=== PATIENT | male | born 1965 | race Hispanic/Latino ===

== ENCOUNTER 2017-07-06 11:16 | Inpatient (IN) | payer BC ==
--- NOTE | 2017-07-07 05:29 | R.PREADM ---
SCREENING DATE AND TIME 07/06/2017 14:08 (CDT) ANTICIPATED REHAB ADMISSION DATE 07/08/2017 REFERRING FACILITY [facility] REFERRAL DATE AND TIME 07/06/2017 14:09 (CDT) ACUTE ADMIT DATE 06/25/2017 Previous Rehabilitation(s): No. 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 Andrew Escalona M.D. MR# [id number] NAME CYNTHIA JENESN ADDRESS [address] [place] [address] DATE OF 1965 AGE 52 SSN# [id number] GENDER male MARITAL STATUS RACE ADMIT FROM 02 - [facility] PRE-HOSPITAL LIVING SETTING 01 - Home (private home/apt. board/care, assisted living, detention, transitional living) HOME TYPE AND DETAILS Type of home: single family house # of levels in the residence: 1 # of steps to enter the residence: 0 # of steps within the residence: 0 PRE-HOSPITAL LIVING WITH Family/Relatives FAMILY SUPPORT Yes PRIMARY FAMILY CONTACT NAME Lauren Jensen PRIMARY FAMILY CONTACT PHONE PHONE PRIMARY FAMILY CONTACT ON ADM.? no IS PRIMARY FAMILY CONTACT AUTH. REP.? no 1ST EMERGENCY CONTACT Lauren Jensen 1ST CONTACT PHONE PHONE 1ST CONTACT ON ADM. no IS 1ST CONTACT AUTH. REP.? no PHONE 2ND CONTACT ON ADM.? no PATIENT EMPLOYMENT STATUS Employed House Wirer Helper PAYOR INFORMATION: 1ST PAYOR NAME [employer] 1ST PAYOR ` INJURY/ILLNESS DUE TO ACCIDENT? No ANOTHER GREEN PARTY RESPONSIBLE? 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 COMORBID REHAB/ACUTE DIAGNOSES: - Non-Tiered Type 2 diabetes mellitus [E11] HIV CHRONIC HEPATITIS C FATTY LIVER - N/A hypertension INTERVENTIONS: - Hypertension Fluid management Medications VS - HIV Education Labs Nutrition Precautions Psycho/social RISK FOR COMPLICATIONS: - Hypertension CVA Hypotension VA TIA - HIV Dehydration Infection Malnutrition SUMMARY OF ACUTE HOSPITALIZATION: Pt. is a 52 yo Right-handed male. 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 His impairment category is Neurologic Conditions 03 - Guillain-[place] Syndrome (03.4). Pre-morbidly, Pt. was independent/mod-I in Self-Care, Sphincter Control, Transfers Control, Communica tion, Social Cognition, and Locomotion; and he had good Sphincter Control. Currently, he has deficits of Self-Care, Transfers Control, Communication, Social Cognition, Enduranc e, Balance, Safety Awareness, and Locomotion. Pt. is now referred to [facility] for acute in-patient rehabilitation in order to maximize patient's functional independence in activities of daily living, strength, ROM, and mobi lity. Patient has realistic goal of being discharged at assistance level 6-Dhara to reside at Home with Fam shant/Relatives. PAST MEDICAL HISTORY CHRONIC HEPATITIS C FATTY LIVER HIV Type 2 diabetes mellitus [E11] hypertension MEDICATION ALLERGIES: CODEINE ENVIRONMENTAL ALLERGIES: - Substance Allergies None Known - Other Allergies None Known CODE STATUS: Full code BMI N/A DIET: - Diet Type Regular - Diet - Solid Texture Regular - Diet - Liquid Texture Regular - Tube Feed N/A REVIEW OF SYSTEMS: - Gen Alert and awake Lying in bed No apparent distress Oriented to: person, time, and place - Vital Signs Vital signs stable, afebrile - CVS RRR VITAL SIGNS Temperature: 96.9 F SBP/DBP: 164/85 Pulse: 84 Resp: 20 Vital signs stable, afebrile CURRENT SPHINCTER CONTROL: Pre-hospital bladder status: continent # of bladder accidents in the last 7 days prior to screenin Pre-hospital bowel status: continent # of bowel accidents in the last 7 days prior to screenin Last Bowel Movement Date: 07/06/2017 DETAILED CURRENT FUNCTIONAL STATUS: - Bladder accident frequency: Ind - No accidents in the past 7 days - Bowel accident frequency: Ind - No accidents in the past 7 days - Walking score based on distance walked: 0(N/A) FUNCTIONAL STATUS: - Self-Care A. Eating Ind sup B. Grooming Ind Satinder C. Bathing Ind modA D. Dressing - Upper Ind modA E. Dressing - Lower Ind modA F. Toileting Ind modA - Sphincter Control G: Bladder control Ind Ind H: Bowel control Ind Ind - Transfers Control I. Bed/Chair/Wheelchair Ind modA J. Toilet Ind modA K. Tub/Shower Ind ADNO - Locomotion L. Walk/Wheelchair (B) Ind Dep M. Stairs Ind ADNO - Communication N. Comprehension (B) Ind sup O. Expression (B) Ind sup - Social Cognition P. Social Interaction Ind sup Q. Problem Solving Ind sup R. Memory Ind Dhara - Endurance Poor - Balance Poor - Safety Awareness Poor CURRENT FUNC. DEFICITS: Self-Care, Transfers Control, Communication, Social Cognition, Endurance, Balance, Safety Awareness, and Locomotion THERAPY NOTES FROM ACUTE CARE: Attached. SPECIAL NEEDS: - Safety Concerns Skin breakdown precautions needed due to skin breakdown risk PATIENT NEEDS ACTIVE AND ONGOING THERAPEUTIC INTERVENTION OF MULTIPLE THERAPY DISCIPLINES, INCLUDING: - Occupational Therapy Evaluate and Treat. - Physical Therapy Evaluate and Treat. PATIENT NEEDS CLOSE MEDICAL SUPERVISION BY A REHABILITATION PHYSICIAN FOR: Bowel and Bladder Management Coordination of Treatment Team Diabetes Management Medical and Co-Morbidity Management PATIENT REQUIRES 24X7 REHAB NURSING FOR MEDICAL AND FUNCTIONAL MGT. OF THE FOLLOWING DEFICITS: ADL's Ambulation Bowel and Bladder Management Cognition Communication Disease Management Medication Management Patient/Family Education Providing Safe Environment Transfers PATIENT REQUIRES INTENSIVE, COORDINATED INTERDISCIPLINARY APPROACH TO REHAB: Arranging Home Equipment/Services Discharge Planning Family Intervention/Training Drywall Finisher/Case Management PATIENT REHAB POTENTIAL: Expected level of measurable improvement will be of a practical value to patient's functional capacit y or adaptations to impairments Has a viable Discharge Plan Medically appropriate; condition is sufficiently stable to participate in intensive rehab program Patient is able and expected to receive 3 hours of individualized therapy daily on at least 5 of ever y 7 days Patient's prognosis for significant practical improvement within a reasonable period of time appears Good DISCHARGE PLAN: - Estimated Length of Stay (days) 20. - Consensus on plan Discharge plan has been discussed with primary caregiver. Patient/Family is in agreement with the eri n. Primary caregiver is in agreement with the plan. - Patient/Family Goals Return home with assistance. - Planned Living Setting Upon Discharge Home, to live with Family/Relatives. RECOMMENDED CARE LEVEL: IRF RECOMMENDATION DETAILS: Recommended Admission to Comprehensive Rehabilitation Program to Increase Functional Schley SCREENER'S COMPLETENESS CONFIRMATION: - Screening Confirmation The patient data collection on this preadmission screening form is finished PHYSICIANS REVIEW AND ADMISSION DETERMINATION Admit - Based on my review of the Pre-Admission Screening results, in my medical judgment and experie nce, I concur with the findings and recommend admission to [facility], as this patient requires an IRF level of care. SIGNATURE PANEL: Clinical Liaison - [electronically] signed by Graciela Lozoya on 07/06/2017 at 14:25 (CDT) Clinical Liaison - [electronically] signed by David Hope PT on 07/06/2017 at 14:44 (CDT) Physician Reviewer - [electronically] signed by Dr. Andrew Escalona M.D. on 07/07/2017 at 04:31 (CDT )
--- OUTSIDE RECORDS SUMMARY | 2017-07-10 20:22 | XMS REPORT ---
:1965 [facility] [address] [place] [address] Care Team Providers Name Role Phone Bhupinder COONEYManisha NICOL Unavailable Unavailable Problems This patient has no known problems. Allergies, Adverse Reactions, Alerts This patient has no known allergies or adverse reactions. Medications This patient has no known medications. Results Test Description Test Time Test Comments Text Results Atomic Results Result Comments POCT-GLUCOSE METER 2017-07-10 17:08:00 Test Item Value Reference Range Comments POC-GLUCOSE METER (BEAKER) (test 104 mg/dL 70-[address] [facility] [address] [facility] ojjf=3619) [facility] [address] POCT-GLUCOSE [id number] 11:49:00 Test Item Value Reference Range Comments POC-GLUCOSE METER (BEAKER) 111 mg/dL 70-110 TESTED AT [address] (test dpgq=3506) [facility] [address] CBC W/PLT COUNT & AUTO [id number] 08:14:00 Test Item Value Reference Range Comments WHITE BLOOD CELL COUNT (BEAKER) (test xyjt=095) 4.9 K/ L 3.5-10.5 RED BLOOD CELL COUNT (BEAKER) (test bgij=294) 3.62 M/ L 4.63-6.08 HEMOGLOBIN (BEAKER) (test sviy=246) 10.2 GM/DL 13.7-17.5 HEMATOCRIT (BEAKER) (test chyf=691) 30.4 % 40.1-51.0 MEAN CORPUSCULAR VOLUME (BEAKER) (test omiq=896) 84.0 fL 79.0-92.2 MEAN CORPUSCULAR HEMOGLOBIN (BEAKER) (test 28.2 pg 25.7-32.2 yzge=657) MEAN CORPUSCULAR HEMOGLOBIN CONC (BEAKER) (test 33.6 GM/DL 32.3-36.5 hdvn=350) RED CELL DISTRIBUTION WIDTH (BEAKER) (test 13.7 % 11.6-14.4 dxps=574) PLATELET COUNT (BEAKER) (test pijn=134) 150 K/CU MM 150-450 MEAN PLATELET VOLUME (BEAKER) (test fert=095) 8.8 fL 9.4-12.4 NUCLEATED RED BLOOD CELLS (BEAKER) (test 0 /100 WBC 0-0 fxoc=859) NEUTROPHILS RELATIVE PERCENT (BEAKER) (test 25 % xecx=714) LYMPHOCYTES RELATIVE PERCENT (BEAKER) (test 60 % yqze=562) MONOCYTES RELATIVE PERCENT (BEAKER) (test 9 % xyxy=013) EOSINOPHILS RELATIVE PERCENT (BEAKER) (test 5 % mcls=395) BASOPHILS RELATIVE PERCENT (BEAKER) (test 0 % ydcg=939) NEUTROPHILS ABSOLUTE COUNT (BEAKER) (test 1.21 K/ L 1.78-5.38 fypy=569) LYMPHOCYTES ABSOLUTE COUNT (BEAKER) (test 2.93 K/ L 1.32-3.57 iwba=652) MONOCYTES ABSOLUTE COUNT (BEAKER) (test 0.43 K/ L 0.30-0.82 kuym=402) EOSINOPHILS ABSOLUTE COUNT (BEAKER) (test 0.26 K/ L 0.04-0.54 qcrj=926) BASOPHILS ABSOLUTE COUNT (BEAKER) (test 0.02 K/ L 0.01-0.08 fvsg=701) IMMATURE GRANULOCYTES-RELATIVE PERCENT (BEAKER) 0 % 0-1 (test symo=6131) (MANUAL DIFFERENTIAL)2017-07-10 08:14:00 Test Item Value Reference Range Comments TOTAL COUNTED (BEAKER) (test qlje=3178) POCT-GLUCOSE [id number] 08:09:00 Test Item Value Reference Range Comments POC-GLUCOSE METER (BEAKER) 93 mg/dL 70-110 TESTED AT [address] (test qqcg=7546) [facility] [address] [id number] 06:31:00 Test Item Value Reference Range Comments SODIUM (BEAKER) (test jpdo=956) 131 meq/L 136-145 POCT-GLUCOSE [id number] 22:14:00 Test Item Value Reference Range Comments POC-GLUCOSE METER (BEAKER) 214 mg/dL 70-110 TESTED AT [address] (test ibcq=7310) [place] [address] POCT-GLUCOSE [id number] 22:01:00 Test Item Value Reference Range Comments POC-GLUCOSE METER (BEAKER) 211 mg/dL 70-110 TESTED AT [address] (test noxf=6528) [place] [address] POCT-GLUCOSE [id number] 17:28:00 Test Item Value Reference Range Comments POC-GLUCOSE METER (BEAKER) 259 mg/dL 70-110 TESTED AT [address] (test vebl=0950) [place] [address] POCT-GLUCOSE [id number] 12:35:00 Test Item Value Reference Range Comments POC-GLUCOSE METER (BEAKER) 245 mg/dL 70-110 TESTED AT [address] (test rkrj=5749) [place] [address] [id number] 11:05:00 Test Item Value Reference Range Comments SODIUM (BEAKER) (test iyox=230) 130 meq/L 136-145 POCT-GLUCOSE [id number] 09:39:00 Test Item Value Reference Range Comments POC-GLUCOSE METER (BEAKER) 136 mg/dL 70-110 TESTED AT [address] (test lvgn=4828) [place] [address] CBC W/PLT COUNT & AUTO [id number] 08:35:00 Test Item Value Reference Range Comments WHITE BLOOD CELL COUNT (BEAKER) (test xxgj=709) 5.1 K/ L 3.5-10.5 RED BLOOD CELL COUNT (BEAKER) (test ztoz=991) 3.66 M/ L 4.63-6.08 HEMOGLOBIN (BEAKER) (test ljac=048) 10.2 GM/DL 13.7-17.5 HEMATOCRIT (BEAKER) (test kuwv=343) 31.0 % 40.1-51.0 MEAN CORPUSCULAR VOLUME (BEAKER) (test rklv=500) 84.7 fL 79.0-92.2 MEAN CORPUSCULAR HEMOGLOBIN (BEAKER) (test 27.9 pg 25.7-32.2 mfwg=746) MEAN CORPUSCULAR HEMOGLOBIN CONC (BEAKER) (test 32.9 GM/DL 32.3-36.5 jpzw=269) RED CELL DISTRIBUTION WIDTH (BEAKER) (test 13.8 % 11.6-14.4 yesn=273) PLATELET COUNT (BEAKER) (test aeig=760) 160 K/CU MM 150-450 MEAN PLATELET VOLUME (BEAKER) (test kdxx=792) 9.2 fL 9.4-12.4 NUCLEATED RED BLOOD CELLS (BEAKER) (test 0 /100 WBC 0-0 lrpp=739) NEUTROPHILS RELATIVE PERCENT (BEAKER) (test 27 % fmfj=059) LYMPHOCYTES RELATIVE PERCENT (BEAKER) (test 59 % zatn=750) MONOCYTES RELATIVE PERCENT (BEAKER) (test 9 % ggqq=073) EOSINOPHILS RELATIVE PERCENT (BEAKER) (test 4 % mjqr=229) BASOPHILS RELATIVE PERCENT (BEAKER) (test 0 % ldfb=924) NEUTROPHILS ABSOLUTE COUNT (BEAKER) (test 1.35 K/ L 1.78-5.38 jhgx=999) LYMPHOCYTES ABSOLUTE COUNT (BEAKER) (test 3.02 K/ L 1.32-3.57 eggv=437) MONOCYTES ABSOLUTE COUNT (BEAKER) (test 0.47 K/ L 0.30-0.82 oszv=165) EOSINOPHILS ABSOLUTE COUNT (BEAKER) (test 0.20 K/ L 0.04-0.54 pvsk=130) BASOPHILS ABSOLUTE COUNT (BEAKER) (test 0.02 K/ L 0.01-0.08 pema=878) IMMATURE GRANULOCYTES-RELATIVE PERCENT (BEAKER) 0 % 0-1 (test thof=4575) POCT-GLUCOSE [id number] 22:36:00 Test Item Value Reference Range Comments POC-GLUCOSE METER (BEAKER) 205 mg/dL 70-110 TESTED AT [address] (test xtqu=6363) [place] [id number] POCT-GLUCOSE [id number] 15:56:00 Test Item Value Reference Range Comments POC-GLUCOSE METER (BEAKER) 134 mg/dL 70-110 TESTED AT [address] (test cifb=1448) [facility] [address] CBC W/PLT COUNT & AUTO [id number] 12:33:00 Test Item Value Reference Range Comments WHITE BLOOD CELL COUNT (BEAKER) (test ssom=144) 5.3 K/ L 3.5-10.5 RED BLOOD CELL COUNT (BEAKER) (test xafn=658) 3.73 M/ L 4.63-6.08 HEMOGLOBIN (BEAKER) (test vsoi=699) 10.5 GM/DL 13.7-17.5 HEMATOCRIT (BEAKER) (test uocz=721) 31.7 % 40.1-51.0 MEAN CORPUSCULAR VOLUME (BEAKER) (test qrdn=925) 85.0 fL 79.0-92.2 MEAN CORPUSCULAR HEMOGLOBIN (BEAKER) (test 28.2 pg 25.7-32.2 ebvj=212) MEAN CORPUSCULAR HEMOGLOBIN CONC (BEAKER) (test 33.1 GM/DL 32.3-36.5 oyff=774) RED CELL DISTRIBUTION WIDTH (BEAKER) (test 13.6 % 11.6-14.4 hvoa=774) PLATELET COUNT (BEAKER) (test rapo=295) 162 K/CU MM 150-450 MEAN PLATELET VOLUME (BEAKER) (test qwhw=078) 9.0 fL 9.4-12.4 NUCLEATED RED BLOOD CELLS (BEAKER) (test 0 /100 WBC 0-0 jaxy=037) NEUTROPHILS RELATIVE PERCENT (BEAKER) (test 26 % agth=138) LYMPHOCYTES RELATIVE PERCENT (BEAKER) (test 60 % dpvd=388) MONOCYTES RELATIVE PERCENT (BEAKER) (test 10 % zpjx=249) EOSINOPHILS RELATIVE PERCENT (BEAKER) (test 4 % hhqs=632) BASOPHILS RELATIVE PERCENT (BEAKER) (test 0 % aizb=919) NEUTROPHILS ABSOLUTE COUNT (BEAKER) (test 1.40 K/ L 1.78-5.38 gzbh=310) LYMPHOCYTES ABSOLUTE COUNT (BEAKER) (test 3.19 K/ L 1.32-3.57 xcyq=156) MONOCYTES ABSOLUTE COUNT (BEAKER) (test 0.52 K/ L 0.30-0.82 rfxi=381) EOSINOPHILS ABSOLUTE COUNT (BEAKER) (test 0.20 K/ L 0.04-0.54 bbnb=667) BASOPHILS ABSOLUTE COUNT (BEAKER) (test 0.02 K/ L 0.01-0.08 pwyi=175) IMMATURE GRANULOCYTES-RELATIVE PERCENT (BEAKER) 0 % 0-1 (test nrep=4079) (MANUAL DIFFERENTIAL)2017-07-08 12:33:00 Test Item Value Reference Range Comments TOTAL COUNTED (BEAKER) (test uldq=1214) WBC MORPHOLOGY (BEAKER) (test rqix=346) Normal PLT MORPHOLOGY (BEAKER) (test mzss=112) Normal ANISOCYTOSIS (BEAKER) (test zyyh=294) 1+ few HYPOCHROMIA (BEAKER) (test noqj=723) 1+ few MACROCYTES (BEAKER) (test aoid=317) 1+ few POIKILOCYTES (BEAKER) (test tprs=178) 1+ few POCT-GLUCOSE [id number] 12:28:00 Test Item Value Reference Range Comments POC-GLUCOSE METER (BEAKER) 118 mg/dL 70-110 TESTED AT [address] (test utxk=5253) [place] [address] [id number] 07:55:00 Test Item Value Reference Range Comments MAGNESIUM (BEAKER) (test mqtd=483) 1.8 mg/dL 1.6-2.6 [id number] 07:55:00 Test Item Value Reference Range Comments SODIUM (BEAKER) (test jydu=885) 129 meq/L 136-145 POCT-GLUCOSE [id number] 07:36:00 Test Item Value Reference Range Comments POC-GLUCOSE METER (BEAKER) 106 mg/dL 70-110 TESTED AT [address] (test zhog=5932) [place] [address] POCT-GLUCOSE [id number] 21:13:00 Test Item Value Reference Range Comments POC-GLUCOSE METER (BEAKER) 163 mg/dL 70-110 TESTED AT [address] (test jjah=4336) [place] [address] HIV-1 PCR, [id number] 20:24:00 Test Item Value Reference Range Comments HIV-1 NUMERIC RESULT (BEAKER) (test gzut=5836) [id number] Cp/mL <20 This test uses a Real-Time Polymerase Chain Reaction (RT-PCR) methodology to detect a highly conserved region of the HIV-1 gag gene and was performed using the [employer] AmpliPrep/KELVIN TaqMan HIV-1 test kit version 2.0 ([employer]Reportable range for this assay is 20 - 10,000,000 copies per mL (1.3 - 7.0 Log copies/mL).[id number] 17:25:00 Test Item Value Reference Range Comments SODIUM (BEAKER) (test mmwm=575) 131 meq/L 136-145 POCT-GLUCOSE [id number] 17:17:00 Test Item Value Reference Range Comments POC-GLUCOSE METER (BEAKER) 130 mg/dL 70-[address] [facility] [address] (test tvvz=5789) [facility] [address] CD4 T CELL [id number] 12:38:00 Test Item Value Reference Range Comments CD4/CD8 RATIO FC (BEAKER) (test wkkq=9197) 0.32 0.70-3.23 CBC W/PLT COUNT & AUTO [id number] 12:02:00 Test Item Value Reference Range Comments WHITE BLOOD CELL COUNT (BEAKER) (test pkqu=179) 5.0 K/ L 3.5-10.5 RED BLOOD CELL COUNT (BEAKER) (test wtgu=727) 3.87 M/ L 4.63-6.08 HEMOGLOBIN (BEAKER) (test mfpr=252) 10.8 GM/DL 13.7-17.5 HEMATOCRIT (BEAKER) (test bdtf=007) 32.9 % 40.1-51.0 MEAN CORPUSCULAR VOLUME (BEAKER) (test qwwq=579) 85.0 fL 79.0-92.2 MEAN CORPUSCULAR HEMOGLOBIN (BEAKER) (test 27.9 pg 25.7-32.2 djom=444) MEAN CORPUSCULAR HEMOGLOBIN CONC (BEAKER) (test 32.8 GM/DL 32.3-36.5 crac=246) RED CELL DISTRIBUTION WIDTH (BEAKER) (test 13.7 % 11.6-14.4 shxg=969) PLATELET COUNT (BEAKER) (test vovt=356) 164 K/CU MM 150-450 MEAN PLATELET VOLUME (BEAKER) (test bfux=197) 8.5 fL 9.4-12.4 NUCLEATED RED BLOOD CELLS (BEAKER) (test 0 /100 WBC 0-0 nnbd=206) NEUTROPHILS RELATIVE PERCENT (BEAKER) (test 23 % njkh=831) LYMPHOCYTES RELATIVE PERCENT (BEAKER) (test 62 % gehu=060) MONOCYTES RELATIVE PERCENT (BEAKER) (test 11 % fkvy=551) EOSINOPHILS RELATIVE PERCENT (BEAKER) (test 4 % ebpb=120) BASOPHILS RELATIVE PERCENT (BEAKER) (test 1 % lspb=809) NEUTROPHILS ABSOLUTE COUNT (BEAKER) (test 1.16 K/ L 1.78-5.38 jvje=899) LYMPHOCYTES ABSOLUTE COUNT (BEAKER) (test 3.10 K/ L 1.32-3.57 qfad=512) MONOCYTES ABSOLUTE COUNT (BEAKER) (test 0.53 K/ L 0.30-0.82 qvce=006) EOSINOPHILS ABSOLUTE COUNT (BEAKER) (test 0.18 K/ L 0.04-0.54 wfha=175) BASOPHILS ABSOLUTE COUNT (BEAKER) (test 0.04 K/ L 0.01-0.08 wvvw=732) IMMATURE GRANULOCYTES-RELATIVE PERCENT (BEAKER) 1 % 0-1 (test nlle=7244) (MANUAL DIFFERENTIAL)2017-07-07 12:02:00 Test Item Value Reference Range Comments TOTAL COUNTED (BEAKER) (test gjwq=8212) POCT-GLUCOSE [id number] 11:50:00 Test Item Value Reference Range Comments POC-GLUCOSE METER (BEAKER) 89 mg/dL 70-110 TESTED AT [address] (test qisb=6791) [place] [id number] POCT-GLUCOSE [id number] 07:42:00 Test Item Value Reference Range Comments POC-GLUCOSE METER (BEAKER) 71 mg/dL 70-110 TESTED AT [address] (test zzmq=1387) [place] [address] [id number] 07:41:00 Test Item Value Reference Range Comments PHOSPHORUS (BEAKER) (test lvdy=677) 4.0 mg/dL 2.3-4.7 [id number] 07:41:00 Test Item Value Reference Range Comments MAGNESIUM (BEAKER) (test ubrn=807) 1.7 mg/dL 1.6-2.6 [id number] 07:41:00 Test Item Value Reference Range Comments SODIUM (BEAKER) (test qtuw=378) 129 meq/L 136-145 BASIC METABOLIC [id number] 07:41:00 Test Item Value Reference Range Comments SODIUM (BEAKER) (test 129 meq/L 136-145 whxu=266) POTASSIUM (BEAKER) (test 4.7 meq/L 3.5-5.1 olqo=275) CHLORIDE (BEAKER) (test 100 meq/L 98-107 uyua=711) CO2 (BEAKER) (test 24 meq/L 22-29 atsa=502) BLOOD UREA NITROGEN 14 mg/dL 7-21 (BEAKER) (test wuxj=573) CREATININE (BEAKER) (test 0.65 mg/dL 0.57-1.25 kfku=371) GLUCOSE RANDOM (BEAKER) 79 mg/dL 70-105 (test okpb=116) CALCIUM (BEAKER) (test 8.6 mg/dL 8.4-10.2 kyhb=403) EGFR (BEAKER) (test 129 mL/min/1.73 sq m ESTIMATED GFR IS NOT kqmm=5193) ACCURATE CREATININE CLEARANCE IN PREDICTING GLOMERULAR FILTRATION RATE. ESTIMATED GFR IS NOT APPLICABLE FOR DIALYSIS PATIENTS. CALCIUM, [id number] 06:54:00 Test Item Value Reference Range Comments CALCIUM IONIZED (BEAKER) (test ojud=744) 1.03 mmol/L 1.12-1.27 PH, BLOOD (BEAKER) (test mxfk=7101) 7.50 POCT-GLUCOSE [id number] 23:59:00 Test Item Value Reference Range Comments POC-GLUCOSE METER (BEAKER) 188 mg/dL 70-110 TESTED AT [address] (test tckr=9668) [place] [id number] POCT-GLUCOSE [id number] 18:08:00 Test Item Value Reference Range Comments POC-GLUCOSE METER (BEAKER) 199 mg/dL 70-110 TESTED AT [address] (test qihj=0872) [place] [id number] BASIC METABOLIC [id number] 17:27:00 Test Item Value Reference Range Comments SODIUM (BEAKER) (test 130 meq/L 136-145 xfio=793) POTASSIUM (BEAKER) (test 4.3 meq/L 3.5-5.1 wfbl=224) CHLORIDE (BEAKER) (test 99 meq/L 98-107 hrfs=886) CO2 (BEAKER) (test 26 meq/L 22-29 cmwn=539) BLOOD UREA NITROGEN 14 mg/dL 7-21 (BEAKER) (test joqo=878) CREATININE (BEAKER) (test 0.69 mg/dL 0.57-1.25 wduy=225) GLUCOSE RANDOM (BEAKER) 163 mg/dL 70-105 (test latp=496) CALCIUM (BEAKER) (test 8.5 mg/dL 8.4-10.2 cjfd=517) EGFR (BEAKER) (test 120 mL/min/1.73 sq m ESTIMATED GFR IS NOT jtkl=8752) ACCURATE CREATININE CLEARANCE IN PREDICTING GLOMERULAR FILTRATION RATE. ESTIMATED GFR IS NOT APPLICABLE FOR DIALYSIS PATIENTS. Call [id number] T CELL [id number] 14:52:00 Test Item Value Reference Range Comments CD4/CD8 RATIO FC (BEAKER) (test evfq=0798) 0.33 0.70-3.23 POCT-GLUCOSE [id number] 11:17:00 Test Item Value Reference Range Comments POC-GLUCOSE METER (BEAKER) 116 mg/dL 70-[address] [facility] [address] [facility] (test ujne=4994) [facility] [address] CBC W/PLT COUNT & AUTO [id number] 09:40:00 Test Item Value Reference Range Comments WHITE BLOOD CELL COUNT (BEAKER) (test lyuf=636) 4.5 K/ L 3.5-10.5 RED BLOOD CELL COUNT (BEAKER) (test yzie=780) 3.71 M/ L 4.63-6.08 HEMOGLOBIN (BEAKER) (test weqw=567) 10.4 GM/DL 13.7-17.5 HEMATOCRIT (BEAKER) (test guxp=099) 31.1 % 40.1-51.0 MEAN CORPUSCULAR VOLUME (BEAKER) (test dcom=894) 83.8 fL 79.0-92.2 MEAN CORPUSCULAR HEMOGLOBIN (BEAKER) (test 28.0 pg 25.7-32.2 pdwx=546) MEAN CORPUSCULAR HEMOGLOBIN CONC (BEAKER) (test 33.4 GM/DL 32.3-36.5 wkmr=449) RED CELL DISTRIBUTION WIDTH (BEAKER) (test 13.6 % 11.6-14.4 mzot=355) PLATELET COUNT (BEAKER) (test aqdj=238) 160 K/CU MM 150-450 MEAN PLATELET VOLUME (BEAKER) (test ytmf=069) 8.1 fL 9.4-12.4 NUCLEATED RED BLOOD CELLS (BEAKER) (test 0 /100 WBC 0-0 lyqq=311) NEUTROPHILS RELATIVE PERCENT (BEAKER) (test 20 % uzjq=568) LYMPHOCYTES RELATIVE PERCENT (BEAKER) (test 65 % qjhh=584) MONOCYTES RELATIVE PERCENT (BEAKER) (test 12 % pakq=508) EOSINOPHILS RELATIVE PERCENT (BEAKER) (test 2 % mrik=086) BASOPHILS RELATIVE PERCENT (BEAKER) (test 0 % fozg=893) NEUTROPHILS ABSOLUTE COUNT (BEAKER) (test 0.90 K/ L 1.78-5.38 hyra=606) LYMPHOCYTES ABSOLUTE COUNT (BEAKER) (test 2.89 K/ L 1.32-3.57 urja=668) MONOCYTES ABSOLUTE COUNT (BEAKER) (test 0.55 K/ L 0.30-0.82 jsxe=640) EOSINOPHILS ABSOLUTE COUNT (BEAKER) (test 0.10 K/ L 0.04-0.54 cnwg=348) BASOPHILS ABSOLUTE COUNT (BEAKER) (test 0.02 K/ L 0.01-0.08 mpwl=157) IMMATURE GRANULOCYTES-RELATIVE PERCENT (BEAKER) 0 % 0-1 (test qerz=9958) (MANUAL DIFFERENTIAL)2017-07-06 09:40:00 Test Item Value Reference Range Comments TOTAL COUNTED (BEAKER) (test lliy=6119) PLT MORPHOLOGY (BEAKER) (test dwpz=998) Normal RBC MORPHOLOGY (BEAKER) (test siii=959) Normal ATYPICAL LYMPHS(BEAKER) (test sqpb=7202) Present POCT-GLUCOSE [id number] 09:04:00 Test Item Value Reference Range Comments POC-GLUCOSE METER (BEAKER) 92 mg/dL 70-[address] [facility] [address] [facility] (test ofai=1054) [facility] [address] CALCIUM, [id number] 08:22:00 Test Item Value Reference Range Comments CALCIUM IONIZED (BEAKER) (test ebvr=289) 0.93 mmol/L 1.12-1.27 PH, BLOOD (BEAKER) (test kohx=4958) 7.50 [id number] 06:47:00 Test Item Value Reference Range Comments PHOSPHORUS (BEAKER) (test ycwy=533) 3.8 mg/dL 2.3-4.7 [id number] 06:47:00 Test Item Value Reference Range Comments MAGNESIUM (BEAKER) (test dzdl=465) 1.9 mg/dL 1.6-2.6 [id number] 06:47:00 Test Item Value Reference Range Comments SODIUM (BEAKER) (test amip=718) 121 meq/L 136-145 POCT-GLUCOSE [id number] 21:32:00 Test Item Value Reference Range Comments POC-GLUCOSE METER (BEAKER) 210 mg/dL 70-110 TESTED AT [address] (test bwuz=8541) [place] [address] POCT-GLUCOSE [id number] 18:18:00 Test Item Value Reference Range Comments POC-GLUCOSE METER (BEAKER) 204 mg/dL 70-110 TESTED AT [address] (test xgtz=9515) [place] [address] [id number] 16:54:00 Test Item Value Reference Range Comments SODIUM (BEAKER) (test vzdc=362) 126 meq/L 136-145 POCT-GLUCOSE [id number] 11:39:00 Test Item Value Reference Range Comments POC-GLUCOSE METER (BEAKER) 73 mg/dL 70-110 TESTED AT [address] (test lgtd=3051) [place] [address] TOXOPLASMA GONDII ANTIBODY, [id number] 10:36:00 Test Item Value Reference Range Comments TOXOPLASMA GONDII IGG (BEAKER) (test egqr=951) Positive RICKETTSIA AB PANEL WITH REFLEX TO [id number] 08:58:00 Test Item Value Reference Range Comments SCAN RESULT (test zlgh=[id number]) POCT-GLUCOSE [id number] 08:25:00 Test Item Value Reference Range Comments POC-GLUCOSE METER (BEAKER) 80 mg/dL 70-110 TESTED AT [address] (test fshc=7727) [place] [address] CBC W/PLT COUNT & AUTO [id number] 07:42:00 Test Item Value Reference Range Comments WHITE BLOOD CELL COUNT (BEAKER) (test tsws=493) 4.9 K/ L 3.5-10.5 RED BLOOD CELL COUNT (BEAKER) (test njxp=484) 3.82 M/ L 4.63-6.08 HEMOGLOBIN (BEAKER) (test wwza=550) 10.6 GM/DL 13.7-17.5 HEMATOCRIT (BEAKER) (test nojp=953) 32.0 % 40.1-51.0 MEAN CORPUSCULAR VOLUME (BEAKER) (test fpqn=187) 83.8 fL 79.0-92.2 MEAN CORPUSCULAR HEMOGLOBIN (BEAKER) (test 27.7 pg 25.7-32.2 wvme=679) MEAN CORPUSCULAR HEMOGLOBIN CONC (BEAKER) (test 33.1 GM/DL 32.3-36.5 dhwz=788) RED CELL DISTRIBUTION WIDTH (BEAKER) (test 13.4 % 11.6-14.4 sodb=329) PLATELET COUNT (BEAKER) (test cnyx=248) 168 K/CU MM 150-450 MEAN PLATELET VOLUME (BEAKER) (test rdkc=491) 8.3 fL 9.4-12.4 NUCLEATED RED BLOOD CELLS (BEAKER) (test 0 /100 WBC 0-0 bpfa=259) IMMATURE GRANULOCYTES-RELATIVE PERCENT (BEAKER) 0 % 0-1 (test jzcs=8351) (MANUAL DIFFERENTIAL)2017-07-05 07:42:00 Test Item Value Reference Range Comments NEUTROPHILS - REL (DIFF) (BEAKER) (test ancj=7315) 20 % LYMPHOCYTES - REL (DIFF) (BEAKER) (test amhq=6243) 63 % MONOCYTES - REL (DIFF) (BEAKER) (test qamv=5695) 13 % EOSINOPHILS - REL (DIFF) (BEAKER) (test lwmi=9284) 0 % BASOPHILS - REL (DIFF) (BEAKER) (test esux=1245) 0 % BANDS - REL (DIFF) (BEAKER) (test jayf=0506) 4 % 0-10 NEUTROPHILS - ABS (DIFF) (BEAKER) (test hbsx=6965) 0.98 K/ L 1.80-8.00 LYMPHOCYTES - ABS (DIFF) (BEAKER) (test nyod=2660) 3.09 K/ L 1.48-4.50 MONOCYTES - ABS (DIFF) (BEAKER) (test uqex=5808) 0.64 K/ L 0.00-1.30 EOSINOPHILS - ABS (DIFF) (BEAKER) (test glbm=4636) 0.00 K/ L 0.00-0.50 BASOPHILS - ABS (DIFF) (BEAKER) (test nofw=8764) 0.00 K/ L 0.00-0.20 BANDS-ABS (DIFF) (BEAKER) (test gllp=2222) 0.2 K/ L 0.0-0.8 TOTAL COUNTED (BEAKER) (test onxg=2541) 100 BANDS + SEGMENTED NEUTROPHILS (BEAKER) (test 1.18 eqbq=2820) WBC MORPHOLOGY (BEAKER) (test dahb=594) Normal PLT MORPHOLOGY (BEAKER) (test glop=194) Normal RBC MORPHOLOGY (BEAKER) (test wfet=233) Normal CALCIUM, [id number] 07:36:00 Test Item Value Reference Range Comments CALCIUM IONIZED (BEAKER) (test hqvt=789) 1.08 mmol/L 1.12-1.27 PH, BLOOD (BEAKER) (test gacx=8408) 7.46 [id number] 04:57:00 Test Item Value Reference Range Comments PHOSPHORUS (BEAKER) (test bvpu=316) 4.0 mg/dL 2.3-4.7 [id number] 04:57:00 Test Item Value Reference Range Comments MAGNESIUM (BEAKER) (test bufg=877) 1.7 mg/dL 1.6-2.6 [id number] 04:57:00 Test Item Value Reference Range Comments SODIUM (BEAKER) (test weco=887) 130 meq/L 136-145 BASIC METABOLIC [id number] 04:57:00 Test Item Value Reference Range Comments SODIUM (BEAKER) (test 130 meq/L 136-145 bzqf=141) POTASSIUM (BEAKER) (test 4.4 meq/L 3.5-5.1 ofxn=846) CHLORIDE (BEAKER) (test 99 meq/L 98-107 okpa=522) CO2 (BEAKER) (test 26 meq/L 22-29 ptyw=453) BLOOD UREA NITROGEN 14 mg/dL 7-21 (BEAKER) (test kkvo=645) CREATININE (BEAKER) (test 0.63 mg/dL 0.57-1.25 gkys=005) GLUCOSE RANDOM (BEAKER) 136 mg/dL 70-105 (test ajff=172) CALCIUM (BEAKER) (test 8.6 mg/dL 8.4-10.2 ufzm=442) EGFR (BEAKER) (test 133 mL/min/1.73 sq m ESTIMATED GFR IS NOT gndp=3183) ACCURATE CREATININE CLEARANCE IN PREDICTING GLOMERULAR FILTRATION RATE. ESTIMATED GFR IS NOT APPLICABLE FOR DIALYSIS PATIENTS. [id number] 21:46:00 Test Item Value Reference Range Comments SODIUM (BEAKER) (test tppq=103) 129 meq/L 136-145 POTASSIUM (BEAKER) (test gdjp=875) 4.6 meq/L 3.5-5.1 CHLORIDE (BEAKER) (test oljz=121) 97 meq/L 98-107 CO2 (BEAKER) (test amao=624) 25 meq/L 22-29 Call results [id number] 21:37:00 Test Item Value Reference Range Comments POC-GLUCOSE METER (BEAKER) 143 mg/dL 70-110 TESTED AT [address] (test dvng=0109) [place] [address] [id number] 17:59:00 Test Item Value Reference Range Comments SODIUM (BEAKER) (test clgo=126) 123 meq/L 136-145 POCT-GLUCOSE [id number] 16:50:00 Test Item Value Reference Range Comments POC-GLUCOSE METER (BEAKER) 141 mg/dL 70-110 TESTED AT [address] (test pihn=5772) [place] [id number] POCT-GLUCOSE [id number] 12:01:00 Test Item Value Reference Range Comments POC-GLUCOSE METER (BEAKER) 90 mg/dL 70-110 TESTED AT [address] (test bmha=0068) [place] [id number] POCT-GLUCOSE [id number] 08:25:00 Test Item Value Reference Range Comments POC-GLUCOSE METER (BEAKER) 81 mg/dL 70-110 TESTED AT [address] (test wexq=0873) [place] [id number] CBC W/PLT COUNT & AUTO [id number] 07:20:00 Test Item Value Reference Range Comments WHITE BLOOD CELL COUNT (BEAKER) (test zqva=286) 4.5 K/ L 3.5-10.5 RED BLOOD CELL COUNT (BEAKER) (test xvhy=651) 3.62 M/ L 4.63-6.08 HEMOGLOBIN (BEAKER) (test ynyr=982) 10.3 GM/DL 13.7-17.5 HEMATOCRIT (BEAKER) (test pgjg=150) 30.5 % 40.1-51.0 MEAN CORPUSCULAR VOLUME (BEAKER) (test qoll=497) 84.3 fL 79.0-92.2 MEAN CORPUSCULAR HEMOGLOBIN (BEAKER) (test 28.5 pg 25.7-32.2 xfpe=897) MEAN CORPUSCULAR HEMOGLOBIN CONC (BEAKER) (test 33.8 GM/DL 32.3-36.5 geto=262) RED CELL DISTRIBUTION WIDTH (BEAKER) (test 13.4 % 11.6-14.4 ozae=041) PLATELET COUNT (BEAKER) (test ukpd=372) 186 K/CU MM 150-450 MEAN PLATELET VOLUME (BEAKER) (test ysoe=459) 8.2 fL 9.4-12.4 NUCLEATED RED BLOOD CELLS (BEAKER) (test 0 /100 WBC 0-0 uliq=618) IMMATURE GRANULOCYTES-RELATIVE PERCENT (BEAKER) 0 % 0-1 (test zotl=5788) (MANUAL DIFFERENTIAL)2017-07-04 07:20:00 Test Item Value Reference Range Comments NEUTROPHILS - REL (DIFF) (BEAKER) (test twpn=4935) 21 % LYMPHOCYTES - REL (DIFF) (BEAKER) (test zgzt=3899) 55 % MONOCYTES - REL (DIFF) (BEAKER) (test jkab=0959) 13 % ATYPICAL LYMPHOCYTE - REL (DIFF) (BEAKER) (test 11 % 0-0 bzyt=507) NEUTROPHILS - ABS (DIFF) (BEAKER) (test wsuc=3466) 0.95 K/ L 1.80-8.00 LYMPHOCYTES - ABS (DIFF) (BEAKER) (test fafd=8165) 2.48 K/ L 1.48-4.50 MONOCYTES - ABS (DIFF) (BEAKER) (test pgjr=8945) 0.59 K/ L 0.00-1.30 ATYPICAL LYMPHOCYTES - ABS (DIFF) (BEAKER) (test 0.50 K/ L 0.00-0.00 ynqf=891) TOTAL COUNTED (BEAKER) (test mweg=7296) 100 WBC MORPHOLOGY (BEAKER) (test qhyo=131) Normal PLT MORPHOLOGY (BEAKER) (test ksxe=973) Normal RBC MORPHOLOGY (BEAKER) (test zsbe=463) Normal OSMOLALITY, [id number] 05:20:00 Test Item Value Reference Range Comments OSMOLALITY, SERUM (BEAKER) (test cxbj=699) 278 mOsm/kg 275-295 CALCIUM, [id number] 03:37:00 Test Item Value Reference Range Comments CALCIUM IONIZED (BEAKER) (test hmhv=913) 1.07 mmol/L 1.12-1.27 PH, BLOOD (BEAKER) (test zkag=1378) 7.46 [id number] 03:36:00 Test Item Value Reference Range Comments PHOSPHORUS (BEAKER) (test ucha=380) 4.5 mg/dL 2.3-4.7 [id number] 03:36:00 Test Item Value Reference Range Comments MAGNESIUM (BEAKER) (test xjjw=099) 1.4 mg/dL 1.6-2.6 BASIC METABOLIC [id number] 03:36:00 Test Item Value Reference Range Comments SODIUM (BEAKER) (test 127 meq/L 136-145 fmfo=744) POTASSIUM (BEAKER) (test 4.4 meq/L 3.5-5.1 dbnw=647) CHLORIDE (BEAKER) (test 96 meq/L 98-107 mhoi=361) CO2 (BEAKER) (test 26 meq/L 22-29 jdda=569) BLOOD UREA NITROGEN 13 mg/dL 7-21 (BEAKER) (test czka=323) CREATININE (BEAKER) (test 0.62 mg/dL 0.57-1.25 mtiu=266) GLUCOSE RANDOM (BEAKER) 97 mg/dL 70-105 (test ciyy=343) CALCIUM (BEAKER) (test 8.5 mg/dL 8.4-10.2 teuj=632) EGFR (BEAKER) (test 136 mL/min/1.73 sq m ESTIMATED GFR IS NOT vmqs=0132) ACCURATE CREATININE CLEARANCE IN PREDICTING GLOMERULAR FILTRATION RATE. ESTIMATED GFR IS NOT APPLICABLE FOR DIALYSIS PATIENTS. OSMOLALITY, [id number] 01:18:00 Test Item Value Reference Range Comments OSMOLALITY URINE (BEAKER) (test wcyz=943) 447 mOsm/kg 40-1400 SODIUM, RANDOM [id number] 01:13:00 Test Item Value Reference Range Comments SODIUM URINE (BEAKER) (test vqfh=559) 101 meq/L Reference Range: No NormalsPOCT-GLUCOSE [id number] 22:24:00 Test Item Value Reference Range Comments POC-GLUCOSE METER (BEAKER) 214 mg/dL 70-[address] [facility] [address] [facility] (test ehks=1138) [facility] [address] POCT-GLUCOSE [id number] 18:10:00 Test Item Value Reference Range Comments POC-GLUCOSE METER (BEAKER) 243 mg/dL 70-[address] [facility] [address] [facility] (test qewf=7611) [facility] [address] CBC W/PLT COUNT & AUTO [id number] 14:59:00 Test Item Value Reference Range Comments WHITE BLOOD CELL COUNT (BEAKER) (test tqcd=612) 4.3 K/ L 3.5-10.5 RED BLOOD CELL COUNT (BEAKER) (test lthh=725) 3.85 M/ L 4.63-6.08 HEMOGLOBIN (BEAKER) (test lxkk=702) 10.7 GM/DL 13.7-17.5 HEMATOCRIT (BEAKER) (test viul=728) 32.6 % 40.1-51.0 MEAN CORPUSCULAR VOLUME (BEAKER) (test lhwr=947) 84.7 fL 79.0-92.2 MEAN CORPUSCULAR HEMOGLOBIN (BEAKER) (test 27.8 pg 25.7-32.2 bdml=256) MEAN CORPUSCULAR HEMOGLOBIN CONC (BEAKER) (test 32.8 GM/DL 32.3-36.5 vkuj=936) RED CELL DISTRIBUTION WIDTH (BEAKER) (test 13.3 % 11.6-14.4 edbf=426) PLATELET COUNT (BEAKER) (test fsqg=191) 192 K/CU MM 150-450 MEAN PLATELET VOLUME (BEAKER) (test ftkq=902) 8.2 fL 9.4-12.4 NUCLEATED RED BLOOD CELLS (BEAKER) (test 0 /100 WBC 0-0 aoat=366) IMMATURE GRANULOCYTES-RELATIVE PERCENT (BEAKER) 0 % 0-1 (test jcqa=8074) (MANUAL DIFFERENTIAL)2017-07-03 14:59:00 Test Item Value Reference Range Comments NEUTROPHILS - REL (DIFF) (BEAKER) (test nhsy=2909) 42 % LYMPHOCYTES - REL (DIFF) (BEAKER) (test totn=7102) 32 % MONOCYTES - REL (DIFF) (BEAKER) (test bvob=2319) 18 % EOSINOPHILS - REL (DIFF) (BEAKER) (test mavq=5023) 4 % BANDS - REL (DIFF) (BEAKER) (test vmes=3388) 1 % 0-10 ATYPICAL LYMPHOCYTE - REL (DIFF) (BEAKER) (test 3 % 0-0 pebw=649) NEUTROPHILS - ABS (DIFF) (BEAKER) (test lnnv=8377) 1.81 K/ L 1.80-8.00 LYMPHOCYTES - ABS (DIFF) (BEAKER) (test pnbx=8879) 1.38 K/ L 1.48-4.50 MONOCYTES - ABS (DIFF) (BEAKER) (test qupk=7782) 0.77 K/ L 0.00-1.30 EOSINOPHILS - ABS (DIFF) (BEAKER) (test dulv=1051) 0.17 K/ L 0.00-0.50 BANDS-ABS (DIFF) (BEAKER) (test qmyv=6802) 0.0 K/ L 0.0-0.8 ATYPICAL LYMPHOCYTES - ABS (DIFF) (BEAKER) (test 0.13 K/ L 0.00-0.00 ceil=496) TOTAL COUNTED (BEAKER) (test jfjf=8433) 100 BANDS + SEGMENTED NEUTROPHILS (BEAKER) (test 1.85 nzoq=0539) PLT MORPHOLOGY (BEAKER) (test kkxz=362) Normal SMUDGE CELLS (BEAKER) (test qauw=3694) Present SPHEROCYTES (BEAKER) (test wned=331) 1+ few BASIC METABOLIC [id number] 12:46:00 Test Item Value Reference Range Comments SODIUM (BEAKER) (test 127 meq/L 136-145 socn=545) POTASSIUM (BEAKER) (test 4.2 meq/L 3.5-5.1 lkkg=225) CHLORIDE (BEAKER) (test 95 meq/L 98-107 aaxo=720) CO2 (BEAKER) (test 26 meq/L 22-29 rzcs=536) BLOOD UREA NITROGEN 10 mg/dL 7-21 (BEAKER) (test zgvw=457) CREATININE (BEAKER) (test 0.58 mg/dL 0.57-1.25 iujb=164) GLUCOSE RANDOM (BEAKER) 92 mg/dL 70-105 (test knhe=404) CALCIUM (BEAKER) (test 8.3 mg/dL 8.4-10.2 zngb=644) EGFR (BEAKER) (test 147 mL/min/1.73 sq m ESTIMATED GFR IS NOT mbyi=3569) ACCURATE CREATININE CLEARANCE IN PREDICTING GLOMERULAR FILTRATION RATE. ESTIMATED GFR IS NOT APPLICABLE FOR DIALYSIS PATIENTS. POCT-GLUCOSE [id number] 12:10:00 Test Item Value Reference Range Comments POC-GLUCOSE METER (BEAKER) 164 mg/dL 70-110 TESTED AT [address] (test sjcr=9372) [place] [address] CALCIUM, [id number] 10:14:00 Test Item Value Reference Range Comments CALCIUM IONIZED (BEAKER) (test nzmd=587) 1.07 mmol/L 1.12-1.27 PH, BLOOD (AKER) (test aosn=6315) 7.46 POCT-GLUCOSE [id number] 07:48:00 Test Item Value Reference Range Comments POC-GLUCOSE METER (BEAKER) 89 mg/dL 70-110 TESTED AT [address] (test qvbg=0798) [place] [address] POCT-GLUCOSE [id number] 21:34:00 Test Item Value Reference Range Comments POC-GLUCOSE METER (BEAKER) 175 mg/dL 70-110 TESTED AT [address] (test dfpy=7627) [place] [address] [id number] 18:01:00 Test Item Value Reference Range Comments SODIUM (BEAKER) (test vohz=256) 128 meq/L 136-145 POCT-GLUCOSE [id number] 17:58:00 Test Item Value Reference Range Comments POC-GLUCOSE METER (BEAKER) 143 mg/dL 70-110 TESTED AT [address] (test jehd=0217) [place] [address] POCT-GLUCOSE [id number] 12:09:00 Test Item Value Reference Range Comments POC-GLUCOSE METER (BEAKER) 178 mg/dL 70-110 TESTED AT [address] (test qtoq=2706) [place] [address] CBC W/PLT COUNT & AUTO [id number] 11:33:00 Test Item Value Reference Range Comments WHITE BLOOD CELL COUNT (BEAKER) (test yjfj=592) 3.6 K/ L 3.5-10.5 RED BLOOD CELL COUNT (BEAKER) (test dkba=967) 3.57 M/ L 4.63-6.08 HEMOGLOBIN (BEAKER) (test mbpd=944) 9.9 GM/DL 13.7-17.5 HEMATOCRIT (BEAKER) (test avas=143) 30.5 % 40.1-51.0 MEAN CORPUSCULAR VOLUME (BEAKER) (test xjmp=956) 85.4 fL 79.0-92.2 MEAN CORPUSCULAR HEMOGLOBIN (BEAKER) (test 27.7 pg 25.7-32.2 qttv=724) MEAN CORPUSCULAR HEMOGLOBIN CONC (BEAKER) (test 32.5 GM/DL 32.3-36.5 kwht=182) RED CELL DISTRIBUTION WIDTH (BEAKER) (test 13.5 % 11.6-14.4 fqjx=845) PLATELET COUNT (BEAKER) (test xnlb=326) 184 K/CU MM 150-450 MEAN PLATELET VOLUME (BEAKER) (test nbfk=021) 8.4 fL 9.4-12.4 NUCLEATED RED BLOOD CELLS (BEAKER) (test 0 /100 WBC 0-0 ylve=520) NEUTROPHILS RELATIVE PERCENT (BEAKER) (test 17 % plif=970) LYMPHOCYTES RELATIVE PERCENT (BEAKER) (test 65 % ylgc=695) MONOCYTES RELATIVE PERCENT (BEAKER) (test 15 % jhyd=262) EOSINOPHILS RELATIVE PERCENT (BEAKER) (test 3 % ppvx=301) BASOPHILS RELATIVE PERCENT (BEAKER) (test 0 % ouxl=915) NEUTROPHILS ABSOLUTE COUNT (BEAKER) (test 0.61 K/ L 1.78-5.38 qody=054) LYMPHOCYTES ABSOLUTE COUNT (BEAKER) (test 2.34 K/ L 1.32-3.57 irdz=691) MONOCYTES ABSOLUTE COUNT (BEAKER) (test 0.52 K/ L 0.30-0.82 cdyf=683) EOSINOPHILS ABSOLUTE COUNT (BEAKER) (test 0.09 K/ L 0.04-0.54 mfmm=399) BASOPHILS ABSOLUTE COUNT (BEAKER) (test 0.01 K/ L 0.01-0.08 rsuk=092) IMMATURE GRANULOCYTES-RELATIVE PERCENT (BEAKER) 0 % 0-1 (test yibv=1457) (MANUAL DIFFERENTIAL)2017-07-02 11:33:00 Test Item Value Reference Range Comments TOTAL COUNTED (BEAKER) (test zbed=9257) WBC MORPHOLOGY (BEAKER) (test fgbd=750) Normal PLT MORPHOLOGY (BEAKER) (test uqqy=253) Normal RBC MORPHOLOGY (BEAKER) (test iabs=752) Normal POCT-GLUCOSE [id number] 08:33:00 Test Item Value Reference Range Comments POC-GLUCOSE METER (BEAKER) 104 mg/dL 70-110 TESTED AT [address] (test mpeb=8105) [place] [address] BASIC METABOLIC [id number] 06:30:00 Test Item Value Reference Range Comments SODIUM (BEAKER) (test 129 meq/L 136-145 qsxu=213) POTASSIUM (BEAKER) (test 4.0 meq/L 3.5-5.1 uolh=365) CHLORIDE (BEAKER) (test 99 meq/L 98-107 havl=468) CO2 (BEAKER) (test 26 meq/L 22-29 rkyu=599) BLOOD UREA NITROGEN 9 mg/dL 7-21 (BEAKER) (test zgmb=207) CREATININE (BEAKER) (test 0.59 mg/dL 0.57-1.25 nfif=551) GLUCOSE RANDOM (BEAKER) 145 mg/dL 70-105 (test fklh=592) CALCIUM (BEAKER) (test 7.9 mg/dL 8.4-10.2 exvy=036) EGFR (BEAKER) (test 144 mL/min/1.73 sq m ESTIMATED GFR IS NOT cnrh=2588) ACCURATE CREATININE CLEARANCE IN PREDICTING GLOMERULAR FILTRATION RATE. ESTIMATED GFR IS NOT APPLICABLE FOR DIALYSIS PATIENTS. POCT-GLUCOSE [id number] 21:11:00 Test Item Value Reference Range Comments POC-GLUCOSE METER (BEAKER) 255 mg/dL 70-110 TESTED AT [address] (test gizs=2780) [place] [address] POCT-GLUCOSE [id number] 17:49:00 Test Item Value Reference Range Comments POC-GLUCOSE METER (BEAKER) 215 mg/dL 70-110 TESTED AT [address] (test qtcz=6460) [place] [address] [id number] 16:51:00 Test Item Value Reference Range Comments SODIUM (BEAKER) (test enjq=263) 128 meq/L 136-145 POCT-GLUCOSE [id number] 12:39:00 Test Item Value Reference Range Comments POC-GLUCOSE METER (BEAKER) 201 mg/dL 70-[address] [facility] [address] [facility] (test amvi=0242) [facility] [address] POCT-GLUCOSE [id number] 08:17:00 Test Item Value Reference Range Comments POC-GLUCOSE METER (BEAKER) 114 mg/dL 70-[address] [facility] [address] [facility] (test vsxm=6353) [facility] [address] CBC W/PLT COUNT & AUTO [id number] 07:16:00 Test Item Value Reference Range Comments WHITE BLOOD CELL COUNT (BEAKER) (test kbpu=857) 4.4 K/ L 3.5-10.5 RED BLOOD CELL COUNT (BEAKER) (test cpnx=665) 3.56 M/ L 4.63-6.08 HEMOGLOBIN (BEAKER) (test aowl=115) 10.0 GM/DL 13.7-17.5 HEMATOCRIT (BEAKER) (test xwbo=861) 30.1 % 40.1-51.0 MEAN CORPUSCULAR VOLUME (BEAKER) (test hkpd=836) 84.6 fL 79.0-92.2 MEAN CORPUSCULAR HEMOGLOBIN (BEAKER) (test 28.1 pg 25.7-32.2 tlbn=387) MEAN CORPUSCULAR HEMOGLOBIN CONC (BEAKER) (test 33.2 GM/DL 32.3-36.5 bhrj=230) RED CELL DISTRIBUTION WIDTH (BEAKER) (test 13.4 % 11.6-14.4 zsch=389) PLATELET COUNT (BEAKER) (test gzio=889) 193 K/CU MM 150-450 MEAN PLATELET VOLUME (BEAKER) (test dytw=477) 8.6 fL 9.4-12.4 NUCLEATED RED BLOOD CELLS (BEAKER) (test 0 /100 WBC 0-0 gwed=299) NEUTROPHILS RELATIVE PERCENT (BEAKER) (test 25 % afch=875) LYMPHOCYTES RELATIVE PERCENT (BEAKER) (test 59 % xnmt=901) MONOCYTES RELATIVE PERCENT (BEAKER) (test 14 % pwcg=104) EOSINOPHILS RELATIVE PERCENT (BEAKER) (test 2 % uvyh=123) BASOPHILS RELATIVE PERCENT (BEAKER) (test 1 % ftah=627) NEUTROPHILS ABSOLUTE COUNT (BEAKER) (test 1.10 K/ L 1.78-5.38 kzjr=303) LYMPHOCYTES ABSOLUTE COUNT (BEAKER) (test 2.55 K/ L 1.32-3.57 qmqs=403) MONOCYTES ABSOLUTE COUNT (BEAKER) (test 0.59 K/ L 0.30-0.82 hkzo=337) EOSINOPHILS ABSOLUTE COUNT (BEAKER) (test 0.08 K/ L 0.04-0.54 rqrp=011) BASOPHILS ABSOLUTE COUNT (BEAKER) (test 0.02 K/ L 0.01-0.08 edbq=671) IMMATURE GRANULOCYTES-RELATIVE PERCENT (BEAKER) 1 % 0-1 (test nfrc=2302) (MANUAL DIFFERENTIAL)2017-07-01 07:16:00 Test Item Value Reference Range Comments TOTAL COUNTED (BEAKER) (test ojyo=2323) WBC MORPHOLOGY (BEAKER) (test zvjg=177) Normal PLT MORPHOLOGY (BEAKER) (test fjqi=503) Normal RBC MORPHOLOGY (BEAKER) (test rkto=409) Normal BASIC METABOLIC [id number] 05:28:00 Test Item Value Reference Range Comments SODIUM (BEAKER) (test 124 meq/L 136-145 ocnj=560) POTASSIUM (BEAKER) (test 4.1 meq/L 3.5-5.1 yotr=482) CHLORIDE (BEAKER) (test 95 meq/L 98-107 wogw=786) CO2 (BEAKER) (test 27 meq/L 22-29 krcq=243) BLOOD UREA NITROGEN 9 mg/dL 7-21 (BEAKER) (test wnbl=975) CREATININE (BEAKER) (test 0.58 mg/dL 0.57-1.25 qlxd=916) GLUCOSE RANDOM (BEAKER) 141 mg/dL 70-105 (test ugvc=400) CALCIUM (BEAKER) (test 8.1 mg/dL 8.4-10.2 mywi=195) EGFR (BEAKER) (test 147 mL/min/1.73 sq m ESTIMATED GFR IS NOT chof=0967) ACCURATE CREATININE CLEARANCE IN PREDICTING GLOMERULAR FILTRATION RATE. ESTIMATED GFR IS NOT APPLICABLE FOR DIALYSIS PATIENTS. POCT-GLUCOSE [id number] 21:16:00 Test Item Value Reference Range Comments POC-GLUCOSE METER (BEAKER) 250 mg/dL 70-[address] [facility] [address] [facility] (test tzix=4705) [facility] [address] [id number] 19:39:00 Test Item Value Reference Range Comments SODIUM (BEAKER) (test ticf=634) 126 meq/L 136-145 POCT-GLUCOSE [id number] 17:20:00 Test Item Value Reference Range Comments POC-GLUCOSE METER (BEAKER) 202 mg/dL 70-[address] [facility] [address] (test dszi=9771) [facility] [address] CBC W/PLT COUNT & AUTO [id number] 14:29:00 Test Item Value Reference Range Comments WHITE BLOOD CELL COUNT (BEAKER) (test czut=708) 5.5 K/ L 3.5-10.5 RED BLOOD CELL COUNT (BEAKER) (test dxji=142) 3.56 M/ L 4.63-6.08 HEMOGLOBIN (BEAKER) (test udbu=735) 9.9 GM/DL 13.7-17.5 HEMATOCRIT (BEAKER) (test frco=435) 30.1 % 40.1-51.0 MEAN CORPUSCULAR VOLUME (BEAKER) (test ibil=190) 84.6 fL 79.0-92.2 MEAN CORPUSCULAR HEMOGLOBIN (BEAKER) (test 27.8 pg 25.7-32.2 bngl=146) MEAN CORPUSCULAR HEMOGLOBIN CONC (BEAKER) (test 32.9 GM/DL 32.3-36.5 hasf=010) RED CELL DISTRIBUTION WIDTH (BEAKER) (test 13.5 % 11.6-14.4 cfse=631) PLATELET COUNT (BEAKER) (test jrxh=771) 190 K/CU MM 150-450 MEAN PLATELET VOLUME (BEAKER) (test qlpb=654) 8.2 fL 9.4-12.4 NUCLEATED RED BLOOD CELLS (BEAKER) (test 0 /100 WBC 0-0 ftvj=306) NEUTROPHILS RELATIVE PERCENT (BEAKER) (test 32 % cfdz=630) LYMPHOCYTES RELATIVE PERCENT (BEAKER) (test 54 % fgqj=423) MONOCYTES RELATIVE PERCENT (BEAKER) (test 12 % wgvs=787) EOSINOPHILS RELATIVE PERCENT (BEAKER) (test 1 % xcbc=259) BASOPHILS RELATIVE PERCENT (BEAKER) (test 0 % ueds=273) NEUTROPHILS ABSOLUTE COUNT (BEAKER) (test 1.74 K/ L 1.78-5.38 mwuc=817) LYMPHOCYTES ABSOLUTE COUNT (BEAKER) (test 2.98 K/ L 1.32-3.57 ttnv=992) MONOCYTES ABSOLUTE COUNT (BEAKER) (test 0.67 K/ L 0.30-0.82 pfll=428) EOSINOPHILS ABSOLUTE COUNT (BEAKER) (test 0.07 K/ L 0.04-0.54 khms=765) BASOPHILS ABSOLUTE COUNT (BEAKER) (test 0.02 K/ L 0.01-0.08 bhck=533) IMMATURE GRANULOCYTES-RELATIVE PERCENT (BEAKER) 0 % 0-1 (test zame=7977) (MANUAL DIFFERENTIAL)2017-06-30 14:29:00 Test Item Value Reference Range Comments TOTAL COUNTED (BEAKER) (test efgs=2475) WBC MORPHOLOGY (BEAKER) (test azuc=299) Normal PLT MORPHOLOGY (BEAKER) (test pomt=597) Normal RBC MORPHOLOGY (BEAKER) (test onyo=755) Normal POCT-GLUCOSE [id number] 12:26:00 Test Item Value Reference Range Comments POC-GLUCOSE METER (BEAKER) 149 mg/dL 70-110 TESTED AT [address] (test olla=3058) [facility] [address] SODIUM, RANDOM [id number] 08:12:00 Test Item Value Reference Range Comments SODIUM URINE (BEAKER) (test cnxo=229) 73 meq/L Reference Range: No NormalsPOCT-GLUCOSE [id number] 08:05:00 Test Item Value Reference Range Comments POC-GLUCOSE METER (BEAKER) 102 mg/dL 70-110 TESTED AT [address] (test piwe=4895) [facility] [address] MISCELLANEOUS LAB [id number] 07:25:00 Test Item Value Reference Range Comments SCAN RESULT (test dwqc=[id number]) MISCELLANEOUS LAB [id number] 07:23:00 Test Item Value Reference Range Comments SCAN RESULT (test xwqg=[id number]) BASIC METABOLIC [id number] 06:45:00 Test Item Value Reference Range Comments SODIUM (BEAKER) (test 128 meq/L 136-145 wvav=489) POTASSIUM (BEAKER) (test 4.3 meq/L 3.5-5.1 sgkt=511) CHLORIDE (BEAKER) (test 97 meq/L 98-107 vfcl=835) CO2 (BEAKER) (test 26 meq/L 22-29 vpxf=339) BLOOD UREA NITROGEN 10 mg/dL 7-21 (BEAKER) (test hvho=943) CREATININE (BEAKER) (test 0.60 mg/dL 0.57-1.25 kaxr=884) GLUCOSE RANDOM (BEAKER) 85 mg/dL 70-105 (test plgl=231) CALCIUM (BEAKER) (test 8.1 mg/dL 8.4-10.2 rrnl=269) EGFR (BEAKER) (test 141 mL/min/1.73 sq m ESTIMATED GFR IS NOT nonm=1808) ACCURATE CREATININE CLEARANCE IN PREDICTING GLOMERULAR FILTRATION RATE. ESTIMATED GFR IS NOT APPLICABLE FOR DIALYSIS PATIENTS. OSMOLALITY, [id number] 06:42:00 Test Item Value Reference Range Comments OSMOLALITY, SERUM (BEAKER) (test wodl=644) 274 mOsm/kg 275-295 OSMOLALITY, [id number] 06:42:00 Test Item Value Reference Range Comments OSMOLALITY URINE (BEAKER) (test lqog=568) 365 mOsm/kg 40-1400 POCT-GLUCOSE [id number] 22:18:00 Test Item Value Reference Range Comments POC-GLUCOSE METER (BEAKER) 153 mg/dL 70-110 TESTED AT [address] (test kfwn=5385) [place] [address] HEPATITIS B [id number] 19:53:00 Test Item Value Reference Range Comments HEPATITIS B CORE TOTAL ANTIBODY (BEAKER) (test Reactive Nonreactive fttc=353) HEPATITIS B SURFACE ANTIBODY (BEAKER) (test 416.6 mIU/mL <8.0 reac=359) HEPATITIS B SURFACE ANTIGEN (2) (BEAKER) (test Nonreactive Nonreactive syuv=8467) HEPATITIS A [id number] 19:52:00 Test Item Value Reference Range Comments HEPATITIS A IGM ANTIBODY (BEAKER) (test Nonreactive Nonreactive ltte=521) HEPATITIS A IGG ANTIBODY (BEAKER) (test Reactive Nonreactive uaaw=9000) POCT-GLUCOSE [id number] 16:48:00 Test Item Value Reference Range Comments POC-GLUCOSE METER (BEAKER) 208 mg/dL 70-110 TESTED AT [place] [id number] [facility] (test rism=9178) [place] [id number] 16:42:00 Test Item Value Reference Range Comments SODIUM (BEAKER) (test hlhp=753) 126 meq/L 136-145 POCT-GLUCOSE [id number] 12:46:00 Test Item Value Reference Range Comments POC-GLUCOSE METER (BEAKER) 154 mg/dL 70-[address] [facility] [address] [facility] (test stku=8656) [facility] [address] [id number] 09:19:00 Test Item Value Reference Range Comments RPR SCREEN (BEAKER) (test svff=607) Reactive Nonreactive RPR [id number] 09:19:00 Test Item Value Reference Range Comments RPR TITER (BEAKER) (test oyas=7176) >=:256 MHA - [id number] 09:19:00 Test Item Value Reference Range Comments MHA-TP (BEAKER) (test soak=9952) Reactive CBC W/PLT COUNT & AUTO [id number] 09:14:00 Test Item Value Reference Range Comments WHITE BLOOD CELL COUNT (BEAKER) (test gmtd=642) 4.8 K/ L 3.5-10.5 RED BLOOD CELL COUNT (BEAKER) (test pgsu=439) 3.62 M/ L 4.63-6.08 HEMOGLOBIN (BEAKER) (test cgrr=580) 10.5 GM/DL 13.7-17.5 HEMATOCRIT (BEAKER) (test tfad=079) 29.9 % 40.1-51.0 MEAN CORPUSCULAR VOLUME (BEAKER) (test uejk=770) 82.6 fL 79.0-92.2 MEAN CORPUSCULAR HEMOGLOBIN (BEAKER) (test 29.0 pg 25.7-32.2 lsqd=677) MEAN CORPUSCULAR HEMOGLOBIN CONC (BEAKER) (test 35.1 GM/DL 32.3-36.5 simi=479) RED CELL DISTRIBUTION WIDTH (BEAKER) (test 13.2 % 11.6-14.4 qmnd=832) PLATELET COUNT (BEAKER) (test ofig=701) 193 K/CU MM 150-450 MEAN PLATELET VOLUME (BEAKER) (test qotd=207) 8.5 fL 9.4-12.4 NUCLEATED RED BLOOD CELLS (BEAKER) (test 0 /100 WBC 0-0 hfyi=362) NEUTROPHILS RELATIVE PERCENT (BEAKER) (test 28 % suwl=986) LYMPHOCYTES RELATIVE PERCENT (BEAKER) (test 57 % ktso=376) MONOCYTES RELATIVE PERCENT (BEAKER) (test 13 % sase=924) EOSINOPHILS RELATIVE PERCENT (BEAKER) (test 2 % blds=018) BASOPHILS RELATIVE PERCENT (BEAKER) (test 0 % qzei=854) NEUTROPHILS ABSOLUTE COUNT (BEAKER) (test 1.35 K/ L 1.78-5.38 lflr=476) LYMPHOCYTES ABSOLUTE COUNT (BEAKER) (test 2.71 K/ L 1.32-3.57 abjb=867) MONOCYTES ABSOLUTE COUNT (BEAKER) (test 0.62 K/ L 0.30-0.82 jfyh=068) EOSINOPHILS ABSOLUTE COUNT (BEAKER) (test 0.07 K/ L 0.04-0.54 dqtb=650) BASOPHILS ABSOLUTE COUNT (BEAKER) (test 0.01 K/ L 0.01-0.08 jagq=184) IMMATURE GRANULOCYTES-RELATIVE PERCENT (BEAKER) 0 % 0-1 (test axgr=4754) (MANUAL DIFFERENTIAL)2017-06-29 09:14:00 Test Item Value Reference Range Comments TOTAL COUNTED (BEAKER) (test whgp=5082) WBC MORPHOLOGY (BEAKER) (test nacx=413) Normal PLT MORPHOLOGY (BEAKER) (test dbco=773) Normal RBC MORPHOLOGY (BEAKER) (test pakb=095) Normal POCT-GLUCOSE [id number] 07:51:00 Test Item Value Reference Range Comments POC-GLUCOSE METER (BEAKER) 124 mg/dL 70-110 TESTED AT [address] (test wfvh=2863) [place] [address] [id number] 05:28:00 Test Item Value Reference Range Comments SODIUM (BEAKER) (test ckbr=829) 128 meq/L 136-145 POCT-GLUCOSE [id number] 22:39:00 Test Item Value Reference Range Comments POC-GLUCOSE METER (BEAKER) 176 mg/dL 70-110 TESTED AT [address] (test yfaq=5740) [place] [address] POCT-GLUCOSE [id number] 21:54:00 Test Item Value Reference Range Comments POC-GLUCOSE METER (BEAKER) 227 mg/dL 70-110 TESTED AT [address] (test cato=4247) [place] [address] HIV-1 PCR, [id number] 20:36:00 Test Item Value Reference Range Comments HIV-1 NUMERIC RESULT (BEAKER) (test kqid=4302) 208829 Cp/mL <20 This test uses a Real-Time Polymerase Chain Reaction (RT-PCR) methodology to detect a highly conserved region of the HIV-1 gag gene and was performed using the [employer] AmpliPrep/KELVIN TaqMan HIV-1 test kit version 2.0 ([employer]Reportable range for this assay is 20 - 10,000,000 copies per mL (1.3 - 7.0 Log copies/mL).[id number] 16:25:00 Test Item Value Reference Range Comments SODIUM (BEAKER) (test ywfu=299) 122 meq/L 136-145 BASIC METABOLIC [id number] 16:25:00 Test Item Value Reference Range Comments SODIUM (BEAKER) (test 122 meq/L 136-145 aqlr=312) POTASSIUM (BEAKER) (test 4.3 meq/L 3.5-5.1 nuud=568) CHLORIDE (BEAKER) (test 92 meq/L 98-107 vzgu=295) CO2 (BEAKER) (test 26 meq/L 22-29 ddqa=359) BLOOD UREA NITROGEN 11 mg/dL 7-21 (BEAKER) (test vfoy=291) CREATININE (BEAKER) (test 0.63 mg/dL 0.57-1.25 uhwq=785) GLUCOSE RANDOM (BEAKER) 210 mg/dL 70-105 (test ixej=688) CALCIUM (BEAKER) (test 8.1 mg/dL 8.4-10.2 eana=452) EGFR (BEAKER) (test 133 mL/min/1.73 sq m ESTIMATED GFR IS NOT doul=7618) ACCURATE CREATININE CLEARANCE IN PREDICTING GLOMERULAR FILTRATION RATE. ESTIMATED GFR IS NOT APPLICABLE FOR DIALYSIS PATIENTS. POCT-GLUCOSE [id number] 12:34:00 Test Item Value Reference Range Comments POC-GLUCOSE METER (BEAKER) 177 mg/dL 70-[address] [facility] [address] [facility] (test jypu=0237) [facility] [address] CBC W/PLT COUNT & AUTO [id number] 11:54:00 Test Item Value Reference Range Comments WHITE BLOOD CELL COUNT (BEAKER) (test bwan=025) 4.9 K/ L 3.5-10.5 RED BLOOD CELL COUNT (BEAKER) (test zsqn=494) 4.06 M/ L 4.63-6.08 HEMOGLOBIN (BEAKER) (test bxox=434) 11.2 GM/DL 13.7-17.5 HEMATOCRIT (BEAKER) (test gqlm=271) 33.5 % 40.1-51.0 MEAN CORPUSCULAR VOLUME (BEAKER) (test mzdp=947) 82.5 fL 79.0-92.2 MEAN CORPUSCULAR HEMOGLOBIN (BEAKER) (test 27.6 pg 25.7-32.2 vlig=108) MEAN CORPUSCULAR HEMOGLOBIN CONC (BEAKER) (test 33.4 GM/DL 32.3-36.5 wkgb=654) RED CELL DISTRIBUTION WIDTH (BEAKER) (test 13.0 % 11.6-14.4 ztbc=787) PLATELET COUNT (BEAKER) (test vwbq=066) 214 K/CU MM 150-450 MEAN PLATELET VOLUME (BEAKER) (test mote=161) 8.5 fL 9.4-12.4 NUCLEATED RED BLOOD CELLS (BEAKER) (test 0 /100 WBC 0-0 tzvb=058) NEUTROPHILS RELATIVE PERCENT (BEAKER) (test 27 % lonc=842) LYMPHOCYTES RELATIVE PERCENT (BEAKER) (test 59 % jack=671) MONOCYTES RELATIVE PERCENT (BEAKER) (test 13 % ysic=293) EOSINOPHILS RELATIVE PERCENT (BEAKER) (test 1 % lguc=869) BASOPHILS RELATIVE PERCENT (BEAKER) (test 0 % xqov=626) NEUTROPHILS ABSOLUTE COUNT (BEAKER) (test 1.30 K/ L 1.78-5.38 lwqo=606) LYMPHOCYTES ABSOLUTE COUNT (BEAKER) (test 2.86 K/ L 1.32-3.57 aoqa=229) MONOCYTES ABSOLUTE COUNT (BEAKER) (test 0.61 K/ L 0.30-0.82 bjsq=949) EOSINOPHILS ABSOLUTE COUNT (BEAKER) (test 0.07 K/ L 0.04-0.54 wbee=332) BASOPHILS ABSOLUTE COUNT (BEAKER) (test 0.02 K/ L 0.01-0.08 vari=248) IMMATURE GRANULOCYTES-RELATIVE PERCENT (BEAKER) 0 % 0-1 (test zvyx=5322) (MANUAL DIFFERENTIAL)2017-06-28 11:54:00 Test Item Value Reference Range Comments TOTAL COUNTED (BEAKER) (test iycm=5510) WBC MORPHOLOGY (BEAKER) (test nsza=256) Normal PLT MORPHOLOGY (BEAKER) (test dold=788) Normal RBC MORPHOLOGY (BEAKER) (test xljo=116) Normal OSMOLALITY, [id number] 10:39:00 Test Item Value Reference Range Comments OSMOLALITY URINE (BEAKER) (test zznn=131) 344 mOsm/kg 40-1400 OSMOLALITY, [id number] 10:34:00 Test Item Value Reference Range Comments OSMOLALITY, SERUM (BEAKER) (test dpcd=804) 266 mOsm/kg 275-295 CREATININE, RANDOM [id number] 10:22:00 Test Item Value Reference Range Comments CREATININE URINE (BEAKER) (test tfhi=931) 18.7 mg/dL Reference Range: No NormalsSODIUM, RANDOM [id number] 10:22:00 Test Item Value Reference Range Comments SODIUM URINE (BEAKER) (test ojmr=716) 127 meq/L Reference Range: No NormalsPOCT-GLUCOSE [id number] 07:54:00 Test Item Value Reference Range Comments POC-GLUCOSE METER (BEAKER) 115 mg/dL 70-[address] [facility] [address] [place] [address] (test mobo=8854) [facility] [address] HIV-1 ANTIGEN WITH HIV-1/2 [id number] 05:24:00 Test Item Value Reference Range Comments HIV-1 ANTIGEN WITH HIV 1\\T\\2 ANTIBODY (2) (BEAKER) Reactive Nonreactive (test ncgm=9229) This screening test for HIV antigen/antibodies may give false positive results. All reactive specimens are submitted for confirmatory testing, the results of which will be reported separately. Only a reactive HIV antigen/antibody test in conjunction with a positive confirmatory test indicates HIV infection.BASIC METABOLIC [id number] 05:22:00 Test Item Value Reference Range Comments SODIUM (BEAKER) (test 126 meq/L 136-145 gobp=478) POTASSIUM (BEAKER) (test 4.2 meq/L 3.5-5.1 dvam=804) CHLORIDE (BEAKER) (test 94 meq/L 98-107 uiwl=222) CO2 (BEAKER) (test 28 meq/L 22-29 aukj=857) BLOOD UREA NITROGEN 8 mg/dL 7-21 (BEAKER) (test tjkm=144) CREATININE (BEAKER) (test 0.55 mg/dL 0.57-1.25 ujeg=565) GLUCOSE RANDOM (BEAKER) 106 mg/dL 70-105 (test mdab=096) CALCIUM (BEAKER) (test 8.2 mg/dL 8.4-10.2 kuip=411) EGFR (BEAKER) (test 156 mL/min/1.73 sq m ESTIMATED GFR IS NOT akoe=0937) ACCURATE CREATININE CLEARANCE IN PREDICTING GLOMERULAR FILTRATION RATE. ESTIMATED GFR IS NOT APPLICABLE FOR DIALYSIS PATIENTS. CRYPTOCOCCAL ANTIGEN, [id number] 02:07:00 Test Item Value Reference Range Comments CRYPTOCOCCAL ANTIGEN, CSF (BEAKER) (test Negative Negative, Interference iefs=895) VDRL, [id number] 02:03:00 Test Item Value Reference Range Comments SYPHILIS VDRL QUANTITATION CSF (BEAKER) (test Reactive Nonreactive yhay=148) POCT-GLUCOSE [id number] 22:04:00 Test Item Value Reference Range Comments POC-GLUCOSE METER (BEAKER) 201 mg/dL 70-110 TESTED AT [address] (test dbrd=7902) [place] [address] POCT-GLUCOSE [id number] 18:17:00 Test Item Value Reference Range Comments POC-GLUCOSE METER (BEAKER) 185 mg/dL 70-110 TESTED AT [address] (test mjxb=4684) [place] [address] [id number] 17:18:00 Test Item Value Reference Range Comments SODIUM (BEAKER) (test jpbz=169) 123 meq/L 136-145 NERVE CONDUCTION STUDIES; 13 + [id number] 16:30:00Reason for exam:-> Concern for [facility]BSB[facility] San DiegoNeurophysiology DepartmentELECTROMYOGRAPHY / NERVE CONDUCTION STUDY [facility] [address] [place] [address] Name: Cynthia Jensen : Date of : 1965 Gender: Male Date of Exam: 2017 4:00 PMReferring Physician:Dr. Alexey MendiolaadExamining Physician: Dr. Bonita Navarro Patient History: Patient presents with a 1-2 week history of rapidly progressive weakness in arms and legs, distal paresthesias and significant facial weakness. On exam, he has no movement in facial muscles with incomplete eye closure; 2/5 deltoids, 3/5 right elbow flexion/extension, 2/ 5 on the left elbow flexion/extension, right wrist f/e3/5, 2/5 on the left; finger abduction 2/5 on right, 0/5 on the left; hipflexion 2/5, knee extension/ flexion 4-/5, 2/5 right ankle flexion/extension, 1/5 on the left; 2/5 right toe extension 0/5 on theleft. This study was done to evaluate for polyneuropathy.Motor Nerve Conduction:Nerve and Site Latency Amplitude Segment Latency Difference Distance Conduction VelocityMedian.RWrist 5.4 ms 1.7 mV Abductor pollicis brevis-Wrist 5.4 ms 60 mm Elbow 11.7 ms 0.6 mV Wrist-Elbow 6.3 ms 235 mm 37 m/sUlnar.RWrist 3.0 ms 1.8 mV Abductor digiti minimi (manus)- Wrist 3.0 ms 60 mm Below elbow 7.8 ms 0.8 mV Wrist-Below elbow 4.8 ms 190 mm 40 m/sAbove elbow 10.5 ms 0.5 mV Below elbow-Above elbow 2.7 ms 100 mm 37 m/ sPeroneal.RAnkle 7.7 ms 0.1 mV Extensor digitorum brevis-Ankle 7.7 ms 80 mm Fibula (head) NR NR Ankle-Fibula (head) 280 mm Knee NR NR Fibula (head)-Knee 100 mm Peroneal.RFibula (head) 3.2 ms 2.6 mV Tibialis anterior-Fibula Knee 6.3 ms 1.4 mV Fibula (head)-Knee 3.1 ms 100 mm 32 m/sTibial.RAnkle 4.2ms 0.8 mV Abductor hallucis-Ankle 4.2 ms 80 mm Popliteal fossa 16.3 ms 0.1 mV Ankle- Popliteal fossa 12.1 ms 370 mm 31 m/sPeroneal.LAnkle 4.8 ms 0.5 mV Extensor digitorum brevis-Ankle 4.8 ms 80 mm Fibula (head) NR NR Ankle-Fibula (head) mm NR Knee NR NR Fibula (head)-Knee 100 mm NR Peroneal.LFibula (head) 2.8 ms 4.1 mV Tibialis anterior-Fibula Knee 4.9 ms 2.2 mV Fibula (head)-Knee 2.1 ms 100mm 48 m/sTibial.LAnkle 4.6 ms 0.6 mV Abductor hallucis-Ankle 4.6 ms 80 mm Popliteal fossa 16.7 ms 0.2 mV Ankle-Popliteal fossa 12.1 ms 350 mm 29 m/ sMedian.LWrist 5.7 ms 1.6 mV Abductor pollicis brevis-Wrist 5.7 ms 60 mm Elbow 11.6 ms 0.9 mV Wrist-Elbow 5.9 ms 230 mm 39 m/sUlnar.LWrist 2.2 ms 3.7 mV Abductor digiti minimi (manus)-Wrist 2.2 ms 60 mm Below elbow 6.7 ms 1.5 mV Wrist-Below elbow 4.5 ms 180 mm 40 m/sAbove elbow 9.1 ms 1.1 mV Below elbow- Above elbow 2.4 ms 100 mm 42 m/sF-Wave StudiesNerveM-Latency F-LatencyMedian.R 11.7 NRUlnar.R 10.5 NRUlnar.L 9.1 NRSensory Nerve Conduction:Nerve and Site Onset Latency Peak Latency Amplitude Segment Latency Difference Distance Conduction VelocityMedian.RWrist NR NR NR Digit II (index finger)-Wrist 130 mm Ulnar.RWrist NR NR NR Digit V (little finger)-Wrist 110 mm Radial.RForearm 2.1 ms 2.6 ms 9 𑨤V Anatomical snuff box-Forearm 2.1 ms 100mm 38 m/ sSural.RLower leg NR NR NR Ankle-Lower leg 140 mm Sural.LLower leg NR NR NR Ankle-Lower leg 140 mm Median.LWrist NR NR NR Digit II (index finger)-Wrist 130 mm Ulnar.LWrist 2.7 ms 3.2 ms 5竈V Digit V (little finger)-Wrist 2.7 ms 110 mm 41 m/sRadial.LForearm 2.0 ms 2.5 ms 8 𑭝V Anatomical snuff box-Forearm 2.0 ms 100 mm 40 m/sH-waves:Nerve Latency Amplitude (max) Tibial.R M-wave: 5.2 ms 3.5 mVH-wave: NR NRTibial.L M-wave: 5.7 ms 3.3 mVH- wave: NR NRNeedle EMG Examination: Insertional Spontaneous Activity Volitional MUAPs Muscle Insertional Fibs +Wave Fasc Duration Amplitude Poly Recruitment Tibialis anterior.R Increased None 1+ None - - - No Voluntary Units Gastrocnemius (Medial head).R Increased 1+ 2+ None Normal Normal None Mild Reduced Vastus medialis.R Increased None None None Normal Normal None Mild Reduced Extensor hallucis longus.R Increased 2+ None None Normal Normal None Severe Reduced (discrete) 1st dorsal interosseous.R Increased None 1+ None Normal Normal None Severe Reduced (discrete) Flexor carpi radialis.R Increased None None None Normal Normal None Severe Reduced (discrete) Biceps brachii.R Increased None None None Normal Normal None Moderate Reduced Deltoid.R Increased None None None Normal Normal None Moderate Reduced Frontalis.R Increased None None None - - - No Voluntary Units Summary of findings: 1. Sensory studies of the bilateral median and sural, and right ulnar nerves showed no responses. The left ulnar and bilateral superficial radial nerves showed normal peak latencies and low amplitudes.2. Motor studies of the bilateral peroneal (EDB) nerves showed prolonged distal latency on the right ( 128% of ULN), very low amplitudes, and no proximal responses. At the TA, the peroneal nerves showed normal latencies, normal to slightly lowamplitudes, close to 50% drop in amplitudes at the knees, and slow velocity on the right (80 % of LLN). The tibial nerves showed normal latencies, low amplitudes, conduction blocks at the knees, and slow velocities (80% of LLN). The median nerves showed prolonged distal latencies (>130% of ULN), lower amplitudes, conduction blocks (close to 50% amplitude drops at elbows), and slow velocities (<78% of LLN). The ulnar nerves showed normal distal latencies, lower amplitudes, conduction blocks below the elbows, and slow velocities (80% of LLN) . F-wave latencies in bilateral ulnar and right median nerves showed no responses.3. H-wave reflexes recording at the soleus muscles showed no responses.4. Electromyography of the right frontalis, upper and lower limbs was done using a disposable concentric needle. There was abnormal spontaneous activity in the gastrocnemius, EHL, and FDI. There were no units recruited in the frontalis and TA. There was severe (discrete) reduced recruitment in the EHL, FDI, and FCR with normal morphologies. There was moderate reduced recruitment and normal morphologies in the biceps and deltoid. Conclusion: This is an abnormal electrodiagnostic study due to the followin. 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 Bonita Navarro M.D. RAD , ABDOMEN/KUB, 1 VIEW [id number] 15:50:00Reason for exam:->Concern for nephrolithiasisFINAL REPORT Abdomen. MEDICAL HISTORY: Concern for nephrolithiasis. COMPARISON STUDY: None available. FINDINGS: Two views of the abdomen demonstrate no dilated loops of large or small bowel. No suspicious calcific lesions are seen. The regional skeleton is unremarkable. IMPRESSION: No acute abnormality seen. No nephrolithiasis. Signed: Gio Rivera MDReport Verified Date/Time: 06/27/2017 15:50:01 Reading Location: [address] Radiology Reading Room POCT-GLUCOSE [id number] 12:40:00 Test Item Value Reference Range Comments POC-GLUCOSE METER (BEAKER) 162 mg/dL 70-[address] [facility] [address] [facility] (test zrky=4991) [facility] [address] URINE [id number] 10:22:00 Test Item Value Reference Range Comments CULTURE (BEAKER) (test vvqf=7340) No growth ANTI-NUCLEAR ANTIBODY (TAMIKO)2017-06-27 09:43:00 Test Item Value Reference Range Comments ANTI-NUCLEAR ANTIBODY (TAMIKO) (BEAKER) (test Positive Negative nkbq=572) TAMIKO TITER AND [id number] 09:43:00 Test Item Value Reference Range Comments TAMIKO TITER (BEAKER) (test tvtu=6614) >=:2560 TAMIKO PATTERN (BEAKER) (test icun=4425) Nucleolar CBC W/PLT COUNT & AUTO [id number] 09:41:00 Test Item Value Reference Range Comments WHITE BLOOD CELL COUNT (BEAKER) (test ehhq=383) 5.1 K/ L 3.5-10.5 RED BLOOD CELL COUNT (BEAKER) (test ozgs=250) 4.01 M/ L 4.63-6.08 HEMOGLOBIN (BEAKER) (test rgbe=092) 11.1 GM/DL 13.7-17.5 HEMATOCRIT (BEAKER) (test kbzm=648) 33.2 % 40.1-51.0 MEAN CORPUSCULAR VOLUME (BEAKER) (test rxzj=743) 82.8 fL 79.0-92.2 MEAN CORPUSCULAR HEMOGLOBIN (BEAKER) (test 27.7 pg 25.7-32.2 xomn=601) MEAN CORPUSCULAR HEMOGLOBIN CONC (BEAKER) (test 33.4 GM/DL 32.3-36.5 mhxx=040) RED CELL DISTRIBUTION WIDTH (BEAKER) (test 13.0 % 11.6-14.4 vuke=998) PLATELET COUNT (BEAKER) (test ssua=176) 212 K/CU MM 150-450 MEAN PLATELET VOLUME (BEAKER) (test rlvl=493) 8.8 fL 9.4-12.4 NUCLEATED RED BLOOD CELLS (BEAKER) (test 0 /100 WBC 0-0 kdtd=286) IMMATURE GRANULOCYTES-RELATIVE PERCENT (BEAKER) 1 % 0-1 (test uovy=0659) (MANUAL DIFFERENTIAL)2017-06-27 09:41:00 Test Item Value Reference Range Comments NEUTROPHILS - REL (DIFF) (BEAKER) (test sges=2915) 36 % LYMPHOCYTES - REL (DIFF) (BEAKER) (test esre=7367) 49 % MONOCYTES - REL (DIFF) (BEAKER) (test slaw=8432) 15 % EOSINOPHILS - REL (DIFF) (BEAKER) (test gffu=2722) 0 % BASOPHILS - REL (DIFF) (BEAKER) (test cvmm=5664) 0 % NEUTROPHILS - ABS (DIFF) (BEAKER) (test vppa=9354) 1.84 K/ L 1.80-8.00 LYMPHOCYTES - ABS (DIFF) (BEAKER) (test wtsu=3753) 2.50 K/ L 1.48-4.50 MONOCYTES - ABS (DIFF) (BEAKER) (test bmsc=1426) 0.77 K/ L 0.00-1.30 EOSINOPHILS - ABS (DIFF) (BEAKER) (test sjlu=4737) 0.00 K/ L 0.00-0.50 BASOPHILS - ABS (DIFF) (BEAKER) (test funa=8508) 0.00 K/ L 0.00-0.20 TOTAL COUNTED (BEAKER) (test dzel=3876) 100 PLT MORPHOLOGY (BEAKER) (test tqyl=635) Normal RBC MORPHOLOGY (BEAKER) (test qabe=630) Normal ATYPICAL LYMPHS(BEAKER) (test pgvf=0777) Present DOUBLE-STRANDED DNA (DSDNA) [id number] 09:41:00 Test Item Value Reference Range Comments ANTI-DNA DS (BEAKER) (test ylpr=8111) Negative POCT-GLUCOSE [id number] 08:40:00 Test Item Value Reference Range Comments POC-GLUCOSE METER (BEAKER) 129 mg/dL 70-110 TESTED AT [address] (test rbla=4910) [place] [id number] POCT-GLUCOSE [id number] 06:33:00 Test Item Value Reference Range Comments POC-GLUCOSE METER (BEAKER) 104 mg/dL 70-110 TESTED AT [address] (test ljdh=6216) [place] [id number] BASIC METABOLIC [id number] 05:15:00 Test Item Value Reference Range Comments SODIUM (BEAKER) (test 126 meq/L 136-145 qnnr=421) POTASSIUM (BEAKER) (test 4.1 meq/L 3.5-5.1 Specimen slightly dtft=040) hemolyzed CHLORIDE (BEAKER) (test 96 meq/L 98-107 wwbk=467) CO2 (BEAKER) (test 24 meq/L 22-29 ayhj=283) BLOOD UREA NITROGEN 6 mg/dL 7-21 (BEAKER) (test ghxq=373) CREATININE (BEAKER) (test 0.55 mg/dL 0.57-1.25 Specimen slightly zfkt=202) hemolyzed GLUCOSE RANDOM (BEAKER) 106 mg/dL 70-105 (test ptph=698) CALCIUM (BEAKER) (test 8.3 mg/dL 8.4-10.2 mjka=701) EGFR (BEAKER) (test 156 mL/min/1.73 sq m ESTIMATED GFR IS NOT hexy=0736) ACCURATE CREATININE CLEARANCE IN PREDICTING GLOMERULAR FILTRATION RATE. ESTIMATED GFR IS NOT APPLICABLE FOR DIALYSIS PATIENTS. POCT-GLUCOSE [id number] 00:48:00 Test Item Value Reference Range Comments POC-GLUCOSE METER (BEAKER) 146 mg/dL 70-110 TESTED AT [address] (test wglk=9279) [place] [address] [id number] 23:24:00 Test Item Value Reference Range Comments SODIUM (BEAKER) (test vpnq=610) 125 meq/L 136-145 POCT-GLUCOSE [id number] 18:13:00 Test Item Value Reference Range Comments POC-GLUCOSE METER (BEAKER) 147 mg/dL 70-110 TESTED AT [address] (test bctg=6722) [facility] [address] U/S, ABDOMINAL, [id number] 18:11:00Abdomen limited area? Add comment if clarification is needed.->LiverReason for exam:->Fatty liver, hyponatremia.FINAL REPORT History: Hyponatremia, fatty liver. FINDINGS: No comparisons areavailable. Real-time sonographic examination of the right upper quadrant of the abdomen reveals a mildly enlarged liver measuring up to 17 cm in length. Hepatic echotexture is mildly and diffusely increased, possibly representing mild diffuse fatty infiltration. There are no sonographically detectablemasses or focal intrahepatic abnormalities identified. The gallbladder is upper limits normal size measuring 4 cm in greatest transverse diameter. Multiple mobile shadowing stones are seen in the gallbladder lumen, the largest measuring up to 1.7 cm in greatest dimensions. A moderate amount of echogenic sludge is also seen in the gallbladder lumen. No pericholecystic fluid or wall thickening. Sonographic Nguyen sign is negative. No intra or extrahepatic biliary ductal dilatation. The common bile duct measures up to 5 mm in diameter. The portal vein measures 12 mm in diameter and appears patent by Limited color Doppler examination. The right kidney is enlarged measuring up to 12.9 cm in length. Moderate right-sided hydronephrosis is present. No visible stones, solid masses or cysts are present. The pancreas is not well seen secondary to overlying bowel gas but is unremarkable where visible. Aortaand IVC are unremarkable. No ascites or abdominal fluid collections. IMPRESSION: 1. Cholelithiasis and a mildly distended gallbladder without ultrasound evidence for acute cholecystitis. 2. Mild hepatomegaly and probable mild diffuse fatty infiltration the liver. 3. Moderate right-sided hydronephrosis. 4. Incomplete evaluation of the pancreas. Signed: Francine Gann MDReport Verified Date/Time: 06/26/2017 18:11:31 Reading Location: [facility] [id number] Ultrasound Reading Room [id number] 17:05:00 Test Item Value Reference Range Comments SODIUM (BEAKER) (test lmwy=510) 129 meq/L 136-145 IMMUNOFIXATION ELECTROPHORESIS (JOE)2017-06-26 16:22:00 Test Item Value Reference Range Comments IMMUNOGLOBULIN G (IGG) (BEAKER) 3052 mg/dL 540-1822 (test huez=068) IMMUNOGLOBULIN A (IGA) (BEAKER) 900 mg/dL 63-484 (test tsox=488) IMMUNOGLOBULIN M (IGM) (BEAKER) 244 mg/dL 22-293 (test plxu=267) SERUM JOE ID (BEAKER) (test No monoclonal proteins rprt=1156) detected. Polyclonal elevation of gamma globulins. [id number] (BEAKER) Destinee Hemphill MD (test fbsg=2691) (electronic signature) PROTEIN ELECTROPHORESIS, [id number] 16:18:00 Test Item Value Reference Range Comments ALBUMIN FRACTION (BEAKER) 2.1 g/dL 3.5-5.5 (test qnku=284) ALPHA 1 FRACTION (BEAKER) 0.3 g/dL 0.2-0.4 (test vkgy=750) ALPHA 2 FRACTION (BEAKER) 0.7 g/dL 0.5-0.9 (test cdgf=991) BETA FRACTION (BEAKER) (test 1.0 g/dL 0.6-1.1 zxao=562) GAMMA GLOBULIN FRACTION 2.6 g/dL 0.7-1.7 (BEAKER) (test rhir=661) INTERPRETATION-119 (BEAKER) Polyclonal elevation of gamma (test bqpn=9955) globulins, consistent with chronic inflammation. Serum JOE ordered to exclude presence of small underlying monoclonal band in gamma region. [id number] (BEAKER) Destinee Hemphill MD (test yphj=2428) (electronic signature) PROTEIN TOTAL SERUM, SPEP 6.6 gm/dL 6.0-8.3 (BEAKER) (test pdpn=6527) CSF CELL COUNT [id number] 16:03:00 Test Item Value Reference Range Comments APPEARANCE CSF (BEAKER) (test xzck=253) Clear Clear COLOR CSF (BEAKER) (test laxv=304) Colorless Colorless RBC CSF (BEAKER) (test ljks=077) 10 /cu mm 0-5 WBC CSF (BEAKER) (test ypwm=2047) 16 /cu mm <=5 RBCS FRESH (BEAKER) (test ndos=4972) 100% Fresh NUMBER OF CELLS DIFF'D (BEAKER) (test byxc=9044) 100 NEUTROPHIL, CSF (BEAKER) (test evny=592) 9 % 0-5 LYMPHS CSF (BEAKER) (test diwx=855) 89 % 40-80 MONO/MACROPHAGE CSF (BEAKER) (test uztp=139) 2 % 15-45 EOSINOPHILS CSF (BEAKER) (test gquf=504) 0 % <=0 BASO CSF (BEAKER) (test zyjh=336) 0 % <=0 TUBE NUMBER CSF (BEAKER) (test skdu=3721) 1 PROTEIN, [id number] 15:46:00 Test Item Value Reference Range Comments PROTEIN CSF (BEAKER) (test irha=415) 294 mg/dL 15-45 [id number] 15:42:00 Test Item Value Reference Range Comments CORTISOL, TOTAL (BEAKER) (test gqpg=2854) 5.9 ug/dL 3.7-19.4 GLUCOSE, [id number] 15:32:00 Test Item Value Reference Range Comments GLUCOSE CSF (BEAKER) (test zcuw=351) 63 mg/dL 40-70 FLOW [id number] 15:17:00Flow Cytometry Report Case: [id number] Authorizing Provider: Edinson Palacios, Collected: 06/26/2017 0340 OrderingLocation: [place] [address] ICU Received: 2017 1055 Pathologist: Myra Downey MD Specimen: Other RESULTS: ADULT NORMALS ABSOLUTE LYMPHS: 3597.79/cmm 911-4017/cmmT LYMPHOCYTE ENUMERATION: CD3 (Total T cell) 95.96% 3452.49/cmm 603--2990/cmmCD4 (T [place] cells) 29.77% 1071.02/cmm 441-2156/cmmCD8 (T Suppressor cells ) 64.85% 2333.04/cmm 125-1312/cmmCD4:CD8 (Th:Ts Ratio) 0.46 0.7-3.23CD16+56 (Natural Killer cells) 1.91% 68.54/cmm 95-640/cmmB LYMPHOCYTE ENUMERATION:CD19 (Total B cells) 1.78% 63.97/cmm 107-698/cmmElectronically signed by Myra Downey MD on 2017 at 3:17 PMCellular immune alteration, characterized by decreased CD4: CD8 ratio.[id number] bloodCD3, CD4, CD8, CD16+56, BZ62Xtmsp tests were developed and their performance characteristics determined by [facility]. They have not been cleared or approved by the U.S. Food and Drug Administration. The FDA has determined that such clearance or approval is not necessary. It should not be regarded as investigational or for research. This laboratory is certified under the Clinical Laboratory Improvement Amendments of 1988 ("CLIA")as qualified to perform high-complexity clinical testing.VITAMIN B12 AND [id number] 14:52:00 Test Item Value Reference Range Comments VITAMIN B12 (IVAN) (test ztaj=393) 451 pg/mL 213-816 FOLATE (Music Messenger (MM)AKER) (test kiih=239) 7.9 ng/mL >=7.0 CD4 T CELL [id number] 14:00:00 Test Item Value Reference Range Comments CD4 T CELL SUBSET RESULT POINTER See Separate Report (BEAKER) (test qmot=4454) FLOW CYTOMETRY AP CASE # (BEAKER) (test [id number] yksj=3230) CREATINE KINASE (CK)2017-06-26 13:35:00 Test Item Value Reference Range Comments CREATINE KINASE TOTAL (BEAKER) (test qmjd=221) 24 U/L 29-200 POCT-GLUCOSE [id number] 12:32:00 Test Item Value Reference Range Comments POC-GLUCOSE METER (BEAKER) 108 mg/dL 70-[address] [facility] [address] [facility] (test nipk=8932) [facility] [address] HEMOGLOBIN [id number] 12:16:00 Test Item Value Reference Range Comments HEMOGLOBIN A1C (BEAKER) (test gsrr=728) 7.0 % 4.3-6.1 TSH/FREE T4 IF [id number] 11:46:00 Test Item Value Reference Range Comments THYROID STIMULATING HORMONE (BEAKER) (test 2.06 uIU/mL 0.35-4.94 ndjz=753) BASIC METABOLIC [id number] 11:23:00 Test Item Value Reference Range Comments SODIUM (BEAKER) (test 128 meq/L 136-145 rcuf=545) POTASSIUM (BEAKER) (test 4.1 meq/L 3.5-5.1 nytt=083) CHLORIDE (BEAKER) (test 100 meq/L 98-107 usnf=184) CO2 (BEAKER) (test 22 meq/L 22-29 vjfp=436) BLOOD UREA NITROGEN 7 mg/dL 7-21 (BEAKER) (test jenu=889) CREATININE (BEAKER) (test 0.56 mg/dL 0.57-1.25 twkb=469) GLUCOSE RANDOM (BEAKER) 111 mg/dL 70-105 (test ocyt=136) CALCIUM (BEAKER) (test 7.9 mg/dL 8.4-10.2 jsrn=101) EGFR (BEAKER) (test 153 mL/min/1.73 sq m ESTIMATED GFR IS NOT fhst=8055) ACCURATE CREATININE CLEARANCE IN PREDICTING GLOMERULAR FILTRATION RATE. ESTIMATED GFR IS NOT APPLICABLE FOR DIALYSIS PATIENTS. HEPATIC FUNCTION [id number] 11:23:00 Test Item Value Reference Range Comments TOTAL PROTEIN (BEAKER) (test musy=887) 7.2 gm/dL 6.0-8.3 ALBUMIN (BEAKER) (test onrc=3714) 1.9 g/dL 3.5-5.0 BILIRUBIN TOTAL (BEAKER) (test bhdh=900) 0.4 mg/dL 0.2-1.2 BILIRUBIN DIRECT (BEAKER) (test nurf=845) 0.3 mg/dL 0.1-0.5 ALKALINE PHOSPHATASE (BEAKER) (test wbmc=657) 103 U/L 40-150 AST (SGOT) (BEAKER) (test dqrw=586) 35 U/L 5-34 ALT (SGPT) (BEAKER) (test ceic=260) 25 U/L 6-55 RHEUMATOID FACTOR AB, REFLEX TO [id number] 11:18:00 Test Item Value Reference Range Comments RHEUMATOID FACTOR (BEAKER) (test yiix=304) Positive RHEUMATOID FACTOR [id number] 11:18:00 Test Item Value Reference Range Comments RHEUMATOID FACTOR TITER (BEAKER) (test lret=5159) :2 CBC W/PLT COUNT & AUTO [id number] 10:55:00 Test Item Value Reference Range Comments WHITE BLOOD CELL COUNT (BEAKER) (test omsf=393) 5.5 K/ L 3.5-10.5 RED BLOOD CELL COUNT (BEAKER) (test sqko=687) 3.86 M/ L 4.63-6.08 HEMOGLOBIN (BEAKER) (test vpvf=135) 11.0 GM/DL 13.7-17.5 HEMATOCRIT (BEAKER) (test qvfj=536) 33.1 % 40.1-51.0 MEAN CORPUSCULAR VOLUME (BEAKER) (test pyaj=445) 85.8 fL 79.0-92.2 MEAN CORPUSCULAR HEMOGLOBIN (BEAKER) (test 28.5 pg 25.7-32.2 iwxr=963) MEAN CORPUSCULAR HEMOGLOBIN CONC (BEAKER) (test 33.2 GM/DL 32.3-36.5 dqss=525) RED CELL DISTRIBUTION WIDTH (BEAKER) (test 13.4 % 11.6-14.4 kpau=315) PLATELET COUNT (BEAKER) (test xndf=675) 192 K/CU MM 150-450 MEAN PLATELET VOLUME (BEAKER) (test oapy=419) 10.0 fL 9.4-12.4 NUCLEATED RED BLOOD CELLS (BEAKER) (test 0 /100 WBC 0-0 rgpd=261) NEUTROPHILS RELATIVE PERCENT (BEAKER) (test 41 % wzmx=753) LYMPHOCYTES RELATIVE PERCENT (BEAKER) (test 50 % ocml=028) MONOCYTES RELATIVE PERCENT (BEAKER) (test 7 % wjqr=742) EOSINOPHILS RELATIVE PERCENT (BEAKER) (test 1 % zdri=399) BASOPHILS RELATIVE PERCENT (BEAKER) (test 1 % vusv=142) NEUTROPHILS ABSOLUTE COUNT (BEAKER) (test 2.24 K/ L 1.78-5.38 nmoq=950) LYMPHOCYTES ABSOLUTE COUNT (BEAKER) (test 2.75 K/ L 1.32-3.57 oipv=192) MONOCYTES ABSOLUTE COUNT (BEAKER) (test 0.40 K/ L 0.30-0.82 vzns=980) EOSINOPHILS ABSOLUTE COUNT (BEAKER) (test 0.07 K/ L 0.04-0.54 sfcy=569) BASOPHILS ABSOLUTE COUNT (BEAKER) (test 0.03 K/ L 0.01-0.08 skfx=967) IMMATURE GRANULOCYTES-RELATIVE PERCENT (BEAKER) 0 % 0-1 (test yjvk=4614) (MANUAL DIFFERENTIAL)2017-06-26 10:55:00 Test Item Value Reference Range Comments TOTAL COUNTED (BEAKER) (test kcju=7616) WBC MORPHOLOGY (BEAKER) (test afua=491) Normal PLT MORPHOLOGY (BEAKER) (test rave=890) Normal RBC MORPHOLOGY (BEAKER) (test geym=575) Normal RAD, CHEST, 1 VIEW, NON [id number] 07:37:00Reason for exam:->Cough, congestionShould this be performed at the bedside?->YesFINAL REPORT HISTORY : Cough, congestion. Comparison: None Comment: Single portable view of the chest was obtained. The cardiac silhouette size is within normal limits. No pneumothorax, pleural effusion or focal infiltrate is seen. No lytic or blastic abnormalities. Signed: Rizwana Mathews Verified Date/ Time: 06/26/2017 07:37:08 Reading Location: [facility] Diagnostic Imaging Reading Room - [place] [address] Electronically signed by: RIZWANA MATHEWS M.D. on 2017 07:37 AMOSMOLALITY, [id number] 07:00:00 Test Item Value Reference Range Comments OSMOLALITY, SERUM (BEAKER) (test yvlz=776) 275 mOsm/kg 275-295 OSMOLALITY, [id number] 07:00:00 Test Item Value Reference Range Comments OSMOLALITY URINE (BEAKER) (test vzmr=766) 320 mOsm/kg 40-1400 CREATININE, RANDOM [id number] 06:33:00 Test Item Value Reference Range Comments CREATININE URINE (BEAKER) (test dyga=586) 22.7 mg/dL Reference Range: No NormalsSODIUM, RANDOM [id number] 06:33:00 Test Item Value Reference Range Comments SODIUM URINE (BEAKER) (test lszb=352) 114 meq/L Reference Range: No NormalsPROTHROMBIN [id number] 05:09:00 Test Item Value Reference Range Comments PROTIME (BEAKER) (test nqtv=145) 15.6 seconds 11.7-14.7 INR (BEAKER) (test ficp=961) 1.2 <=5.9 RECOMMENDED COUMADIN/WARFARIN INR THERAPY RANGESSTANDARD DOSE: 2.0 - 3.0 Includes: PROPHYLAXIS forvenous thrombosis, systemic embolization; TREATMENT for venous thrombosis and/or pulmonary embolus.HIGH RISK: Target INR is 2.5-3.5 for patients with mechanical heart valves.CBC W/PLT COUNT & AUTO [id number] 03:25:00 Test Item Value Reference Range Comments WHITE BLOOD CELL COUNT (BEAKER) (test puzc=396) 5.9 K/ L 3.5-10.5 RED BLOOD CELL COUNT (BEAKER) (test fafl=973) 3.93 M/ L 4.63-6.08 HEMOGLOBIN (BEAKER) (test mnid=287) 11.1 GM/DL 13.7-17.5 HEMATOCRIT (BEAKER) (test eeld=406) 33.4 % 40.1-51.0 MEAN CORPUSCULAR VOLUME (BEAKER) (test zzwf=731) 85.0 fL 79.0-92.2 MEAN CORPUSCULAR HEMOGLOBIN (BEAKER) (test 28.2 pg 25.7-32.2 vasj=247) MEAN CORPUSCULAR HEMOGLOBIN CONC (BEAKER) (test 33.2 GM/DL 32.3-36.5 knfn=752) RED CELL DISTRIBUTION WIDTH (BEAKER) (test 13.4 % 11.6-14.4 rwpa=701) PLATELET COUNT (BEAKER) (test pdhd=321) 183 K/CU MM 150-450 MEAN PLATELET VOLUME (BEAKER) (test pfrl=105) 8.5 fL 9.4-12.4 NUCLEATED RED BLOOD CELLS (BEAKER) (test 0 /100 WBC 0-0 npgd=180) IMMATURE GRANULOCYTES-RELATIVE PERCENT (BEAKER) 1 % 0-1 (test olaj=2392) (MANUAL DIFFERENTIAL)2017-06-26 03:25:00 Test Item Value Reference Range Comments NEUTROPHILS - REL (DIFF) (BEAKER) (test mlee=4506) 69 % LYMPHOCYTES - REL (DIFF) (BEAKER) (test cyzu=4135) 15 % MONOCYTES - REL (DIFF) (BEAKER) (test jtsk=9425) 2 % BASOPHILS - REL (DIFF) (BEAKER) (test gnxd=5735) 1 % PROMYELOCYTES-REL (DIFF) (BEAKER) (test zama=118) 13 % 0-0 NEUTROPHILS - ABS (DIFF) (BEAKER) (test cweb=4353) 4.07 K/ L 1.80-8.00 LYMPHOCYTES - ABS (DIFF) (BEAKER) (test fydl=5843) 0.89 K/ L 1.48-4.50 MONOCYTES - ABS (DIFF) (BEAKER) (test pnar=1765) 0.12 K/ L 0.00-1.30 BASOPHILS - ABS (DIFF) (BEAKER) (test icnm=4113) 0.06 K/ L 0.00-0.20 PROMYELOCYTES - ABS (DIFF) (BEAKER) (test 0.77 K/ L 0.00-0.00 bzhw=243) TOTAL COUNTED (BEAKER) (test boyv=0518) 100 WBC MORPHOLOGY (BEAKER) (test opee=305) Normal PLT MORPHOLOGY (BEAKER) (test aekc=868) Normal RBC MORPHOLOGY (BEAKER) (test ezec=763) Normal URINALYSIS W/ [id number] 00:03:00 Test Item Value Reference Range Comments COLOR (BEAKER) (test gucy=680) Yellow CLARITY (BEAKER) (test smkt=548) Clear SPECIFIC GRAVITY UA (BEAKER) (test pvgt=814) 1.007 1.001-1.035 PH UA (BEAKER) (test oioc=676) 6.0 5.0-8.0 PROTEIN UA (BEAKER) (test frzu=132) 30 mg/dL Negative GLUCOSE UA (BEAKER) (test wtxm=883) Negative Negative KETONES UA (BEAKER) (test gkkg=116) Negative Negative BILIRUBIN UA (BEAKER) (test zgxi=628) Negative Negative BLOOD UA (BEAKER) (test vcai=507) Negative Negative NITRITE UA (BEAKER) (test lmhk=619) Negative Negative LEUKOCYTE ESTERASE UA (BEAKER) (test hczp=617) Negative Negative UROBILINOGEN UA (BEAKER) (test lxgt=217) 0.2 mg/dL 0.2-1.0 RBC UA (BEAKER) (test pkpq=129) 1 /HPF WBC UA (BEAKER) (test hyvj=118) 1 /HPF MUCUS (BEAKER) (test kiow=1734) Rare SOURCE(BEAKER) (test vezh=2600) CREATINE KINASE (CK), TOTAL AND [id number] 23:53:00 Test Item Value Reference Range Comments CREATINE KINASE TOTAL (BEAKER) (test niau=214) 25 U/L 29-200 CREATINE KINASE-MB (BEAKER) (test sovh=290) 0.4 ng/mL 0.0-6.6 CREATINE KINASE-MB INDEX (BEAKER) (test jtdk=635) 1.6 % CK-MB Reference Range:<6.7 Normal6.7-10.0 Borderline>10.0 AbnormalTROPONIN [id number] 23:53:00 Test Item Value Reference Range Comments TROPONIN I (BEAKER) (test irau=668) 0.01 ng/mL 0.00-0.03 Troponin I (TnI) levels must be interpreted in the context of the presenting symptoms and the clinical findings. Elevated TnI levels indicate myocardial damage, but are not specific for ischemic heart disease. Elevated TnI levels are seen in patients with other cardiac conditions (including myocarditis and congestive heart failure), and slight TnI elevations occur in patients with other conditions, including sepsis, renal failure, acidosis, acute neurological disease, and persistent tachyarrhythmia.HEPATIC FUNCTION [id number] 23:46: 00 Test Item Value Reference Range Comments TOTAL PROTEIN (BEAKER) (test lnxi=150) 6.8 gm/dL 6.0-8.3 ALBUMIN (BEAKER) (test yzig=7219) 2.0 g/dL 3.5-5.0 BILIRUBIN TOTAL (BEAKER) (test fkio=515) 0.6 mg/dL 0.2-1.2 BILIRUBIN DIRECT (BEAKER) (test dicg=882) 0.3 mg/dL 0.1-0.5 ALKALINE PHOSPHATASE (BEAKER) (test nvwa=007) 113 U/L 40-150 AST (SGOT) (BEAKER) (test mvbk=622) 37 U/L 5-34 ALT (SGPT) (BEAKER) (test oaod=377) 26 U/L 6-55 BASIC METABOLIC [id number] 23:46:00 Test Item Value Reference Range Comments SODIUM (BEAKER) (test 128 meq/L 136-145 qdxw=960) POTASSIUM (BEAKER) (test 4.1 meq/L 3.5-5.1 aaod=398) CHLORIDE (BEAKER) (test 99 meq/L 98-107 qldn=731) CO2 (BEAKER) (test 24 meq/L 22-29 cykw=335) BLOOD UREA NITROGEN 6 mg/dL 7-21 (BEAKER) (test vyym=527) CREATININE (BEAKER) (test 0.56 mg/dL 0.57-1.25 wwax=825) GLUCOSE RANDOM (BEAKER) 155 mg/dL 70-105 (test ddgn=961) CALCIUM (BEAKER) (test 8.0 mg/dL 8.4-10.2 xkxz=035) EGFR (BEAKER) (test 153 mL/min/1.73 sq m ESTIMATED GFR IS NOT cngw=1037) ACCURATE CREATININE CLEARANCE IN PREDICTING GLOMERULAR FILTRATION RATE. ESTIMATED GFR IS NOT APPLICABLE FOR DIALYSIS PATIENTS. [id number] 23:41:00 Test Item Value Reference Range Comments PARTIAL THROMBOPLASTIN TIME (BEAKER) (test 45.1 seconds 22.5-36.0 ygyh=491) PROTHROMBIN [id number] 23:40:00 Test Item Value Reference Range Comments PROTIME (BEAKER) (test xdkn=377) 14.7 seconds 11.7-14.7 INR (BEAKER) (test bskd=136) 1.2 <=5.9 RECOMMENDED COUMADIN/WARFARIN INR THERAPY RANGESSTANDARD DOSE: 2.0 - 3.0 Includes: PROPHYLAXIS forvenous thrombosis, systemic embolization; TREATMENT for venous thrombosis and/or pulmonary embolus.HIGH RISK: Target INR is 2.5-3.5 for patients with mechanical heart valves.POCT-GLUCOSE [id number] 23:24:00 Test Item Value Reference Range Comments POC-GLUCOSE METER (BEAKER) 153 mg/dL 70-110 TESTED AT [address] (test fehe=6159) [place] [address] POCT-GLUCOSE [id number] 18:20:00 Test Item Value Reference Range Comments POC-GLUCOSE METER (BEAKER) 141 mg/dL 70-110 TESTED AT [address] (test cooy=3952) [place] [address]
[2017-07-10 21:45] LABS: Urine Appearance CLEAR; Urine Bilirubin NEGATIVE (NEG); Urine Blood NEGATIVE (NEG); Urine Color YELLOW; Urine Glucose NEGATIVE (NEG); Urine Protein 2+ (NEG); Urine Urobilinogen 0.2 mg/dL (0.2-1.0)
[2017-07-10 21:56] LABS: Urine Bacteria 20-50 /HPF (NONE SEEN); Urine Culture Reflex Order REFLEXED; Urine Mucus 2+ /HPF (NONE SEEN); Urine RBC <5 /HPF (NONE SEEN)
[2017-07-10] MEDS ORDERED: MELATONIN 3 MG TABLET PO PRN (23:02)
[2017-07-10] MEDS ORDERED: HYDRALAZINE HCL 20 MG/ML VIAL IV PRN (23:07)
[2017-07-10] MEDS ORDERED: GLUCAGON 1 MG/VIAL IM PRN (23:08)
[2017-07-10] MEDS ORDERED: D50W 25 GM/50 ML SYRINGE IV PRN (23:08)
[2017-07-10] MEDS ORDERED: LIDOCAINE VISCOUS 2% SOLN 15 ML UDC PO PRN (23:12)
[2017-07-10] MEDS ORDERED: ACETAMINOPHEN 325 MG TABLET PO PRN (23:16)
[2017-07-10] MEDS: ZOLPIDEM TARTRATE 5 MG TABLET PO PRN (23:31)
[2017-07-10] MEDS: HYDROCODONE/APAP 5/325 MG TAB PO PRN (23:31)
[2017-07-11 06:03] LABS: Absolute Monocytes 0.5 K/uL (0.1-1.3); Absolute Neutrophil 1.4 K/uL (1.8-8.0); Basophils % 0.4 % (0-1.3); Eosinophils % 4.2 % (0-4.4); Hematocrit 31.1 % (39.6-49.0); MCH 28.3 pg (27.0-35.0); MCV 84.1 fL (80-100); MPV 6.9 fL (7.6-11.3); Monocytes % 10.1 % (3.3-12.3)
[2017-07-11 06:15] LABS: Albumin 2.2 g/dL (3.2-5.5); BUN Blood Urea Nitrogen 14 mg/dL (6-20); Bicarbonate 30 mEq/L (21-31); Glucose Level 148 mg/dL (65-120); Magnesium 1.8 mg/dL (1.8-2.5); Potassium 4.3 mEq/L (3.6-5.0); Prealbumin 18.7 mg/dl (18-38); Sodium Level 132 mEq/L (135-145)
[2017-07-11] MEDS: PANTOPRAZOLE 40MG TABLET PO SCH (06:59)
[2017-07-11] MEDS: INSULIN -REGULAR HUMAN 50 UNIT/0.5 ML ML SQ SCH ×4 (07:30→21:00)
[2017-07-11] MEDS ORDERED: AMLODIPINE 10 MG TAB PO SCH (08:00)
[2017-07-11] MEDS: DOLUTEGRAVIR 50 MG PO SCH (08:00)
[2017-07-11] MEDS ORDERED: METOPROLOL TAR 50 MG TAB PO SCH (08:00)
[2017-07-11] MEDS: NYSTATIN 500,000 UNIT/5 ML UDC PO SCH ×4 (09:00→21:09)
[2017-07-11] MEDS: PENICILLIN MU IV SCH (09:07)
[2017-07-11] MEDS: ENOXAPARIN 40 MG/0.4 ML SQ SCH (09:07)
[2017-07-11] MEDS: NA CHLORIDE IV SCH (09:07)
[2017-07-11] MEDS: BISACODYL E.C. 5 MG TAB PO PRN (09:07)
[2017-07-11] MEDS: THIAMINE HCL 100 MG TABLET PO SCH (09:07)
[2017-07-11] MEDS: GABAPENTIN 300 MG CAP PO SCH ×3 (09:08→21:08)
[2017-07-11] MEDS: SODIUM CHLORIDE 1 GM TAB PO SCH ×3 (09:08→17:08)
[2017-07-11] MEDS: METOPROLOL TAR 50 MG TAB PO SCH ×2 (09:08→21:09)
[2017-07-11] MEDS: EMTRICITABINE/TENOFOVIR 1 TAB PO SCH (09:08)
[2017-07-11] MEDS: AMLODIPINE 10 MG TAB PO SCH (09:09)
[2017-07-11] MEDS: MAGNESIUM OXIDE 400 MG TAB PO SCH ×2 (09:09→21:08)
[2017-07-11] MEDS: FOLIC ACID 1 MG TABLET PO SCH (09:09)
[2017-07-11] MEDS: MULTIVITAMIN TAB PO SCH (09:09)
[2017-07-11] MEDS: TAMSULOSIN 0.4 MG SR CAP PO SCH (09:09)
[2017-07-11] MEDS: CALCIUM CARB 500MG/VIT D 200 IU TAB PO SCH (09:09)
[2017-07-11] MEDS: DOXYCYCLINE 100 MG CAP PO SCH ×2 (09:09→21:07)
[2017-07-11] MEDS: HYDROCODONE/APAP 5/325 MG TAB PO PRN ×2 (09:09→21:14)
[2017-07-11 09:42] LABS: Blood Morphology Comment NOTED (NOT SEEN); Platelet Estimate ADEQ
[2017-07-11 09:46] LABS: Hypochromasia 1+
[2017-07-11] MEDS ORDERED: GLUCERNA SHAKE 237 ML CAN PO PRN (14:44)
[2017-07-11] MEDS: SENOSIDES 8.6 MG TAB PO SCH (21:08)
[2017-07-11] MEDS: AMITRIPTYLINE 25 MG TAB PO SCH (21:08)
[2017-07-11] MEDS: POLYVINYL ALCOHOL 1.4% 15 ML EACH EYE SCH (21:10)
[2017-07-11] MEDS: INSULIN DETEMIR 100 UNIT/1 ML INSULIN SQ SCH (21:10)
[2017-07-11] MEDS: ZOLPIDEM TARTRATE 5 MG TABLET PO PRN (21:14)
[2017-07-12] MEDS: ENOXAPARIN 40 MG/0.4 ML SQ SCH (07:03)
[2017-07-12] MEDS: PANTOPRAZOLE 40MG TABLET PO SCH (07:03)
[2017-07-12] MEDS: INSULIN -REGULAR HUMAN 50 UNIT/0.5 ML ML SQ SCH ×4 (07:30→20:49)
[2017-07-12] MEDS: METOPROLOL TAR 50 MG TAB PO SCH ×2 (08:00→20:48)
[2017-07-12] MEDS: NA CHLORIDE IV SCH ×2 (08:00→12:51)
[2017-07-12] MEDS: DOLUTEGRAVIR 50 MG PO SCH (08:00)
[2017-07-12] MEDS: PENICILLIN MU IV SCH ×2 (08:00→12:51)
[2017-07-12] MEDS: AMLODIPINE 10 MG TAB PO SCH (08:00)
[2017-07-12] MEDS: SODIUM CHLORIDE 1 GM TAB PO SCH ×3 (08:35→17:20)
[2017-07-12] MEDS: MAGNESIUM OXIDE 400 MG TAB PO SCH ×2 (08:35→20:41)
[2017-07-12] MEDS: EMTRICITABINE/TENOFOVIR 1 TAB PO SCH (08:35)
[2017-07-12] MEDS: DOXYCYCLINE 100 MG CAP PO SCH ×2 (08:35→20:41)
[2017-07-12] MEDS: TAMSULOSIN 0.4 MG SR CAP PO SCH (08:36)
[2017-07-12] MEDS: CALCIUM CARB 500MG/VIT D 200 IU TAB PO SCH (08:36)
[2017-07-12] MEDS: GABAPENTIN 300 MG CAP PO SCH ×3 (08:36→20:41)
[2017-07-12] MEDS: THIAMINE HCL 100 MG TABLET PO SCH (08:36)
[2017-07-12] MEDS: MULTIVITAMIN TAB PO SCH (08:37)
[2017-07-12] MEDS: FOLIC ACID 1 MG TABLET PO SCH (08:37)
[2017-07-12] MEDS: HYDROCODONE/APAP 5/325 MG TAB PO PRN ×2 (08:37→20:40)
[2017-07-12] MEDS: NYSTATIN 500,000 UNIT/5 ML UDC PO SCH (08:40)
[2017-07-12] MEDS: AMITRIPTYLINE 25 MG TAB PO SCH (20:41)
[2017-07-12] MEDS: SENOSIDES 8.6 MG TAB PO SCH (20:41)
[2017-07-12] MEDS: ZOLPIDEM TARTRATE 5 MG TABLET PO PRN (20:50)
[2017-07-12] MEDS: INSULIN DETEMIR 100 UNIT/1 ML INSULIN SQ SCH (20:50)
[2017-07-12] MEDS: POLYVINYL ALCOHOL 1.4% 15 ML EACH EYE SCH (20:52)
[2017-07-13 06:03] LABS: Absolute Lymphocytes (CBC) 2.5 K/uL (0.7-4.9); Absolute Monocytes 0.5 K/uL (0.1-1.3); Absolute Neutrophil 1.5 K/uL (1.8-8.0); Basophils % 0.3 % (0-1.3); Eosinophils % 5.1 % (0-4.4); Hematocrit 31.2 % (39.6-49.0); Lymphocytes % 52.9 % (15.3-44.8); MCH 27.9 pg (27.0-35.0); MCV 83.5 fL (80-100); MPV 6.8 fL (7.6-11.3); Monocytes % 9.8 % (3.3-12.3); RBC Red Blood Cell Count 3.74 M/uL (4.33-5.43)
[2017-07-13] MEDS: PANTOPRAZOLE 40MG TABLET PO SCH (06:47)
[2017-07-13 06:54] LABS: Albumin 2.4 g/dL (3.2-5.5); BUN Blood Urea Nitrogen 12 mg/dL (6-20); Bicarbonate 27 mEq/L (21-31); Glucose Level 86 mg/dL (65-120); Potassium 4.1 mEq/L (3.6-5.0); Prealbumin 21.5 mg/dl (18-38); Sodium Level 133 mEq/L (135-145)
[2017-07-13] MEDS: ENOXAPARIN 40 MG/0.4 ML SQ SCH (07:21)
[2017-07-13] MEDS: INSULIN -REGULAR HUMAN 50 UNIT/0.5 ML ML SQ SCH ×4 (07:29→21:00)
[2017-07-13] MEDS: NA CHLORIDE IV SCH ×2 (08:00→14:22)
[2017-07-13] MEDS: PENICILLIN MU IV SCH ×2 (08:00→14:22)
[2017-07-13] MEDS: DOLUTEGRAVIR 50 MG PO SCH (08:00)
[2017-07-13] MEDS: TAMSULOSIN 0.4 MG SR CAP PO SCH (08:42)
[2017-07-13] MEDS: CALCIUM CARB 500MG/VIT D 200 IU TAB PO SCH (08:43)
[2017-07-13] MEDS: EMTRICITABINE/TENOFOVIR 1 TAB PO SCH (08:43)
[2017-07-13] MEDS: SODIUM CHLORIDE 1 GM TAB PO SCH ×3 (08:43→17:00)
[2017-07-13] MEDS: DOXYCYCLINE 100 MG CAP PO SCH ×2 (08:43→21:15)
[2017-07-13] MEDS: METOPROLOL TAR 50 MG TAB PO SCH ×2 (08:43→21:16)
[2017-07-13] MEDS: MAGNESIUM OXIDE 400 MG TAB PO SCH ×2 (08:43→21:13)
[2017-07-13] MEDS: MULTIVITAMIN TAB PO SCH (08:43)
[2017-07-13] MEDS: AMLODIPINE 10 MG TAB PO SCH (08:43)
[2017-07-13] MEDS: THIAMINE HCL 100 MG TABLET PO SCH (08:44)
[2017-07-13] MEDS: GABAPENTIN 300 MG CAP PO SCH ×3 (08:44→21:13)
[2017-07-13] MEDS: FOLIC ACID 1 MG TABLET PO SCH (08:44)
[2017-07-13] MEDS: HYDROCODONE/APAP 5/325 MG TAB PO PRN ×2 (12:03→21:15)
--- NOTE | 2017-07-13 12:17 | FAST ---
SHIFT START DATE/TIME: 07/13/2017 07:00 (CDT) SHIFT END DATE/TIME: 07/13/2017 19:00 (CDT) NAME CYNTHIA JENSEN DATE OF : 1965 DATE OF ADMISSION: 07/10/2017 20:00 (CDT) PHONE: AGE: 52 N# [id number] GENDER: Male ENCOUNTER PHYSICIAN: Dr. Andrew Escalona M.D. 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 EATING: EATING - STEP 1: Does the patient require assistance when eating? Yes. EATING - STEP 2: Does the patient require the assistance of a helper? No, patient only requires an assistive device, O R s/he takes more than reasonable time to eat, OR there is a safety concern, OR s/he requires modifie d food consistency EATING - SCORE: 6-DEBI GROOMING: Wash, rinse, and dry hands GROOMING - STEP 1: Does the patient require assistance when grooming? Yes. GROOMING - STEP 2: Does the patient require the assistance of a helper? Yes. GROOMING - STEP 3: How much assistance does the patient require from the helper? Only prior equipment preparation/set up from the helper GROOMING - SCORE: 5-SUP BATHING: Activity did not occur on this shift BATHING - SCORE: 0-UNK DRESSING - UPPER BODY: Activity did not occur on this shift ARTICLES SCORE Total number of steps: 0 DRESSING - UPPER BODY - SCORE: 0-UNK DRESSING - LOWER BODY: Activity did not occur on this shift ARTICLES SCORE Total number of steps: 0 DRESSING - LOWER BODY - SCORE: 0-UNK TOILETING: TOILETING - STEP 1: Does the patient require assistance with toileting? Yes. TOILETING - STEP 2: Does the patient require the assistance of a helper? Yes. TOILETING - STEP 3: How much assistance does the patient require from the helper? Hands-on assistance from the helper TOILETING - STEP 4: Of the 3 tasks: 1) Adjusting clothing prior to use, 2) Cleansing of perineal area, 3) Adjusting clot tutu after use; How many tasks does the patient perform WITHOUT assistance of the helper? Two tasks TOILETING - SCORE: 3-MOD BLADDER MANAGEMENT: BLADDER MANAGEMENT - STEP 1: Does the patient control the bladder completely and intentionally without equipment or devices or med ications, and is always continent? No. BLADDER MANAGEMENT - STEP 2: Does the patient require the assistance of a helper? No, patient requires and independently uses an a ssistive device, such as a urinal, bedpan, bedside commode, catheter, absorbent pad, or collecting de vice BLADDER MANAGEMENT - SCORE: 6-DEBI BOWEL MANAGEMENT: Activity did not occur on this shift BOWEL MANAGEMENT - SCORE: 7-IND TRANSFERS: BED, CHAIR, WHEELCHAIR: TRANSFERS: BED, CHAIR, WHEELCHAIR - STEP 1: Does the patient require assistance with bed, chair, or wheelchair transfers? Yes. TRANSFERS: BED, CHAIR, WHEELCHAIR - STEP 2: Does the patient require the assistance of a helper? Yes. TRANSFERS: BED, CHAIR, WHEELCHAIR - STEP 3: How much assistance does the patient require from the helper? Lifting of the patient TRANSFERS: BED, CHAIR, WHEELCHAIR - STEP 4: Does the helper lift the patient ONLY up? ONLY down? Up AND Down? ONLY up. TRANSFERS: BED, CHAIR, WHEELCHAIR - SCORE: 3-MOD TRANSFERS: TOILET: TRANSFERS: TOILET - STEP 1: Does the patient require assistance with toilet transfers? Yes. TRANSFERS: TOILET - STEP 2: Does the patient require the assistance of a helper? Yes. TRANSFERS: TOILET - STEP 3: How much assistance does the patient require from the helper? Patient performs half or more of the tr ansferring tasks TRANSFERS: TOILET - STEP 4: Does the patient need only incidental help such as contact guard or steadying during toilet transfer? No. Patient needs more than incidental help TRANSFERS: TOILET - SCORE: 3-MOD TRANSFERS: SHOWER: Activity did not occur on this shift TRANSFERS: SHOWER - SCORE: 0-UNK TRANSFERS: TUB: Activity did not occur on this shift TRANSFERS: TUB - SCORE: 0-UNK LOCOMOTION: WALK: Activity did not occur on this shift LOCOMOTION: WALK - SCORE: 0-UNK LOCOMOTION: WHEELCHAIR: Activity did not occur on this shift LOCOMOTION: WHEELCHAIR - SCORE: 0-UNK COMPREHENSION: COMPREHENSION - SCORE: 0-UNK EXPRESSION EXPRESSION - SCORE: 0-UNK SOCIAL INTERACTION: SOCIAL INTERACTION - SCORE: 0-UNK PROBLEM SOLVING: PROBLEM SOLVING - SCORE: 0-UNK MEMORY: MEMORY - SCORE: 0-UNK SIGNATURE PANEL: The following modified sections: Eating - Score, Grooming - Score, Bathing - Score, Dressing - Upper Body - Score, Dressing - Lower Body - Score, Toileting - Score, Bladder Management - Score, Bowel Man agement - Score, Transfers: Bed, Chair, Wheelchair - Score, Transfers: Toilet - Score, Transfers: Dilma wer - Score, Transfers: Tub - Score, Locomotion: Walk - Score, Locomotion: Wheelchair - Score, Compre hension - Score, Expression - Score, Social Interaction - Score, Problem Solving - Score, Memory - Sc ore were [electronically] signed by Nasir Guido on MonJul 13 2017 11:19:15 GMT-0500 (Central Daylight Time)
--- NOTE | 2017-07-13 15:20 | FAST ---
ENCOUNTER DATE AND TIME: 07/13/2017 08:00 (CDT) NAME CNYTHIA JENSEN DATE OF : 1965 DATE OF ADMISSION: 07/10/2017 20:00 (CDT) PHONE: AGE: 52 N# [id number] GENDER: Male ENCOUNTER PHYSICIAN: Dr. Andrew Escalona M.D. 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 EATING: Activity did not occur on this shift EATING - SCORE: 0-UNK GROOMING: Patient shaved Wash, rinse, and dry face Wash, rinse, and dry hands GROOMING - STEP 1: Does the patient require assistance when grooming? Yes. GROOMING - STEP 2: Does the patient require the assistance of a helper? No. The patient only requires an assistive devic e, OR takes more than reasonable time to groom, OR there is a concern for safety as the patient groom s GROOMING - SCORE: 6-DEBI BATHING: Abdomen Chest Left arm Left upper leg Perineal area Right arm Right upper leg BATHING - STEP 1: Does the patient require assistance when bathing? Yes. BATHING - STEP 2: Does the patient require the assistance of a helper? Yes. BATHING - STEP 3: How much assistance does the patient require from the helper? More than just incidental help BATHING - STEP 4: What percent of the body parts did the patient bathe WITHOUT the helper? Half or more of the body par ts BATHING - SCORE: 3-MOD DRESSING - UPPER BODY: T-shirt/pullover shirt (four steps) ARTICLES SCORE Total number of steps: 4 DRESSING - UPPER BODY - STEP 1: Does the patient require help when dressing above the waist? Yes. DRESSING - UPPER BODY - STEP 2: Does the patient require the assistance of a helper? Yes. DRESSING - UPPER BODY - STEP 3: Does the helper touch the patient while dressing? No. DRESSING - UPPER BODY - SCORE: 5-SUP DRESSING - LOWER BODY: Elastic waist pants (three steps) Sock - Left foot (one step) Sock - Right foot (one step) Underwear (three steps) ARTICLES SCORE Total number of steps: 8 DRESSING - LOWER BODY - STEP 1: Does the patient require help when dressing below the waist? Yes. DRESSING - LOWER BODY - STEP 2: Does the patient require the assistance of a helper? Yes. DRESSING - LOWER BODY - STEP 3: Does the helper touch the patient while dressing? Yes. DRESSING - LOWER BODY - STEP 4: How many of the total steps does the patient complete on his/her own? 2 DRESSING - LOWER BODY - STEP 5: Does patient require total assistance for dressing below the waist such as the helper holding clothin g and performing basically all the activities? No. DRESSING - LOWER BODY - SCORE: 2-MAX TOILETING: Activity did not occur on this shift TOILETING - SCORE: 0-UNK BLADDER MANAGEMENT: Activity did not occur on this shift BLADDER MANAGEMENT - SCORE: 7-IND BOWEL MANAGEMENT: Activity did not occur on this shift BOWEL MANAGEMENT - SCORE: 7-IND TRANSFERS: BED, CHAIR, WHEELCHAIR: TRANSFERS: BED, CHAIR, WHEELCHAIR - STEP 1: Does the patient require assistance with bed, chair, or wheelchair transfers? Yes. TRANSFERS: BED, CHAIR, WHEELCHAIR - STEP 2: Does the patient require the assistance of a helper? Yes. TRANSFERS: BED, CHAIR, WHEELCHAIR - STEP 3: How much assistance does the patient require from the helper? Lifting of the legs TRANSFERS: BED, CHAIR, WHEELCHAIR - STEP 4: How many legs does the patient require the helper to lift? one leg TRANSFERS: BED, CHAIR, WHEELCHAIR - SCORE: 4-MIN TRANSFERS: TOILET: TRANSFERS: TOILET - STEP 1: Does the patient require assistance with toilet transfers? Yes. TRANSFERS: TOILET - STEP 2: Does the patient require the assistance of a helper? Yes. TRANSFERS: TOILET - STEP 3: How much assistance does the patient require from the helper? Patient performs half or more of the tr ansferring tasks TRANSFERS: TOILET - STEP 4: Does the patient need only incidental help such as contact guard or steadying during toilet transfer? Yes. TRANSFERS: TOILET - SCORE: 4-MIN TRANSFERS: SHOWER: Activity did not occur on this shift TRANSFERS: SHOWER - SCORE: 0-UNK TRANSFERS: TUB: TRANSFERS: TUB - STEP 1: Does the patient require assistance with tub transfers? Yes. TRANSFERS: TUB - STEP 2: Does the patient require the assistance of a helper? Yes. TRANSFERS: TUB - STEP 3: How much assistance does the patient require from the helper? Incidental help such as contact guardin g or steadying, OR help to lift one leg into the tub TRANSFERS: TUB - SCORE: 4-MIN LOCOMOTION: WALK: Activity did not occur on this shift LOCOMOTION: WALK - SCORE: 0-UNK LOCOMOTION: WHEELCHAIR: Activity did not occur on this shift LOCOMOTION: WHEELCHAIR - SCORE: 0-UNK LOCOMOTION: STAIRS: Activity did not occur on this shift LOCOMOTION: STAIRS - SCORE: 0-UNK COMPREHENSION: COMPREHENSION - STEP 1: Does the patient require help to understand complex and abstract ideas (such as current events, finan kellen, discharge planning, medical issues, relationships, etc)? No. COMPREHENSION - STEP 2: Does the patient need extra time, require an assistive device (such as glasses, hearing aids, or an a ugmentative communication system), OR does s/he have mild difficulty expressing complex and abstract ideas (including mild dysarthria or mild word-finding problems)? Yes. COMPREHENSION - SCORE: 6-DEBI EXPRESSION EXPRESSION: TYPE: Non-Vocal EXPRESSION - STEP 1: Does the patient require help expressing complex and abstract ideas (such as current events, finances , discharge planning, medical issues, relationships, etc)? No. EXPRESSION - STEP 2: Does the patient need extra time, require an assistive device (such as augmentive communication syste m or a communication board), OR does s/he have mild difficulty expressing complex and abstract ideas (including mild dysarthria or mild word-find problems)? Yes. EXPRESSION - SCORE: 6-DEBI SOCIAL INTERACTION: SOCIAL INTERACTION - STEP 1: Does the patient require a helper to interact with others in social and therapeutic situations? No. SOCIAL INTERACTION - STEP 2: Does the patient need extra time in social situations, OR does s/he interact with staff, other patien ts, and family members ONLY in structured environments, OR does s/he require medication for social in teraction? Yes, patient requires medication for social interaction SOCIAL INTERACTION - SCORE: 6-DEBI PROBLEM SOLVING: PROBLEM SOLVING - STEP 1: Does the patient need help to solve complex problems such as managing a checking account or confronti ng interpersonal problems? No. PROBLEM SOLVING - STEP 2: Does the patient require extra time to make decisions or solve problems, OR does s/he have slight dif ficulty reading, initiating, or self-correcting in unfamiliar situations? Yes, patient needs extra ti me. PROBLEM SOLVING - SCORE: 6-DEBI MEMORY: MEMORY - STEP 1: Does the patient need help to remember frequently encountered people, daily routines, and executing r equests? No. MEMORY - STEP 2: Does the patient have slight difficulty recognizing frequently encountered people, daily routines, or executing requests without the need for repetition or using self-initiated or environmental cues to remember? Yes. MEMORY - SCORE: 6-DEBI SIGNATURE PANEL: The following modified sections: Eating - Score, Grooming - Score, Bathing - Score, Dressing - Upper Body - Score, Dressing - Lower Body - Score, Toileting - Score, Transfers: Bed, Chair, Wheelchair - S core, Transfers: Toilet - Score, Transfers: Shower - Score, Transfers: Tub - Score, Comprehension - S core, Expression - Score, Social Interaction - Score, Problem Solving - Score, Memory - Score were [e lectronically] signed by QING Lal on MonJul 13 2017 14:22:26 T-0500 ([facility])
--- NOTE | 2017-07-13 16:07 | FAST ---
ENCOUNTER DATE AND TIME: 07/13/2017 08:00 (CDT) NAME CYNTHIA JENSEN DATE OF : 1965 DATE OF ADMISSION: 07/10/2017 20:00 (CDT) PHONE: AGE: 52 N# [id number] GENDER: Male ENCOUNTER PHYSICIAN: Dr. Andrew Escalona M.D. ADMISSION DIAGNOSIS: - Neurologic Conditions 03 - Guillain-[place] Syndrome (03.4) Guillain-[place] syndrome [G610]. EATING: Activity did not occur on this shift EATING - SCORE: 0-UNK GROOMING: Activity did not occur on this shift GROOMING - SCORE: 0-UNK BATHING: Activity did not occur on this shift BATHING - SCORE: 0-UNK DRESSING - UPPER BODY: Activity did not occur on this shift ARTICLES SCORE Total number of steps: 0 DRESSING - UPPER BODY - SCORE: 0-UNK DRESSING - LOWER BODY: Activity did not occur on this shift ARTICLES SCORE Total number of steps: 0 DRESSING - LOWER BODY - SCORE: 0-UNK TOILETING: Activity did not occur on this shift TOILETING - SCORE: 0-UNK BLADDER MANAGEMENT: Activity did not occur on this shift BLADDER MANAGEMENT - SCORE: 7-IND BOWEL MANAGEMENT: Activity did not occur on this shift BOWEL MANAGEMENT - SCORE: 7-IND TRANSFERS: BED, CHAIR, WHEELCHAIR: Activity did not occur on this shift TRANSFERS: BED, CHAIR, WHEELCHAIR - SCORE: 0-UNK TRANSFERS: TOILET: Activity did not occur on this shift TRANSFERS: TOILET - SCORE: 0-UNK TRANSFERS: SHOWER: Activity did not occur on this shift TRANSFERS: SHOWER - SCORE: 0-UNK TRANSFERS: TUB: Activity did not occur on this shift TRANSFERS: TUB - SCORE: 0-UNK LOCOMOTION: WALK: Activity did not occur on this shift LOCOMOTION: WALK - SCORE: 0-UNK LOCOMOTION: WHEELCHAIR: Activity did not occur on this shift LOCOMOTION: WHEELCHAIR - SCORE: 0-UNK LOCOMOTION: STAIRS: Activity did not occur on this shift LOCOMOTION: STAIRS - SCORE: 0-UNK COMPREHENSION: COMPREHENSION - STEP 1: Does the patient require help to understand complex and abstract ideas (such as current events, finan kellen, discharge planning, medical issues, relationships, etc)? No. COMPREHENSION - STEP 2: Does the patient need extra time, require an assistive device (such as glasses, hearing aids, or an a ugmentative communication system), OR does s/he have mild difficulty expressing complex and abstract ideas (including mild dysarthria or mild word-finding problems)? No. COMPREHENSION - SCORE: 7-IND EXPRESSION EXPRESSION - STEP 1: Does the patient require help expressing complex and abstract ideas (such as current events, finances , discharge planning, medical issues, relationships, etc)? No. EXPRESSION - STEP 2: Does the patient need extra time, require an assistive device (such as augmentive communication syste m or a communication board), OR does s/he have mild difficulty expressing complex and abstract ideas (including mild dysarthria or mild word-find problems)? Yes. EXPRESSION - SCORE: 6-DEBI SOCIAL INTERACTION: SOCIAL INTERACTION - STEP 1: Does the patient require a helper to interact with others in social and therapeutic situations? No. SOCIAL INTERACTION - STEP 2: Does the patient need extra time in social situations, OR does s/he interact with staff, other patien ts, and family members ONLY in structured environments, OR does s/he require medication for social in teraction? Yes, patient needs extra time SOCIAL INTERACTION - SCORE: 6-DEBI PROBLEM SOLVING: PROBLEM SOLVING - STEP 1: Does the patient need help to solve complex problems such as managing a checking account or confronti ng interpersonal problems? No. PROBLEM SOLVING - STEP 2: Does the patient require extra time to make decisions or solve problems, OR does s/he have slight dif ficulty reading, initiating, or self-correcting in unfamiliar situations? No. PROBLEM SOLVING - SCORE: 7-IND MEMORY: MEMORY - STEP 1: Does the patient need help to remember frequently encountered people, daily routines, and executing r equests? No. MEMORY - STEP 2: Does the patient have slight difficulty recognizing frequently encountered people, daily routines, or executing requests without the need for repetition or using self-initiated or environmental cues to remember? No. MEMORY - SCORE: 7-IND SIGNATURE PANEL: The following modified sections: Comprehension - Score, Expression - Score, Social Interaction - Scor e, Problem Solving - Score, Memory - Score were [electronically] signed by YAZMIN Vieyra on Mon 15:09:02 T-0500 (Central Daylight Time)
--- NOTE | 2017-07-13 16:21 | FAST ---
ENCOUNTER DATE AND TIME: 07/13/2017 08:00 (CDT) NAME CYNTHIA JENSEN DATE OF : 1965 DATE OF ADMISSION: 07/10/2017 20:00 (CDT) PHONE: AGE: 52 N# [id number] GENDER: Male ENCOUNTER PHYSICIAN: Dr. Andrew Escalona M.D. 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 EATING: Activity did not occur on this shift EATING - SCORE: 0-UNK GROOMING: Activity did not occur on this shift GROOMING - SCORE: 0-UNK BATHING: Activity did not occur on this shift BATHING - SCORE: 0-UNK DRESSING - UPPER BODY: Activity did not occur on this shift ARTICLES SCORE Total number of steps: 0 DRESSING - UPPER BODY - SCORE: 0-UNK DRESSING - LOWER BODY: Activity did not occur on this shift ARTICLES SCORE Total number of steps: 0 DRESSING - LOWER BODY - SCORE: 0-UNK TOILETING: Activity did not occur on this shift TOILETING - SCORE: 0-UNK BLADDER MANAGEMENT: Activity did not occur on this shift BLADDER MANAGEMENT - SCORE: 7-IND BOWEL MANAGEMENT: Activity did not occur on this shift BOWEL MANAGEMENT - SCORE: 7-IND TRANSFERS: BED, CHAIR, WHEELCHAIR: TRANSFERS: BED, CHAIR, WHEELCHAIR - STEP 1: Does the patient require assistance with bed, chair, or wheelchair transfers? Yes. TRANSFERS: BED, CHAIR, WHEELCHAIR - STEP 2: Does the patient require the assistance of a helper? Yes. TRANSFERS: BED, CHAIR, WHEELCHAIR - STEP 3: How much assistance does the patient require from the helper? Lifting of the patient TRANSFERS: BED, CHAIR, WHEELCHAIR - STEP 4: Does the helper lift the patient ONLY up? ONLY down? Up AND Down? ONLY up. TRANSFERS: BED, CHAIR, WHEELCHAIR - SCORE: 3-MOD TRANSFERS: TOILET: Activity did not occur on this shift TRANSFERS: TOILET - SCORE: 0-UNK TRANSFERS: SHOWER: Activity did not occur on this shift TRANSFERS: SHOWER - SCORE: 0-UNK TRANSFERS: TUB: Activity did not occur on this shift TRANSFERS: TUB - SCORE: 0-UNK LOCOMOTION: WALK: LOCOMOTION: WALK - STEP 1: Does the patient need help to walk 150 feet? Yes. LOCOMOTION: WALK - STEP 2: How much assistance does the patient require to walk a minimum of 150 feet? Patient walks less than 1 50 feet - but more than 50 feet - with the assistance of only one helper LOCOMOTION: WALK - SCORE: 2-MAX LOCOMOTION: WHEELCHAIR: LOCOMOTION: WHEELCHAIR - STEP 1: Does the patient need help to go 150 feet in a wheelchair? Yes. LOCOMOTION: WHEELCHAIR - STEP 2: How much assistance does the patient need from the helper? Only supervision, cuing, or coaxing LOCOMOTION: WHEELCHAIR - SCORE: 5-SUP LOCOMOTION: STAIRS: Activity did not occur on this shift LOCOMOTION: STAIRS - SCORE: 0-UNK COMPREHENSION: COMPREHENSION - SCORE: 0-UNK EXPRESSION EXPRESSION - SCORE: 0-UNK SOCIAL INTERACTION: SOCIAL INTERACTION - SCORE: 0-UNK PROBLEM SOLVING: PROBLEM SOLVING - SCORE: 0-UNK MEMORY: MEMORY - SCORE: 0-UNK SIGNATURE PANEL: The following modified sections: Transfers: Bed, Chair, Wheelchair - Score, Transfers: Toilet - Score , Locomotion: Walk - Score, Locomotion: Wheelchair - Score, Locomotion: Stairs - Score were [electron [email or web address]] signed by David Hope PT on MonJul 13 2017 15:23:23 T-0500 (Central Daylight Time)
--- NOTE | 2017-07-13 19:39 | R.PN ---
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 Pt denied any depression. Ambulated 40' with contact guard assistance using a rolling walker. Self propelled wheelchair 250' with maximum assistance. VITAL SIGNS Temperature: 97.8 F SBP/DBP: 132/73 Pulse: 85 Resp: 16 MEDICATION ALLERGIES: CODEINE ENVIRONMENTAL ALLERGIES: - Substance Allergies None Known - Other Allergies None Known NURSING: - Shower allowing shower - Lab Results blood Sugar Check ACHS ACTIVITIES OOB only with supervision THERAPIES: - Occupational Therapy Evaluate and Treat. - Physical Therapy Evaluate and Treat. PHYSICAL EXAM - Gen Alert and awake Lying in bed No apparent distress Oriented to: person, time, and place - Vital Signs Vital signs stable, afebrile - Skin No skin breakdown. Normacephalic - Eyes No abnormalities - ENMT No abnormalities - Neck No abnormalities - CVS RRR - Resp Clear to auscultation - Abd Soft - GI Non distended Deferred - No abnormalities - Ext No significant edema - MSK 4/5 weakness in both upper extremities and 3+/5 weakness in both lower extremities. - Psych No abnormalities ASSESSMENT: Pt. 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 was independent/mod-I in Self-Care, Sphi ncter Control, Transfers Control, Communication, Social Cognition, and Locomotion; and he had good Sp hincter Control.Currently, he has deficits of Self-Care, Transfers Control, Communication, Social Cog nition, Endurance, Balance, Safety Awareness, and Locomotion.Pt. is now referred to [facility] for acute in-patient rehabilitation in order to maximize patient's functional indepe ndence in activities of daily living, strength, ROM, and mobility.- Rehab Goal Patient has realistic goal of being discharged at assistance level 6-Dhara to reside at Home with Fam shant/Relatives. MDM/PLAN: - Diet Type Continue Regular - Physical Therapy Gait dysfunction - to improve, our physical therapists will perform initial evaluation of pt's statu s upon admission and devise an individualized program for Gait Training, and Wheel Chair mobility Inability to transfer - to improve, our physical therapists will perform initial evaluation of pt's status upon admission and devise an individualized program for Bed mobility Need for home safety evaluation - to improve, our physical therapists will perform initial evaluatio n of pt's status upon admission and devise an individualized program for Home Evaluation Need in caregiver upon discharge - to improve, our physical therapists will perform initial evaluati on of pt's status upon admission and devise an individualized program for Caregiver Training New precaution - to improve, our physical therapists will perform initial evaluation of pt's status upon admission and devise an individualized program for Patient precaution education Edema - to improve, our physical therapists will perform initial evaluation of pt's status upon admis alyson and devise an individualized program for Elevation Training, and Lymphedema Therapy Poor balance - to improve, our physical therapists will perform initial evaluation of pt's status up on admission and devise an individualized program for Balance Training Poor endurance - to improve, our physical therapists will perform initial evaluation of pt's status upon admission and devise an individualized program for Endurance Training Weakness - to improve, our physical therapists will perform initial evaluation of pt's status upon a dmission and devise an individualized program for Aquatic Therapy, Neuromuscular Reeducation, and Str engthening Achieving independence - to improve, our physical therapists will perform initial evaluation of pt's status upon admission and devise an individualized program for Community Reintegration Activities - Diet - Liquid Texture Continue Regular - Tube Feed Continue N/A - Lab Results blood Sugar Check ACHS - Diet - Solid Texture Continue Regular - Shower allowing shower - Occupational Therapy ADL deficits - to improve, our occupation therapists will perform initial evaluation of pt's status upon admission and devise an individualized program for Bathing, Bed mobility, Community Reintegratio n, Cooking, Dressing, Eating, Fine Motor Skills, Grooming, Homemaking, Kitchen Mobility, Laundry, Pat ient Education, Safety Awareness, Splinting - Positioning, Transfers(Toilet, Tub, Shower), and Wheel Chair Management Cognitive deficits - to improve, our occupation therapists will perform initial evaluation of pt's s tatus upon admission and devise an individualized program for Cognition - orientation Need for care team assistant - to improve, our occupation therapists will perform initial evaluation of pt's status upon admission and devise an individualized program for Caregiver Training Weakness - to improve, our occupation therapists will perform initial evaluation of pt's status upon admission and devise an individualized program for Aquatic Therapy, Balance, Endurance, UE ROM, and UE strengthening FUNCTIONAL STATUS: UPDATED AT WEEKLY TEAM CONFERENCE - Bladder Same accident frequency: 7-Ind - No accidents in the past 7 days - Bowel Same accident frequency: 7-Ind - No accidents in the past 7 days - Walking Same score based on distance walked: 0(N/A) FUNCTIONAL STATUS: - Self-Care A. Eating sup B. Grooming Satinder C. Bathing modA D. Dressing - Upper modA E. Dressing - Lower modA F. Toileting modA - Sphincter Control G: Bladder control Ind H: Bowel control Ind - Transfers Control I. Bed/Chair/Wheelchair modA J. Toilet modA K. Tub/Shower ADNO - Locomotion L. Walk/Wheelchair (B) Dep M. Stairs ADNO - Communication N. Comprehension (B) sup O. Expression (B) sup - Social Cognition P. Social Interaction sup Q. Problem Solving sup R. Memory Dhara - Endurance Poor - Balance Poor - Safety Awareness Poor CURRENT FUNC. DEFICITS: Self-Care, Transfers Control, Communication, Social Cognition, Endurance, Balance, Safety Awareness, and Locomotion SIGNATURE PANEL: (CDT)
[2017-07-13] MEDS: POLYVINYL ALCOHOL 1.4% 15 ML EACH EYE SCH (20:44)
[2017-07-13] MEDS: SENOSIDES 8.6 MG TAB PO SCH (21:14)
[2017-07-13] MEDS: AMITRIPTYLINE 25 MG TAB PO SCH (21:15)
[2017-07-13] MEDS: ZOLPIDEM TARTRATE 5 MG TABLET PO PRN (21:15)
[2017-07-13] MEDS: INSULIN DETEMIR 100 UNIT/1 ML INSULIN SQ SCH (21:16)
--- NOTE | 2017-07-14 04:14 | FAST ---
SHIFT START DATE/TIME: 07/13/2017 19:00 (CDT) SHIFT END DATE/TIME: 07/14/2017 07:00 (CDT) NAME CYNTHIA JENSEN DATE OF : 1965 DATE OF ADMISSION: 07/10/2017 20:00 (CDT) PHONE: AGE: 52 [facility]# [id number] GENDER: Male ENCOUNTER PHYSICIAN: Dr. Andrew Escalona M.D. 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 EATING: EATING - STEP 1: Does the patient require assistance when eating? Yes. EATING - STEP 2: Does the patient require the assistance of a helper? Yes. EATING - STEP 3: Does the patient perform half or more of the eating tasks? Yes. EATING - STEP 4: Does the patient need only supervision, cuing, coaxing OR help to apply an orthosis OR help to cut fo od, open containers, pour liquids, or butter bread? Yes. EATING - SCORE: 5-SUP GROOMING: Activity did not occur on this shift GROOMING - SCORE: 0-UNK BATHING: Activity did not occur on this shift BATHING - SCORE: 0-UNK DRESSING - UPPER BODY: Activity did not occur on this shift ARTICLES SCORE Total number of steps: 0 DRESSING - UPPER BODY - SCORE: 0-UNK DRESSING - LOWER BODY: Activity did not occur on this shift ARTICLES SCORE Total number of steps: 0 DRESSING - LOWER BODY - SCORE: 0-UNK TOILETING: TOILETING - STEP 1: Does the patient require assistance with toileting? Yes. TOILETING - STEP 2: Does the patient require the assistance of a helper? Yes. TOILETING - STEP 3: How much assistance does the patient require from the helper? Only supervision TOILETING - SCORE: 5-SUP BLADDER MANAGEMENT: BLADDER MANAGEMENT - STEP 1: Does the patient control the bladder completely and intentionally without equipment or devices or med ications, and is always continent? No. BLADDER MANAGEMENT - STEP 2: Does the patient require the assistance of a helper? Yes. BLADDER MANAGEMENT - STEP 3: How much assistance does the patient require from the helper? Only set-up of equipment - such as plac ing it within reach of the patient or emptying a device - to maintain either satisfactory voiding pat tern or managing an external device, such as an absorbent pad, ileal device, or catheter BLADDER MANAGEMENT - SCORE: 5-SUP BLADDER MANAGEMENT - FREQUENCY OF ACCIDENTS: BLADDER MANAGEMENT(FA) - STEP 1: How many accidents has the patient had during the current shift? 0 BOWEL MANAGEMENT: Activity did not occur on this shift BOWEL MANAGEMENT - SCORE: 7-IND TRANSFERS: BED, CHAIR, WHEELCHAIR: Activity did not occur on this shift TRANSFERS: BED, CHAIR, WHEELCHAIR - SCORE: 0-UNK TRANSFERS: TOILET: Activity did not occur on this shift TRANSFERS: TOILET - SCORE: 0-UNK TRANSFERS: SHOWER: Activity did not occur on this shift TRANSFERS: SHOWER - SCORE: 0-UNK TRANSFERS: TUB: Activity did not occur on this shift TRANSFERS: TUB - SCORE: 0-UNK LOCOMOTION: WALK: Activity did not occur on this shift LOCOMOTION: WALK - SCORE: 0-UNK LOCOMOTION: WHEELCHAIR: Activity did not occur on this shift LOCOMOTION: WHEELCHAIR - SCORE: 0-UNK COMPREHENSION: COMPREHENSION: TYPE: Both COMPREHENSION - STEP 1: Does the patient require help to understand complex and abstract ideas (such as current events, finan kellen, discharge planning, medical issues, relationships, etc)? No. COMPREHENSION - STEP 2: Does the patient need extra time, require an assistive device (such as glasses, hearing aids, or an a ugmentative communication system), OR does s/he have mild difficulty expressing complex and abstract ideas (including mild dysarthria or mild word-finding problems)? Yes. COMPREHENSION - SCORE: 6-DEBI EXPRESSION EXPRESSION: TYPE: Both EXPRESSION - STEP 1: Does the patient require help expressing complex and abstract ideas (such as current events, finances , discharge planning, medical issues, relationships, etc)? No. EXPRESSION - STEP 2: Does the patient need extra time, require an assistive device (such as augmentive communication syste m or a communication board), OR does s/he have mild difficulty expressing complex and abstract ideas (including mild dysarthria or mild word-find problems)? Yes. EXPRESSION - SCORE: 6-DEBI SOCIAL INTERACTION: SOCIAL INTERACTION - STEP 1: Does the patient require a helper to interact with others in social and therapeutic situations? No. SOCIAL INTERACTION - STEP 2: Does the patient need extra time in social situations, OR does s/he interact with staff, other patien ts, and family members ONLY in structured environments, OR does s/he require medication for social in teraction? Yes, patient needs extra time SOCIAL INTERACTION - SCORE: 6-DEBI PROBLEM SOLVING: PROBLEM SOLVING - STEP 1: Does the patient need help to solve complex problems such as managing a checking account or confronti ng interpersonal problems? No. PROBLEM SOLVING - STEP 2: Does the patient require extra time to make decisions or solve problems, OR does s/he have slight dif ficulty reading, initiating, or self-correcting in unfamiliar situations? Yes, patient needs extra ti me. PROBLEM SOLVING - SCORE: 6-DEBI MEMORY: MEMORY - STEP 1: Does the patient need help to remember frequently encountered people, daily routines, and executing r equests? No. MEMORY - STEP 2: Does the patient have slight difficulty recognizing frequently encountered people, daily routines, or executing requests without the need for repetition or using self-initiated or environmental cues to remember? Yes. MEMORY - SCORE: 6-DEBI SIGNATURE PANEL: The following modified sections: Eating - Score, Grooming - Score, Bathing - Score, Dressing - Upper Body - Score, Dressing - Lower Body - Score, Toileting - Score, Bladder Management - Score, Bowel Man agement - Score, Transfers: Bed, Chair, Wheelchair - Score, Transfers: Toilet - Score, Transfers: Dilma wer - Score, Transfers: Tub - Score, Locomotion: Walk - Score, Locomotion: Wheelchair - Score, Compre hension - Score, Expression - Score, Social Interaction - Score, Problem Solving - Score, Memory - Sc ore were [electronically] signed by Christina Tapia [email or web address] on MonJul 14 2017 03:15:11 T-0500 ( Central Daylight Time)
[2017-07-14] MEDS: PANTOPRAZOLE 40MG TABLET PO SCH (07:18)
[2017-07-14] MEDS: INSULIN -REGULAR HUMAN 50 UNIT/0.5 ML ML SQ SCH ×4 (07:30→21:00)
[2017-07-14] MEDS: DOLUTEGRAVIR 50 MG PO SCH (08:00)
[2017-07-14] MEDS: EMTRICITABINE/TENOFOVIR 1 TAB PO SCH (08:25)
[2017-07-14] MEDS: DOXYCYCLINE 100 MG CAP PO SCH ×2 (08:25→20:59)
[2017-07-14] MEDS: SODIUM CHLORIDE 1 GM TAB PO SCH ×3 (08:25→17:40)
[2017-07-14] MEDS: CALCIUM CARB 500MG/VIT D 200 IU TAB PO SCH (08:25)
[2017-07-14] MEDS: THIAMINE HCL 100 MG TABLET PO SCH (08:25)
[2017-07-14] MEDS: MAGNESIUM OXIDE 400 MG TAB PO SCH ×2 (08:25→20:59)
[2017-07-14] MEDS: FOLIC ACID 1 MG TABLET PO SCH (08:25)
[2017-07-14] MEDS: BISACODYL E.C. 5 MG TAB PO PRN (08:25)
[2017-07-14] MEDS: LORATADINE 10 MG TAB PO PRN (08:25)
[2017-07-14] MEDS: GABAPENTIN 300 MG CAP PO SCH ×3 (08:25→20:59)
[2017-07-14] MEDS: TAMSULOSIN 0.4 MG SR CAP PO SCH (08:25)
[2017-07-14] MEDS: HYDROCODONE/APAP 5/325 MG TAB PO PRN (08:26)
[2017-07-14] MEDS: AMLODIPINE 10 MG TAB PO SCH (08:26)
[2017-07-14] MEDS: METOPROLOL TAR 50 MG TAB PO SCH ×2 (08:26→21:00)
[2017-07-14] MEDS: MULTIVITAMIN TAB PO SCH (08:26)
[2017-07-14] MEDS: ENOXAPARIN 40 MG/0.4 ML SQ SCH (08:27)
--- NOTE | 2017-07-14 09:46 | P.RH.PN ---
Estimated Length of Stay: 14 Expected Discharge Date: 07/23/17 Discharge Disposition Plan: Home Family Support: Yes [employer] Goal: Mobility, Transfers, Self Care Vital Signs: Last Vital Signs Temp 97.8 F 07/13/17 19:06 Pulse 82 07/14/17 08:26 Resp 20 07/13/17 19:06 BP 132/69 07/14/17 08:26 Pulse Ox 99 07/13/17 19:06 Laboratory: Laboratory Last Values WBC 4.8 K/uL (4.3-10.9) 07/13/17 05:45 RBC 3.74 M/uL (4.33-5.43) L 07/13/17 05:45 Hgb 10.4 g/dL (13.6-17.9) L 07/13/17 05:45 Hct 31.2 % (39.6-49.0) L 07/13/17 05:45 MCV 83.5 fL (80-100) 07/13/17 05:45 MCH 27.9 pg (27.0-35.0) 07/13/17 05:45 MCHC 33.4 g/dL (32.0-36.0) 07/13/17 05:45 RDW 14.5 % (12.1-15.2) 07/13/17 05:45 Plt Count 168 K/uL (152-406) 07/13/17 05:45 MPV 6.8 fL (7.6-11.3) L 07/13/17 05:45 Neutrophils % 31.9 % (41.7-73.7) L 07/13/17 05:45 Lymphocytes % 52.9 % (15.3-44.8) H 07/13/17 05:45 Monocytes % 9.8 % (3.3-12.3) 07/13/17 05:45 Eosinophils % 5.1 % (0-4.4) H 07/13/17 05:45 Basophils % 0.3 % (0-1.3) 07/13/17 05:45 Absolute Neutrophils 1.5 K/uL (1.8-8.0) L 07/13/17 05:45 Segmented Neutrophils 27 % (40-80) L 07/11/17 05:40 Band Neutrophils 7 % (0-1) H 07/11/17 05:40 Absolute Lymphocytes 2.5 K/uL (0.7-4.9) 07/13/17 05:45 Lymphocytes 59 % (15-42) H 07/11/17 05:40 Monocytes 5 % (0-10) 07/11/17 05:40 Absolute Monocytes 0.5 K/uL (0.1-1.3) 07/13/17 05:45 Eosinophils 1 % (0-3) 07/11/17 05:40 Absolute Eosinophils 0.2 K/uL (0-0.5) 07/13/17 05:45 Absolute Basophils 0.0 K/uL (0-0.5) 07/13/17 05:45 Atypical Lymphocytes 1 07/11/17 05:40 Hypochromasia 1+ 07/11/17 05:40 Morphology Comment Noted (NOT SEEN) 07/11/17 05:40 Sodium 133 mEq/L (135-145) L 07/13/17 05:45 Potassium 4.1 mEq/L (3.6-5.0) 07/13/17 05:45 Chloride 102 mEq/L (101-111) 07/13/17 05:45 Carbon Dioxide 27 mEq/L (21-31) 07/13/17 05:45 BUN 12 mg/dL (6-20) 07/13/17 05:45 Creatinine 0.53 mg/dL (0.61-1.24) L 07/13/17 05:45 Estimated GFR > 90 mL/min (=/>90) 07/13/17 05:45 Glucose 86 mg/dL (65-120) 07/13/17 05:45 POC Glucose 90 mg/dl (65-120) 07/14/17 08:05 Calcium 8.9 mg/dL (8.5-10.5) 07/13/17 05:45 Magnesium 1.8 mg/dL (1.8-2.5) 07/11/17 05:40 Albumin 2.4 g/dL (3.2-5.5) L 07/13/17 05:45 Prealbumin 21.5 mg/dl (18-38) 07/13/17 05:45 Urine Color Yellow 07/10/17 20:30 Urine Appearance Clear 07/10/17 20:30 Urine pH 7.0 (5.0-7.0) 07/10/17 20:30 Ur Specific Farrell 1.020 (1.005-1.030) 07/10/17 20:30 Urine Ketones Negative (NEG) 07/10/17 20:30 Urine Blood Negative (NEG) 07/10/17 20:30 Urine Nitrite Negative (NEG) 07/10/17 20:30 Urine Bilirubin Negative (NEG) 07/10/17 20:30 Urine Urobilinogen 0.2 mg/dL (0.2-1.0) 07/10/17 20:30 Ur Leukocyte Esterase Negative (NEG) 07/10/17 20:30 Urine RBC <5 /HPF (NONE SEEN) 07/10/17 20:30 Urine WBC <5 /HPF (<5) 07/10/17 20:30 Ur Squamous Epith Cells 5-10 /HPF (NONE SEEN) H 07/10/17 20:30 Urine Bacteria 20-50 /HPF (NONE SEEN) H 07/10/17 20:30 Urine Mucus 2+ /HPF (NONE SEEN) 07/10/17 20:30 Urine Culture Reflexed Reflexed 07/10/17 20:30 Urine Glucose Negative (NEG) 07/10/17 20:30 Urine Total Protein 2+ (NEG) H 07/10/17 20:30 Weight: 115 lb 8 oz Wound Present: Yes Closed Surgical Incision Present: No Negative Pressure Wound Therapy Present: No Physician Update: He is improving daily with strength, sensation, coordination, gait. His ANC is 1.5 and he has not restarted [place] for HIV. He will rest in the next few day. Functional Improvement: pt is demonstrating progress toward functional goals. pt is improving his distance and stability each day during therapy. pt continues to exhibit significant deficits in endurance, balance, and strength. Skilled PT services continue to be medically necessary. Functional Improvement Occupational Therapy: pt can benifit with further therapy services to increase pt's endurance and safety for LB dressing and training for energy conservation techniques for adl tasks. cont to increase pt' s UB strength and ROM for adl tasks. cont with the POC and the goals by the supervising OTR. Speech Therapy Update: Initial evaluation completed this week. Cognitive- linguistic abilities are WFL. Deficits noted in facial movement for speech sound production, non-verbal expression, and labial closure when swallowing. Pt. is learning and utilizing compensatory strategies for swallowing effectively. He continues to require moderate feedback and cuing to utilize compensatory strategies for speech intelligibility in conversations but is making excellent progress toward mastering compensatory strategy use. Summary: Patient's care plan and fci goals have been reviewed and revised as necessary. Please see the Rehabilitation Signature page for all necessary signatures.
--- NOTE | 2017-07-14 14:48 | FAST ---
ENCOUNTER DATE AND TIME: 07/14/2017 08:00 (CDT) NAME CYNTHIA JENSEN DATE OF : 1965 DATE OF ADMISSION: 07/10/2017 20:00 (CDT) PHONE: AGE: 52 N# [id number] GENDER: Male ENCOUNTER PHYSICIAN: Dr. Andrew Escalona M.D. 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 EATING: Activity did not occur on this shift EATING - SCORE: 0-UNK GROOMING: Activity did not occur on this shift GROOMING - SCORE: 0-UNK BATHING: Activity did not occur on this shift BATHING - SCORE: 0-UNK DRESSING - UPPER BODY: Activity did not occur on this shift ARTICLES SCORE Total number of steps: 0 DRESSING - UPPER BODY - SCORE: 0-UNK DRESSING - LOWER BODY: Activity did not occur on this shift ARTICLES SCORE Total number of steps: 0 DRESSING - LOWER BODY - SCORE: 0-UNK TOILETING: Activity did not occur on this shift TOILETING - SCORE: 0-UNK BLADDER MANAGEMENT: Activity did not occur on this shift BLADDER MANAGEMENT - SCORE: 7-IND BOWEL MANAGEMENT: Activity did not occur on this shift BOWEL MANAGEMENT - SCORE: 7-IND TRANSFERS: BED, CHAIR, WHEELCHAIR: Activity did not occur on this shift TRANSFERS: BED, CHAIR, WHEELCHAIR - SCORE: 0-UNK TRANSFERS: TOILET: Activity did not occur on this shift TRANSFERS: TOILET - SCORE: 0-UNK TRANSFERS: SHOWER: Activity did not occur on this shift TRANSFERS: SHOWER - SCORE: 0-UNK TRANSFERS: TUB: Activity did not occur on this shift TRANSFERS: TUB - SCORE: 0-UNK LOCOMOTION: WALK: Activity did not occur on this shift LOCOMOTION: WALK - SCORE: 0-UNK LOCOMOTION: WHEELCHAIR: Activity did not occur on this shift LOCOMOTION: WHEELCHAIR - SCORE: 0-UNK LOCOMOTION: STAIRS: Activity did not occur on this shift LOCOMOTION: STAIRS - SCORE: 0-UNK COMPREHENSION: COMPREHENSION - STEP 1: Does the patient require help to understand complex and abstract ideas (such as current events, finan kellen, discharge planning, medical issues, relationships, etc)? No. COMPREHENSION - STEP 2: Does the patient need extra time, require an assistive device (such as glasses, hearing aids, or an a ugmentative communication system), OR does s/he have mild difficulty expressing complex and abstract ideas (including mild dysarthria or mild word-finding problems)? No. COMPREHENSION - SCORE: 7-IND EXPRESSION EXPRESSION - STEP 1: Does the patient require help expressing complex and abstract ideas (such as current events, finances , discharge planning, medical issues, relationships, etc)? No. EXPRESSION - STEP 2: Does the patient need extra time, require an assistive device (such as augmentive communication syste m or a communication board), OR does s/he have mild difficulty expressing complex and abstract ideas (including mild dysarthria or mild word-find problems)? Yes. EXPRESSION - SCORE: 6-DEBI SOCIAL INTERACTION: SOCIAL INTERACTION - STEP 1: Does the patient require a helper to interact with others in social and therapeutic situations? No. SOCIAL INTERACTION - STEP 2: Does the patient need extra time in social situations, OR does s/he interact with staff, other patien ts, and family members ONLY in structured environments, OR does s/he require medication for social in teraction? Yes, patient needs extra time SOCIAL INTERACTION - SCORE: 6-DEBI PROBLEM SOLVING: PROBLEM SOLVING - STEP 1: Does the patient need help to solve complex problems such as managing a checking account or confronti ng interpersonal problems? No. PROBLEM SOLVING - STEP 2: Does the patient require extra time to make decisions or solve problems, OR does s/he have slight dif ficulty reading, initiating, or self-correcting in unfamiliar situations? No. PROBLEM SOLVING - SCORE: 7-IND MEMORY: MEMORY - STEP 1: Does the patient need help to remember frequently encountered people, daily routines, and executing r equests? No. MEMORY - STEP 2: Does the patient have slight difficulty recognizing frequently encountered people, daily routines, or executing requests without the need for repetition or using self-initiated or environmental cues to remember? No. MEMORY - SCORE: 7-IND SIGNATURE PANEL: The following modified sections: Comprehension - Score, Expression - Score, Social Interaction - Scor e, Problem Solving - Score, Memory - Score were [electronically] signed by ST Girish mon 13:49:57 T-0500 (Central Daylight Time)
--- NOTE | 2017-07-14 16:36 | FAST ---
ENCOUNTER DATE AND TIME: 07/14/2017 08:00 (CDT) NAME CYNTHIA JENSEN DATE OF : 1965 DATE OF ADMISSION: 07/10/2017 20:00 (CDT) PHONE: AGE: 52 N# [id number] GENDER: Male ENCOUNTER PHYSICIAN: Dr. Andrew Escalona M.D. 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 EATING: Activity did not occur on this shift EATING - SCORE: 0-UNK GROOMING: Activity did not occur on this shift GROOMING - SCORE: 0-UNK BATHING: Activity did not occur on this shift BATHING - SCORE: 0-UNK DRESSING - UPPER BODY: Activity did not occur on this shift ARTICLES SCORE Total number of steps: 0 DRESSING - UPPER BODY - SCORE: 0-UNK DRESSING - LOWER BODY: Activity did not occur on this shift ARTICLES SCORE Total number of steps: 0 DRESSING - LOWER BODY - SCORE: 0-UNK TOILETING: Activity did not occur on this shift TOILETING - SCORE: 0-UNK BLADDER MANAGEMENT: Activity did not occur on this shift BLADDER MANAGEMENT - SCORE: 7-IND BOWEL MANAGEMENT: Activity did not occur on this shift BOWEL MANAGEMENT - SCORE: 7-IND TRANSFERS: BED, CHAIR, WHEELCHAIR: TRANSFERS: BED, CHAIR, WHEELCHAIR - STEP 1: Does the patient require assistance with bed, chair, or wheelchair transfers? Yes. TRANSFERS: BED, CHAIR, WHEELCHAIR - STEP 2: Does the patient require the assistance of a helper? Yes. TRANSFERS: BED, CHAIR, WHEELCHAIR - STEP 3: How much assistance does the patient require from the helper? Only supervision TRANSFERS: BED, CHAIR, WHEELCHAIR - SCORE: 5-SUP TRANSFERS: TOILET: Activity did not occur on this shift TRANSFERS: TOILET - SCORE: 0-UNK TRANSFERS: SHOWER: Activity did not occur on this shift TRANSFERS: SHOWER - SCORE: 0-UNK TRANSFERS: TUB: Activity did not occur on this shift TRANSFERS: TUB - SCORE: 0-UNK LOCOMOTION: WALK: LOCOMOTION: WALK - STEP 1: Does the patient need help to walk 150 feet? Yes. LOCOMOTION: WALK - STEP 2: How much assistance does the patient require to walk a minimum of 150 feet? Only incidental help such as contact guarding or steadying LOCOMOTION: WALK - SCORE: 4-MIN LOCOMOTION: WHEELCHAIR: LOCOMOTION: WHEELCHAIR - STEP 1: Does the patient need help to go 150 feet in a wheelchair? Yes. LOCOMOTION: WHEELCHAIR - STEP 2: How much assistance does the patient need from the helper? Only supervision, cuing, or coaxing LOCOMOTION: WHEELCHAIR - SCORE: 5-SUP LOCOMOTION: STAIRS: Activity did not occur on this shift LOCOMOTION: STAIRS - SCORE: 0-UNK COMPREHENSION: COMPREHENSION - SCORE: 0-UNK EXPRESSION EXPRESSION - SCORE: 0-UNK SOCIAL INTERACTION: SOCIAL INTERACTION - SCORE: 0-UNK PROBLEM SOLVING: PROBLEM SOLVING - SCORE: 0-UNK MEMORY: MEMORY - SCORE: 0-UNK SIGNATURE PANEL: The following modified sections: Transfers: Bed, Chair, Wheelchair - Score, Transfers: Toilet - Score , Locomotion: Walk - Score, Locomotion: Wheelchair - Score, Locomotion: Stairs - Score were [electron ically] signed by Inocente Lau PTA on MonJul 14 2017 15:37:42 T-0500 (Central Daylight Time)
[2017-07-14] MEDS ORDERED: INSULIN DETEMIR 100 UNIT/1 ML INSULIN SQ ONE (20:56)
[2017-07-14] MEDS: AMITRIPTYLINE 25 MG TAB PO SCH (20:59)
[2017-07-14] MEDS: INSULIN DETEMIR 100 UNIT/1 ML INSULIN SQ SCH (20:59)
[2017-07-14] MEDS: SENOSIDES 8.6 MG TAB PO SCH (20:59)
[2017-07-14] MEDS: POLYVINYL ALCOHOL 1.4% 15 ML EACH EYE SCH (21:00)
[2017-07-14] MEDS: ZOLPIDEM TARTRATE 5 MG TABLET PO PRN (21:09)
--- NOTE | 2017-07-15 04:54 | FAST ---
SHIFT START DATE/TIME: 07/14/2017 19:00 (CDT) SHIFT END DATE/TIME: 07/15/2017 07:00 (CDT) NAME CYNTHIA JENSEN DATE OF : 1965 DATE OF ADMISSION: 07/10/2017 20:00 (CDT) PHONE: AGE: 52 N# [id number] GENDER: Male ENCOUNTER PHYSICIAN: Dr. Andrew Escalona M.D. 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 EATING: EATING - STEP 1: Does the patient require assistance when eating? Yes. EATING - STEP 2: Does the patient require the assistance of a helper? Yes. EATING - STEP 3: Does the patient perform half or more of the eating tasks? Yes. EATING - STEP 4: Does the patient need only supervision, cuing, coaxing OR help to apply an orthosis OR help to cut fo od, open containers, pour liquids, or butter bread? Yes. EATING - SCORE: 5-SUP GROOMING: Wash, rinse, and dry face Wash, rinse, and dry hands GROOMING - STEP 1: Does the patient require assistance when grooming? Yes. GROOMING - STEP 2: Does the patient require the assistance of a helper? Yes. GROOMING - STEP 3: How much assistance does the patient require from the helper? Only prior equipment preparation/set up from the helper GROOMING - SCORE: 5-SUP BATHING: Activity did not occur on this shift BATHING - SCORE: 0-UNK DRESSING - UPPER BODY: Activity did not occur on this shift ARTICLES SCORE Total number of steps: 0 DRESSING - UPPER BODY - SCORE: 0-UNK DRESSING - LOWER BODY: Activity did not occur on this shift ARTICLES SCORE Total number of steps: 0 DRESSING - LOWER BODY - SCORE: 0-UNK TOILETING: TOILETING - STEP 1: Does the patient require assistance with toileting? Yes. TOILETING - STEP 2: Does the patient require the assistance of a helper? Yes. TOILETING - STEP 3: How much assistance does the patient require from the helper? Hands-on assistance from the helper TOILETING - STEP 4: Of the 3 tasks: 1) Adjusting clothing prior to use, 2) Cleansing of perineal area, 3) Adjusting clot tutu after use; How many tasks does the patient perform WITHOUT assistance of the helper? Three tasks with steadying assistance from the helper TOILETING - SCORE: 4-MIN BLADDER MANAGEMENT: BLADDER MANAGEMENT - STEP 1: Does the patient control the bladder completely and intentionally without equipment or devices or med ications, and is always continent? No. BLADDER MANAGEMENT - STEP 2: Does the patient require the assistance of a helper? Yes. BLADDER MANAGEMENT - STEP 3: How much assistance does the patient require from the helper? Patient requires contact assistance fro m the helper BLADDER MANAGEMENT - STEP 4: How much contact assistance does the patient require from the helper? Patient requires minimal assist ance to maintain an external device - by positioning, and the patient performs 75% or more of bladder management tasks, while the helper provides less than 25% of the assistance to position patient on / off bedpan BLADDER MANAGEMENT - SCORE: 4-MIN BLADDER MANAGEMENT - FREQUENCY OF ACCIDENTS: BLADDER MANAGEMENT(FA) - STEP 1: How many accidents has the patient had during the current shift? 0 BOWEL MANAGEMENT: BOWEL MANAGEMENT - STEP 1: Does the patient control bowels completely and intentionally without equipment devices or medications AND is always continent? No. BOWEL MANAGEMENT - STEP 2: Does the patient require the assistance of a helper? Yes. BOWEL MANAGEMENT - STEP 3: How much assistance does the patient require from the helper? Patient requires minimal contact assist ance / incidental help to maintain an external device such as removing / applying wafer BOWEL MANAGEMENT - SCORE: 4-MIN BOWEL MANAGEMENT - FREQUENCY OF ACCIDENTS: BOWEL MANAGEMENT(FA) - STEP 1: How many accidents has the patient had during the current shift? 0 TRANSFERS: BED, CHAIR, WHEELCHAIR: TRANSFERS: BED, CHAIR, WHEELCHAIR - STEP 1: Does the patient require assistance with bed, chair, or wheelchair transfers? Yes. TRANSFERS: BED, CHAIR, WHEELCHAIR - STEP 2: Does the patient require the assistance of a helper? Yes. TRANSFERS: BED, CHAIR, WHEELCHAIR - STEP 3: How much assistance does the patient require from the helper? Steadying/guiding assistance TRANSFERS: BED, CHAIR, WHEELCHAIR - SCORE: 4-MIN TRANSFERS: TOILET: TRANSFERS: TOILET - STEP 1: Does the patient require assistance with toilet transfers? Yes. TRANSFERS: TOILET - STEP 2: Does the patient require the assistance of a helper? Yes. TRANSFERS: TOILET - STEP 3: How much assistance does the patient require from the helper? Patient performs half or more of the tr ansferring tasks TRANSFERS: TOILET - STEP 4: Does the patient need only incidental help such as contact guard or steadying during toilet transfer? No. Patient needs more than incidental help TRANSFERS: TOILET - SCORE: 3-MOD TRANSFERS: SHOWER: Activity did not occur on this shift TRANSFERS: SHOWER - SCORE: 0-UNK TRANSFERS: TUB: Activity did not occur on this shift TRANSFERS: TUB - SCORE: 0-UNK LOCOMOTION: WALK: Activity did not occur on this shift LOCOMOTION: WALK - SCORE: 0-UNK LOCOMOTION: WHEELCHAIR: Activity did not occur on this shift LOCOMOTION: WHEELCHAIR - SCORE: 0-UNK COMPREHENSION: COMPREHENSION: TYPE: Both COMPREHENSION - STEP 1: Does the patient require help to understand complex and abstract ideas (such as current events, finan kellen, discharge planning, medical issues, relationships, etc)? No. COMPREHENSION - STEP 2: Does the patient need extra time, require an assistive device (such as glasses, hearing aids, or an a ugmentative communication system), OR does s/he have mild difficulty expressing complex and abstract ideas (including mild dysarthria or mild word-finding problems)? Yes. COMPREHENSION - SCORE: 6-DEBI EXPRESSION EXPRESSION: TYPE: Both EXPRESSION - STEP 1: Does the patient require help expressing complex and abstract ideas (such as current events, finances , discharge planning, medical issues, relationships, etc)? No. EXPRESSION - STEP 2: Does the patient need extra time, require an assistive device (such as augmentive communication syste m or a communication board), OR does s/he have mild difficulty expressing complex and abstract ideas (including mild dysarthria or mild word-find problems)? Yes. EXPRESSION - SCORE: 6-DEBI SOCIAL INTERACTION: SOCIAL INTERACTION - STEP 1: Does the patient require a helper to interact with others in social and therapeutic situations? No. SOCIAL INTERACTION - STEP 2: Does the patient need extra time in social situations, OR does s/he interact with staff, other patien ts, and family members ONLY in structured environments, OR does s/he require medication for social in teraction? Yes, patient needs extra time SOCIAL INTERACTION - SCORE: 6-DEBI PROBLEM SOLVING: PROBLEM SOLVING - STEP 1: Does the patient need help to solve complex problems such as managing a checking account or confronti ng interpersonal problems? No. PROBLEM SOLVING - STEP 2: Does the patient require extra time to make decisions or solve problems, OR does s/he have slight dif ficulty reading, initiating, or self-correcting in unfamiliar situations? Yes, patient needs extra ti me. PROBLEM SOLVING - SCORE: 6-DEBI MEMORY: MEMORY - STEP 1: Does the patient need help to remember frequently encountered people, daily routines, and executing r equests? No. MEMORY - STEP 2: Does the patient have slight difficulty recognizing frequently encountered people, daily routines, or executing requests without the need for repetition or using self-initiated or environmental cues to remember? Yes. MEMORY - SCORE: 6-DEBI SIGNATURE PANEL: The following modified sections: Eating - Score, Grooming - Score, Bathing - Score, Dressing - Upper Body - Score, Dressing - Lower Body - Score, Toileting - Score, Bladder Management - Score, Bowel Man agement - Score, Transfers: Bed, Chair, Wheelchair - Score, Transfers: Toilet - Score, Transfers: Dilma wer - Score, Transfers: Tub - Score, Locomotion: Walk - Score, Locomotion: Wheelchair - Score, Compre hension - Score, Expression - Score, Social Interaction - Score, Problem Solving - Score, Memory - Sc ore were [electronically] signed by Christina Tapia C.N.A. on Sat Jul 15 2017 03:56:00 GMT-0500 ( Central Daylight Time)
[2017-07-15] MEDS: PANTOPRAZOLE 40MG TABLET PO SCH (06:36)
[2017-07-15] MEDS: INSULIN -REGULAR HUMAN 50 UNIT/0.5 ML ML SQ SCH ×4 (07:01→20:34)
[2017-07-15] MEDS: DOLUTEGRAVIR 50 MG PO SCH (08:00)
[2017-07-15] MEDS: ENOXAPARIN 40 MG/0.4 ML SQ SCH (08:18)
[2017-07-15] MEDS: TAMSULOSIN 0.4 MG SR CAP PO SCH (08:19)
[2017-07-15] MEDS: GABAPENTIN 300 MG CAP PO SCH ×3 (08:19→20:22)
[2017-07-15] MEDS: DOXYCYCLINE 100 MG CAP PO SCH ×2 (08:20→20:21)
[2017-07-15] MEDS: CALCIUM CARB 500MG/VIT D 200 IU TAB PO SCH (08:20)
[2017-07-15] MEDS: THIAMINE HCL 100 MG TABLET PO SCH (08:20)
[2017-07-15] MEDS: SODIUM CHLORIDE 1 GM TAB PO SCH ×3 (08:20→16:49)
[2017-07-15] MEDS: FOLIC ACID 1 MG TABLET PO SCH (08:20)
[2017-07-15] MEDS: EMTRICITABINE/TENOFOVIR 1 TAB PO SCH (08:20)
[2017-07-15] MEDS: MAGNESIUM OXIDE 400 MG TAB PO SCH ×2 (08:20→20:21)
[2017-07-15] MEDS: METOPROLOL TAR 50 MG TAB PO SCH ×2 (08:21→20:22)
[2017-07-15] MEDS: AMLODIPINE 10 MG TAB PO SCH (08:21)
[2017-07-15] MEDS: HYDROCODONE/APAP 5/325 MG TAB PO PRN ×2 (08:21→20:31)
[2017-07-15] MEDS: MULTIVITAMIN TAB PO SCH (08:22)
--- NOTE | 2017-07-15 12:55 | FAST ---
ENCOUNTER DATE AND TIME: 07/15/2017 08:00 (CDT) NAME CYNTHIA JENSEN DATE OF : 1965 DATE OF ADMISSION: 07/10/2017 20:00 (CDT) PHONE: AGE: 52 N# [id number] GENDER: Male ENCOUNTER PHYSICIAN: Dr. Andrew Escalona M.D. 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 EATING: Activity did not occur on this shift EATING - SCORE: 0-UNK GROOMING: Activity did not occur on this shift GROOMING - SCORE: 0-UNK BATHING: Activity did not occur on this shift BATHING - SCORE: 0-UNK DRESSING - UPPER BODY: Activity did not occur on this shift ARTICLES SCORE Total number of steps: 0 DRESSING - UPPER BODY - SCORE: 0-UNK DRESSING - LOWER BODY: Activity did not occur on this shift ARTICLES SCORE Total number of steps: 0 DRESSING - LOWER BODY - SCORE: 0-UNK TOILETING: Activity did not occur on this shift TOILETING - SCORE: 0-UNK BLADDER MANAGEMENT: Activity did not occur on this shift BLADDER MANAGEMENT - SCORE: 7-IND BOWEL MANAGEMENT: Activity did not occur on this shift BOWEL MANAGEMENT - SCORE: 7-IND TRANSFERS: BED, CHAIR, WHEELCHAIR: TRANSFERS: BED, CHAIR, WHEELCHAIR - STEP 1: Does the patient require assistance with bed, chair, or wheelchair transfers? Yes. TRANSFERS: BED, CHAIR, WHEELCHAIR - STEP 2: Does the patient require the assistance of a helper? No. Patient only requires an assistive device fo r bed, chair, wheelchair transfers such as a sliding board, grab bar, or brace, OR s/he takes more th an reasonable time, OR there is a safety concern when s/he performs the transfers TRANSFERS: BED, CHAIR, WHEELCHAIR - SCORE: 6-DEBI TRANSFERS: TOILET: Activity did not occur on this shift TRANSFERS: TOILET - SCORE: 0-UNK TRANSFERS: SHOWER: Activity did not occur on this shift TRANSFERS: SHOWER - SCORE: 0-UNK TRANSFERS: TUB: Activity did not occur on this shift TRANSFERS: TUB - SCORE: 0-UNK LOCOMOTION: WALK: LOCOMOTION: WALK - STEP 1: Does the patient need help to walk 150 feet? Yes. LOCOMOTION: WALK - STEP 2: How much assistance does the patient require to walk a minimum of 150 feet? Only incidental help such as contact guarding or steadying LOCOMOTION: WALK - SCORE: 4-MIN LOCOMOTION: WHEELCHAIR: LOCOMOTION: WHEELCHAIR - STEP 1: Does the patient need help to go 150 feet in a wheelchair? Yes. LOCOMOTION: WHEELCHAIR - STEP 2: How much assistance does the patient need from the helper? Only supervision, cuing, or coaxing LOCOMOTION: WHEELCHAIR - SCORE: 5-SUP LOCOMOTION: STAIRS: Activity did not occur on this shift LOCOMOTION: STAIRS - SCORE: 0-UNK COMPREHENSION: COMPREHENSION - SCORE: 0-UNK EXPRESSION EXPRESSION - SCORE: 0-UNK SOCIAL INTERACTION: SOCIAL INTERACTION - SCORE: 0-UNK PROBLEM SOLVING: PROBLEM SOLVING - SCORE: 0-UNK MEMORY: MEMORY - SCORE: 0-UNK SIGNATURE PANEL: The following modified sections: Transfers: Bed, Chair, Wheelchair - Score, Transfers: Toilet - Score , Locomotion: Walk - Score, Locomotion: Wheelchair - Score, Locomotion: Stairs - Score were [electron tiera] signed by Kamini Lau PTA on Sat Jul 15 2017 11:57:50 GMT-0500 (Central Daylight Time)
[2017-07-15] MEDS: TRUVADA TABLET PO SCH (14:04)
--- NOTE | 2017-07-15 15:31 | FAST ---
SHIFT START DATE/TIME: 07/14/2017 07:00 (CDT) SHIFT END DATE/TIME: 07/14/2017 19:00 (CDT) NAME CYNTHIA JENSEN DATE OF : 1965 DATE OF ADMISSION: 07/10/2017 20:00 (CDT) PHONE: AGE: 52 N# [id number] GENDER: Male ENCOUNTER PHYSICIAN: Dr. Andrew Escalona M.D. 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 EATING: EATING - STEP 1: Does the patient require assistance when eating? Yes. EATING - STEP 2: Does the patient require the assistance of a helper? No, patient only requires an assistive device, O R s/he takes more than reasonable time to eat, OR there is a safety concern, OR s/he requires modifie d food consistency EATING - SCORE: 6-DEBI GROOMING: Activity did not occur on this shift GROOMING - SCORE: 0-UNK BATHING: Activity did not occur on this shift BATHING - SCORE: 0-UNK DRESSING - UPPER BODY: Activity did not occur on this shift ARTICLES SCORE Total number of steps: 0 DRESSING - UPPER BODY - SCORE: 0-UNK DRESSING - LOWER BODY: Activity did not occur on this shift ARTICLES SCORE Total number of steps: 0 DRESSING - LOWER BODY - SCORE: 0-UNK TOILETING: TOILETING - STEP 1: Does the patient require assistance with toileting? Yes. TOILETING - STEP 2: Does the patient require the assistance of a helper? Yes. TOILETING - STEP 3: How much assistance does the patient require from the helper? Hands-on assistance from the helper TOILETING - STEP 4: Of the 3 tasks: 1) Adjusting clothing prior to use, 2) Cleansing of perineal area, 3) Adjusting clot tutu after use; How many tasks does the patient perform WITHOUT assistance of the helper? Two tasks TOILETING - SCORE: 3-MOD BLADDER MANAGEMENT: BLADDER MANAGEMENT - STEP 1: Does the patient control the bladder completely and intentionally without equipment or devices or med ications, and is always continent? No. BLADDER MANAGEMENT - STEP 2: Does the patient require the assistance of a helper? Yes. BLADDER MANAGEMENT - STEP 3: How much assistance does the patient require from the helper? Only set-up of equipment - such as plac ing it within reach of the patient or emptying a device - to maintain either satisfactory voiding pat tern or managing an external device, such as an absorbent pad, ileal device, or catheter BLADDER MANAGEMENT - SCORE: 5-SUP BLADDER MANAGEMENT - FREQUENCY OF ACCIDENTS: BLADDER MANAGEMENT(FA) - STEP 1: How many accidents has the patient had during the current shift? 0 BOWEL MANAGEMENT: Activity did not occur on this shift BOWEL MANAGEMENT - SCORE: 7-IND BOWEL MANAGEMENT - FREQUENCY OF ACCIDENTS: BOWEL MANAGEMENT(FA) - STEP 1: How many accidents has the patient had during the current shift? 0 TRANSFERS: BED, CHAIR, WHEELCHAIR: TRANSFERS: BED, CHAIR, WHEELCHAIR - STEP 1: Does the patient require assistance with bed, chair, or wheelchair transfers? Yes. TRANSFERS: BED, CHAIR, WHEELCHAIR - STEP 2: Does the patient require the assistance of a helper? Yes. TRANSFERS: BED, CHAIR, WHEELCHAIR - STEP 3: How much assistance does the patient require from the helper? Steadying/guiding assistance TRANSFERS: BED, CHAIR, WHEELCHAIR - SCORE: 4-MIN TRANSFERS: TOILET: TRANSFERS: TOILET - STEP 1: Does the patient require assistance with toilet transfers? Yes. TRANSFERS: TOILET - STEP 2: Does the patient require the assistance of a helper? Yes. TRANSFERS: TOILET - STEP 3: How much assistance does the patient require from the helper? Patient performs half or more of the tr ansferring tasks TRANSFERS: TOILET - STEP 4: Does the patient need only incidental help such as contact guard or steadying during toilet transfer? Yes. TRANSFERS: TOILET - SCORE: 4-MIN TRANSFERS: SHOWER: Activity did not occur on this shift TRANSFERS: SHOWER - SCORE: 0-UNK TRANSFERS: TUB: Activity did not occur on this shift TRANSFERS: TUB - SCORE: 0-UNK LOCOMOTION: WALK: Activity did not occur on this shift LOCOMOTION: WALK - SCORE: 0-UNK LOCOMOTION: WHEELCHAIR: LOCOMOTION: WHEELCHAIR - STEP 1: Does the patient need help to go 150 feet in a wheelchair? Yes. LOCOMOTION: WHEELCHAIR - STEP 2: How much assistance does the patient need from the helper? More than incidental help LOCOMOTION: WHEELCHAIR - SCORE: 3-MOD COMPREHENSION: COMPREHENSION: TYPE: Both COMPREHENSION - STEP 1: Does the patient require help to understand complex and abstract ideas (such as current events, finan kellen, discharge planning, medical issues, relationships, etc)? Yes. COMPREHENSION - STEP 2: Does the patient require help to understand questions or statements about basic needs or ideas (such as hunger, thirst, sleep, safety, daily schedule, room location, or discomfort) half or more of the t val[place]? No. COMPREHENSION - STEP 3: How often does the patient need help to understand directions and conversation about basic needs? Les s than 10% of the time COMPREHENSION - SCORE: 5-SUP EXPRESSION EXPRESSION: TYPE: Both EXPRESSION - STEP 1: Does the patient require help expressing complex and abstract ideas (such as current events, finances , discharge planning, medical issues, relationships, etc)? Yes. EXPRESSION - STEP 2: Does the patient require help to express basic necessities or ideas (such as hunger, thirst, sleep, s afety, daily schedule, room location, or discomfort) half or more of the time? No. EXPRESSION - STEP 3: How often does the patient need help to express directions and conversation about basic needs? Less t bello 10% of the time EXPRESSION - SCORE: 5-SUP SOCIAL INTERACTION: SOCIAL INTERACTION - STEP 1: Does the patient require a helper to interact with others in social and therapeutic situations? No. SOCIAL INTERACTION - STEP 2: Does the patient need extra time in social situations, OR does s/he interact with staff, other patien ts, and family members ONLY in structured environments, OR does s/he require medication for social in teraction? Yes, patient needs extra time SOCIAL INTERACTION - SCORE: 6-DEBI PROBLEM SOLVING: PROBLEM SOLVING - STEP 1: Does the patient need help to solve complex problems such as managing a checking account or confronti ng interpersonal problems? Yes. PROBLEM SOLVING - STEP 2: Does the patient solve basic routine problems half or more of the time? Yes. PROBLEM SOLVING - STEP 3: How often does the patient need help to solve basic routine problems? Less than 10% of the time PROBLEM SOLVING - SCORE: 5-SUP MEMORY: MEMORY - STEP 1: Does the patient need help to remember frequently encountered people, daily routines, and executing r equests? Yes. MEMORY - STEP 2: How often does the patient need help to remember frequently encountered people, daily routines, and e xecuting requests? Less than 10% of the time MEMORY - SCORE: 5-SUP SIGNATURE PANEL: The following modified sections: Eating - Score, Grooming - Score, Bathing - Score, Dressing - Upper Body - Score, Dressing - Lower Body - Score, Toileting - Score, Bowel Management - Score, Transfers: Bed, Chair, Wheelchair - Score, Transfers: Toilet - Score, Transfers: Shower - Score, Transfers: Tub - Score, Locomotion: Walk - Score, Comprehension - Score, Expression - Score, Social Interaction - Sc ore, Problem Solving - Score, Memory - Score, Bladder Management - Score, Locomotion: Wheelchair - Sc ore were [electronically] signed by Jada Kuo C.N.A. on Sat Jul 15 2017 14:33:16 T-0500 (Centra l Daylight Time)
--- NOTE | 2017-07-15 15:33 | FAST ---
ENCOUNTER DATE AND TIME: 07/15/2017 08:00 (CDT) NAME CYNTHIA JENSEN DATE OF : 1965 DATE OF ADMISSION: 07/10/2017 20:00 (CDT) PHONE: AGE: 52 N# [id number] GENDER: Male ENCOUNTER PHYSICIAN: Dr. Andrew Escalona M.D. 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 EATING: Activity did not occur on this shift EATING - SCORE: 0-UNK GROOMING: Oral care Wash, rinse, and dry face Wash, rinse, and dry hands GROOMING - STEP 1: Does the patient require assistance when grooming? Yes. GROOMING - STEP 2: Does the patient require the assistance of a helper? No. The patient only requires an assistive devic e, OR takes more than reasonable time to groom, OR there is a concern for safety as the patient groom s GROOMING - SCORE: 6-DEBI BATHING: Abdomen Buttocks Chest Left arm Left lower leg and foot Left upper leg Perineal area Right arm Right lower leg and foot Right upper leg BATHING - STEP 1: Does the patient require assistance when bathing? Yes. BATHING - STEP 2: Does the patient require the assistance of a helper? Yes. BATHING - STEP 3: How much assistance does the patient require from the helper? Only incidental help such as placement of a wash cloth in his/her hand a few times as s/he bathes OR help to bathe just one or two areas of the body BATHING - SCORE: 4-MIN DRESSING - UPPER BODY: T-shirt/pullover shirt (four steps) ARTICLES SCORE Total number of steps: 4 DRESSING - UPPER BODY - STEP 1: Does the patient require help when dressing above the waist? No. DRESSING - UPPER BODY - SCORE: 7-IND DRESSING - LOWER BODY: Elastic waist pants (three steps) Underwear (three steps) ARTICLES SCORE Total number of steps: 6 DRESSING - LOWER BODY - STEP 1: Does the patient require help when dressing below the waist? Yes. DRESSING - LOWER BODY - STEP 2: Does the patient require the assistance of a helper? Yes. DRESSING - LOWER BODY - STEP 3: Does the helper touch the patient while dressing? Yes. DRESSING - LOWER BODY - STEP 4: How many of the total steps does the patient complete on his/her own? 4 DRESSING - LOWER BODY - SCORE: 3-MOD DRESSING - LOWER BODY - COMMENTS: Patient unable to raise weak RLE TOILETING: TOILETING - STEP 1: Does the patient require assistance with toileting? Yes. TOILETING - STEP 2: Does the patient require the assistance of a helper? Yes. TOILETING - STEP 3: How much assistance does the patient require from the helper? Only supervision TOILETING - SCORE: 5-SUP BLADDER MANAGEMENT: Activity did not occur on this shift BLADDER MANAGEMENT - SCORE: 7-IND BOWEL MANAGEMENT: Activity did not occur on this shift BOWEL MANAGEMENT - SCORE: 7-IND TRANSFERS: BED, CHAIR, WHEELCHAIR: TRANSFERS: BED, CHAIR, WHEELCHAIR - STEP 1: Does the patient require assistance with bed, chair, or wheelchair transfers? Yes. TRANSFERS: BED, CHAIR, WHEELCHAIR - STEP 2: Does the patient require the assistance of a helper? Yes. TRANSFERS: BED, CHAIR, WHEELCHAIR - STEP 3: How much assistance does the patient require from the helper? Only supervision TRANSFERS: BED, CHAIR, WHEELCHAIR - SCORE: 5-SUP TRANSFERS: BED, CHAIR, WHEELCHAIR - COMMENTS: Setup TRANSFERS: TOILET: TRANSFERS: TOILET - STEP 1: Does the patient require assistance with toilet transfers? Yes. TRANSFERS: TOILET - STEP 2: Does the patient require the assistance of a helper? Yes. TRANSFERS: TOILET - STEP 3: How much assistance does the patient require from the helper? Only supervision, cuing, coaxing, OR he lp to set out transfer equipment or to lock brakes and/or lift foot rests TRANSFERS: TOILET - SCORE: 5-SUP TRANSFERS: SHOWER: TRANSFERS: SHOWER - STEP 1: Does the patient require assistance with shower transfers? Yes. TRANSFERS: SHOWER - STEP 2: Does the patient require the assistance of a helper? Yes. TRANSFERS: SHOWER - STEP 3: How much assistance does the patient require from the helper? Only supervision, cuing, coaxing, or he lp to set out transfer equipment or to lock brakes and/or lift foot rests TRANSFERS: SHOWER - SCORE: 5-SUP TRANSFERS: TUB: Activity did not occur on this shift TRANSFERS: TUB - SCORE: 0-UNK LOCOMOTION: WALK: Activity did not occur on this shift LOCOMOTION: WALK - SCORE: 0-UNK LOCOMOTION: WHEELCHAIR: Activity did not occur on this shift LOCOMOTION: WHEELCHAIR - SCORE: 0-UNK LOCOMOTION: STAIRS: Activity did not occur on this shift LOCOMOTION: STAIRS - SCORE: 0-UNK COMPREHENSION: COMPREHENSION: TYPE: Both COMPREHENSION - STEP 1: Does the patient require help to understand complex and abstract ideas (such as current events, finan kellen, discharge planning, medical issues, relationships, etc)? No. COMPREHENSION - STEP 2: Does the patient need extra time, require an assistive device (such as glasses, hearing aids, or an a ugmentative communication system), OR does s/he have mild difficulty expressing complex and abstract ideas (including mild dysarthria or mild word-finding problems)? No. COMPREHENSION - SCORE: 7-IND EXPRESSION EXPRESSION: TYPE: Both EXPRESSION - STEP 1: Does the patient require help expressing complex and abstract ideas (such as current events, finances , discharge planning, medical issues, relationships, etc)? No. EXPRESSION - STEP 2: Does the patient need extra time, require an assistive device (such as augmentive communication syste m or a communication board), OR does s/he have mild difficulty expressing complex and abstract ideas (including mild dysarthria or mild word-find problems)? No. EXPRESSION - SCORE: 7-IND SOCIAL INTERACTION: SOCIAL INTERACTION - STEP 1: Does the patient require a helper to interact with others in social and therapeutic situations? No. SOCIAL INTERACTION - STEP 2: Does the patient need extra time in social situations, OR does s/he interact with staff, other patien ts, and family members ONLY in structured environments, OR does s/he require medication for social in teraction? No. SOCIAL INTERACTION - SCORE: 7-IND PROBLEM SOLVING: PROBLEM SOLVING - STEP 1: Does the patient need help to solve complex problems such as managing a checking account or confronti ng interpersonal problems? No. PROBLEM SOLVING - STEP 2: Does the patient require extra time to make decisions or solve problems, OR does s/he have slight dif ficulty reading, initiating, or self-correcting in unfamiliar situations? No. PROBLEM SOLVING - SCORE: 7-IND MEMORY: MEMORY - STEP 1: Does the patient need help to remember frequently encountered people, daily routines, and executing r equests? No. MEMORY - STEP 2: Does the patient have slight difficulty recognizing frequently encountered people, daily routines, or executing requests without the need for repetition or using self-initiated or environmental cues to remember? No. MEMORY - SCORE: 7-IND SIGNATURE PANEL: The following modified sections: Eating - Score, Grooming - Score, Bathing - Score, Dressing - Upper Body - Score, Dressing - Lower Body - Score, Dressing - Lower Body - Comments:, Toileting - Score, Tr ansfers: Bed, Chair, Wheelchair - Score, Transfers: Bed, Chair, Wheelchair - Comments:, Transfers: To ilet - Score, Transfers: Shower - Score, Transfers: Tub - Score, Comprehension - Score, Expression - Score, Social Interaction - Score, Problem Solving - Score, Memory - Score were [electronically] sign ed by QING Angel on Sat Jul 15 2017 14:35:47 T-0500 (Central Daylight Time)
[2017-07-15] MEDS: SENOSIDES 8.6 MG TAB PO SCH (20:22)
[2017-07-15] MEDS: AMITRIPTYLINE 25 MG TAB PO SCH (20:22)
[2017-07-15] MEDS: INSULIN DETEMIR 100 UNIT/1 ML INSULIN SQ SCH (20:23)
[2017-07-15] MEDS: POLYVINYL ALCOHOL 1.4% 15 ML EACH EYE SCH (20:27)
[2017-07-15] MEDS: ZOLPIDEM TARTRATE 5 MG TABLET PO PRN (20:31)
--- NOTE | 2017-07-16 02:59 | FAST ---
SHIFT START DATE/TIME: 07/15/2017 19:00 (CDT) SHIFT END DATE/TIME: 07/16/2017 07:00 (CDT) NAME CYNTHIA JENSEN DATE OF : 1965 DATE OF ADMISSION: 07/10/2017 20:00 (CDT) PHONE: AGE: 52 N# [id number] GENDER: Male ENCOUNTER PHYSICIAN: Dr. Andrew Escalona M.D. 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 EATING: Activity did not occur on this shift EATING - SCORE: 0-UNK GROOMING: Activity did not occur on this shift GROOMING - SCORE: 0-UNK BATHING: Activity did not occur on this shift BATHING - SCORE: 0-UNK DRESSING - UPPER BODY: Activity did not occur on this shift ARTICLES SCORE Total number of steps: 0 DRESSING - UPPER BODY - SCORE: 0-UNK DRESSING - LOWER BODY: Activity did not occur on this shift ARTICLES SCORE Total number of steps: 0 DRESSING - LOWER BODY - SCORE: 0-UNK TOILETING: TOILETING - STEP 1: Does the patient require assistance with toileting? Yes. TOILETING - STEP 2: Does the patient require the assistance of a helper? Yes. TOILETING - STEP 3: How much assistance does the patient require from the helper? Only supervision TOILETING - SCORE: 5-SUP BLADDER MANAGEMENT: BLADDER MANAGEMENT - STEP 1: Does the patient control the bladder completely and intentionally without equipment or devices or med ications, and is always continent? No. BLADDER MANAGEMENT - STEP 2: Does the patient require the assistance of a helper? Yes. BLADDER MANAGEMENT - STEP 3: How much assistance does the patient require from the helper? Only set-up of equipment - such as plac ing it within reach of the patient or emptying a device - to maintain either satisfactory voiding pat tern or managing an external device, such as an absorbent pad, ileal device, or catheter BLADDER MANAGEMENT - SCORE: 5-SUP BOWEL MANAGEMENT: Activity did not occur on this shift BOWEL MANAGEMENT - SCORE: 7-IND TRANSFERS: BED, CHAIR, WHEELCHAIR: Activity did not occur on this shift TRANSFERS: BED, CHAIR, WHEELCHAIR - SCORE: 0-UNK TRANSFERS: TOILET: Activity did not occur on this shift TRANSFERS: TOILET - SCORE: 0-UNK TRANSFERS: SHOWER: Activity did not occur on this shift TRANSFERS: SHOWER - SCORE: 0-UNK TRANSFERS: TUB: Activity did not occur on this shift TRANSFERS: TUB - SCORE: 0-UNK LOCOMOTION: WALK: Activity did not occur on this shift LOCOMOTION: WALK - SCORE: 0-UNK LOCOMOTION: WHEELCHAIR: Activity did not occur on this shift LOCOMOTION: WHEELCHAIR - SCORE: 0-UNK COMPREHENSION: COMPREHENSION - STEP 1: Does the patient require help to understand complex and abstract ideas (such as current events, finan kellen, discharge planning, medical issues, relationships, etc)? No. COMPREHENSION - STEP 2: Does the patient need extra time, require an assistive device (such as glasses, hearing aids, or an a ugmentative communication system), OR does s/he have mild difficulty expressing complex and abstract ideas (including mild dysarthria or mild word-finding problems)? Yes. COMPREHENSION - SCORE: 6-DEBI EXPRESSION EXPRESSION - STEP 1: Does the patient require help expressing complex and abstract ideas (such as current events, finances , discharge planning, medical issues, relationships, etc)? No. EXPRESSION - STEP 2: Does the patient need extra time, require an assistive device (such as augmentive communication syste m or a communication board), OR does s/he have mild difficulty expressing complex and abstract ideas (including mild dysarthria or mild word-find problems)? Yes. EXPRESSION - SCORE: 6-DEBI SOCIAL INTERACTION: SOCIAL INTERACTION - STEP 1: Does the patient require a helper to interact with others in social and therapeutic situations? No. SOCIAL INTERACTION - STEP 2: Does the patient need extra time in social situations, OR does s/he interact with staff, other patien ts, and family members ONLY in structured environments, OR does s/he require medication for social in teraction? No. SOCIAL INTERACTION - SCORE: 7-IND PROBLEM SOLVING: PROBLEM SOLVING - STEP 1: Does the patient need help to solve complex problems such as managing a checking account or confronti ng interpersonal problems? No. PROBLEM SOLVING - STEP 2: Does the patient require extra time to make decisions or solve problems, OR does s/he have slight dif ficulty reading, initiating, or self-correcting in unfamiliar situations? Yes, patient needs extra ti me. PROBLEM SOLVING - SCORE: 6-DEBI MEMORY: MEMORY - STEP 1: Does the patient need help to remember frequently encountered people, daily routines, and executing r equests? No. MEMORY - STEP 2: Does the patient have slight difficulty recognizing frequently encountered people, daily routines, or executing requests without the need for repetition or using self-initiated or environmental cues to remember? No. MEMORY - SCORE: 7-IND SIGNATURE PANEL: The following modified sections: Eating - Score, Grooming - Score, Dressing - Upper Body - Score, Robert ssing - Lower Body - Score, Toileting - Score, Bladder Management - Score, Bowel Management - Score, Transfers: Bed, Chair, Wheelchair - Score, Transfers: Toilet - Score, Transfers: Shower - Score, Gamez sfers: Tub - Score, Locomotion: Walk - Score, Locomotion: Wheelchair - Score, Comprehension - Score, Expression - Score, Social Interaction - Score, Problem Solving - Score, Memory - Score were [electro nically] signed by Jeanne Shaw CNA on MonJul 16 2017 02:01:19 T-0500 (Central Daylight Time)
[2017-07-16] MEDS: PANTOPRAZOLE 40MG TABLET PO SCH (07:04)
[2017-07-16] MEDS: ENOXAPARIN 40 MG/0.4 ML SQ SCH (07:04)
[2017-07-16] MEDS: INSULIN -REGULAR HUMAN 50 UNIT/0.5 ML ML SQ SCH ×4 (07:30→20:25)
[2017-07-16] MEDS: EMTRICITABINE/TENOFOVIR 1 TAB PO SCH (08:00)
[2017-07-16] MEDS: TRUVADA TABLET PO SCH (08:15)
[2017-07-16] MEDS: SODIUM CHLORIDE 1 GM TAB PO SCH ×3 (08:16→17:00)
[2017-07-16] MEDS: DOXYCYCLINE 100 MG CAP PO SCH ×2 (08:16→20:20)
[2017-07-16] MEDS: GABAPENTIN 300 MG CAP PO SCH ×3 (08:16→20:19)
[2017-07-16] MEDS: THIAMINE HCL 100 MG TABLET PO SCH (08:16)
[2017-07-16] MEDS: MULTIVITAMIN TAB PO SCH (08:16)
[2017-07-16] MEDS: TAMSULOSIN 0.4 MG SR CAP PO SCH (08:16)
[2017-07-16] MEDS: FOLIC ACID 1 MG TABLET PO SCH (08:17)
[2017-07-16] MEDS: MAGNESIUM OXIDE 400 MG TAB PO SCH ×2 (08:17→20:20)
[2017-07-16] MEDS: HYDROCODONE/APAP 5/325 MG TAB PO PRN ×2 (08:17→20:21)
[2017-07-16] MEDS: AMLODIPINE 10 MG TAB PO SCH (08:17)
[2017-07-16] MEDS: CALCIUM CARB 500MG/VIT D 200 IU TAB PO SCH (08:17)
[2017-07-16] MEDS: METOPROLOL TAR 50 MG TAB PO SCH ×2 (08:18→20:22)
[2017-07-16] MEDS: ZOLPIDEM TARTRATE 5 MG TABLET PO PRN (20:19)
[2017-07-16] MEDS: SENOSIDES 8.6 MG TAB PO SCH (20:20)
[2017-07-16] MEDS: AMITRIPTYLINE 25 MG TAB PO SCH (20:21)
[2017-07-16] MEDS: POLYVINYL ALCOHOL 1.4% 15 ML EACH EYE SCH (20:23)
[2017-07-16] MEDS: INSULIN DETEMIR 100 UNIT/1 ML INSULIN SQ SCH (20:24)
[2017-07-17] MEDS: INSULIN -REGULAR HUMAN 50 UNIT/0.5 ML ML SQ SCH ×4 (07:30→20:07)
[2017-07-17] MEDS: ENOXAPARIN 40 MG/0.4 ML SQ SCH (08:42)
[2017-07-17] MEDS: TRUVADA TABLET PO SCH (08:42)
[2017-07-17] MEDS: FOLIC ACID 1 MG TABLET PO SCH (08:42)
[2017-07-17] MEDS: MULTIVITAMIN TAB PO SCH (08:43)
[2017-07-17] MEDS: GABAPENTIN 300 MG CAP PO SCH ×3 (08:43→20:25)
[2017-07-17] MEDS: PANTOPRAZOLE 40MG TABLET PO SCH (08:43)
[2017-07-17] MEDS: SODIUM CHLORIDE 1 GM TAB PO SCH ×3 (08:43→17:37)
[2017-07-17] MEDS: CALCIUM CARB 500MG/VIT D 200 IU TAB PO SCH (08:43)
[2017-07-17] MEDS: AMLODIPINE 10 MG TAB PO SCH (08:43)
[2017-07-17] MEDS: MAGNESIUM OXIDE 400 MG TAB PO SCH ×2 (08:43→20:25)
[2017-07-17] MEDS: TAMSULOSIN 0.4 MG SR CAP PO SCH (08:43)
[2017-07-17] MEDS: BISACODYL E.C. 5 MG TAB PO PRN (08:44)
[2017-07-17] MEDS: THIAMINE HCL 100 MG TABLET PO SCH (08:44)
[2017-07-17] MEDS: DOXYCYCLINE 100 MG CAP PO SCH ×2 (08:44→20:24)
[2017-07-17] MEDS: HYDROCODONE/APAP 5/325 MG TAB PO PRN ×2 (08:44→20:25)
[2017-07-17] MEDS: METOPROLOL TAR 50 MG TAB PO SCH ×2 (08:45→20:25)
--- NOTE | 2017-07-17 09:11 | FAST ---
SHIFT START DATE/TIME: 07/16/2017 19:00 (CDT) SHIFT END DATE/TIME: 07/17/2017 07:00 (CDT) NAME CYNTHIA JENSEN DATE OF : 1965 DATE OF ADMISSION: 07/10/2017 20:00 (CDT) PHONE: AGE: 52 N# [id number] GENDER: Male ENCOUNTER PHYSICIAN: Dr. Andrew Escalona M.D. 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 EATING: Activity did not occur on this shift EATING - SCORE: 0-UNK GROOMING: Wash, rinse, and dry hands GROOMING - STEP 1: Does the patient require assistance when grooming? Yes. GROOMING - STEP 2: Does the patient require the assistance of a helper? Yes. GROOMING - STEP 3: How much assistance does the patient require from the helper? Cuing, coaxing, instructions, or encour agement for completion of grooming GROOMING - SCORE: 5-SUP BATHING: Activity did not occur on this shift BATHING - SCORE: 0-UNK DRESSING - UPPER BODY: Activity did not occur on this shift ARTICLES SCORE Total number of steps: 0 DRESSING - UPPER BODY - SCORE: 0-UNK DRESSING - LOWER BODY: Activity did not occur on this shift Patient is not dressing in public clothing ARTICLES SCORE Total number of steps: 0 DRESSING - LOWER BODY - SCORE: 0-UNK TOILETING: TOILETING - STEP 1: Does the patient require assistance with toileting? Yes. TOILETING - STEP 2: Does the patient require the assistance of a helper? Yes. TOILETING - STEP 3: How much assistance does the patient require from the helper? Hands-on assistance from the helper TOILETING - STEP 4: Of the 3 tasks: 1) Adjusting clothing prior to use, 2) Cleansing of perineal area, 3) Adjusting clot tutu after use; How many tasks does the patient perform WITHOUT assistance of the helper? Two tasks TOILETING - SCORE: 3-MOD BLADDER MANAGEMENT: BLADDER MANAGEMENT - STEP 1: Does the patient control the bladder completely and intentionally without equipment or devices or med ications, and is always continent? No. BLADDER MANAGEMENT - STEP 2: Does the patient require the assistance of a helper? Yes. BLADDER MANAGEMENT - STEP 3: How much assistance does the patient require from the helper? Only set-up of equipment - such as plac ing it within reach of the patient or emptying a device - to maintain either satisfactory voiding pat tern or managing an external device, such as an absorbent pad, ileal device, or catheter BLADDER MANAGEMENT - SCORE: 5-SUP BOWEL MANAGEMENT: Activity did not occur on this shift BOWEL MANAGEMENT - SCORE: 7-IND TRANSFERS: BED, CHAIR, WHEELCHAIR: TRANSFERS: BED, CHAIR, WHEELCHAIR - STEP 1: Does the patient require assistance with bed, chair, or wheelchair transfers? Yes. TRANSFERS: BED, CHAIR, WHEELCHAIR - STEP 2: Does the patient require the assistance of a helper? Yes. TRANSFERS: BED, CHAIR, WHEELCHAIR - STEP 3: How much assistance does the patient require from the helper? Steadying/guiding assistance TRANSFERS: BED, CHAIR, WHEELCHAIR - SCORE: 4-MIN TRANSFERS: TOILET: TRANSFERS: TOILET - STEP 1: Does the patient require assistance with toilet transfers? Yes. TRANSFERS: TOILET - STEP 2: Does the patient require the assistance of a helper? Yes. TRANSFERS: TOILET - STEP 3: How much assistance does the patient require from the helper? Patient performs half or more of the tr ansferring tasks TRANSFERS: TOILET - STEP 4: Does the patient need only incidental help such as contact guard or steadying during toilet transfer? Yes. TRANSFERS: TOILET - SCORE: 4-MIN TRANSFERS: SHOWER: Activity did not occur on this shift TRANSFERS: SHOWER - SCORE: 0-UNK TRANSFERS: TUB: Activity did not occur on this shift TRANSFERS: TUB - SCORE: 0-UNK LOCOMOTION: WALK: Activity did not occur on this shift LOCOMOTION: WALK - SCORE: 0-UNK LOCOMOTION: WHEELCHAIR: Activity did not occur on this shift LOCOMOTION: WHEELCHAIR - SCORE: 0-UNK COMPREHENSION: COMPREHENSION - STEP 1: Does the patient require help to understand complex and abstract ideas (such as current events, finan kellen, discharge planning, medical issues, relationships, etc)? No. COMPREHENSION - STEP 2: Does the patient need extra time, require an assistive device (such as glasses, hearing aids, or an a ugmentative communication system), OR does s/he have mild difficulty expressing complex and abstract ideas (including mild dysarthria or mild word-finding problems)? Yes. COMPREHENSION - SCORE: 6-DEBI EXPRESSION EXPRESSION - STEP 1: Does the patient require help expressing complex and abstract ideas (such as current events, finances , discharge planning, medical issues, relationships, etc)? No. EXPRESSION - STEP 2: Does the patient need extra time, require an assistive device (such as augmentive communication syste m or a communication board), OR does s/he have mild difficulty expressing complex and abstract ideas (including mild dysarthria or mild word-find problems)? No. EXPRESSION - SCORE: 7-IND SOCIAL INTERACTION: SOCIAL INTERACTION - STEP 1: Does the patient require a helper to interact with others in social and therapeutic situations? No. SOCIAL INTERACTION - STEP 2: Does the patient need extra time in social situations, OR does s/he interact with staff, other patien ts, and family members ONLY in structured environments, OR does s/he require medication for social in teraction? No. SOCIAL INTERACTION - SCORE: 7-IND PROBLEM SOLVING: PROBLEM SOLVING - STEP 1: Does the patient need help to solve complex problems such as managing a checking account or confronti ng interpersonal problems? No. PROBLEM SOLVING - STEP 2: Does the patient require extra time to make decisions or solve problems, OR does s/he have slight dif ficulty reading, initiating, or self-correcting in unfamiliar situations? Yes, patient needs extra ti me. PROBLEM SOLVING - SCORE: 6-DEBI MEMORY: MEMORY - STEP 1: Does the patient need help to remember frequently encountered people, daily routines, and executing r equests? No. MEMORY - STEP 2: Does the patient have slight difficulty recognizing frequently encountered people, daily routines, or executing requests without the need for repetition or using self-initiated or environmental cues to remember? No. MEMORY - SCORE: 7-IND SIGNATURE PANEL: The following modified sections: Eating - Score, Grooming - Score, Dressing - Upper Body - Score, Robert ssing - Lower Body - Score, Toileting - Score, Bladder Management - Score, Bowel Management - Score, Transfers: Bed, Chair, Wheelchair - Score, Transfers: Toilet - Score, Transfers: Shower - Score, Gamez sfers: Tub - Score, Locomotion: Walk - Score, Locomotion: Wheelchair - Score, Comprehension - Score, Expression - Score, Social Interaction - Score, Problem Solving - Score, Memory - Score were [electro nically] signed by Jeanne Shaw CNA on MonJul 17 2017 02:51:58 GMT-0500 (Central Daylight Time)
--- NOTE | 2017-07-17 12:13 | FAST ---
SHIFT START DATE/TIME: 07/17/2017 07:00 (CDT) SHIFT END DATE/TIME: 07/17/2017 19:00 (CDT) NAME CYNTHIA JENSEN DATE OF : 1965 DATE OF ADMISSION: 07/10/2017 20:00 (CDT) PHONE: AGE: 52 N# [id number] GENDER: Male ENCOUNTER PHYSICIAN: Dr. Andrew Escalona M.D. 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 EATING: EATING - STEP 1: Does the patient require assistance when eating? Yes. EATING - STEP 2: Does the patient require the assistance of a helper? No, patient only requires an assistive device, O R s/he takes more than reasonable time to eat, OR there is a safety concern, OR s/he requires modifie d food consistency EATING - SCORE: 6-DEBI GROOMING: Comb/brush hair Oral care Wash, rinse, and dry face Wash, rinse, and dry hands GROOMING - STEP 1: Does the patient require assistance when grooming? Yes. GROOMING - STEP 2: Does the patient require the assistance of a helper? No. The patient only requires an assistive devic e, OR takes more than reasonable time to groom, OR there is a concern for safety as the patient groom s GROOMING - SCORE: 6-DEBI BATHING: Activity did not occur on this shift BATHING - SCORE: 0-UNK DRESSING - UPPER BODY: Activity did not occur on this shift ARTICLES SCORE Total number of steps: 0 DRESSING - UPPER BODY - SCORE: 0-UNK DRESSING - LOWER BODY: Activity did not occur on this shift ARTICLES SCORE Total number of steps: 0 DRESSING - LOWER BODY - SCORE: 0-UNK TOILETING: TOILETING - STEP 1: Does the patient require assistance with toileting? Yes. TOILETING - STEP 2: Does the patient require the assistance of a helper? Yes. TOILETING - STEP 3: How much assistance does the patient require from the helper? Hands-on assistance from the helper TOILETING - STEP 4: Of the 3 tasks: 1) Adjusting clothing prior to use, 2) Cleansing of perineal area, 3) Adjusting clot tutu after use; How many tasks does the patient perform WITHOUT assistance of the helper? Two tasks TOILETING - SCORE: 3-MOD BLADDER MANAGEMENT: BLADDER MANAGEMENT - STEP 1: Does the patient control the bladder completely and intentionally without equipment or devices or med ications, and is always continent? No. BLADDER MANAGEMENT - STEP 2: Does the patient require the assistance of a helper? No, patient requires and independently uses an a ssistive device, such as a urinal, bedpan, bedside commode, catheter, absorbent pad, or collecting de vice BLADDER MANAGEMENT - SCORE: 6-DEBI BOWEL MANAGEMENT: Activity did not occur on this shift BOWEL MANAGEMENT - SCORE: 7-IND TRANSFERS: BED, CHAIR, WHEELCHAIR: TRANSFERS: BED, CHAIR, WHEELCHAIR - STEP 1: Does the patient require assistance with bed, chair, or wheelchair transfers? Yes. TRANSFERS: BED, CHAIR, WHEELCHAIR - STEP 2: Does the patient require the assistance of a helper? Yes. TRANSFERS: BED, CHAIR, WHEELCHAIR - STEP 3: How much assistance does the patient require from the helper? Steadying/guiding assistance TRANSFERS: BED, CHAIR, WHEELCHAIR - SCORE: 4-MIN TRANSFERS: TOILET: Activity did not occur on this shift TRANSFERS: TOILET - SCORE: 0-UNK TRANSFERS: SHOWER: Activity did not occur on this shift TRANSFERS: SHOWER - SCORE: 0-UNK TRANSFERS: TUB: Activity did not occur on this shift TRANSFERS: TUB - SCORE: 0-UNK LOCOMOTION: WALK: Activity did not occur on this shift LOCOMOTION: WALK - SCORE: 0-UNK LOCOMOTION: WHEELCHAIR: Activity did not occur on this shift LOCOMOTION: WHEELCHAIR - SCORE: 0-UNK COMPREHENSION: COMPREHENSION - SCORE: 0-UNK EXPRESSION EXPRESSION - SCORE: 0-UNK SOCIAL INTERACTION: SOCIAL INTERACTION - SCORE: 0-UNK PROBLEM SOLVING: PROBLEM SOLVING - SCORE: 0-UNK MEMORY: MEMORY - SCORE: 0-UNK SIGNATURE PANEL: The following modified sections: Eating - Score, Grooming - Score, Bathing - Score, Dressing - Upper Body - Score, Dressing - Lower Body - Score, Toileting - Score, Bladder Management - Score, Bowel Man agement - Score, Transfers: Bed, Chair, Wheelchair - Score, Transfers: Toilet - Score, Transfers: Dilma wer - Score, Transfers: Tub - Score, Locomotion: Walk - Score, Locomotion: Wheelchair - Score, Compre hension - Score, Expression - Score, Social Interaction - Score, Problem Solving - Score, Memory - Sc ore were [electronically] signed by Nasir Guido on MonJul 17 2017 11:15:35 GMT-0500 (Central Daylight Time)
--- NOTE | 2017-07-17 12:52 | FAST ---
ENCOUNTER DATE AND TIME: 07/17/2017 08:00 (CDT) NAME CYNTHIA JENSEN DATE OF : 1965 DATE OF ADMISSION: 07/10/2017 20:00 (CDT) PHONE: AGE: 52 N# [id number] GENDER: Male ENCOUNTER PHYSICIAN: Dr. Andrew Escalona M.D. 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 EATING: Activity did not occur on this shift EATING - SCORE: 0-UNK GROOMING: Activity did not occur on this shift GROOMING - SCORE: 0-UNK BATHING: Activity did not occur on this shift BATHING - SCORE: 0-UNK DRESSING - UPPER BODY: Activity did not occur on this shift Patient is not dressing in public clothing ARTICLES SCORE Total number of steps: 0 DRESSING - UPPER BODY - SCORE: 0-UNK DRESSING - LOWER BODY: Activity did not occur on this shift Patient is not dressing in public clothing ARTICLES SCORE Total number of steps: 0 DRESSING - LOWER BODY - SCORE: 0-UNK TOILETING: Activity did not occur on this shift TOILETING - SCORE: 0-UNK BLADDER MANAGEMENT: Activity did not occur on this shift BLADDER MANAGEMENT - SCORE: 7-IND BOWEL MANAGEMENT: Activity did not occur on this shift BOWEL MANAGEMENT - SCORE: 7-IND TRANSFERS: BED, CHAIR, WHEELCHAIR: Activity did not occur on this shift TRANSFERS: BED, CHAIR, WHEELCHAIR - SCORE: 0-UNK TRANSFERS: TOILET: Activity did not occur on this shift TRANSFERS: TOILET - SCORE: 0-UNK TRANSFERS: SHOWER: Activity did not occur on this shift TRANSFERS: SHOWER - SCORE: 0-UNK TRANSFERS: TUB: Activity did not occur on this shift TRANSFERS: TUB - SCORE: 0-UNK LOCOMOTION: WALK: Activity did not occur on this shift LOCOMOTION: WALK - SCORE: 0-UNK LOCOMOTION: WHEELCHAIR: Activity did not occur on this shift LOCOMOTION: WHEELCHAIR - SCORE: 0-UNK LOCOMOTION: STAIRS: Activity did not occur on this shift LOCOMOTION: STAIRS - SCORE: 0-UNK COMPREHENSION: COMPREHENSION - STEP 1: Does the patient require help to understand complex and abstract ideas (such as current events, finan kellen, discharge planning, medical issues, relationships, etc)? No. COMPREHENSION - STEP 2: Does the patient need extra time, require an assistive device (such as glasses, hearing aids, or an a ugmentative communication system), OR does s/he have mild difficulty expressing complex and abstract ideas (including mild dysarthria or mild word-finding problems)? No. COMPREHENSION - SCORE: 7-IND EXPRESSION EXPRESSION - STEP 1: Does the patient require help expressing complex and abstract ideas (such as current events, finances , discharge planning, medical issues, relationships, etc)? No. EXPRESSION - STEP 2: Does the patient need extra time, require an assistive device (such as augmentive communication syste m or a communication board), OR does s/he have mild difficulty expressing complex and abstract ideas (including mild dysarthria or mild word-find problems)? Yes. EXPRESSION - SCORE: 6-DEBI SOCIAL INTERACTION: SOCIAL INTERACTION - STEP 1: Does the patient require a helper to interact with others in social and therapeutic situations? No. SOCIAL INTERACTION - STEP 2: Does the patient need extra time in social situations, OR does s/he interact with staff, other patien ts, and family members ONLY in structured environments, OR does s/he require medication for social in teraction? Yes, patient needs extra time SOCIAL INTERACTION - SCORE: 6-DEBI PROBLEM SOLVING: PROBLEM SOLVING - STEP 1: Does the patient need help to solve complex problems such as managing a checking account or confronti ng interpersonal problems? No. PROBLEM SOLVING - STEP 2: Does the patient require extra time to make decisions or solve problems, OR does s/he have slight dif ficulty reading, initiating, or self-correcting in unfamiliar situations? No. PROBLEM SOLVING - SCORE: 7-IND MEMORY: MEMORY - STEP 1: Does the patient need help to remember frequently encountered people, daily routines, and executing r equests? No. MEMORY - STEP 2: Does the patient have slight difficulty recognizing frequently encountered people, daily routines, or executing requests without the need for repetition or using self-initiated or environmental cues to remember? No. MEMORY - SCORE: 7-IND SIGNATURE PANEL: The following modified sections: Comprehension - Score, Expression - Score, Social Interaction - Scor e, Problem Solving - Score, Memory - Score were [electronically] signed by YAZMIN Vieyra on Mon 11:54:08 GMT-0500 (Central Daylight Time)
--- NOTE | 2017-07-17 15:16 | FAST ---
ENCOUNTER DATE AND TIME: 07/17/2017 08:00 (CDT) NAME CYNTHIA JENSEN DATE OF : 1965 DATE OF ADMISSION: 07/10/2017 20:00 (CDT) PHONE: AGE: 52 N# [id number] GENDER: Male ENCOUNTER PHYSICIAN: Dr. Andrew Escalona M.D. 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 EATING: Activity did not occur on this shift EATING - SCORE: 0-UNK GROOMING: Activity did not occur on this shift GROOMING - SCORE: 0-UNK BATHING: Activity did not occur on this shift BATHING - SCORE: 0-UNK DRESSING - UPPER BODY: Activity did not occur on this shift Patient is not dressing in public clothing ARTICLES SCORE Total number of steps: 0 DRESSING - UPPER BODY - SCORE: 0-UNK DRESSING - LOWER BODY: Activity did not occur on this shift Patient is not dressing in public clothing ARTICLES SCORE Total number of steps: 0 DRESSING - LOWER BODY - SCORE: 0-UNK TOILETING: Activity did not occur on this shift TOILETING - SCORE: 0-UNK BLADDER MANAGEMENT: Activity did not occur on this shift BLADDER MANAGEMENT - SCORE: 7-IND BOWEL MANAGEMENT: Activity did not occur on this shift BOWEL MANAGEMENT - SCORE: 7-IND TRANSFERS: BED, CHAIR, WHEELCHAIR: TRANSFERS: BED, CHAIR, WHEELCHAIR - STEP 1: Does the patient require assistance with bed, chair, or wheelchair transfers? Yes. TRANSFERS: BED, CHAIR, WHEELCHAIR - STEP 2: Does the patient require the assistance of a helper? Yes. TRANSFERS: BED, CHAIR, WHEELCHAIR - STEP 3: How much assistance does the patient require from the helper? Steadying/guiding assistance TRANSFERS: BED, CHAIR, WHEELCHAIR - SCORE: 4-MIN TRANSFERS: TOILET: Activity did not occur on this shift TRANSFERS: TOILET - SCORE: 0-UNK TRANSFERS: SHOWER: Activity did not occur on this shift TRANSFERS: SHOWER - SCORE: 0-UNK TRANSFERS: TUB: Activity did not occur on this shift TRANSFERS: TUB - SCORE: 0-UNK LOCOMOTION: WALK: LOCOMOTION: WALK - STEP 1: Does the patient need help to walk 150 feet? Yes. LOCOMOTION: WALK - STEP 2: How much assistance does the patient require to walk a minimum of 150 feet? Only incidental help such as contact guarding or steadying LOCOMOTION: WALK - SCORE: 4-MIN LOCOMOTION: WHEELCHAIR: Activity did not occur on this shift LOCOMOTION: WHEELCHAIR - SCORE: 0-UNK LOCOMOTION: STAIRS: Activity did not occur on this shift LOCOMOTION: STAIRS - SCORE: 0-UNK COMPREHENSION: COMPREHENSION - SCORE: 0-UNK EXPRESSION EXPRESSION - SCORE: 0-UNK SOCIAL INTERACTION: SOCIAL INTERACTION - SCORE: 0-UNK PROBLEM SOLVING: PROBLEM SOLVING - SCORE: 0-UNK MEMORY: MEMORY - SCORE: 0-UNK SIGNATURE PANEL: The following modified sections: Transfers: Bed, Chair, Wheelchair - Score, Transfers: Toilet - Score , Locomotion: Walk - Score, Locomotion: Wheelchair - Score, Locomotion: Stairs - Score were [amina mott] signed by David Hope PT on MonJul 17 2017 14:18:00 T-0500 (Central Daylight Time)
--- NOTE | 2017-07-17 18:37 | R.PN ---
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 Pt denied any depression. Ambulated 480' with contact guard assistance using a rolling walker. Propelled wheelchair 350' with c ontact guard assistance. Self propelled wheelchair 250' with maximum assistance. VITAL SIGNS Temperature: 97.2 F SBP/DBP: 129/68 Pulse: 83 Resp: 16 MEDICATION ALLERGIES: CODEINE ENVIRONMENTAL ALLERGIES: - Substance Allergies None Known - Other Allergies None Known NURSING: - Shower allowing shower - Lab Results blood Sugar Check ACHS ACTIVITIES OOB only with supervision THERAPIES: - Occupational Therapy Evaluate and Treat. - Physical Therapy Evaluate and Treat. PHYSICAL EXAM - Gen Alert and awake Lying in bed No apparent distress Oriented to: person, time, and place - Vital Signs Vital signs stable, afebrile - Skin No skin breakdown. Normacephalic - Eyes No abnormalities - ENMT No abnormalities - Neck No abnormalities - CVS RRR - Resp Clear to auscultation - Abd Soft - GI Non distended Deferred - No abnormalities - Ext No significant edema - MSK 4/5 weakness in both upper extremities and 3+/5 weakness in both lower extremities. - Psych No abnormalities ASSESSMENT: Pt. 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 was independent/mod-I in Self-Care, Sphi ncter Control, Transfers Control, Communication, Social Cognition, and Locomotion; and he had good Sp hincter Control.Currently, he has deficits of Self-Care, Transfers Control, Communication, Social Cog nition, Endurance, Balance, Safety Awareness, and Locomotion.Pt. is now referred to [facility] for acute in-patient rehabilitation in order to maximize patient's functional indepe ndence in activities of daily living, strength, ROM, and mobility.- Rehab Goal Patient has realistic goal of being discharged at assistance level 6-Dhara to reside at Home with Fam shant/Relatives. MDM/PLAN: - Diet Type Continue Regular - Physical Therapy Gait dysfunction - to improve, our physical therapists will perform initial evaluation of pt's statu s upon admission and devise an individualized program for Gait Training, and Wheel Chair mobility Inability to transfer - to improve, our physical therapists will perform initial evaluation of pt's status upon admission and devise an individualized program for Bed mobility Need for home safety evaluation - to improve, our physical therapists will perform initial evaluatio n of pt's status upon admission and devise an individualized program for Home Evaluation Need in caregiver upon discharge - to improve, our physical therapists will perform initial evaluati on of pt's status upon admission and devise an individualized program for Caregiver Training New precaution - to improve, our physical therapists will perform initial evaluation of pt's status upon admission and devise an individualized program for Patient precaution education Edema - to improve, our physical therapists will perform initial evaluation of pt's status upon admi ssion and devise an individualized program for Elevation Training, and Lymphedema Therapy Poor balance - to improve, our physical therapists will perform initial evaluation of pt's status up on admission and devise an individualized program for Balance Training Poor endurance - to improve, our physical therapists will perform initial evaluation of pt's status upon admission and devise an individualized program for Endurance Training Weakness - to improve, our physical therapists will perform initial evaluation of pt's status upon a dmission and devise an individualized program for Aquatic Therapy, Neuromuscular Reeducation, and Str engthening Achieving independence - to improve, our physical therapists will perform initial evaluation of pt's status upon admission and devise an individualized program for Community Reintegration Activities - Diet - Liquid Texture Continue Regular - Tube Feed Continue N/A - Lab Results blood Sugar Check ACHS - Diet - Solid Texture Continue Regular - Shower allowing shower - Occupational Therapy ADL deficits - to improve, our occupation therapists will perform initial evaluation of pt's status upon admission and devise an individualized program for Bathing, Bed mobility, Community Reintegratio n, Cooking, Dressing, Eating, Fine Motor Skills, Grooming, Homemaking, Kitchen Mobility, Laundry, Pat ient Education, Safety Awareness, Splinting - Positioning, Transfers(Toilet, Tub, Shower), and Wheel Chair Management Cognitive deficits - to improve, our occupation therapists will perform initial evaluation of pt's s tatus upon admission and devise an individualized program for Cognition - orientation Need for rn care manager - to improve, our occupation therapists will perform initial evaluation of pt's status upon admission and devise an individualized program for Caregiver Training Weakness - to improve, our occupation therapists will perform initial evaluation of pt's status upon admission and devise an individualized program for Aquatic Therapy, Balance, Endurance, UE ROM, and UE strengthening FUNCTIONAL STATUS: UPDATED AT WEEKLY TEAM CONFERENCE - Bladder Same accident frequency: 7-Ind - No accidents in the past 7 days - Bowel Same accident frequency: 7-Ind - No accidents in the past 7 days - Walking Same score based on distance walked: 0(N/A) FUNCTIONAL STATUS: - Self-Care A. Eating sup B. Grooming Satinder C. Bathing modA D. Dressing - Upper modA E. Dressing - Lower modA F. Toileting modA - Sphincter Control G: Bladder control Ind H: Bowel control Ind - Transfers Control I. Bed/Chair/Wheelchair modA J. Toilet modA K. Tub/Shower ADNO - Locomotion L. Walk/Wheelchair (B) Dep M. Stairs ADNO - Communication N. Comprehension (B) sup O. Expression (B) sup - Social Cognition P. Social Interaction sup Q. Problem Solving sup R. Memory Dhara - Endurance Poor - Balance Poor - Safety Awareness Poor CURRENT FUNC. DEFICITS: Self-Care, Transfers Control, Communication, Social Cognition, Endurance, Balance, Safety Awareness, and Locomotion SIGNATURE PANEL: (CDT)
[2017-07-17] MEDS: INSULIN DETEMIR 100 UNIT/1 ML INSULIN SQ SCH (20:24)
[2017-07-17] MEDS: LORATADINE 10 MG TAB PO PRN (20:25)
[2017-07-17] MEDS: ZOLPIDEM TARTRATE 5 MG TABLET PO PRN (20:25)
[2017-07-17] MEDS: AMITRIPTYLINE 25 MG TAB PO SCH (20:25)
[2017-07-17] MEDS: SENOSIDES 8.6 MG TAB PO SCH (20:25)
[2017-07-17] MEDS: POLYVINYL ALCOHOL 1.4% 15 ML EACH EYE SCH (20:26)
--- NOTE | 2017-07-18 03:08 | FAST ---
SHIFT START DATE/TIME: 07/17/2017 19:00 (CDT) SHIFT END DATE/TIME: 07/18/2017 07:00 (CDT) NAME CYNTHIA JENSEN DATE OF : 1965 DATE OF ADMISSION: 07/10/2017 20:00 (CDT) PHONE: AGE: 52 N# [id number] GENDER: Male ENCOUNTER PHYSICIAN: Dr. Andrew Escalona M.D. 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 EATING: Activity did not occur on this shift EATING - SCORE: 0-UNK GROOMING: Wash, rinse, and dry hands GROOMING - STEP 1: Does the patient require assistance when grooming? Yes. GROOMING - STEP 2: Does the patient require the assistance of a helper? Yes. GROOMING - STEP 3: How much assistance does the patient require from the helper? Only prior equipment preparation/set up from the helper GROOMING - SCORE: 5-SUP BATHING: Activity did not occur on this shift BATHING - SCORE: 0-UNK DRESSING - UPPER BODY: Activity did not occur on this shift ARTICLES SCORE Total number of steps: 0 DRESSING - UPPER BODY - SCORE: 0-UNK DRESSING - LOWER BODY: Activity did not occur on this shift ARTICLES SCORE Total number of steps: 0 DRESSING - LOWER BODY - SCORE: 0-UNK TOILETING: TOILETING - STEP 1: Does the patient require assistance with toileting? Yes. TOILETING - STEP 2: Does the patient require the assistance of a helper? Yes. TOILETING - STEP 3: How much assistance does the patient require from the helper? Hands-on assistance from the helper TOILETING - STEP 4: Of the 3 tasks: 1) Adjusting clothing prior to use, 2) Cleansing of perineal area, 3) Adjusting clot tutu after use; How many tasks does the patient perform WITHOUT assistance of the helper? Three tasks with steadying assistance from the helper TOILETING - SCORE: 4-MIN BLADDER MANAGEMENT: BLADDER MANAGEMENT - STEP 1: Does the patient control the bladder completely and intentionally without equipment or devices or med ications, and is always continent? No. BLADDER MANAGEMENT - STEP 2: Does the patient require the assistance of a helper? No, patient requires and independently uses an a ssistive device, such as a urinal, bedpan, bedside commode, catheter, absorbent pad, or collecting de vice BLADDER MANAGEMENT - SCORE: 6-DEBI BOWEL MANAGEMENT: BOWEL MANAGEMENT - STEP 1: Does the patient control bowels completely and intentionally without equipment devices or medications AND is always continent? Yes. BOWEL MANAGEMENT - SCORE: 7-IND TRANSFERS: BED, CHAIR, WHEELCHAIR: TRANSFERS: BED, CHAIR, WHEELCHAIR - STEP 1: Does the patient require assistance with bed, chair, or wheelchair transfers? Yes. TRANSFERS: BED, CHAIR, WHEELCHAIR - STEP 2: Does the patient require the assistance of a helper? Yes. TRANSFERS: BED, CHAIR, WHEELCHAIR - STEP 3: How much assistance does the patient require from the helper? Steadying/guiding assistance TRANSFERS: BED, CHAIR, WHEELCHAIR - SCORE: 4-MIN TRANSFERS: TOILET: TRANSFERS: TOILET - STEP 1: Does the patient require assistance with toilet transfers? Yes. TRANSFERS: TOILET - STEP 2: Does the patient require the assistance of a helper? Yes. TRANSFERS: TOILET - STEP 3: How much assistance does the patient require from the helper? Only supervision, cuing, coaxing, OR he lp to set out transfer equipment or to lock brakes and/or lift foot rests TRANSFERS: TOILET - SCORE: 5-SUP TRANSFERS: SHOWER: Activity did not occur on this shift TRANSFERS: SHOWER - SCORE: 0-UNK TRANSFERS: TUB: Activity did not occur on this shift TRANSFERS: TUB - SCORE: 0-UNK LOCOMOTION: WALK: Activity did not occur on this shift LOCOMOTION: WALK - SCORE: 0-UNK LOCOMOTION: WHEELCHAIR: Activity did not occur on this shift LOCOMOTION: WHEELCHAIR - SCORE: 0-UNK COMPREHENSION: COMPREHENSION: TYPE: Both COMPREHENSION - STEP 1: Does the patient require help to understand complex and abstract ideas (such as current events, finan kellen, discharge planning, medical issues, relationships, etc)? No. COMPREHENSION - STEP 2: Does the patient need extra time, require an assistive device (such as glasses, hearing aids, or an a ugmentative communication system), OR does s/he have mild difficulty expressing complex and abstract ideas (including mild dysarthria or mild word-finding problems)? Yes. COMPREHENSION - SCORE: 6-DEBI EXPRESSION EXPRESSION: TYPE: Both EXPRESSION - STEP 1: Does the patient require help expressing complex and abstract ideas (such as current events, finances , discharge planning, medical issues, relationships, etc)? No. EXPRESSION - STEP 2: Does the patient need extra time, require an assistive device (such as augmentive communication syste m or a communication board), OR does s/he have mild difficulty expressing complex and abstract ideas (including mild dysarthria or mild word-find problems)? No. EXPRESSION - SCORE: 7-IND SOCIAL INTERACTION: SOCIAL INTERACTION - STEP 1: Does the patient require a helper to interact with others in social and therapeutic situations? No. SOCIAL INTERACTION - STEP 2: Does the patient need extra time in social situations, OR does s/he interact with staff, other patien ts, and family members ONLY in structured environments, OR does s/he require medication for social in teraction? No. SOCIAL INTERACTION - SCORE: 7-IND PROBLEM SOLVING: PROBLEM SOLVING - STEP 1: Does the patient need help to solve complex problems such as managing a checking account or confronti ng interpersonal problems? No. PROBLEM SOLVING - STEP 2: Does the patient require extra time to make decisions or solve problems, OR does s/he have slight dif ficulty reading, initiating, or self-correcting in unfamiliar situations? Yes, patient needs extra ti me. PROBLEM SOLVING - SCORE: 6-DEBI MEMORY: MEMORY - STEP 1: Does the patient need help to remember frequently encountered people, daily routines, and executing r equests? No. MEMORY - STEP 2: Does the patient have slight difficulty recognizing frequently encountered people, daily routines, or executing requests without the need for repetition or using self-initiated or environmental cues to remember? No. MEMORY - SCORE: 7-IND
[2017-07-18] MEDS: INSULIN -REGULAR HUMAN 50 UNIT/0.5 ML ML SQ SCH ×4 (07:30→20:21)
[2017-07-18] MEDS: PANTOPRAZOLE 40MG TABLET PO SCH (07:46)
[2017-07-18] MEDS: TRUVADA TABLET PO SCH (08:00)
[2017-07-18] MEDS: MULTIVITAMIN TAB PO SCH (08:29)
[2017-07-18] MEDS: AMLODIPINE 10 MG TAB PO SCH (08:29)
[2017-07-18] MEDS: DOXYCYCLINE 100 MG CAP PO SCH ×2 (08:29→19:59)
[2017-07-18] MEDS: SODIUM CHLORIDE 1 GM TAB PO SCH ×3 (08:29→17:17)
[2017-07-18] MEDS: FOLIC ACID 1 MG TABLET PO SCH (08:29)
[2017-07-18] MEDS: ENOXAPARIN 40 MG/0.4 ML SQ SCH (08:29)
[2017-07-18] MEDS: THIAMINE HCL 100 MG TABLET PO SCH (08:29)
[2017-07-18] MEDS: METOPROLOL TAR 50 MG TAB PO SCH ×2 (08:30→19:54)
[2017-07-18] MEDS: MAGNESIUM OXIDE 400 MG TAB PO SCH ×2 (08:30→19:57)
[2017-07-18] MEDS: HYDROCODONE/APAP 5/325 MG TAB PO PRN ×2 (08:30→19:59)
[2017-07-18] MEDS: CALCIUM CARB 500MG/VIT D 200 IU TAB PO SCH (08:30)
[2017-07-18] MEDS: TAMSULOSIN 0.4 MG SR CAP PO SCH (08:30)
[2017-07-18] MEDS: GABAPENTIN 300 MG CAP PO SCH ×3 (08:30→20:00)
--- NOTE | 2017-07-18 12:30 | FAST ---
SHIFT START DATE/TIME: 07/18/2017 07:00 (CDT) SHIFT END DATE/TIME: 07/18/2017 19:00 (CDT) NAME CYNTHIA JENSEN DATE OF : 1965 DATE OF ADMISSION: 07/10/2017 20:00 (CDT) PHONE: AGE: 52 N# [id number] GENDER: Male ENCOUNTER PHYSICIAN: Dr. Andrew Escalona M.D. 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 EATING: EATING - STEP 1: Does the patient require assistance when eating? Yes. EATING - STEP 2: Does the patient require the assistance of a helper? No, patient only requires an assistive device, O R s/he takes more than reasonable time to eat, OR there is a safety concern, OR s/he requires modifie d food consistency EATING - SCORE: 6-DEBI GROOMING: Activity did not occur on this shift GROOMING - SCORE: 0-UNK BATHING: Activity did not occur on this shift BATHING - SCORE: 0-UNK DRESSING - UPPER BODY: Activity did not occur on this shift ARTICLES SCORE Total number of steps: 0 DRESSING - UPPER BODY - SCORE: 0-UNK DRESSING - LOWER BODY: Activity did not occur on this shift ARTICLES SCORE Total number of steps: 0 DRESSING - LOWER BODY - SCORE: 0-UNK TOILETING: TOILETING - STEP 1: Does the patient require assistance with toileting? Yes. TOILETING - STEP 2: Does the patient require the assistance of a helper? Yes. TOILETING - STEP 3: How much assistance does the patient require from the helper? Hands-on assistance from the helper TOILETING - STEP 4: Of the 3 tasks: 1) Adjusting clothing prior to use, 2) Cleansing of perineal area, 3) Adjusting clot tutu after use; How many tasks does the patient perform WITHOUT assistance of the helper? Two tasks TOILETING - SCORE: 3-MOD BLADDER MANAGEMENT: BLADDER MANAGEMENT - STEP 1: Does the patient control the bladder completely and intentionally without equipment or devices or med ications, and is always continent? No. BLADDER MANAGEMENT - STEP 2: Does the patient require the assistance of a helper? No, patient requires and independently uses an a ssistive device, such as a urinal, bedpan, bedside commode, catheter, absorbent pad, or collecting de vice BLADDER MANAGEMENT - SCORE: 6-DEBI BOWEL MANAGEMENT: Activity did not occur on this shift BOWEL MANAGEMENT - SCORE: 7-IND TRANSFERS: BED, CHAIR, WHEELCHAIR: TRANSFERS: BED, CHAIR, WHEELCHAIR - STEP 1: Does the patient require assistance with bed, chair, or wheelchair transfers? Yes. TRANSFERS: BED, CHAIR, WHEELCHAIR - STEP 2: Does the patient require the assistance of a helper? Yes. TRANSFERS: BED, CHAIR, WHEELCHAIR - STEP 3: How much assistance does the patient require from the helper? Lifting of the legs TRANSFERS: BED, CHAIR, WHEELCHAIR - STEP 4: How many legs does the patient require the helper to lift? both legs TRANSFERS: BED, CHAIR, WHEELCHAIR - SCORE: 3-MOD TRANSFERS: TOILET: TRANSFERS: TOILET - STEP 1: Does the patient require assistance with toilet transfers? Yes. TRANSFERS: TOILET - STEP 2: Does the patient require the assistance of a helper? Yes. TRANSFERS: TOILET - STEP 3: How much assistance does the patient require from the helper? Patient performs half or more of the tr ansferring tasks TRANSFERS: TOILET - STEP 4: Does the patient need only incidental help such as contact guard or steadying during toilet transfer? No. Patient needs more than incidental help TRANSFERS: TOILET - SCORE: 3-MOD TRANSFERS: SHOWER: Activity did not occur on this shift TRANSFERS: SHOWER - SCORE: 0-UNK TRANSFERS: TUB: Activity did not occur on this shift TRANSFERS: TUB - SCORE: 0-UNK LOCOMOTION: WALK: Activity did not occur on this shift LOCOMOTION: WALK - SCORE: 0-UNK LOCOMOTION: WHEELCHAIR: Activity did not occur on this shift LOCOMOTION: WHEELCHAIR - SCORE: 0-UNK COMPREHENSION: COMPREHENSION - SCORE: 0-UNK EXPRESSION EXPRESSION - SCORE: 0-UNK SOCIAL INTERACTION: SOCIAL INTERACTION - SCORE: 0-UNK PROBLEM SOLVING: PROBLEM SOLVING - SCORE: 0-UNK MEMORY: MEMORY - SCORE: 0-UNK SIGNATURE PANEL: The following modified sections: Eating - Score, Grooming - Score, Bathing - Score, Dressing - Upper Body - Score, Dressing - Lower Body - Score, Toileting - Score, Bladder Management - Score, Bowel Man agement - Score, Transfers: Bed, Chair, Wheelchair - Score, Transfers: Toilet - Score, Transfers: Dilma wer - Score, Transfers: Tub - Score, Locomotion: Walk - Score, Locomotion: Wheelchair - Score, Compre hension - Score, Expression - Score, Social Interaction - Score, Problem Solving - Score, Memory - Sc ore were [electronically] signed by Nasir Guido on MonJul 18 2017 11:32:09 GMT-0500 (Central Daylight Time)
--- NOTE | 2017-07-18 15:25 | FAST ---
ENCOUNTER DATE AND TIME: 07/18/2017 08:00 (CDT) NAME CYNTHIA JENSEN DATE OF : 1965 DATE OF ADMISSION: 07/10/2017 20:00 (CDT) PHONE: AGE: 52 N# [id number] GENDER: Male ENCOUNTER PHYSICIAN: Dr. Andrew Escalona M.D. 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 EATING: Activity did not occur on this shift EATING - SCORE: 0-UNK GROOMING: Activity did not occur on this shift GROOMING - SCORE: 0-UNK BATHING: Activity did not occur on this shift BATHING - SCORE: 0-UNK DRESSING - UPPER BODY: Activity did not occur on this shift Patient is not dressing in public clothing ARTICLES SCORE Total number of steps: 0 DRESSING - UPPER BODY - SCORE: 0-UNK DRESSING - LOWER BODY: Activity did not occur on this shift Patient is not dressing in public clothing ARTICLES SCORE Total number of steps: 0 DRESSING - LOWER BODY - SCORE: 0-UNK TOILETING: Activity did not occur on this shift TOILETING - SCORE: 0-UNK BLADDER MANAGEMENT: Activity did not occur on this shift BLADDER MANAGEMENT - SCORE: 7-IND BOWEL MANAGEMENT: Activity did not occur on this shift BOWEL MANAGEMENT - SCORE: 7-IND TRANSFERS: BED, CHAIR, WHEELCHAIR: TRANSFERS: BED, CHAIR, WHEELCHAIR - STEP 1: Does the patient require assistance with bed, chair, or wheelchair transfers? Yes. TRANSFERS: BED, CHAIR, WHEELCHAIR - STEP 2: Does the patient require the assistance of a helper? Yes. TRANSFERS: BED, CHAIR, WHEELCHAIR - STEP 3: How much assistance does the patient require from the helper? Only supervision TRANSFERS: BED, CHAIR, WHEELCHAIR - SCORE: 5-SUP TRANSFERS: TOILET: Activity did not occur on this shift TRANSFERS: TOILET - SCORE: 0-UNK TRANSFERS: SHOWER: Activity did not occur on this shift TRANSFERS: SHOWER - SCORE: 0-UNK TRANSFERS: TUB: Activity did not occur on this shift TRANSFERS: TUB - SCORE: 0-UNK LOCOMOTION: WALK: LOCOMOTION: WALK - STEP 1: Does the patient need help to walk 150 feet? Yes. LOCOMOTION: WALK - STEP 2: How much assistance does the patient require to walk a minimum of 150 feet? Only incidental help such as contact guarding or steadying LOCOMOTION: WALK - SCORE: 4-MIN LOCOMOTION: WHEELCHAIR: LOCOMOTION: WHEELCHAIR - STEP 1: Does the patient need help to go 150 feet in a wheelchair? No. LOCOMOTION: WHEELCHAIR - SCORE: 6-DEBI LOCOMOTION: STAIRS: LOCOMOTION: STAIRS - STEP 1: Does the patient need help to go up and down 12 to 14 stairs? Yes. LOCOMOTION: STAIRS - STEP 2: How much assistance does the patient need from the helper to go a minimum of 12 to 14 stairs? The pat ient goes less than 12 to 14 stairs - but more than 4 to 6 stairs LOCOMOTION: STAIRS - SCORE: 2-MAX COMPREHENSION: COMPREHENSION - SCORE: 0-UNK EXPRESSION EXPRESSION - SCORE: 0-UNK SOCIAL INTERACTION: SOCIAL INTERACTION - SCORE: 0-UNK PROBLEM SOLVING: PROBLEM SOLVING - SCORE: 0-UNK MEMORY: MEMORY - SCORE: 0-UNK SIGNATURE PANEL: The following modified sections: Transfers: Bed, Chair, Wheelchair - Score, Transfers: Toilet - Score , Locomotion: Walk - Score, Locomotion: Wheelchair - Score, Locomotion: Stairs - Score were [electron tiera] signed by Inocente Lau PTA on MonJul 18 2017 14:27:22 GMT-0500 (Central Daylight Time)
--- NOTE | 2017-07-18 16:22 | FAST ---
ENCOUNTER DATE AND TIME: 07/18/2017 08:00 (CDT) NAME CYNTHIA JENSEN DATE OF : 1965 DATE OF ADMISSION: 07/10/2017 20:00 (CDT) PHONE: AGE: 52 N# [id number] GENDER: Male ENCOUNTER PHYSICIAN: Dr. Andrew Escalona M.D. 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 EATING: Activity did not occur on this shift EATING - SCORE: 0-UNK GROOMING: Oral care Wash, rinse, and dry face Wash, rinse, and dry hands GROOMING - STEP 1: Does the patient require assistance when grooming? No. GROOMING - SCORE: 7-IND BATHING: Activity did not occur on this shift BATHING - SCORE: 0-UNK DRESSING - UPPER BODY: Activity did not occur on this shift ARTICLES SCORE Total number of steps: 0 DRESSING - UPPER BODY - SCORE: 0-UNK DRESSING - LOWER BODY: Slip-on shoe - Left foot (one step) Slip-on shoe - Right foot (one step) Sock - Left foot (one step) Sock - Right foot (one step) ARTICLES SCORE Total number of steps: 4 DRESSING - LOWER BODY - STEP 1: Does the patient require help when dressing below the waist? Yes. DRESSING - LOWER BODY - STEP 2: Does the patient require the assistance of a helper? Yes. DRESSING - LOWER BODY - STEP 3: Does the helper touch the patient while dressing? No. DRESSING - LOWER BODY - SCORE: 5-SUP TOILETING: Activity did not occur on this shift TOILETING - SCORE: 0-UNK BLADDER MANAGEMENT: Activity did not occur on this shift BLADDER MANAGEMENT - SCORE: 7-IND BOWEL MANAGEMENT: Activity did not occur on this shift BOWEL MANAGEMENT - SCORE: 7-IND TRANSFERS: BED, CHAIR, WHEELCHAIR: Activity did not occur on this shift TRANSFERS: BED, CHAIR, WHEELCHAIR - SCORE: 0-UNK TRANSFERS: TOILET: Activity did not occur on this shift TRANSFERS: TOILET - SCORE: 0-UNK TRANSFERS: SHOWER: Activity did not occur on this shift TRANSFERS: SHOWER - SCORE: 0-UNK TRANSFERS: TUB: Activity did not occur on this shift TRANSFERS: TUB - SCORE: 0-UNK LOCOMOTION: WALK: Activity did not occur on this shift LOCOMOTION: WALK - SCORE: 0-UNK LOCOMOTION: WHEELCHAIR: Activity did not occur on this shift LOCOMOTION: WHEELCHAIR - SCORE: 0-UNK LOCOMOTION: STAIRS: Activity did not occur on this shift LOCOMOTION: STAIRS - SCORE: 0-UNK COMPREHENSION: COMPREHENSION - STEP 1: Does the patient require help to understand complex and abstract ideas (such as current events, finan kellen, discharge planning, medical issues, relationships, etc)? No. COMPREHENSION - STEP 2: Does the patient need extra time, require an assistive device (such as glasses, hearing aids, or an a ugmentative communication system), OR does s/he have mild difficulty expressing complex and abstract ideas (including mild dysarthria or mild word-finding problems)? No. COMPREHENSION - SCORE: 7-IND EXPRESSION EXPRESSION: TYPE: Non-Vocal EXPRESSION - STEP 1: Does the patient require help expressing complex and abstract ideas (such as current events, finances , discharge planning, medical issues, relationships, etc)? No. EXPRESSION - STEP 2: Does the patient need extra time, require an assistive device (such as augmentive communication syste m or a communication board), OR does s/he have mild difficulty expressing complex and abstract ideas (including mild dysarthria or mild word-find problems)? No. EXPRESSION - SCORE: 7-IND SOCIAL INTERACTION: SOCIAL INTERACTION - STEP 1: Does the patient require a helper to interact with others in social and therapeutic situations? No. SOCIAL INTERACTION - STEP 2: Does the patient need extra time in social situations, OR does s/he interact with staff, other patien ts, and family members ONLY in structured environments, OR does s/he require medication for social in teraction? No. SOCIAL INTERACTION - SCORE: 7-IND PROBLEM SOLVING: PROBLEM SOLVING - STEP 1: Does the patient need help to solve complex problems such as managing a checking account or confronti ng interpersonal problems? No. PROBLEM SOLVING - STEP 2: Does the patient require extra time to make decisions or solve problems, OR does s/he have slight dif ficulty reading, initiating, or self-correcting in unfamiliar situations? No. PROBLEM SOLVING - SCORE: 7-IND MEMORY: MEMORY - STEP 1: Does the patient need help to remember frequently encountered people, daily routines, and executing r equests? No. MEMORY - STEP 2: Does the patient have slight difficulty recognizing frequently encountered people, daily routines, or executing requests without the need for repetition or using self-initiated or environmental cues to remember? No. MEMORY - SCORE: 7-IND SIGNATURE PANEL: The following modified sections: Eating - Score, Grooming - Score, Bathing - Score, Dressing - Upper Body - Score, Dressing - Lower Body - Score, Toileting - Score, Transfers: Bed, Chair, Wheelchair - S core, Transfers: Toilet - Score, Transfers: Shower - Score, Transfers: Tub - Score, Comprehension - S core, Expression - Score, Social Interaction - Score, Problem Solving - Score, Memory - Score were [e lectronically] signed by QING Lal on MonJul 18 2017 15:24:35 T-0500 (Counts include 234 beds at the [facility])
--- NOTE | 2017-07-18 18:49 | R.PN ---
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 Pt denied any depression. Ambulated 480' with contact guard assistance using a rolling walker. Up and down 10 steps with contac t guard assistance. Self propelled wheelchair 250' with maximum assistance. VITAL SIGNS Temperature: 98.0 F SBP/DBP: 120/74 Pulse: 88 Resp: 16 MEDICATION ALLERGIES: CODEINE ENVIRONMENTAL ALLERGIES: - Substance Allergies None Known - Other Allergies None Known NURSING: - Shower allowing shower - Lab Results blood Sugar Check ACHS ACTIVITIES OOB only with supervision THERAPIES: - Occupational Therapy Evaluate and Treat. - Physical Therapy Evaluate and Treat. PHYSICAL EXAM - Gen Alert and awake Lying in bed No apparent distress Oriented to: person, time, and place - Vital Signs Vital signs stable, afebrile - Skin No skin breakdown. Normacephalic - Eyes No abnormalities - ENMT No abnormalities - Neck No abnormalities - CVS RRR - Resp Clear to auscultation - Abd Soft - GI Non distended Deferred - No abnormalities - Ext No significant edema - MSK 4/5 weakness in both upper extremities and 3+/5 weakness in both lower extremities. - Psych No abnormalities ASSESSMENT: Pt. is a 52 yo Right-handed male.On 06/25/2017 he was admitted to 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 was independent/mod-I in Self-Care, Sphi ncter Control, Transfers Control, Communication, Social Cognition, and Locomotion; and he had good Sp hincter Control.Currently, he has deficits of Self-Care, Transfers Control, Communication, Social Cog nition, Endurance, Balance, Safety Awareness, and Locomotion.Pt. is now referred to [facility] for acute in-patient rehabilitation in order to maximize patient's functional indepe ndence in activities of daily living, strength, ROM, and mobility.- Rehab Goal Patient has realistic goal of being discharged at assistance level 6-Dhara to reside at Home with Fam shant/Relatives. MDM/PLAN: - Diet Type Continue Regular - Physical Therapy Gait dysfunction - to improve, our physical therapists will perform initial evaluation of pt's statu s upon admission and devise an individualized program for Gait Training, and Wheel Chair mobility Inability to transfer - to improve, our physical therapists will perform initial evaluation of pt's status upon admission and devise an individualized program for Bed mobility Need for home safety evaluation - to improve, our physical therapists will perform initial evaluatio n of pt's status upon admission and devise an individualized program for Home Evaluation Need in caregiver upon discharge - to improve, our physical therapists will perform initial evaluati on of pt's status upon admission and devise an individualized program for Caregiver Training New precaution - to improve, our physical therapists will perform initial evaluation of pt's status upon admission and devise an individualized program for Patient precaution education Edema - to improve, our physical therapists will perform initial evaluation of pt's status upon admi ssion and devise an individualized program for Elevation Training, and Lymphedema Therapy Poor balance - to improve, our physical therapists will perform initial evaluation of pt's status up on admission and devise an individualized program for Balance Training Poor endurance - to improve, our physical therapists will perform initial evaluation of pt's status upon admission and devise an individualized program for Endurance Training Weakness - to improve, our physical therapists will perform initial evaluation of pt's status upon a dmission and devise an individualized program for Aquatic Therapy, Neuromuscular Reeducation, and Str engthening Achieving independence - to improve, our physical therapists will perform initial evaluation of pt's status upon admission and devise an individualized program for Community Reintegration Activities - Diet - Liquid Texture Continue Regular - Tube Feed Continue N/A - Lab Results blood Sugar Check ACHS - Diet - Solid Texture Continue Regular - Shower allowing shower - Occupational Therapy ADL deficits - to improve, our occupation therapists will perform initial evaluation of pt's status upon admission and devise an individualized program for Bathing, Bed mobility, Community Reintegratio n, Cooking, Dressing, Eating, Fine Motor Skills, Grooming, Homemaking, Kitchen Mobility, Laundry, Pat ient Education, Safety Awareness, Splinting - Positioning, Transfers(Toilet, Tub, Shower), and Wheel Chair Management Cognitive deficits - to improve, our occupation therapists will perform initial evaluation of pt's s tatus upon admission and devise an individualized program for Cognition - orientation Need for health care legal assistant - to improve, our occupation therapists will perform initial evaluation of pt's status upon admission and devise an individualized program for Caregiver Training Weakness - to improve, our occupation therapists will perform initial evaluation of pt's status upon admission and devise an individualized program for Aquatic Therapy, Balance, Endurance, UE ROM, and UE strengthening FUNCTIONAL STATUS: UPDATED AT WEEKLY TEAM CONFERENCE - Bladder Same accident frequency: 7-Ind - No accidents in the past 7 days - Bowel Same accident frequency: 7-Ind - No accidents in the past 7 days - Walking Same score based on distance walked: 0(N/A) FUNCTIONAL STATUS: - Self-Care A. Eating sup B. Grooming Satinder C. Bathing modA D. Dressing - Upper modA E. Dressing - Lower modA F. Toileting modA - Sphincter Control G: Bladder control Ind H: Bowel control Ind - Transfers Control I. Bed/Chair/Wheelchair modA J. Toilet modA K. Tub/Shower ADNO - Locomotion L. Walk/Wheelchair (B) Dep M. Stairs ADNO - Communication N. Comprehension (B) sup O. Expression (B) sup - Social Cognition P. Social Interaction sup Q. Problem Solving sup R. Memory Dhara - Endurance Poor - Balance Poor - Safety Awareness Poor CURRENT FUNC. DEFICITS: Self-Care, Transfers Control, Communication, Social Cognition, Endurance, Balance, Safety Awareness, and Locomotion SIGNATURE PANEL: (CDT)
[2017-07-18] MEDS: SENOSIDES 8.6 MG TAB PO SCH (19:59)
[2017-07-18] MEDS: ZOLPIDEM TARTRATE 5 MG TABLET PO PRN (19:59)
[2017-07-18] MEDS: AMITRIPTYLINE 25 MG TAB PO SCH (19:59)
[2017-07-18] MEDS: INSULIN DETEMIR 100 UNIT/1 ML INSULIN SQ SCH (20:00)
[2017-07-18] MEDS: POLYVINYL ALCOHOL 1.4% 15 ML EACH EYE SCH (20:02)
--- NOTE | 2017-07-19 04:41 | FAST ---
SHIFT START DATE/TIME: 07/18/2017 19:00 (CDT) SHIFT END DATE/TIME: 07/19/2017 07:00 (CDT) NAME CYNTHIA JENSEN DATE OF : 1965 DATE OF ADMISSION: 07/10/2017 20:00 (CDT) PHONE: AGE: 52 N# [id number] GENDER: Male ENCOUNTER PHYSICIAN: Dr. Andrew Escalona M.D. 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 EATING: EATING - STEP 1: Does the patient require assistance when eating? Yes. EATING - STEP 2: Does the patient require the assistance of a helper? Yes. EATING - STEP 3: Does the patient perform half or more of the eating tasks? Yes. EATING - STEP 4: Does the patient need only supervision, cuing, coaxing OR help to apply an orthosis OR help to cut fo od, open containers, pour liquids, or butter bread? Yes. EATING - SCORE: 5-SUP GROOMING: Wash, rinse, and dry face Wash, rinse, and dry hands GROOMING - STEP 1: Does the patient require assistance when grooming? Yes. GROOMING - STEP 2: Does the patient require the assistance of a helper? Yes. GROOMING - STEP 3: How much assistance does the patient require from the helper? Only prior equipment preparation/set up from the helper GROOMING - SCORE: 5-SUP BATHING: Activity did not occur on this shift BATHING - SCORE: 0-UNK DRESSING - UPPER BODY: Patient is not dressing in public clothing ARTICLES SCORE Total number of steps: 0 DRESSING - UPPER BODY - SCORE: 0-UNK DRESSING - LOWER BODY: Patient is not dressing in public clothing ARTICLES SCORE Total number of steps: 0 DRESSING - LOWER BODY - SCORE: 0-UNK TOILETING: TOILETING - STEP 1: Does the patient require assistance with toileting? Yes. TOILETING - STEP 2: Does the patient require the assistance of a helper? Yes. TOILETING - STEP 3: How much assistance does the patient require from the helper? Hands-on assistance from the helper TOILETING - STEP 4: Of the 3 tasks: 1) Adjusting clothing prior to use, 2) Cleansing of perineal area, 3) Adjusting clot tutu after use; How many tasks does the patient perform WITHOUT assistance of the helper? Three tasks with steadying assistance from the helper TOILETING - SCORE: 4-MIN BLADDER MANAGEMENT: BLADDER MANAGEMENT - STEP 1: Does the patient control the bladder completely and intentionally without equipment or devices or med ications, and is always continent? No. BLADDER MANAGEMENT - STEP 2: Does the patient require the assistance of a helper? Yes. BLADDER MANAGEMENT - STEP 3: How much assistance does the patient require from the helper? Patient requires contact assistance fro m the helper BLADDER MANAGEMENT - STEP 4: How much contact assistance does the patient require from the helper? Patient requires minimal assist ance to maintain an external device - by positioning, and the patient performs 75% or more of bladder management tasks, while the helper provides less than 25% of the assistance to position patient on / off bedpan BLADDER MANAGEMENT - SCORE: 4-MIN BLADDER MANAGEMENT - FREQUENCY OF ACCIDENTS: BLADDER MANAGEMENT(FA) - STEP 1: How many accidents has the patient had during the current shift? 1 BOWEL MANAGEMENT: Activity did not occur on this shift BOWEL MANAGEMENT - SCORE: 7-IND TRANSFERS: BED, CHAIR, WHEELCHAIR: TRANSFERS: BED, CHAIR, WHEELCHAIR - STEP 1: Does the patient require assistance with bed, chair, or wheelchair transfers? Yes. TRANSFERS: BED, CHAIR, WHEELCHAIR - STEP 2: Does the patient require the assistance of a helper? Yes. TRANSFERS: BED, CHAIR, WHEELCHAIR - STEP 3: How much assistance does the patient require from the helper? Steadying/guiding assistance TRANSFERS: BED, CHAIR, WHEELCHAIR - SCORE: 4-MIN TRANSFERS: TOILET: TRANSFERS: TOILET - STEP 1: Does the patient require assistance with toilet transfers? Yes. TRANSFERS: TOILET - STEP 2: Does the patient require the assistance of a helper? Yes. TRANSFERS: TOILET - STEP 3: How much assistance does the patient require from the helper? Patient performs half or more of the tr ansferring tasks TRANSFERS: TOILET - STEP 4: Does the patient need only incidental help such as contact guard or steadying during toilet transfer? Yes. TRANSFERS: TOILET - SCORE: 4-MIN TRANSFERS: SHOWER: Activity did not occur on this shift TRANSFERS: SHOWER - SCORE: 0-UNK TRANSFERS: TUB: Activity did not occur on this shift TRANSFERS: TUB - SCORE: 0-UNK LOCOMOTION: WALK: Activity did not occur on this shift LOCOMOTION: WALK - SCORE: 0-UNK LOCOMOTION: WHEELCHAIR: Activity did not occur on this shift LOCOMOTION: WHEELCHAIR - SCORE: 0-UNK COMPREHENSION: COMPREHENSION: TYPE: Both COMPREHENSION - STEP 1: Does the patient require help to understand complex and abstract ideas (such as current events, finan kellen, discharge planning, medical issues, relationships, etc)? No. COMPREHENSION - STEP 2: Does the patient need extra time, require an assistive device (such as glasses, hearing aids, or an a ugmentative communication system), OR does s/he have mild difficulty expressing complex and abstract ideas (including mild dysarthria or mild word-finding problems)? Yes. COMPREHENSION - SCORE: 6-DEBI EXPRESSION EXPRESSION: TYPE: Both EXPRESSION - STEP 1: Does the patient require help expressing complex and abstract ideas (such as current events, finances , discharge planning, medical issues, relationships, etc)? No. EXPRESSION - STEP 2: Does the patient need extra time, require an assistive device (such as augmentive communication syste m or a communication board), OR does s/he have mild difficulty expressing complex and abstract ideas (including mild dysarthria or mild word-find problems)? Yes. EXPRESSION - SCORE: 6-DEBI SOCIAL INTERACTION: SOCIAL INTERACTION - STEP 1: Does the patient require a helper to interact with others in social and therapeutic situations? No. SOCIAL INTERACTION - STEP 2: Does the patient need extra time in social situations, OR does s/he interact with staff, other patien ts, and family members ONLY in structured environments, OR does s/he require medication for social in teraction? No. SOCIAL INTERACTION - SCORE: 7-IND PROBLEM SOLVING: PROBLEM SOLVING - STEP 1: Does the patient need help to solve complex problems such as managing a checking account or confronti ng interpersonal problems? No. PROBLEM SOLVING - STEP 2: Does the patient require extra time to make decisions or solve problems, OR does s/he have slight dif ficulty reading, initiating, or self-correcting in unfamiliar situations? No. PROBLEM SOLVING - SCORE: 7-IND MEMORY: MEMORY - STEP 1: Does the patient need help to remember frequently encountered people, daily routines, and executing r equests? No. MEMORY - STEP 2: Does the patient have slight difficulty recognizing frequently encountered people, daily routines, or executing requests without the need for repetition or using self-initiated or environmental cues to remember? No. MEMORY - SCORE: 7-IND SIGNATURE PANEL: The following modified sections: Eating - Score, Grooming - Score, Bathing - Score, Dressing - Upper Body - Score, Dressing - Lower Body - Score, Toileting - Score, Bladder Management - Score, Bowel Man agement - Score, Transfers: Bed, Chair, Wheelchair - Score, Transfers: Toilet - Score, Transfers: Dilma wer - Score, Transfers: Tub - Score, Locomotion: Walk - Score, Locomotion: Wheelchair - Score, Compre hension - Score, Expression - Score, Social Interaction - Score, Problem Solving - Score, Memory - Sc ore were [electronically] signed by Christina Tapia [email or web address] on MonJul 19 2017 03:43:03 T-0500 ( Central Daylight Time)
[2017-07-19] MEDS: PANTOPRAZOLE 40MG TABLET PO SCH (07:14)
[2017-07-19] MEDS: INSULIN -REGULAR HUMAN 50 UNIT/0.5 ML ML SQ SCH ×4 (07:30→20:45)
[2017-07-19] MEDS: TRUVADA TABLET PO SCH (08:00)
[2017-07-19] MEDS: ENOXAPARIN 40 MG/0.4 ML SQ SCH (08:34)
[2017-07-19] MEDS: SODIUM CHLORIDE 1 GM TAB PO SCH ×3 (08:35→17:31)
[2017-07-19] MEDS: HYDROCODONE/APAP 5/325 MG TAB PO PRN ×2 (08:36→20:33)
[2017-07-19] MEDS: GABAPENTIN 300 MG CAP PO SCH ×3 (08:36→20:42)
[2017-07-19] MEDS: FOLIC ACID 1 MG TABLET PO SCH (08:36)
[2017-07-19] MEDS: BISACODYL E.C. 5 MG TAB PO PRN (08:36)
[2017-07-19] MEDS: THIAMINE HCL 100 MG TABLET PO SCH (08:36)
[2017-07-19] MEDS: CALCIUM CARB 500MG/VIT D 200 IU TAB PO SCH (08:36)
[2017-07-19] MEDS: MULTIVITAMIN TAB PO SCH (08:37)
[2017-07-19] MEDS: MAGNESIUM OXIDE 400 MG TAB PO SCH ×2 (08:37→20:38)
[2017-07-19] MEDS: LORATADINE 10 MG TAB PO PRN (08:37)
[2017-07-19] MEDS: TAMSULOSIN 0.4 MG SR CAP PO SCH (08:37)
[2017-07-19] MEDS: AMLODIPINE 10 MG TAB PO SCH (08:38)
[2017-07-19] MEDS: METOPROLOL TAR 50 MG TAB PO SCH ×2 (08:40→20:00)
--- NOTE | 2017-07-19 15:52 | FAST ---
ENCOUNTER DATE AND TIME: 07/19/2017 08:00 (CDT) NAME CYNTHIA JENSEN DATE OF : 1965 DATE OF ADMISSION: 07/10/2017 20:00 (CDT) PHONE: AGE: 52 [facility]# [id number] GENDER: Male ENCOUNTER PHYSICIAN: Dr. Andrew Escalona M.D. 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 EATING: EATING - STEP 1: Does the patient require assistance when eating? No. EATING - SCORE: 7-IND GROOMING: Oral care Wash, rinse, and dry face Wash, rinse, and dry hands GROOMING - STEP 1: Does the patient require assistance when grooming? No. GROOMING - SCORE: 7-IND BATHING: Abdomen Buttocks Chest Left arm Left lower leg and foot Left upper leg Perineal area Right arm Right lower leg and foot Right upper leg BATHING - STEP 1: Does the patient require assistance when bathing? Yes. BATHING - STEP 2: Does the patient require the assistance of a helper? Yes. BATHING - STEP 3: How much assistance does the patient require from the helper? Only supervision, cuing, coaxing, instr uctions, encouragement BATHING - SCORE: 5-SUP DRESSING - UPPER BODY: T-shirt/pullover shirt (four steps) ARTICLES SCORE Total number of steps: 4 DRESSING - UPPER BODY - STEP 1: Does the patient require help when dressing above the waist? No. DRESSING - UPPER BODY - SCORE: 7-IND DRESSING - LOWER BODY: Elastic waist pants (three steps) Sock - Left foot (one step) Sock - Right foot (one step) Underwear (three steps) ARTICLES SCORE Total number of steps: 8 DRESSING - LOWER BODY - STEP 1: Does the patient require help when dressing below the waist? Yes. DRESSING - LOWER BODY - STEP 2: Does the patient require the assistance of a helper? Yes. DRESSING - LOWER BODY - STEP 3: Does the helper touch the patient while dressing? No. DRESSING - LOWER BODY - SCORE: 5-SUP TOILETING: Activity did not occur on this shift TOILETING - SCORE: 0-UNK BLADDER MANAGEMENT: Activity did not occur on this shift BLADDER MANAGEMENT - SCORE: 7-IND BOWEL MANAGEMENT: Activity did not occur on this shift BOWEL MANAGEMENT - SCORE: 7-IND TRANSFERS: BED, CHAIR, WHEELCHAIR: Activity did not occur on this shift TRANSFERS: BED, CHAIR, WHEELCHAIR - SCORE: 0-UNK TRANSFERS: TOILET: Activity did not occur on this shift TRANSFERS: TOILET - SCORE: 0-UNK TRANSFERS: SHOWER: Activity did not occur on this shift TRANSFERS: SHOWER - SCORE: 0-UNK TRANSFERS: TUB: TRANSFERS: TUB - STEP 1: Does the patient require assistance with tub transfers? Yes. TRANSFERS: TUB - STEP 2: Does the patient require the assistance of a helper? Yes. TRANSFERS: TUB - STEP 3: How much assistance does the patient require from the helper? Only supervision, cuing, coaxing, or he lp to set out transfer equipment or to lock brakes and/or lift foot rests TRANSFERS: TUB - SCORE: 5-SUP LOCOMOTION: WALK: Activity did not occur on this shift LOCOMOTION: WALK - SCORE: 0-UNK LOCOMOTION: WHEELCHAIR: Activity did not occur on this shift LOCOMOTION: WHEELCHAIR - SCORE: 0-UNK LOCOMOTION: STAIRS: Activity did not occur on this shift LOCOMOTION: STAIRS - SCORE: 0-UNK COMPREHENSION: COMPREHENSION: TYPE: Both COMPREHENSION - STEP 1: Does the patient require help to understand complex and abstract ideas (such as current events, finan kellen, discharge planning, medical issues, relationships, etc)? No. COMPREHENSION - STEP 2: Does the patient need extra time, require an assistive device (such as glasses, hearing aids, or an a ugmentative communication system), OR does s/he have mild difficulty expressing complex and abstract ideas (including mild dysarthria or mild word-finding problems)? No. COMPREHENSION - SCORE: 7-IND EXPRESSION EXPRESSION: TYPE: Both EXPRESSION - STEP 1: Does the patient require help expressing complex and abstract ideas (such as current events, finances , discharge planning, medical issues, relationships, etc)? No. EXPRESSION - STEP 2: Does the patient need extra time, require an assistive device (such as augmentive communication syste m or a communication board), OR does s/he have mild difficulty expressing complex and abstract ideas (including mild dysarthria or mild word-find problems)? No. EXPRESSION - SCORE: 7-IND SOCIAL INTERACTION: SOCIAL INTERACTION - STEP 1: Does the patient require a helper to interact with others in social and therapeutic situations? No. SOCIAL INTERACTION - STEP 2: Does the patient need extra time in social situations, OR does s/he interact with staff, other patien ts, and family members ONLY in structured environments, OR does s/he require medication for social in teraction? No. SOCIAL INTERACTION - SCORE: 7-IND PROBLEM SOLVING: PROBLEM SOLVING - STEP 1: Does the patient need help to solve complex problems such as managing a checking account or confronti ng interpersonal problems? No. PROBLEM SOLVING - STEP 2: Does the patient require extra time to make decisions or solve problems, OR does s/he have slight dif ficulty reading, initiating, or self-correcting in unfamiliar situations? No. PROBLEM SOLVING - SCORE: 7-IND MEMORY: MEMORY - STEP 1: Does the patient need help to remember frequently encountered people, daily routines, and executing r equests? No. MEMORY - STEP 2: Does the patient have slight difficulty recognizing frequently encountered people, daily routines, or executing requests without the need for repetition or using self-initiated or environmental cues to remember? No. MEMORY - SCORE: 7-IND SIGNATURE PANEL: The following modified sections: Eating - Score, Grooming - Score, Bathing - Score, Dressing - Upper Body - Score, Dressing - Lower Body - Score, Toileting - Score, Transfers: Bed, Chair, Wheelchair - S core, Transfers: Toilet - Score, Transfers: Shower - Score, Transfers: Tub - Score, Comprehension - S core, Expression - Score, Problem Solving - Score, Social Interaction - Score, Memory - Score were [e lectronically] signed by Lala Chowdary OT on MonJul 19 2017 14:54:55 T-0500 ([place] [facility])
--- NOTE | 2017-07-19 16:11 | FAST ---
SHIFT START DATE/TIME: 07/19/2017 07:00 (CDT) SHIFT END DATE/TIME: 07/19/2017 19:00 (CDT) NAME CYNTHIA JENSEN DATE OF : 1965 DATE OF ADMISSION: 07/10/2017 20:00 (CDT) PHONE: AGE: 52 N# [id number] GENDER: Male ENCOUNTER PHYSICIAN: Dr. Andrew Escalona M.D. 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 EATING: EATING - STEP 1: Does the patient require assistance when eating? Yes. EATING - STEP 2: Does the patient require the assistance of a helper? No, patient only requires an assistive device, O R s/he takes more than reasonable time to eat, OR there is a safety concern, OR s/he requires modifie d food consistency EATING - SCORE: 6-DEBI GROOMING: Activity did not occur on this shift GROOMING - SCORE: 0-UNK BATHING: Activity did not occur on this shift BATHING - SCORE: 0-UNK DRESSING - UPPER BODY: Activity did not occur on this shift ARTICLES SCORE Total number of steps: 0 DRESSING - UPPER BODY - SCORE: 0-UNK DRESSING - LOWER BODY: Elastic waist pants (three steps) ARTICLES SCORE Total number of steps: 3 DRESSING - LOWER BODY - STEP 1: Does the patient require help when dressing below the waist? Yes. DRESSING - LOWER BODY - STEP 2: Does the patient require the assistance of a helper? Yes. DRESSING - LOWER BODY - STEP 3: Does the helper touch the patient while dressing? No. DRESSING - LOWER BODY - SCORE: 5-SUP TOILETING: TOILETING - STEP 1: Does the patient require assistance with toileting? Yes. TOILETING - STEP 2: Does the patient require the assistance of a helper? Yes. TOILETING - STEP 3: How much assistance does the patient require from the helper? Only supervision TOILETING - SCORE: 5-SUP BLADDER MANAGEMENT: BLADDER MANAGEMENT - STEP 1: Does the patient control the bladder completely and intentionally without equipment or devices or med ications, and is always continent? No. BLADDER MANAGEMENT - STEP 2: Does the patient require the assistance of a helper? No, patient requires and independently uses an a ssistive device, such as a urinal, bedpan, bedside commode, catheter, absorbent pad, or collecting de vice BLADDER MANAGEMENT - SCORE: 6-DEBI BLADDER MANAGEMENT - FREQUENCY OF ACCIDENTS: BLADDER MANAGEMENT(FA) - STEP 1: How many accidents has the patient had during the current shift? 0 BOWEL MANAGEMENT: Activity did not occur on this shift BOWEL MANAGEMENT - SCORE: 7-IND BOWEL MANAGEMENT - FREQUENCY OF ACCIDENTS: BOWEL MANAGEMENT(FA) - STEP 1: How many accidents has the patient had during the current shift? 0 TRANSFERS: BED, CHAIR, WHEELCHAIR: TRANSFERS: BED, CHAIR, WHEELCHAIR - STEP 1: Does the patient require assistance with bed, chair, or wheelchair transfers? Yes. TRANSFERS: BED, CHAIR, WHEELCHAIR - STEP 2: Does the patient require the assistance of a helper? Yes. TRANSFERS: BED, CHAIR, WHEELCHAIR - STEP 3: How much assistance does the patient require from the helper? Steadying/guiding assistance TRANSFERS: BED, CHAIR, WHEELCHAIR - SCORE: 4-MIN TRANSFERS: TOILET: TRANSFERS: TOILET - STEP 1: Does the patient require assistance with toilet transfers? Yes. TRANSFERS: TOILET - STEP 2: Does the patient require the assistance of a helper? Yes. TRANSFERS: TOILET - STEP 3: How much assistance does the patient require from the helper? Patient performs half or more of the tr ansferring tasks TRANSFERS: TOILET - STEP 4: Does the patient need only incidental help such as contact guard or steadying during toilet transfer? Yes. TRANSFERS: TOILET - SCORE: 4-MIN TRANSFERS: SHOWER: Activity did not occur on this shift TRANSFERS: SHOWER - SCORE: 0-UNK TRANSFERS: TUB: Activity did not occur on this shift TRANSFERS: TUB - SCORE: 0-UNK LOCOMOTION: WALK: Activity did not occur on this shift LOCOMOTION: WALK - SCORE: 0-UNK LOCOMOTION: WHEELCHAIR: LOCOMOTION: WHEELCHAIR - STEP 1: Does the patient need help to go 150 feet in a wheelchair? Yes. LOCOMOTION: WHEELCHAIR - STEP 2: How much assistance does the patient need from the helper? Only incidental help such as around corner s or over thresholds LOCOMOTION: WHEELCHAIR - SCORE: 4-MIN COMPREHENSION: COMPREHENSION - STEP 1: Does the patient require help to understand complex and abstract ideas (such as current events, finan kellen, discharge planning, medical issues, relationships, etc)? Yes. COMPREHENSION - STEP 2: Does the patient require help to understand questions or statements about basic needs or ideas (such as hunger, thirst, sleep, safety, daily schedule, room location, or discomfort) half or more of the t valentin? No. COMPREHENSION - STEP 3: How often does the patient need help to understand directions and conversation about basic needs? Les s than 10% of the time COMPREHENSION - SCORE: 5-SUP EXPRESSION EXPRESSION: TYPE: Both EXPRESSION - STEP 1: Does the patient require help expressing complex and abstract ideas (such as current events, finances , discharge planning, medical issues, relationships, etc)? Yes. EXPRESSION - STEP 2: Does the patient require help to express basic necessities or ideas (such as hunger, thirst, sleep, s afety, daily schedule, room location, or discomfort) half or more of the time? No. EXPRESSION - STEP 3: How often does the patient need help to express directions and conversation about basic needs? Less t bello 10% of the time EXPRESSION - SCORE: 5-SUP SOCIAL INTERACTION: SOCIAL INTERACTION - STEP 1: Does the patient require a helper to interact with others in social and therapeutic situations? No. SOCIAL INTERACTION - STEP 2: Does the patient need extra time in social situations, OR does s/he interact with staff, other patien ts, and family members ONLY in structured environments, OR does s/he require medication for social in teraction? Yes, patient needs extra time SOCIAL INTERACTION - SCORE: 6-DEBI PROBLEM SOLVING: PROBLEM SOLVING - STEP 1: Does the patient need help to solve complex problems such as managing a checking account or confronti ng interpersonal problems? Yes. PROBLEM SOLVING - STEP 2: Does the patient solve basic routine problems half or more of the time? Yes. PROBLEM SOLVING - STEP 3: How often does the patient need help to solve basic routine problems? Less than 10% of the time PROBLEM SOLVING - SCORE: 5-SUP MEMORY: MEMORY - STEP 1: Does the patient need help to remember frequently encountered people, daily routines, and executing r equests? Yes. MEMORY - STEP 2: How often does the patient need help to remember frequently encountered people, daily routines, and e xecuting requests? 10% - 24% of the time MEMORY - SCORE: 4-MIN SIGNATURE PANEL: The following modified sections: Eating - Score, Grooming - Score, Bathing - Score, Dressing - Upper Body - Score, Dressing - Lower Body - Score, Toileting - Score, Bladder Management - Score, Bowel Man agement - Score, Transfers: Bed, Chair, Wheelchair - Score, Transfers: Toilet - Score, Transfers: Dilma wer - Score, Transfers: Tub - Score, Locomotion: Walk - Score, Locomotion: Wheelchair - Score, Compre hension - Score, Expression - Score, Social Interaction - Score, Problem Solving - Score, Memory - Sc ore were [electronically] signed by Kristian [email or web address] on MonJul 19 2017 15:12:57 T-0500 ([facility])
--- NOTE | 2017-07-19 18:25 | P.PN ---
Subjective Date of Service: 07/19/17 Chief Complaint: Diffuse weakness Subjective: Tolerating diet Mr. Dukes continues to have marked diffuse weakness in he arms and legs with up to moderate assistance for ambulating short distances. Since his strength recovery will likely take several months, he will benefit from the use of a lightweight wheelchair for the next 3-6 months. Physical Examination - Vital Signs Temperature: 99.2 F Blood Pressure: 123/70 Pulse: 113 Respirations: 18 Pulse Ox (%): 97
--- NOTE | 2017-07-19 19:11 | R.PN ---
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 Pt denied any depression. Ambulated 320' with standby assistance using a rolling walker. Up and down 10 steps with standby assi stance. Propelled wheelchair 500' with modified independence. Self propelled wheelchair 250' with maximum assistance. VITAL SIGNS Temperature: 99.0 F SBP/DBP: 123/70 Pulse: 113 Resp: 16 MEDICATION ALLERGIES: CODEINE ENVIRONMENTAL ALLERGIES: - Substance Allergies None Known - Other Allergies None Known NURSING: - Shower allowing shower - Lab Results blood Sugar Check ACHS ACTIVITIES OOB only with supervision THERAPIES: - Occupational Therapy Evaluate and Treat. - Physical Therapy Evaluate and Treat. PHYSICAL EXAM - Gen Alert and awake Lying in bed No apparent distress Oriented to: person, time, and place - Vital Signs Vital signs stable, afebrile - Skin No skin breakdown. Normacephalic - Eyes No abnormalities - ENMT No abnormalities - Neck No abnormalities - CVS RRR - Resp Clear to auscultation - Abd Soft - GI Non distended Deferred - No abnormalities - Ext No significant edema - MSK 4/5 weakness in both upper extremities and 3+/5 weakness in both lower extremities. - Psych No abnormalities ASSESSMENT: Pt. 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 was independent/mod-I in Self-Care, Sphi ncter Control, Transfers Control, Communication, Social Cognition, and Locomotion; and he had good Sp hincter Control.Currently, he has deficits of Self-Care, Transfers Control, Communication, Social Cog nition, Endurance, Balance, Safety Awareness, and Locomotion.Pt. is now referred to [facility] for acute in-patient rehabilitation in order to maximize patient's functional indepe ndence in activities of daily living, strength, ROM, and mobility.- Rehab Goal Patient has realistic goal of being discharged at assistance level 6-Dhara to reside at Home with Fam shant/Relatives. MDM/PLAN: - Diet Type Continue Regular - Physical Therapy Gait dysfunction - to improve, our physical therapists will perform initial evaluation of pt's statu s upon admission and devise an individualized program for Gait Training, and Wheel Chair mobility Inability to transfer - to improve, our physical therapists will perform initial evaluation of pt's status upon admission and devise an individualized program for Bed mobility Need for home safety evaluation - to improve, our physical therapists will perform initial evaluatio n of pt's status upon admission and devise an individualized program for Home Evaluation Need in caregiver upon discharge - to improve, our physical therapists will perform initial evaluati on of pt's status upon admission and devise an individualized program for Caregiver Training New precaution - to improve, our physical therapists will perform initial evaluation of pt's status upon admission and devise an individualized program for Patient precaution education Edema - to improve, our physical therapists will perform initial evaluation of pt's status upon admi ssion and devise an individualized program for Elevation Training, and Lymphedema Therapy Poor balance - to improve, our physical therapists will perform initial evaluation of pt's status up on admission and devise an individualized program for Balance Training Poor endurance - to improve, our physical therapists will perform initial evaluation of pt's status upon admission and devise an individualized program for Endurance Training Weakness - to improve, our physical therapists will perform initial evaluation of pt's status upon a dmission and devise an individualized program for Aquatic Therapy, Neuromuscular Reeducation, and Str engthening Achieving independence - to improve, our physical therapists will perform initial evaluation of pt's status upon admission and devise an individualized program for Community Reintegration Activities - Diet - Liquid Texture Continue Regular - Tube Feed Continue N/A - Lab Results blood Sugar Check ACHS - Diet - Solid Texture Continue Regular - Shower allowing shower - Occupational Therapy ADL deficits - to improve, our occupation therapists will perform initial evaluation of pt's status upon admission and devise an individualized program for Bathing, Bed mobility, Community Reintegratio n, Cooking, Dressing, Eating, Fine Motor Skills, Grooming, Homemaking, Kitchen Mobility, Laundry, Pat ient Education, Safety Awareness, Splinting - Positioning, Transfers(Toilet, Tub, Shower), and Wheel Chair Management Cognitive deficits - to improve, our occupation therapists will perform initial evaluation of pt's s tatus upon admission and devise an individualized program for Cognition - orientation Need for resident care aid - to improve, our occupation therapists will perform initial evaluation of pt's status upon admission and devise an individualized program for Caregiver Training Weakness - to improve, our occupation therapists will perform initial evaluation of pt's status upon admission and devise an individualized program for Aquatic Therapy, Balance, Endurance, UE ROM, and UE strengthening FUNCTIONAL STATUS: UPDATED AT WEEKLY TEAM CONFERENCE - Bladder Same accident frequency: 7-Ind - No accidents in the past 7 days - Bowel Same accident frequency: 7-Ind - No accidents in the past 7 days - Walking Same score based on distance walked: 0(N/A) FUNCTIONAL STATUS: - Self-Care A. Eating sup B. Grooming Satinder C. Bathing modA D. Dressing - Upper modA E. Dressing - Lower modA F. Toileting modA - Sphincter Control G: Bladder control Ind H: Bowel control Ind - Transfers Control I. Bed/Chair/Wheelchair modA J. Toilet modA K. Tub/Shower ADNO - Locomotion L. Walk/Wheelchair (B) Dep M. Stairs ADNO - Communication N. Comprehension (B) sup O. Expression (B) sup - Social Cognition P. Social Interaction sup Q. Problem Solving sup R. Memory Dhara - Endurance Poor - Balance Poor - Safety Awareness Poor CURRENT FUNC. DEFICITS: Self-Care, Transfers Control, Communication, Social Cognition, Endurance, Balance, Safety Awareness, and Locomotion SIGNATURE PANEL: (CDT)
[2017-07-19] MEDS: NYSTATIN 500,000 UNIT/5 ML UDC PO SCH (20:00)
[2017-07-19] MEDS: INSULIN DETEMIR 100 UNIT/1 ML INSULIN SQ SCH (20:27)
[2017-07-19] MEDS: ZOLPIDEM TARTRATE 5 MG TABLET PO PRN (20:33)
[2017-07-19] MEDS: AMITRIPTYLINE 25 MG TAB PO SCH (20:39)
[2017-07-19] MEDS: SENOSIDES 8.6 MG TAB PO SCH (20:39)
[2017-07-19] MEDS: POLYVINYL ALCOHOL 1.4% 15 ML EACH EYE SCH (20:40)
--- NOTE | 2017-07-20 03:07 | FAST ---
SHIFT START DATE/TIME: 07/19/2017 19:00 (CDT) SHIFT END DATE/TIME: 07/20/2017 07:00 (CDT) NAME CYNTHIA JENSEN DATE OF : 1965 DATE OF ADMISSION: 07/10/2017 20:00 (CDT) PHONE: AGE: 52 [facility]# [id number] GENDER: Male ENCOUNTER PHYSICIAN: Dr. Andrew Escalona M.D. 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 EATING: Activity did not occur on this shift EATING - SCORE: 0-UNK GROOMING: Wash, rinse, and dry hands GROOMING - STEP 1: Does the patient require assistance when grooming? Yes. GROOMING - STEP 2: Does the patient require the assistance of a helper? Yes. GROOMING - STEP 3: How much assistance does the patient require from the helper? Cuing, coaxing, instructions, or encour agement for completion of grooming GROOMING - SCORE: 5-SUP BATHING: Activity did not occur on this shift BATHING - SCORE: 0-UNK DRESSING - UPPER BODY: Activity did not occur on this shift ARTICLES SCORE Total number of steps: 0 DRESSING - UPPER BODY - SCORE: 0-UNK DRESSING - LOWER BODY: Activity did not occur on this shift ARTICLES SCORE Total number of steps: 0 DRESSING - LOWER BODY - SCORE: 0-UNK TOILETING: TOILETING - STEP 1: Does the patient require assistance with toileting? Yes. TOILETING - STEP 2: Does the patient require the assistance of a helper? Yes. TOILETING - STEP 3: How much assistance does the patient require from the helper? Hands-on assistance from the helper TOILETING - STEP 4: Of the 3 tasks: 1) Adjusting clothing prior to use, 2) Cleansing of perineal area, 3) Adjusting clot tutu after use; How many tasks does the patient perform WITHOUT assistance of the helper? Three tasks with steadying assistance from the helper TOILETING - SCORE: 4-MIN BLADDER MANAGEMENT: BLADDER MANAGEMENT - STEP 1: Does the patient control the bladder completely and intentionally without equipment or devices or med ications, and is always continent? No. BLADDER MANAGEMENT - STEP 2: Does the patient require the assistance of a helper? Yes. BLADDER MANAGEMENT - STEP 3: How much assistance does the patient require from the helper? Only set-up of equipment - such as plac ing it within reach of the patient or emptying a device - to maintain either satisfactory voiding pat tern or managing an external device, such as an absorbent pad, ileal device, or catheter BLADDER MANAGEMENT - SCORE: 5-SUP BOWEL MANAGEMENT: BOWEL MANAGEMENT - STEP 1: Does the patient control bowels completely and intentionally without equipment devices or medications AND is always continent? No. BOWEL MANAGEMENT - STEP 2: Does the patient require the assistance of a helper? Yes. BOWEL MANAGEMENT - STEP 3: How much assistance does the patient require from the helper? Wilson provides less than 25% assistanc e to position patient on / off bedpan BOWEL MANAGEMENT - SCORE: 4-MIN TRANSFERS: BED, CHAIR, WHEELCHAIR: TRANSFERS: BED, CHAIR, WHEELCHAIR - STEP 1: Does the patient require assistance with bed, chair, or wheelchair transfers? Yes. TRANSFERS: BED, CHAIR, WHEELCHAIR - STEP 2: Does the patient require the assistance of a helper? Yes. TRANSFERS: BED, CHAIR, WHEELCHAIR - STEP 3: How much assistance does the patient require from the helper? Steadying/guiding assistance TRANSFERS: BED, CHAIR, WHEELCHAIR - SCORE: 4-MIN TRANSFERS: TOILET: TRANSFERS: TOILET - STEP 1: Does the patient require assistance with toilet transfers? Yes. TRANSFERS: TOILET - STEP 2: Does the patient require the assistance of a helper? Yes. TRANSFERS: TOILET - STEP 3: How much assistance does the patient require from the helper? Patient performs half or more of the tr ansferring tasks TRANSFERS: TOILET - STEP 4: Does the patient need only incidental help such as contact guard or steadying during toilet transfer? Yes. TRANSFERS: TOILET - SCORE: 4-MIN TRANSFERS: SHOWER: Activity did not occur on this shift TRANSFERS: SHOWER - SCORE: 0-UNK TRANSFERS: TUB: Activity did not occur on this shift TRANSFERS: TUB - SCORE: 0-UNK LOCOMOTION: WALK: Activity did not occur on this shift LOCOMOTION: WALK - SCORE: 0-UNK LOCOMOTION: WHEELCHAIR: Activity did not occur on this shift LOCOMOTION: WHEELCHAIR - SCORE: 0-UNK COMPREHENSION: COMPREHENSION: TYPE: Both COMPREHENSION - STEP 1: Does the patient require help to understand complex and abstract ideas (such as current events, finan kellen, discharge planning, medical issues, relationships, etc)? No. COMPREHENSION - STEP 2: Does the patient need extra time, require an assistive device (such as glasses, hearing aids, or an a ugmentative communication system), OR does s/he have mild difficulty expressing complex and abstract ideas (including mild dysarthria or mild word-finding problems)? Yes. COMPREHENSION - SCORE: 6-DEBI EXPRESSION EXPRESSION: TYPE: Both EXPRESSION - STEP 1: Does the patient require help expressing complex and abstract ideas (such as current events, finances , discharge planning, medical issues, relationships, etc)? No. EXPRESSION - STEP 2: Does the patient need extra time, require an assistive device (such as augmentive communication syste m or a communication board), OR does s/he have mild difficulty expressing complex and abstract ideas (including mild dysarthria or mild word-find problems)? No. EXPRESSION - SCORE: 7-IND SOCIAL INTERACTION: SOCIAL INTERACTION - STEP 1: Does the patient require a helper to interact with others in social and therapeutic situations? No. SOCIAL INTERACTION - STEP 2: Does the patient need extra time in social situations, OR does s/he interact with staff, other patien ts, and family members ONLY in structured environments, OR does s/he require medication for social in teraction? Yes, patient needs extra time SOCIAL INTERACTION - SCORE: 6-DEBI PROBLEM SOLVING: PROBLEM SOLVING - STEP 1: Does the patient need help to solve complex problems such as managing a checking account or confronti ng interpersonal problems? No. PROBLEM SOLVING - STEP 2: Does the patient require extra time to make decisions or solve problems, OR does s/he have slight dif ficulty reading, initiating, or self-correcting in unfamiliar situations? Yes, patient needs extra ti me. PROBLEM SOLVING - SCORE: 6-DEBI MEMORY: MEMORY - STEP 1: Does the patient need help to remember frequently encountered people, daily routines, and executing r equests? No. MEMORY - STEP 2: Does the patient have slight difficulty recognizing frequently encountered people, daily routines, or executing requests without the need for repetition or using self-initiated or environmental cues to remember? No. MEMORY - SCORE: 7-IND
[2017-07-20] MEDS: PANTOPRAZOLE 40MG TABLET PO SCH (06:43)
[2017-07-20] MEDS: INSULIN -REGULAR HUMAN 50 UNIT/0.5 ML ML SQ SCH ×4 (07:30→20:06)
[2017-07-20 07:47] LABS: Absolute Lymphocytes (CBC) 1.9 K/uL (0.7-4.9); Absolute Monocytes 0.5 K/uL (0.1-1.3); Absolute Neutrophil 5.6 K/uL (1.8-8.0); Basophils % 0.3 % (0-1.3); Eosinophils % 4.2 % (0-4.4); Hematocrit 29.7 % (39.6-49.0); Lymphocytes % 22.6 % (15.3-44.8); MCH 29.1 pg (27.0-35.0); MCV 82.8 fL (80-100); MPV 6.7 fL (7.6-11.3); Monocytes % 6.5 % (3.3-12.3); RBC Red Blood Cell Count 3.59 M/uL (4.33-5.43)
[2017-07-20 07:52] LABS: BUN Blood Urea Nitrogen 12 mg/dL (6-20); Bicarbonate 28 mEq/L (21-31); Glucose Level 84 mg/dL (65-120); Sodium Level 133 mEq/L (135-145)
[2017-07-20] MEDS: METOPROLOL TAR 50 MG TAB PO SCH ×2 (08:00→20:05)
[2017-07-20] MEDS: AMLODIPINE 10 MG TAB PO SCH (08:00)
[2017-07-20] MEDS: TRUVADA TABLET PO SCH (08:29)
[2017-07-20] MEDS: MAGNESIUM OXIDE 400 MG TAB PO SCH ×2 (08:29→20:06)
[2017-07-20] MEDS: SODIUM CHLORIDE 1 GM TAB PO SCH ×3 (08:29→16:59)
[2017-07-20] MEDS: GABAPENTIN 300 MG CAP PO SCH ×3 (08:30→20:05)
[2017-07-20] MEDS: MULTIVITAMIN TAB PO SCH (08:30)
[2017-07-20] MEDS: THIAMINE HCL 100 MG TABLET PO SCH (08:30)
[2017-07-20] MEDS: CALCIUM CARB 500MG/VIT D 200 IU TAB PO SCH (08:30)
[2017-07-20] MEDS: FOLIC ACID 1 MG TABLET PO SCH (08:30)
[2017-07-20] MEDS: TAMSULOSIN 0.4 MG SR CAP PO SCH (08:30)
[2017-07-20] MEDS: NYSTATIN 500,000 UNIT/5 ML UDC PO SCH ×2 (08:31→20:00)
[2017-07-20] MEDS: ENOXAPARIN 40 MG/0.4 ML SQ SCH (08:31)
[2017-07-20] MEDS: HYDROCODONE/APAP 5/325 MG TAB PO PRN ×2 (08:34→20:05)
--- NOTE | 2017-07-20 15:18 | FAST ---
SHIFT START DATE/TIME: 07/20/2017 07:00 (CDT) SHIFT END DATE/TIME: 07/20/2017 19:00 (CDT) NAME CYNTHIA JENSEN DATE OF : 1965 DATE OF ADMISSION: 07/10/2017 20:00 (CDT) PHONE: AGE: 52 [facility]# [id number] GENDER: Male ENCOUNTER PHYSICIAN: Dr. Andrew Escalona M.D. 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 EATING: EATING - STEP 1: Does the patient require assistance when eating? Yes. EATING - STEP 2: Does the patient require the assistance of a helper? Yes. EATING - STEP 3: Does the patient perform half or more of the eating tasks? Yes. EATING - STEP 4: Does the patient need only supervision, cuing, coaxing OR help to apply an orthosis OR help to cut fo od, open containers, pour liquids, or butter bread? Yes. EATING - SCORE: 5-SUP GROOMING: Activity did not occur on this shift GROOMING - SCORE: 0-UNK BATHING: Activity did not occur on this shift BATHING - SCORE: 0-UNK DRESSING - UPPER BODY: Activity did not occur on this shift ARTICLES SCORE Total number of steps: 0 DRESSING - UPPER BODY - SCORE: 0-UNK DRESSING - LOWER BODY: Activity did not occur on this shift ARTICLES SCORE Total number of steps: 0 DRESSING - LOWER BODY - SCORE: 0-UNK TOILETING: TOILETING - STEP 1: Does the patient require assistance with toileting? Yes. TOILETING - STEP 2: Does the patient require the assistance of a helper? No. TOILETING - SCORE: 6-DEBI BLADDER MANAGEMENT: BLADDER MANAGEMENT - STEP 1: Does the patient control the bladder completely and intentionally without equipment or devices or med ications, and is always continent? No. BLADDER MANAGEMENT - STEP 2: Does the patient require the assistance of a helper? Yes. BLADDER MANAGEMENT - STEP 3: How much assistance does the patient require from the helper? Only set-up of equipment - such as plac ing it within reach of the patient or emptying a device - to maintain either satisfactory voiding pat tern or managing an external device, such as an absorbent pad, ileal device, or catheter BLADDER MANAGEMENT - SCORE: 5-SUP BLADDER MANAGEMENT - FREQUENCY OF ACCIDENTS: BLADDER MANAGEMENT(FA) - STEP 1: How many accidents has the patient had during the current shift? 0 BOWEL MANAGEMENT: Activity did not occur on this shift BOWEL MANAGEMENT - SCORE: 7-IND TRANSFERS: BED, CHAIR, WHEELCHAIR: TRANSFERS: BED, CHAIR, WHEELCHAIR - STEP 1: Does the patient require assistance with bed, chair, or wheelchair transfers? Yes. TRANSFERS: BED, CHAIR, WHEELCHAIR - STEP 2: Does the patient require the assistance of a helper? Yes. TRANSFERS: BED, CHAIR, WHEELCHAIR - STEP 3: How much assistance does the patient require from the helper? Steadying/guiding assistance TRANSFERS: BED, CHAIR, WHEELCHAIR - SCORE: 4-MIN TRANSFERS: TOILET: TRANSFERS: TOILET - STEP 1: Does the patient require assistance with toilet transfers? Yes. TRANSFERS: TOILET - STEP 2: Does the patient require the assistance of a helper? No. Patient only requires an assistive device freitas ch as a grab bar or special seat, OR s/he takes more than reasonable time to perform toilet transfers , OR there is a safety concern when s/he performs toilet transfers. TRANSFERS: TOILET - SCORE: 6-DEBI TRANSFERS: SHOWER: Activity did not occur on this shift TRANSFERS: SHOWER - SCORE: 0-UNK TRANSFERS: TUB: Activity did not occur on this shift TRANSFERS: TUB - SCORE: 0-UNK LOCOMOTION: WALK: Activity did not occur on this shift LOCOMOTION: WALK - SCORE: 0-UNK LOCOMOTION: WHEELCHAIR: LOCOMOTION: WHEELCHAIR - STEP 1: Does the patient need help to go 150 feet in a wheelchair? Yes. LOCOMOTION: WHEELCHAIR - STEP 2: How much assistance does the patient need from the helper? Only supervision, cuing, or coaxing LOCOMOTION: WHEELCHAIR - SCORE: 5-SUP COMPREHENSION: COMPREHENSION: TYPE: Both COMPREHENSION - STEP 1: Does the patient require help to understand complex and abstract ideas (such as current events, finan kellen, discharge planning, medical issues, relationships, etc)? Yes. COMPREHENSION - STEP 2: Does the patient require help to understand questions or statements about basic needs or ideas (such as hunger, thirst, sleep, safety, daily schedule, room location, or discomfort) half or more of the t valentin? No. COMPREHENSION - STEP 3: How often does the patient need help to understand directions and conversation about basic needs? Les s than 10% of the time COMPREHENSION - SCORE: 5-SUP EXPRESSION EXPRESSION: TYPE: Both EXPRESSION - STEP 1: Does the patient require help expressing complex and abstract ideas (such as current events, finances , discharge planning, medical issues, relationships, etc)? Yes. EXPRESSION - STEP 2: Does the patient require help to express basic necessities or ideas (such as hunger, thirst, sleep, s afety, daily schedule, room location, or discomfort) half or more of the time? Yes. EXPRESSION - STEP 3: Is the patient basically unable to express or does s/he express inappropriately or inconsistently madelin pite prompting? No. EXPRESSION - SCORE: 2-MAX SOCIAL INTERACTION: SOCIAL INTERACTION - STEP 1: Does the patient require a helper to interact with others in social and therapeutic situations? No. SOCIAL INTERACTION - STEP 2: Does the patient need extra time in social situations, OR does s/he interact with staff, other patien ts, and family members ONLY in structured environments, OR does s/he require medication for social in teraction? Yes, patient needs extra time SOCIAL INTERACTION - SCORE: 6-DEBI PROBLEM SOLVING: PROBLEM SOLVING - STEP 1: Does the patient need help to solve complex problems such as managing a checking account or confronti ng interpersonal problems? Yes. PROBLEM SOLVING - STEP 2: Does the patient solve basic routine problems half or more of the time? Yes. PROBLEM SOLVING - STEP 3: How often does the patient need help to solve basic routine problems? 10%-24% of the time PROBLEM SOLVING - SCORE: 4-MIN MEMORY: MEMORY - STEP 1: Does the patient need help to remember frequently encountered people, daily routines, and executing r equests? Yes. MEMORY - STEP 2: How often does the patient need help to remember frequently encountered people, daily routines, and e xecuting requests? Less than 10% of the time MEMORY - SCORE: 5-SUP SIGNATURE PANEL: The following modified sections: Eating - Score, Grooming - Score, Bathing - Score, Dressing - Upper Body - Score, Dressing - Lower Body - Score, Toileting - Score, Bladder Management - Score, Bowel Man agement - Score, Transfers: Bed, Chair, Wheelchair - Score, Transfers: Toilet - Score, Transfers: Dilma wer - Score, Transfers: Tub - Score, Locomotion: Walk - Score, Locomotion: Wheelchair - Score, Compre hension - Score, Expression - Score, Social Interaction - Score, Problem Solving - Score, Memory - Sc ore were [electronically] signed by Jada Kuo C.N.A. on MonJul 20 2017 14:20:25 GMT-0500 (Centra l Daylight Time)
--- NOTE | 2017-07-20 16:20 | FAST ---
ENCOUNTER DATE AND TIME: 07/19/2017 08:00 (CDT) NAME CYNTHIA JENSEN DATE OF : 1965 DATE OF ADMISSION: 07/10/2017 20:00 (CDT) PHONE: AGE: 52 N# [id number] GENDER: Male ENCOUNTER PHYSICIAN: Dr. Andrew Esaclona M.D. 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 EATING: Activity did not occur on this shift EATING - SCORE: 0-UNK GROOMING: Activity did not occur on this shift GROOMING - SCORE: 0-UNK BATHING: Activity did not occur on this shift BATHING - SCORE: 0-UNK DRESSING - UPPER BODY: Activity did not occur on this shift Patient is not dressing in public clothing ARTICLES SCORE Total number of steps: 0 DRESSING - UPPER BODY - SCORE: 0-UNK DRESSING - LOWER BODY: Activity did not occur on this shift Patient is not dressing in public clothing ARTICLES SCORE Total number of steps: 0 DRESSING - LOWER BODY - SCORE: 0-UNK TOILETING: Activity did not occur on this shift TOILETING - SCORE: 0-UNK BLADDER MANAGEMENT: Activity did not occur on this shift BLADDER MANAGEMENT - SCORE: 7-IND BOWEL MANAGEMENT: Activity did not occur on this shift BOWEL MANAGEMENT - SCORE: 7-IND TRANSFERS: BED, CHAIR, WHEELCHAIR: TRANSFERS: BED, CHAIR, WHEELCHAIR - STEP 1: Does the patient require assistance with bed, chair, or wheelchair transfers? Yes. TRANSFERS: BED, CHAIR, WHEELCHAIR - STEP 2: Does the patient require the assistance of a helper? Yes. TRANSFERS: BED, CHAIR, WHEELCHAIR - STEP 3: How much assistance does the patient require from the helper? Only supervision TRANSFERS: BED, CHAIR, WHEELCHAIR - SCORE: 5-SUP TRANSFERS: TOILET: Activity did not occur on this shift TRANSFERS: TOILET - SCORE: 0-UNK TRANSFERS: SHOWER: Activity did not occur on this shift TRANSFERS: SHOWER - SCORE: 0-UNK TRANSFERS: TUB: Activity did not occur on this shift TRANSFERS: TUB - SCORE: 0-UNK LOCOMOTION: WALK: LOCOMOTION: WALK - STEP 1: Does the patient need help to walk 150 feet? Yes. LOCOMOTION: WALK - STEP 2: How much assistance does the patient require to walk a minimum of 150 feet? Only supervision, cuing, or coaxing LOCOMOTION: WALK - SCORE: 5-SUP LOCOMOTION: WHEELCHAIR: LOCOMOTION: WHEELCHAIR - STEP 1: Does the patient need help to go 150 feet in a wheelchair? No. LOCOMOTION: WHEELCHAIR - SCORE: 6-DEBI LOCOMOTION: STAIRS: LOCOMOTION: STAIRS - STEP 1: Does the patient need help to go up and down 12 to 14 stairs? Yes. LOCOMOTION: STAIRS - STEP 2: How much assistance does the patient need from the helper to go a minimum of 12 to 14 stairs? The pat ient goes less than 12 to 14 stairs - but more than 4 to 6 stairs LOCOMOTION: STAIRS - SCORE: 2-MAX COMPREHENSION: COMPREHENSION - SCORE: 0-UNK EXPRESSION EXPRESSION - SCORE: 0-UNK SOCIAL INTERACTION: SOCIAL INTERACTION - SCORE: 0-UNK PROBLEM SOLVING: PROBLEM SOLVING - SCORE: 0-UNK MEMORY: MEMORY - SCORE: 0-UNK SIGNATURE PANEL: The following modified sections: Transfers: Bed, Chair, Wheelchair - Score, Transfers: Toilet - Score , Locomotion: Walk - Score, Locomotion: Wheelchair - Score, Locomotion: Stairs - Score were [amina mott] signed by Inocente Lau PTA on MonJul 20 2017 15:22:34 GMT-0500 (Central Daylight Time)
--- NOTE | 2017-07-20 16:21 | FAST ---
ENCOUNTER DATE AND TIME: 07/20/2017 08:00 (CDT) NAME CYNTHIA JENSEN DATE OF : 1965 DATE OF ADMISSION: 07/10/2017 20:00 (CDT) PHONE: AGE: 52 N# [id number] GENDER: Male ENCOUNTER PHYSICIAN: Dr. Andrew Escalona M.D. 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 EATING: Activity did not occur on this shift EATING - SCORE: 0-UNK GROOMING: Activity did not occur on this shift GROOMING - SCORE: 0-UNK BATHING: Activity did not occur on this shift BATHING - SCORE: 0-UNK DRESSING - UPPER BODY: Activity did not occur on this shift Patient is not dressing in public clothing ARTICLES SCORE Total number of steps: 0 DRESSING - UPPER BODY - SCORE: 0-UNK DRESSING - LOWER BODY: Activity did not occur on this shift Patient is not dressing in public clothing ARTICLES SCORE Total number of steps: 0 DRESSING - LOWER BODY - SCORE: 0-UNK TOILETING: Activity did not occur on this shift TOILETING - SCORE: 0-UNK BLADDER MANAGEMENT: Activity did not occur on this shift BLADDER MANAGEMENT - SCORE: 7-IND BOWEL MANAGEMENT: Activity did not occur on this shift BOWEL MANAGEMENT - SCORE: 7-IND TRANSFERS: BED, CHAIR, WHEELCHAIR: TRANSFERS: BED, CHAIR, WHEELCHAIR - STEP 1: Does the patient require assistance with bed, chair, or wheelchair transfers? Yes. TRANSFERS: BED, CHAIR, WHEELCHAIR - STEP 2: Does the patient require the assistance of a helper? Yes. TRANSFERS: BED, CHAIR, WHEELCHAIR - STEP 3: How much assistance does the patient require from the helper? Only supervision TRANSFERS: BED, CHAIR, WHEELCHAIR - SCORE: 5-SUP TRANSFERS: TOILET: Activity did not occur on this shift TRANSFERS: TOILET - SCORE: 0-UNK TRANSFERS: SHOWER: Activity did not occur on this shift TRANSFERS: SHOWER - SCORE: 0-UNK TRANSFERS: TUB: Activity did not occur on this shift TRANSFERS: TUB - SCORE: 0-UNK LOCOMOTION: WALK: LOCOMOTION: WALK - STEP 1: Does the patient need help to walk 150 feet? Yes. LOCOMOTION: WALK - STEP 2: How much assistance does the patient require to walk a minimum of 150 feet? Only supervision, cuing, or coaxing LOCOMOTION: WALK - SCORE: 5-SUP LOCOMOTION: WHEELCHAIR: LOCOMOTION: WHEELCHAIR - STEP 1: Does the patient need help to go 150 feet in a wheelchair? No. LOCOMOTION: WHEELCHAIR - SCORE: 6-DEBI LOCOMOTION: STAIRS: LOCOMOTION: STAIRS - STEP 1: Does the patient need help to go up and down 12 to 14 stairs? Yes. LOCOMOTION: STAIRS - STEP 2: How much assistance does the patient need from the helper to go a minimum of 12 to 14 stairs? Only freitas pervision, cuing, or coaxing LOCOMOTION: STAIRS - SCORE: 5-SUP COMPREHENSION: COMPREHENSION - SCORE: 0-UNK EXPRESSION EXPRESSION - SCORE: 0-UNK SOCIAL INTERACTION: SOCIAL INTERACTION - SCORE: 0-UNK PROBLEM SOLVING: PROBLEM SOLVING - SCORE: 0-UNK MEMORY: MEMORY - SCORE: 0-UNK SIGNATURE PANEL: The following modified sections: Transfers: Bed, Chair, Wheelchair - Score, Transfers: Toilet - Score , Locomotion: Walk - Score, Locomotion: Wheelchair - Score, Locomotion: Stairs - Score were [electron tiera] signed by Inocente Lau PTA on MonJul 20 2017 15:23:53 GMT-0500 (Central Daylight Time)
--- NOTE | 2017-07-20 16:27 | FAST ---
ENCOUNTER DATE AND TIME: 07/20/2017 08:00 (CDT) NAME CYNTHIA JENSEN DATE OF : 1965 DATE OF ADMISSION: 07/10/2017 20:00 (CDT) PHONE: AGE: 52 N# [id number] GENDER: Male ENCOUNTER PHYSICIAN: Dr. Andrew Escalona M.D. 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 EATING: Activity did not occur on this shift EATING - SCORE: 0-UNK GROOMING: Activity did not occur on this shift GROOMING - SCORE: 0-UNK BATHING: Activity did not occur on this shift BATHING - SCORE: 0-UNK DRESSING - UPPER BODY: Activity did not occur on this shift ARTICLES SCORE Total number of steps: 0 DRESSING - UPPER BODY - SCORE: 0-UNK DRESSING - LOWER BODY: Activity did not occur on this shift ARTICLES SCORE Total number of steps: 0 DRESSING - LOWER BODY - SCORE: 0-UNK TOILETING: Activity did not occur on this shift TOILETING - SCORE: 0-UNK BLADDER MANAGEMENT: Activity did not occur on this shift BLADDER MANAGEMENT - SCORE: 7-IND BOWEL MANAGEMENT: Activity did not occur on this shift BOWEL MANAGEMENT - SCORE: 7-IND TRANSFERS: BED, CHAIR, WHEELCHAIR: TRANSFERS: BED, CHAIR, WHEELCHAIR - STEP 1: Does the patient require assistance with bed, chair, or wheelchair transfers? Yes. TRANSFERS: BED, CHAIR, WHEELCHAIR - STEP 2: Does the patient require the assistance of a helper? Yes. TRANSFERS: BED, CHAIR, WHEELCHAIR - STEP 3: How much assistance does the patient require from the helper? Only supervision TRANSFERS: BED, CHAIR, WHEELCHAIR - SCORE: 5-SUP TRANSFERS: TOILET: Activity did not occur on this shift TRANSFERS: TOILET - SCORE: 0-UNK TRANSFERS: SHOWER: Activity did not occur on this shift TRANSFERS: SHOWER - SCORE: 0-UNK TRANSFERS: TUB: Activity did not occur on this shift TRANSFERS: TUB - SCORE: 0-UNK LOCOMOTION: WALK: Activity did not occur on this shift LOCOMOTION: WALK - SCORE: 0-UNK LOCOMOTION: WHEELCHAIR: Activity did not occur on this shift LOCOMOTION: WHEELCHAIR - SCORE: 0-UNK LOCOMOTION: STAIRS: Activity did not occur on this shift LOCOMOTION: STAIRS - SCORE: 0-UNK COMPREHENSION: COMPREHENSION - STEP 1: Does the patient require help to understand complex and abstract ideas (such as current events, finan kellen, discharge planning, medical issues, relationships, etc)? No. COMPREHENSION - STEP 2: Does the patient need extra time, require an assistive device (such as glasses, hearing aids, or an a ugmentative communication system), OR does s/he have mild difficulty expressing complex and abstract ideas (including mild dysarthria or mild word-finding problems)? No. COMPREHENSION - SCORE: 7-IND EXPRESSION EXPRESSION: TYPE: Non-Vocal EXPRESSION - STEP 1: Does the patient require help expressing complex and abstract ideas (such as current events, finances , discharge planning, medical issues, relationships, etc)? No. EXPRESSION - STEP 2: Does the patient need extra time, require an assistive device (such as augmentive communication syste m or a communication board), OR does s/he have mild difficulty expressing complex and abstract ideas (including mild dysarthria or mild word-find problems)? No. EXPRESSION - SCORE: 7-IND SOCIAL INTERACTION: SOCIAL INTERACTION - STEP 1: Does the patient require a helper to interact with others in social and therapeutic situations? No. SOCIAL INTERACTION - STEP 2: Does the patient need extra time in social situations, OR does s/he interact with staff, other patien ts, and family members ONLY in structured environments, OR does s/he require medication for social in teraction? Yes, patient needs extra time SOCIAL INTERACTION - SCORE: 6-DEBI PROBLEM SOLVING: PROBLEM SOLVING - STEP 1: Does the patient need help to solve complex problems such as managing a checking account or confronti ng interpersonal problems? No. PROBLEM SOLVING - STEP 2: Does the patient require extra time to make decisions or solve problems, OR does s/he have slight dif ficulty reading, initiating, or self-correcting in unfamiliar situations? No. PROBLEM SOLVING - SCORE: 7-IND MEMORY: MEMORY - STEP 1: Does the patient need help to remember frequently encountered people, daily routines, and executing r equests? No. MEMORY - STEP 2: Does the patient have slight difficulty recognizing frequently encountered people, daily routines, or executing requests without the need for repetition or using self-initiated or environmental cues to remember? No. MEMORY - SCORE: 7-IND SIGNATURE PANEL: The following modified sections: Eating - Score, Grooming - Score, Bathing - Score, Dressing - Upper Body - Score, Dressing - Lower Body - Score, Toileting - Score, Transfers: Bed, Chair, Wheelchair - S core, Transfers: Toilet - Score, Transfers: Shower - Score, Transfers: Tub - Score, Comprehension - S core, Expression - Score, Social Interaction - Score, Problem Solving - Score, Memory - Score were [e lectronically] signed by QING Lal on MonJul 20 2017 15:29:23 [facility]-0500 (Formerly [facility], later [facility] Time)
--- NOTE | 2017-07-20 18:41 | R.PN ---
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 Pt denied any depression. Ambulated 500' with standby assistance using a rolling walker. Up and down 15 steps with standby assi stance. Propelled wheelchair 500' with modified independence. Self propelled wheelchair 250' with maximum assistance. VITAL SIGNS Temperature: 97.7 F SBP/DBP: 118/68 Pulse: 104 Resp: 16 MEDICATION ALLERGIES: CODEINE ENVIRONMENTAL ALLERGIES: - Substance Allergies None Known - Other Allergies None Known NURSING: - Shower allowing shower - Lab Results blood Sugar Check ACHS ACTIVITIES OOB only with supervision THERAPIES: - Occupational Therapy Evaluate and Treat. - Physical Therapy Evaluate and Treat. PHYSICAL EXAM - Gen Alert and awake Lying in bed No apparent distress Oriented to: person, time, and place - Vital Signs Vital signs stable, afebrile - Skin No skin breakdown. Normacephalic - Eyes No abnormalities - ENMT No abnormalities - Neck No abnormalities - CVS RRR - Resp Clear to auscultation - Abd Soft - GI Non distended Deferred - No abnormalities - Ext No significant edema - MSK 4/5 weakness in both upper extremities and 3+/5 weakness in both lower extremities. - Psych No abnormalities ASSESSMENT: Pt. 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 was independent/mod-I in Self-Care, Sphi ncter Control, Transfers Control, Communication, Social Cognition, and Locomotion; and he had good Sp hincter Control.Currently, he has deficits of Self-Care, Transfers Control, Communication, Social Cog nition, Endurance, Balance, Safety Awareness, and Locomotion.Pt. is now referred to [facility] for acute in-patient rehabilitation in order to maximize patient's functional indepe ndence in activities of daily living, strength, ROM, and mobility.- Rehab Goal Patient has realistic goal of being discharged at assistance level 6-Dhara to reside at Home with Fam shant/Relatives. MDM/PLAN: - Diet Type Continue Regular - Physical Therapy Gait dysfunction - to improve, our physical therapists will perform initial evaluation of pt's statu s upon admission and devise an individualized program for Gait Training, and Wheel Chair mobility Inability to transfer - to improve, our physical therapists will perform initial evaluation of pt's status upon admission and devise an individualized program for Bed mobility Need for home safety evaluation - to improve, our physical therapists will perform initial evaluatio n of pt's status upon admission and devise an individualized program for Home Evaluation Need in caregiver upon discharge - to improve, our physical therapists will perform initial evaluati on of pt's status upon admission and devise an individualized program for Caregiver Training New precaution - to improve, our physical therapists will perform initial evaluation of pt's status upon admission and devise an individualized program for Patient precaution education Edema - to improve, our physical therapists will perform initial evaluation of pt's status upon admi ssion and devise an individualized program for Elevation Training, and Lymphedema Therapy Poor balance - to improve, our physical therapists will perform initial evaluation of pt's status up on admission and devise an individualized program for Balance Training Poor endurance - to improve, our physical therapists will perform initial evaluation of pt's status upon admission and devise an individualized program for Endurance Training Weakness - to improve, our physical therapists will perform initial evaluation of pt's status upon a dmission and devise an individualized program for Aquatic Therapy, Neuromuscular Reeducation, and Str engthening Achieving independence - to improve, our physical therapists will perform initial evaluation of pt's status upon admission and devise an individualized program for Community Reintegration Activities - Diet - Liquid Texture Continue Regular - Tube Feed Continue N/A - Lab Results blood Sugar Check ACHS - Diet - Solid Texture Continue Regular - Shower allowing shower - Occupational Therapy ADL deficits - to improve, our occupation therapists will perform initial evaluation of pt's status upon admission and devise an individualized program for Bathing, Bed mobility, Community Reintegratio n, Cooking, Dressing, Eating, Fine Motor Skills, Grooming, Homemaking, Kitchen Mobility, Laundry, Pat ient Education, Safety Awareness, Splinting - Positioning, Transfers(Toilet, Tub, Shower), and Wheel Chair Management Cognitive deficits - to improve, our occupation therapists will perform initial evaluation of pt's s tatus upon admission and devise an individualized program for Cognition - orientation Need for day care home provider - to improve, our occupation therapists will perform initial evaluation of pt's status upon admission and devise an individualized program for Caregiver Training Weakness - to improve, our occupation therapists will perform initial evaluation of pt's status upon admission and devise an individualized program for Aquatic Therapy, Balance, Endurance, UE ROM, and UE strengthening FUNCTIONAL STATUS: UPDATED AT WEEKLY TEAM CONFERENCE - Bladder Same accident frequency: 7-Ind - No accidents in the past 7 days - Bowel Same accident frequency: 7-Ind - No accidents in the past 7 days - Walking Same score based on distance walked: 0(N/A) FUNCTIONAL STATUS: - Self-Care A. Eating sup B. Grooming Satinder C. Bathing modA D. Dressing - Upper modA E. Dressing - Lower modA F. Toileting modA - Sphincter Control G: Bladder control Ind H: Bowel control Ind - Transfers Control I. Bed/Chair/Wheelchair modA J. Toilet modA K. Tub/Shower ADNO - Locomotion L. Walk/Wheelchair (B) Dep M. Stairs ADNO - Communication N. Comprehension (B) sup O. Expression (B) sup - Social Cognition P. Social Interaction sup Q. Problem Solving sup R. Memory Dhara - Endurance Poor - Balance Poor - Safety Awareness Poor CURRENT FUNC. DEFICITS: Self-Care, Transfers Control, Communication, Social Cognition, Endurance, Balance, Safety Awareness, and Locomotion SIGNATURE PANEL: (CDT)
[2017-07-20] MEDS: INSULIN DETEMIR 100 UNIT/1 ML INSULIN SQ SCH (20:04)
[2017-07-20] MEDS: ZOLPIDEM TARTRATE 5 MG TABLET PO PRN (20:05)
[2017-07-20] MEDS: AMITRIPTYLINE 25 MG TAB PO SCH (20:05)
[2017-07-20] MEDS: SENOSIDES 8.6 MG TAB PO SCH (20:05)
[2017-07-20] MEDS: POLYVINYL ALCOHOL 1.4% 15 ML EACH EYE SCH (20:06)
--- NOTE | 2017-07-21 02:37 | FAST ---
SHIFT START DATE/TIME: 07/20/2017 19:00 (CDT) SHIFT END DATE/TIME: 07/21/2017 07:00 (CDT) NAME CYNTHIA JENSEN DATE OF : 1965 DATE OF ADMISSION: 07/10/2017 20:00 (CDT) PHONE: AGE: 52 N# [id number] GENDER: Male ENCOUNTER PHYSICIAN: Dr. Andrew Escalona M.D. 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 EATING: Activity did not occur on this shift EATING - SCORE: 0-UNK GROOMING: Activity did not occur on this shift GROOMING - SCORE: 0-UNK BATHING: Activity did not occur on this shift BATHING - SCORE: 0-UNK DRESSING - UPPER BODY: Patient is not dressing in public clothing ARTICLES SCORE Total number of steps: 0 DRESSING - UPPER BODY - SCORE: 0-UNK DRESSING - LOWER BODY: Patient is not dressing in public clothing ARTICLES SCORE Total number of steps: 0 DRESSING - LOWER BODY - SCORE: 0-UNK TOILETING: TOILETING - STEP 1: Does the patient require assistance with toileting? Yes. TOILETING - STEP 2: Does the patient require the assistance of a helper? Yes. TOILETING - STEP 3: How much assistance does the patient require from the helper? Only supervision TOILETING - SCORE: 5-SUP BLADDER MANAGEMENT: BLADDER MANAGEMENT - STEP 1: Does the patient control the bladder completely and intentionally without equipment or devices or med ications, and is always continent? No. BLADDER MANAGEMENT - STEP 2: Does the patient require the assistance of a helper? Yes. BLADDER MANAGEMENT - STEP 3: How much assistance does the patient require from the helper? Only set-up of equipment - such as plac ing it within reach of the patient or emptying a device - to maintain either satisfactory voiding pat tern or managing an external device, such as an absorbent pad, ileal device, or catheter BLADDER MANAGEMENT - SCORE: 5-SUP BOWEL MANAGEMENT: Activity did not occur on this shift BOWEL MANAGEMENT - SCORE: 7-IND TRANSFERS: BED, CHAIR, WHEELCHAIR: Activity did not occur on this shift TRANSFERS: BED, CHAIR, WHEELCHAIR - SCORE: 0-UNK TRANSFERS: TOILET: Activity did not occur on this shift TRANSFERS: TOILET - SCORE: 0-UNK TRANSFERS: SHOWER: Activity did not occur on this shift TRANSFERS: SHOWER - SCORE: 0-UNK TRANSFERS: TUB: Activity did not occur on this shift TRANSFERS: TUB - SCORE: 0-UNK LOCOMOTION: WALK: Activity did not occur on this shift LOCOMOTION: WALK - SCORE: 0-UNK LOCOMOTION: WHEELCHAIR: Activity did not occur on this shift LOCOMOTION: WHEELCHAIR - SCORE: 0-UNK COMPREHENSION: COMPREHENSION - STEP 1: Does the patient require help to understand complex and abstract ideas (such as current events, finan kellen, discharge planning, medical issues, relationships, etc)? No. COMPREHENSION - STEP 2: Does the patient need extra time, require an assistive device (such as glasses, hearing aids, or an a ugmentative communication system), OR does s/he have mild difficulty expressing complex and abstract ideas (including mild dysarthria or mild word-finding problems)? Yes. COMPREHENSION - SCORE: 6-DEBI EXPRESSION EXPRESSION - STEP 1: Does the patient require help expressing complex and abstract ideas (such as current events, finances , discharge planning, medical issues, relationships, etc)? No. EXPRESSION - STEP 2: Does the patient need extra time, require an assistive device (such as augmentive communication syste m or a communication board), OR does s/he have mild difficulty expressing complex and abstract ideas (including mild dysarthria or mild word-find problems)? No. EXPRESSION - SCORE: 7-IND SOCIAL INTERACTION: SOCIAL INTERACTION - STEP 1: Does the patient require a helper to interact with others in social and therapeutic situations? No. SOCIAL INTERACTION - STEP 2: Does the patient need extra time in social situations, OR does s/he interact with staff, other patien ts, and family members ONLY in structured environments, OR does s/he require medication for social in teraction? No. SOCIAL INTERACTION - SCORE: 7-IND PROBLEM SOLVING: PROBLEM SOLVING - STEP 1: Does the patient need help to solve complex problems such as managing a checking account or confronti ng interpersonal problems? No. PROBLEM SOLVING - STEP 2: Does the patient require extra time to make decisions or solve problems, OR does s/he have slight dif ficulty reading, initiating, or self-correcting in unfamiliar situations? Yes, patient needs extra ti me. PROBLEM SOLVING - SCORE: 6-DEBI MEMORY: MEMORY - STEP 1: Does the patient need help to remember frequently encountered people, daily routines, and executing r equests? No. MEMORY - STEP 2: Does the patient have slight difficulty recognizing frequently encountered people, daily routines, or executing requests without the need for repetition or using self-initiated or environmental cues to remember? No. MEMORY - SCORE: 7-IND SIGNATURE PANEL: The following modified sections: Eating - Score, Grooming - Score, Dressing - Upper Body - Score, Robert ssing - Lower Body - Score, Toileting - Score, Bladder Management - Score, Bowel Management - Score, Transfers: Bed, Chair, Wheelchair - Score, Transfers: Toilet - Score, Transfers: Shower - Score, Gamez sfers: Tub - Score, Locomotion: Walk - Score, Locomotion: Wheelchair - Score, Comprehension - Score, Expression - Score, Social Interaction - Score, Problem Solving - Score, Memory - Score were [electro nically] signed by Jeanne Shaw CNA on MonJul 21 2017 01:38:55 GMT-0500 (Central Daylight Time)
[2017-07-21] MEDS: PANTOPRAZOLE 40MG TABLET PO SCH (06:35)
[2017-07-21] MEDS: ENOXAPARIN 40 MG/0.4 ML SQ SCH (07:06)
[2017-07-21] MEDS: NYSTATIN 500,000 UNIT/5 ML UDC PO SCH ×2 (07:07→20:00)
[2017-07-21] MEDS: INSULIN -REGULAR HUMAN 50 UNIT/0.5 ML ML SQ SCH ×4 (07:30→20:15)
[2017-07-21] MEDS: MAGNESIUM OXIDE 400 MG TAB PO SCH ×2 (08:46→20:07)
[2017-07-21] MEDS: GABAPENTIN 300 MG CAP PO SCH ×3 (08:46→20:08)
[2017-07-21] MEDS: TRUVADA TABLET PO SCH (08:46)
[2017-07-21] MEDS: FOLIC ACID 1 MG TABLET PO SCH (08:46)
[2017-07-21] MEDS: SODIUM CHLORIDE 1 GM TAB PO SCH ×3 (08:47→16:56)
[2017-07-21] MEDS: METOPROLOL TAR 50 MG TAB PO SCH ×2 (08:47→20:07)
[2017-07-21] MEDS: CALCIUM CARB 500MG/VIT D 200 IU TAB PO SCH (08:47)
[2017-07-21] MEDS: TAMSULOSIN 0.4 MG SR CAP PO SCH (08:47)
[2017-07-21] MEDS: THIAMINE HCL 100 MG TABLET PO SCH (08:47)
[2017-07-21] MEDS: MULTIVITAMIN TAB PO SCH (08:48)
[2017-07-21] MEDS: HYDROCODONE/APAP 5/325 MG TAB PO PRN ×2 (08:50→19:08)
[2017-07-21] MEDS: AMLODIPINE 10 MG TAB PO SCH (09:00)
--- NOTE | 2017-07-21 09:46 | P.RH.PN ---
Estimated Length of Stay: 14 Expected Discharge Date: 07/25/17 Discharge Disposition Plan: Home Family Support: Yes [facility] Goal: Mobility, Transfers, Self Care Vital Signs: Last Vital Signs Temp 97.5 F 07/21/17 07:30 Pulse 85 07/21/17 08:47 Resp 18 07/21/17 07:30 BP 123/70 07/21/17 08:47 Pulse Ox 98 07/21/17 07:30 Laboratory: Laboratory Last Values WBC 8.4 K/uL (4.3-10.9) D 07/20/17 07:00 RBC 3.59 M/uL (4.33-5.43) L 07/20/17 07:00 Hgb 10.5 g/dL (13.6-17.9) L 07/20/17 07:00 Hct 29.7 % (39.6-49.0) L 07/20/17 07:00 MCV 82.8 fL (80-100) 07/20/17 07:00 MCH 29.1 pg (27.0-35.0) 07/20/17 07:00 MCHC 35.2 g/dL (32.0-36.0) 07/20/17 07:00 RDW 14.6 % (12.1-15.2) 07/20/17 07:00 Plt Count 200 K/uL (152-406) 07/20/17 07:00 MPV 6.7 fL (7.6-11.3) L 07/20/17 07:00 Neutrophils % 66.4 % (41.7-73.7) 07/20/17 07:00 Lymphocytes % 22.6 % (15.3-44.8) 07/20/17 07:00 Monocytes % 6.5 % (3.3-12.3) 07/20/17 07:00 Eosinophils % 4.2 % (0-4.4) 07/20/17 07:00 Basophils % 0.3 % (0-1.3) 07/20/17 07:00 Absolute Neutrophils 5.6 K/uL (1.8-8.0) 07/20/17 07:00 Segmented Neutrophils 27 % (40-80) L 07/11/17 05:40 Band Neutrophils 7 % (0-1) H 07/11/17 05:40 Absolute Lymphocytes 1.9 K/uL (0.7-4.9) 07/20/17 07:00 Lymphocytes 59 % (15-42) H 07/11/17 05:40 Monocytes 5 % (0-10) 07/11/17 05:40 Absolute Monocytes 0.5 K/uL (0.1-1.3) 07/20/17 07:00 Eosinophils 1 % (0-3) 07/11/17 05:40 Absolute Eosinophils 0.3 K/uL (0-0.5) 07/20/17 07:00 Absolute Basophils 0.0 K/uL (0-0.5) 07/20/17 07:00 Atypical Lymphocytes 1 07/11/17 05:40 Hypochromasia 1+ 07/11/17 05:40 Morphology Comment Noted (NOT SEEN) 07/11/17 05:40 Sodium 133 mEq/L (135-145) L 07/20/17 07:00 Potassium 4.0 mEq/L (3.6-5.0) 07/20/17 07:00 Chloride 102 mEq/L (101-111) 07/20/17 07:00 Carbon Dioxide 28 mEq/L (21-31) 07/20/17 07:00 BUN 12 mg/dL (6-20) 07/20/17 07:00 Creatinine 0.50 mg/dL (0.61-1.24) L 07/20/17 07:00 Estimated GFR > 90 mL/min (=/>90) 07/20/17 07:00 Glucose 84 mg/dL (65-120) 07/20/17 07:00 POC Glucose 118 mg/dl (65-120) 07/21/17 07:15 Calcium 8.8 mg/dL (8.5-10.5) 07/20/17 07:00 Magnesium 1.8 mg/dL (1.8-2.5) 07/11/17 05:40 Albumin 2.4 g/dL (3.2-5.5) L 07/13/17 05:45 Prealbumin 21.5 mg/dl (18-38) 07/13/17 05:45 Urine Color Yellow 07/10/17 20:30 Urine Appearance Clear 07/10/17 20:30 Urine pH 7.0 (5.0-7.0) 07/10/17 20:30 Ur Specific [place] 1.020 (1.005-1.030) 07/10/17 20:30 Urine Ketones Negative (NEG) 07/10/17 20:30 Urine Blood Negative (NEG) 07/10/17 20:30 Urine Nitrite Negative (NEG) 07/10/17 20:30 Urine Bilirubin Negative (NEG) 07/10/17 20:30 Urine Urobilinogen 0.2 mg/dL (0.2-1.0) 07/10/17 20:30 Ur Leukocyte Esterase Negative (NEG) 07/10/17 20:30 Urine RBC <5 /HPF (NONE SEEN) 07/10/17 20:30 Urine WBC <5 /HPF (<5) 07/10/17 20:30 Ur Squamous Epith Cells 5-10 /HPF (NONE SEEN) H 07/10/17 20:30 Urine Bacteria 20-50 /HPF (NONE SEEN) H 07/10/17 20:30 Urine Mucus 2+ /HPF (NONE SEEN) 07/10/17 20:30 Urine Culture Reflexed Reflexed 07/10/17 20:30 Urine Glucose Negative (NEG) 07/10/17 20:30 Urine Total Protein 2+ (NEG) H 07/10/17 20:30 Weight: 118 lb 3.2 oz Wound Present: No Closed Surgical Incision Present: No Negative Pressure Wound Therapy Present: No Physician Update: He is doing well overall with physical and occupational therapy. His blood work only shows mild abnormalities. Functional Improvement: Patient has met all short-term goals at this time and is progressing well toward long-term goals. Patient's endurance is improving along w/ technique w/ all tasks. Functional Improvement Occupational Therapy: pt can benifit with further therapy to address pt's weakness and increase pt's UB strength by increasing pt' s GMC/FMC for all adl tasks. Cont to go over safety with static/dynamic standing tolerance for transfers and increase pt's endurance for adl tasks. Cont to increase pt's safety with LB dressing tasks and increasing pt's endurance for adl tasks. Speech Therapy Update: Initial evaluation completed this week. Cognitive- linguistic abilities are WFL. Deficits noted in facial movement for speech sound production, non-verbal expression, and labial closure when swallowing. Pt. is learning and utilizing compensatory strategies for swallowing effectively. He continues to require moderate feedback and cuing to utilize compensatory strategies for speech intelligibility in conversations but is making excellent progress toward mastering compensatory strategy use. Summary: Patient's care plan and penitentiary goals have been reviewed and revised as necessary. Please see the Rehabilitation Signature page for all necessary signatures.
--- NOTE | 2017-07-21 15:19 | FAST ---
ENCOUNTER DATE AND TIME: 07/21/2017 08:00 (CDT) NAME CYNTHIA JENSEN DATE OF : 1965 DATE OF ADMISSION: 07/10/2017 20:00 (CDT) PHONE: AGE: 52 N# [id number] GENDER: Male ENCOUNTER PHYSICIAN: Dr. Andrew Escalona M.D. 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 EATING: Activity did not occur on this shift EATING - SCORE: 0-UNK GROOMING: Wash, rinse, and dry face Wash, rinse, and dry hands GROOMING - STEP 1: Does the patient require assistance when grooming? No. GROOMING - SCORE: 7-IND BATHING: Abdomen Buttocks Chest Left arm Left lower leg and foot Left upper leg Perineal area Right arm Right lower leg and foot Right upper leg BATHING - STEP 1: Does the patient require assistance when bathing? Yes. BATHING - STEP 2: Does the patient require the assistance of a helper? Yes. BATHING - STEP 3: How much assistance does the patient require from the helper? Only supervision, cuing, coaxing, instr uctions, encouragement BATHING - SCORE: 5-SUP DRESSING - UPPER BODY: T-shirt/pullover shirt (four steps) ARTICLES SCORE Total number of steps: 4 DRESSING - UPPER BODY - STEP 1: Does the patient require help when dressing above the waist? No. DRESSING - UPPER BODY - SCORE: 7-IND DRESSING - LOWER BODY: Elastic waist pants (three steps) Slip-on shoe - Left foot (one step) Slip-on shoe - Right foot (one step) Sock - Left foot (one step) Sock - Right foot (one step) Underwear (three steps) ARTICLES SCORE Total number of steps: 10 DRESSING - LOWER BODY - STEP 1: Does the patient require help when dressing below the waist? Yes. DRESSING - LOWER BODY - STEP 2: Does the patient require the assistance of a helper? Yes. DRESSING - LOWER BODY - STEP 3: Does the helper touch the patient while dressing? No. DRESSING - LOWER BODY - SCORE: 5-SUP TOILETING: Activity did not occur on this shift TOILETING - SCORE: 0-UNK BLADDER MANAGEMENT: Activity did not occur on this shift BLADDER MANAGEMENT - SCORE: 7-IND BOWEL MANAGEMENT: Activity did not occur on this shift BOWEL MANAGEMENT - SCORE: 7-IND TRANSFERS: BED, CHAIR, WHEELCHAIR: Activity did not occur on this shift TRANSFERS: BED, CHAIR, WHEELCHAIR - SCORE: 0-UNK TRANSFERS: TOILET: Activity did not occur on this shift TRANSFERS: TOILET - SCORE: 0-UNK TRANSFERS: SHOWER: Activity did not occur on this shift TRANSFERS: SHOWER - SCORE: 0-UNK TRANSFERS: TUB: TRANSFERS: TUB - STEP 1: Does the patient require assistance with tub transfers? Yes. TRANSFERS: TUB - STEP 2: Does the patient require the assistance of a helper? Yes. TRANSFERS: TUB - STEP 3: How much assistance does the patient require from the helper? Only supervision, cuing, coaxing, or he lp to set out transfer equipment or to lock brakes and/or lift foot rests TRANSFERS: TUB - SCORE: 5-SUP LOCOMOTION: WALK: Activity did not occur on this shift LOCOMOTION: WALK - SCORE: 0-UNK LOCOMOTION: WHEELCHAIR: Activity did not occur on this shift LOCOMOTION: WHEELCHAIR - SCORE: 0-UNK LOCOMOTION: STAIRS: Activity did not occur on this shift LOCOMOTION: STAIRS - SCORE: 0-UNK COMPREHENSION: COMPREHENSION - STEP 1: Does the patient require help to understand complex and abstract ideas (such as current events, finan kellen, discharge planning, medical issues, relationships, etc)? No. COMPREHENSION - STEP 2: Does the patient need extra time, require an assistive device (such as glasses, hearing aids, or an a ugmentative communication system), OR does s/he have mild difficulty expressing complex and abstract ideas (including mild dysarthria or mild word-finding problems)? Yes. COMPREHENSION - SCORE: 6-DEBI EXPRESSION EXPRESSION: TYPE: Non-Vocal EXPRESSION - STEP 1: Does the patient require help expressing complex and abstract ideas (such as current events, finances , discharge planning, medical issues, relationships, etc)? No. EXPRESSION - STEP 2: Does the patient need extra time, require an assistive device (such as augmentive communication syste m or a communication board), OR does s/he have mild difficulty expressing complex and abstract ideas (including mild dysarthria or mild word-find problems)? No. EXPRESSION - SCORE: 7-IND SOCIAL INTERACTION: SOCIAL INTERACTION - STEP 1: Does the patient require a helper to interact with others in social and therapeutic situations? No. SOCIAL INTERACTION - STEP 2: Does the patient need extra time in social situations, OR does s/he interact with staff, other patien ts, and family members ONLY in structured environments, OR does s/he require medication for social in teraction? Yes, patient needs extra time SOCIAL INTERACTION - SCORE: 6-DEBI PROBLEM SOLVING: PROBLEM SOLVING - STEP 1: Does the patient need help to solve complex problems such as managing a checking account or confronti ng interpersonal problems? No. PROBLEM SOLVING - STEP 2: Does the patient require extra time to make decisions or solve problems, OR does s/he have slight dif ficulty reading, initiating, or self-correcting in unfamiliar situations? Yes, patient needs extra ti me. PROBLEM SOLVING - SCORE: 6-DEBI MEMORY: MEMORY - STEP 1: Does the patient need help to remember frequently encountered people, daily routines, and executing r equests? No. MEMORY - STEP 2: Does the patient have slight difficulty recognizing frequently encountered people, daily routines, or executing requests without the need for repetition or using self-initiated or environmental cues to remember? No. MEMORY - SCORE: 7-IND SIGNATURE PANEL: The following modified sections: Eating - Score, Grooming - Score, Bathing - Score, Dressing - Upper Body - Score, Dressing - Lower Body - Score, Toileting - Score, Transfers: Bed, Chair, Wheelchair - S core, Transfers: Toilet - Score, Transfers: Shower - Score, Transfers: Tub - Score, Comprehension - S core, Expression - Score, Social Interaction - Score, Problem Solving - Score, Memory - Score were [e lectronically] signed by QING Lal on MonJul 21 2017 14:22:06 T-0500 (Pending sale to [facility] Time)
[2017-07-21] MEDS: SENOSIDES 8.6 MG TAB PO SCH (20:07)
[2017-07-21] MEDS: AMITRIPTYLINE 25 MG TAB PO SCH (20:07)
[2017-07-21] MEDS: INSULIN DETEMIR 100 UNIT/1 ML INSULIN SQ SCH (20:09)
[2017-07-21] MEDS: POLYVINYL ALCOHOL 1.4% 15 ML EACH EYE SCH (20:17)
[2017-07-21] MEDS: ZOLPIDEM TARTRATE 5 MG TABLET PO PRN (22:15)
--- NOTE | 2017-07-22 04:40 | FAST ---
SHIFT START DATE/TIME: 07/21/2017 19:00 (CDT) SHIFT END DATE/TIME: 07/22/2017 07:00 (CDT) NAME CYNTHIA JENSEN DATE OF : 1965 DATE OF ADMISSION: 07/10/2017 20:00 (CDT) PHONE: AGE: 52 N# [id number] GENDER: Male ENCOUNTER PHYSICIAN: Dr. Andrew Escalona M.D. 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 EATING: EATING - STEP 1: Does the patient require assistance when eating? Yes. EATING - STEP 2: Does the patient require the assistance of a helper? No, patient only requires an assistive device, O R s/he takes more than reasonable time to eat, OR there is a safety concern, OR s/he requires modifie d food consistency EATING - SCORE: 6-DEBI GROOMING: Comb/brush hair Oral care Wash, rinse, and dry face Wash, rinse, and dry hands GROOMING - STEP 1: Does the patient require assistance when grooming? Yes. GROOMING - STEP 2: Does the patient require the assistance of a helper? No. The patient only requires an assistive devic e, OR takes more than reasonable time to groom, OR there is a concern for safety as the patient groom s GROOMING - SCORE: 6-DEBI BATHING: Activity did not occur on this shift BATHING - SCORE: 0-UNK DRESSING - UPPER BODY: Patient is not dressing in public clothing ARTICLES SCORE Total number of steps: 0 DRESSING - UPPER BODY - SCORE: 0-UNK DRESSING - LOWER BODY: Patient is not dressing in public clothing ARTICLES SCORE Total number of steps: 0 DRESSING - LOWER BODY - SCORE: 0-UNK TOILETING: TOILETING - STEP 1: Does the patient require assistance with toileting? Yes. TOILETING - STEP 2: Does the patient require the assistance of a helper? No. TOILETING - SCORE: 6-DEBI BLADDER MANAGEMENT: BLADDER MANAGEMENT - STEP 1: Does the patient control the bladder completely and intentionally without equipment or devices or med ications, and is always continent? No. BLADDER MANAGEMENT - STEP 2: Does the patient require the assistance of a helper? No, patient requires and independently uses an a ssistive device, such as a urinal, bedpan, bedside commode, catheter, absorbent pad, or collecting de vice BLADDER MANAGEMENT - SCORE: 6-DEBI BLADDER MANAGEMENT - FREQUENCY OF ACCIDENTS: BLADDER MANAGEMENT(FA) - STEP 1: How many accidents has the patient had during the current shift? 0 BOWEL MANAGEMENT: Activity did not occur on this shift BOWEL MANAGEMENT - SCORE: 7-IND TRANSFERS: BED, CHAIR, WHEELCHAIR: TRANSFERS: BED, CHAIR, WHEELCHAIR - STEP 1: Does the patient require assistance with bed, chair, or wheelchair transfers? Yes. TRANSFERS: BED, CHAIR, WHEELCHAIR - STEP 2: Does the patient require the assistance of a helper? No. Patient only requires an assistive device fo r bed, chair, wheelchair transfers such as a sliding board, grab bar, or brace, OR s/he takes more th an reasonable time, OR there is a safety concern when s/he performs the transfers TRANSFERS: BED, CHAIR, WHEELCHAIR - SCORE: 6-DEBI TRANSFERS: TOILET: TRANSFERS: TOILET - STEP 1: Does the patient require assistance with toilet transfers? Yes. TRANSFERS: TOILET - STEP 2: Does the patient require the assistance of a helper? No. Patient only requires an assistive device freitas ch as a grab bar or special seat, OR s/he takes more than reasonable time to perform toilet transfers , OR there is a safety concern when s/he performs toilet transfers. TRANSFERS: TOILET - SCORE: 6-DEBI TRANSFERS: SHOWER: Activity did not occur on this shift TRANSFERS: SHOWER - SCORE: 0-UNK TRANSFERS: TUB: Activity did not occur on this shift TRANSFERS: TUB - SCORE: 0-UNK LOCOMOTION: WALK: Activity did not occur on this shift LOCOMOTION: WALK - SCORE: 0-UNK LOCOMOTION: WHEELCHAIR: Activity did not occur on this shift LOCOMOTION: WHEELCHAIR - SCORE: 0-UNK COMPREHENSION: COMPREHENSION: TYPE: Both COMPREHENSION - STEP 1: Does the patient require help to understand complex and abstract ideas (such as current events, finan kellen, discharge planning, medical issues, relationships, etc)? No. COMPREHENSION - STEP 2: Does the patient need extra time, require an assistive device (such as glasses, hearing aids, or an a ugmentative communication system), OR does s/he have mild difficulty expressing complex and abstract ideas (including mild dysarthria or mild word-finding problems)? Yes. COMPREHENSION - SCORE: 6-DEBI EXPRESSION EXPRESSION: TYPE: Both EXPRESSION - STEP 1: Does the patient require help expressing complex and abstract ideas (such as current events, finances , discharge planning, medical issues, relationships, etc)? No. EXPRESSION - STEP 2: Does the patient need extra time, require an assistive device (such as augmentive communication syste m or a communication board), OR does s/he have mild difficulty expressing complex and abstract ideas (including mild dysarthria or mild word-find problems)? Yes. EXPRESSION - SCORE: 6-DEBI SOCIAL INTERACTION: SOCIAL INTERACTION - STEP 1: Does the patient require a helper to interact with others in social and therapeutic situations? No. SOCIAL INTERACTION - STEP 2: Does the patient need extra time in social situations, OR does s/he interact with staff, other patien ts, and family members ONLY in structured environments, OR does s/he require medication for social in teraction? Yes, patient needs extra time SOCIAL INTERACTION - SCORE: 6-DEBI PROBLEM SOLVING: PROBLEM SOLVING - STEP 1: Does the patient need help to solve complex problems such as managing a checking account or confronti ng interpersonal problems? No. PROBLEM SOLVING - STEP 2: Does the patient require extra time to make decisions or solve problems, OR does s/he have slight dif ficulty reading, initiating, or self-correcting in unfamiliar situations? No. PROBLEM SOLVING - SCORE: 7-IND MEMORY: MEMORY - STEP 1: Does the patient need help to remember frequently encountered people, daily routines, and executing r equests? No. MEMORY - STEP 2: Does the patient have slight difficulty recognizing frequently encountered people, daily routines, or executing requests without the need for repetition or using self-initiated or environmental cues to remember? No. MEMORY - SCORE: 7-IND SIGNATURE PANEL: The following modified sections: Eating - Score, Grooming - Score, Bathing - Score, Dressing - Upper Body - Score, Dressing - Lower Body - Score, Toileting - Score, Bladder Management - Score, Bowel Man agement - Score, Transfers: Bed, Chair, Wheelchair - Score, Transfers: Toilet - Score, Transfers: Dilma wer - Score, Transfers: Tub - Score, Locomotion: Walk - Score, Locomotion: Wheelchair - Score, Compre hension - Score, Expression - Score, Social Interaction - Score, Problem Solving - Score, Memory - Sc ore were [electronically] signed by Christina Tapia C.N.A. on MonJul 22 2017 03:42:52 GMT-0500 ( Central Daylight Time)
[2017-07-22] MEDS: HYDROCODONE/APAP 5/325 MG TAB PO PRN ×3 (05:20→20:18)
[2017-07-22] MEDS: PANTOPRAZOLE 40MG TABLET PO SCH (06:49)
[2017-07-22] MEDS: INSULIN -REGULAR HUMAN 50 UNIT/0.5 ML ML SQ SCH ×4 (07:30→20:13)
[2017-07-22] MEDS: TRUVADA TABLET PO SCH (08:41)
[2017-07-22] MEDS: GABAPENTIN 300 MG CAP PO SCH ×3 (08:42→20:17)
[2017-07-22] MEDS: THIAMINE HCL 100 MG TABLET PO SCH (08:42)
[2017-07-22] MEDS: MAGNESIUM OXIDE 400 MG TAB PO SCH ×2 (08:42→20:17)
[2017-07-22] MEDS: SODIUM CHLORIDE 1 GM TAB PO SCH ×3 (08:42→16:34)
[2017-07-22] MEDS: CALCIUM CARB 500MG/VIT D 200 IU TAB PO SCH (08:42)
[2017-07-22] MEDS: METOPROLOL TAR 50 MG TAB PO SCH ×2 (08:43→20:18)
[2017-07-22] MEDS: ENOXAPARIN 40 MG/0.4 ML SQ SCH (08:43)
[2017-07-22] MEDS: TAMSULOSIN 0.4 MG SR CAP PO SCH (08:44)
[2017-07-22] MEDS: AMLODIPINE 10 MG TAB PO SCH (08:44)
[2017-07-22] MEDS: MULTIVITAMIN TAB PO SCH (08:44)
[2017-07-22] MEDS: FOLIC ACID 1 MG TABLET PO SCH (08:44)
[2017-07-22] MEDS: NYSTATIN 500,000 UNIT/5 ML UDC PO SCH ×2 (08:50→20:18)
--- NOTE | 2017-07-22 11:10 | FAST ---
SHIFT START DATE/TIME: 07/22/2017 07:00 (CDT) SHIFT END DATE/TIME: 07/22/2017 19:00 (CDT) NAME CYNTHIA JENSEN DATE OF : 1965 DATE OF ADMISSION: 07/10/2017 20:00 (CDT) PHONE: AGE: 52 N# [id number] GENDER: Male ENCOUNTER PHYSICIAN: Dr. Andrew Escalona M.D. 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 EATING: EATING - STEP 1: Does the patient require assistance when eating? Yes. EATING - STEP 2: Does the patient require the assistance of a helper? No, patient only requires an assistive device, O R s/he takes more than reasonable time to eat, OR there is a safety concern, OR s/he requires modifie d food consistency EATING - SCORE: 6-DEBI GROOMING: Comb/brush hair Oral care Wash, rinse, and dry face Wash, rinse, and dry hands GROOMING - STEP 1: Does the patient require assistance when grooming? Yes. GROOMING - STEP 2: Does the patient require the assistance of a helper? No. The patient only requires an assistive devic e, OR takes more than reasonable time to groom, OR there is a concern for safety as the patient groom s GROOMING - SCORE: 6-DEBI BATHING: Activity did not occur on this shift BATHING - SCORE: 0-UNK DRESSING - UPPER BODY: Activity did not occur on this shift ARTICLES SCORE Total number of steps: 0 DRESSING - UPPER BODY - SCORE: 0-UNK DRESSING - LOWER BODY: Activity did not occur on this shift ARTICLES SCORE Total number of steps: 0 DRESSING - LOWER BODY - SCORE: 0-UNK TOILETING: TOILETING - STEP 1: Does the patient require assistance with toileting? Yes. TOILETING - STEP 2: Does the patient require the assistance of a helper? No. TOILETING - SCORE: 6-DEBI BLADDER MANAGEMENT: BLADDER MANAGEMENT - STEP 1: Does the patient control the bladder completely and intentionally without equipment or devices or med ications, and is always continent? No. BLADDER MANAGEMENT - STEP 2: Does the patient require the assistance of a helper? No, patient requires and independently uses an a ssistive device, such as a urinal, bedpan, bedside commode, catheter, absorbent pad, or collecting de vice BLADDER MANAGEMENT - SCORE: 6-DEBI BOWEL MANAGEMENT: BOWEL MANAGEMENT - STEP 1: Does the patient control bowels completely and intentionally without equipment devices or medications AND is always continent? No. BOWEL MANAGEMENT - STEP 2: Does the patient require the assistance of a helper? No, patient requires and manages independently a n assistive device such as a bedpan, bedside commode, absorbent pad, incontinent device, or collectin g device BOWEL MANAGEMENT - SCORE: 6-DEBI TRANSFERS: BED, CHAIR, WHEELCHAIR: TRANSFERS: BED, CHAIR, WHEELCHAIR - STEP 1: Does the patient require assistance with bed, chair, or wheelchair transfers? Yes. TRANSFERS: BED, CHAIR, WHEELCHAIR - STEP 2: Does the patient require the assistance of a helper? No. Patient only requires an assistive device fo r bed, chair, wheelchair transfers such as a sliding board, grab bar, or brace, OR s/he takes more th an reasonable time, OR there is a safety concern when s/he performs the transfers TRANSFERS: BED, CHAIR, WHEELCHAIR - SCORE: 6-DEBI TRANSFERS: TOILET: TRANSFERS: TOILET - STEP 1: Does the patient require assistance with toilet transfers? Yes. TRANSFERS: TOILET - STEP 2: Does the patient require the assistance of a helper? No. Patient only requires an assistive device freitas ch as a grab bar or special seat, OR s/he takes more than reasonable time to perform toilet transfers , OR there is a safety concern when s/he performs toilet transfers. TRANSFERS: TOILET - SCORE: 6-DEBI TRANSFERS: SHOWER: Activity did not occur on this shift TRANSFERS: SHOWER - SCORE: 0-UNK TRANSFERS: TUB: Activity did not occur on this shift TRANSFERS: TUB - SCORE: 0-UNK LOCOMOTION: WALK: Activity did not occur on this shift LOCOMOTION: WALK - SCORE: 0-UNK LOCOMOTION: WHEELCHAIR: Activity did not occur on this shift LOCOMOTION: WHEELCHAIR - SCORE: 0-UNK COMPREHENSION: COMPREHENSION - SCORE: 0-UNK EXPRESSION EXPRESSION - SCORE: 0-UNK SOCIAL INTERACTION: SOCIAL INTERACTION - SCORE: 0-UNK PROBLEM SOLVING: PROBLEM SOLVING - SCORE: 0-UNK MEMORY: MEMORY - SCORE: 0-UNK SIGNATURE PANEL: The following modified sections: Eating - Score, Grooming - Score, Bathing - Score, Dressing - Upper Body - Score, Dressing - Lower Body - Score, Toileting - Score, Bladder Management - Score, Bowel Man agement - Score, Transfers: Bed, Chair, Wheelchair - Score, Transfers: Toilet - Score, Transfers: Dilma wer - Score, Transfers: Tub - Score, Locomotion: Walk - Score, Locomotion: Wheelchair - Score, Compre hension - Score, Expression - Score, Social Interaction - Score, Problem Solving - Score, Memory - Sc ore were [electronically] signed by Nasir Guido on MonJul 22 2017 10:12:21 GMT-0500 (Central Daylight Time)
--- NOTE | 2017-07-22 14:43 | FAST ---
ENCOUNTER DATE AND TIME: 07/21/2017 08:00 (CDT) NAME CYNTHIA JENSEN DATE OF : 1965 DATE OF ADMISSION: 07/10/2017 20:00 (CDT) PHONE: AGE: 52 N# [id number] GENDER: Male ENCOUNTER PHYSICIAN: Dr. Andrew Escalona M.D. 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 EATING: Activity did not occur on this shift EATING - SCORE: 0-UNK GROOMING: Activity did not occur on this shift GROOMING - SCORE: 0-UNK BATHING: Activity did not occur on this shift BATHING - SCORE: 0-UNK DRESSING - UPPER BODY: Activity did not occur on this shift Patient is not dressing in public clothing ARTICLES SCORE Total number of steps: 0 DRESSING - UPPER BODY - SCORE: 0-UNK DRESSING - LOWER BODY: Activity did not occur on this shift Patient is not dressing in public clothing ARTICLES SCORE Total number of steps: 0 DRESSING - LOWER BODY - SCORE: 0-UNK TOILETING: Activity did not occur on this shift TOILETING - SCORE: 0-UNK BLADDER MANAGEMENT: Activity did not occur on this shift BLADDER MANAGEMENT - SCORE: 7-IND BOWEL MANAGEMENT: Activity did not occur on this shift BOWEL MANAGEMENT - SCORE: 7-IND TRANSFERS: BED, CHAIR, WHEELCHAIR: TRANSFERS: BED, CHAIR, WHEELCHAIR - STEP 1: Does the patient require assistance with bed, chair, or wheelchair transfers? Yes. TRANSFERS: BED, CHAIR, WHEELCHAIR - STEP 2: Does the patient require the assistance of a helper? No. Patient only requires an assistive device fo r bed, chair, wheelchair transfers such as a sliding board, grab bar, or brace, OR s/he takes more th an reasonable time, OR there is a safety concern when s/he performs the transfers TRANSFERS: BED, CHAIR, WHEELCHAIR - SCORE: 6-DEBI TRANSFERS: TOILET: Activity did not occur on this shift TRANSFERS: TOILET - SCORE: 0-UNK TRANSFERS: SHOWER: Activity did not occur on this shift TRANSFERS: SHOWER - SCORE: 0-UNK TRANSFERS: TUB: Activity did not occur on this shift TRANSFERS: TUB - SCORE: 0-UNK LOCOMOTION: WALK: LOCOMOTION: WALK - STEP 1: Does the patient need help to walk 150 feet? Yes. LOCOMOTION: WALK - STEP 2: How much assistance does the patient require to walk a minimum of 150 feet? Only supervision, cuing, or coaxing LOCOMOTION: WALK - SCORE: 5-SUP LOCOMOTION: WHEELCHAIR: LOCOMOTION: WHEELCHAIR - STEP 1: Does the patient need help to go 150 feet in a wheelchair? No. LOCOMOTION: WHEELCHAIR - SCORE: 6-DEBI LOCOMOTION: STAIRS: LOCOMOTION: STAIRS - STEP 1: Does the patient need help to go up and down 12 to 14 stairs? Yes. LOCOMOTION: STAIRS - STEP 2: How much assistance does the patient need from the helper to go a minimum of 12 to 14 stairs? Only freitas pervision, cuing, or coaxing LOCOMOTION: STAIRS - SCORE: 5-SUP COMPREHENSION: COMPREHENSION - SCORE: 0-UNK EXPRESSION EXPRESSION - SCORE: 0-UNK SOCIAL INTERACTION: SOCIAL INTERACTION - SCORE: 0-UNK PROBLEM SOLVING: PROBLEM SOLVING - SCORE: 0-UNK MEMORY: MEMORY - SCORE: 0-UNK SIGNATURE PANEL: The following modified sections: Transfers: Bed, Chair, Wheelchair - Score, Transfers: Toilet - Score , Locomotion: Walk - Score, Locomotion: Wheelchair - Score, Locomotion: Stairs - Score were [[email or web address] [email or web address]] signed by Inocente Lau PTA on Sat Jul 22 2017 13:45:35 GMT-0500 (Central Daylight Time)
--- NOTE | 2017-07-22 14:44 | FAST ---
ENCOUNTER DATE AND TIME: 07/22/2017 08:00 (CDT) NAME CYNTHIA JENSEN DATE OF : 1965 DATE OF ADMISSION: 07/10/2017 20:00 (CDT) PHONE: AGE: 52 N# [id number] GENDER: Male ENCOUNTER PHYSICIAN: Dr. Andrew Escalona M.D. 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 EATING: Activity did not occur on this shift EATING - SCORE: 0-UNK GROOMING: Activity did not occur on this shift GROOMING - SCORE: 0-UNK BATHING: Activity did not occur on this shift BATHING - SCORE: 0-UNK DRESSING - UPPER BODY: Activity did not occur on this shift Patient is not dressing in public clothing ARTICLES SCORE Total number of steps: 0 DRESSING - UPPER BODY - SCORE: 0-UNK DRESSING - LOWER BODY: Activity did not occur on this shift Patient is not dressing in public clothing ARTICLES SCORE Total number of steps: 0 DRESSING - LOWER BODY - SCORE: 0-UNK TOILETING: Activity did not occur on this shift TOILETING - SCORE: 0-UNK BLADDER MANAGEMENT: Activity did not occur on this shift BLADDER MANAGEMENT - SCORE: 7-IND BOWEL MANAGEMENT: Activity did not occur on this shift BOWEL MANAGEMENT - SCORE: 7-IND TRANSFERS: BED, CHAIR, WHEELCHAIR: Activity did not occur on this shift TRANSFERS: BED, CHAIR, WHEELCHAIR - SCORE: 0-UNK TRANSFERS: TOILET: Activity did not occur on this shift TRANSFERS: TOILET - SCORE: 0-UNK TRANSFERS: SHOWER: Activity did not occur on this shift TRANSFERS: SHOWER - SCORE: 0-UNK TRANSFERS: TUB: Activity did not occur on this shift TRANSFERS: TUB - SCORE: 0-UNK LOCOMOTION: WALK: Activity did not occur on this shift LOCOMOTION: WALK - SCORE: 0-UNK LOCOMOTION: WHEELCHAIR: Activity did not occur on this shift LOCOMOTION: WHEELCHAIR - SCORE: 0-UNK LOCOMOTION: STAIRS: Activity did not occur on this shift LOCOMOTION: STAIRS - SCORE: 0-UNK COMPREHENSION: COMPREHENSION - SCORE: 0-UNK EXPRESSION EXPRESSION - SCORE: 0-UNK SOCIAL INTERACTION: SOCIAL INTERACTION - SCORE: 0-UNK PROBLEM SOLVING: PROBLEM SOLVING - SCORE: 0-UNK MEMORY: MEMORY - SCORE: 0-UNK SIGNATURE PANEL: The following modified sections: Transfers: Bed, Chair, Wheelchair - Score, Transfers: Toilet - Score , Locomotion: Walk - Score, Locomotion: Wheelchair - Score, Locomotion: Stairs - Score were [electron [email or web address]] signed by Inocente Lau PTA on Sat Jul 22 2017 13:46:26 GMT-0500 (Central Daylight Time)
[2017-07-22] MEDS: POLYVINYL ALCOHOL 1.4% 15 ML EACH EYE SCH (20:13)
[2017-07-22] MEDS: AMITRIPTYLINE 25 MG TAB PO SCH (20:17)
[2017-07-22] MEDS: SENOSIDES 8.6 MG TAB PO SCH (20:17)
[2017-07-22] MEDS: INSULIN DETEMIR 100 UNIT/1 ML INSULIN SQ SCH (20:19)
[2017-07-22] MEDS: ZOLPIDEM TARTRATE 5 MG TABLET PO PRN (22:07)
--- NOTE | 2017-07-23 02:53 | FAST ---
SHIFT START DATE/TIME: 07/22/2017 19:00 (CDT) SHIFT END DATE/TIME: 07/23/2017 07:00 (CDT) NAME CYNTHIA JENSEN DATE OF : 1965 DATE OF ADMISSION: 07/10/2017 20:00 (CDT) PHONE: AGE: 52 N# [id number] GENDER: Male ENCOUNTER PHYSICIAN: Dr. Andrew Escalona M.D. 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 EATING: EATING - STEP 1: Does the patient require assistance when eating? Yes. EATING - STEP 2: Does the patient require the assistance of a helper? No, patient only requires an assistive device, O R s/he takes more than reasonable time to eat, OR there is a safety concern, OR s/he requires modifie d food consistency EATING - SCORE: 6-DEBI GROOMING: Oral care Wash, rinse, and dry face Wash, rinse, and dry hands GROOMING - STEP 1: Does the patient require assistance when grooming? Yes. GROOMING - STEP 2: Does the patient require the assistance of a helper? No. The patient only requires an assistive devic e, OR takes more than reasonable time to groom, OR there is a concern for safety as the patient groom s GROOMING - SCORE: 6-DEBI BATHING: Activity did not occur on this shift BATHING - SCORE: 0-UNK DRESSING - UPPER BODY: Patient is not dressing in public clothing ARTICLES SCORE Total number of steps: 0 DRESSING - UPPER BODY - SCORE: 0-UNK DRESSING - LOWER BODY: Patient is not dressing in public clothing ARTICLES SCORE Total number of steps: 0 DRESSING - LOWER BODY - SCORE: 0-UNK TOILETING: TOILETING - STEP 1: Does the patient require assistance with toileting? Yes. TOILETING - STEP 2: Does the patient require the assistance of a helper? No. TOILETING - SCORE: 6-DEBI BLADDER MANAGEMENT: BLADDER MANAGEMENT - STEP 1: Does the patient control the bladder completely and intentionally without equipment or devices or med ications, and is always continent? No. BLADDER MANAGEMENT - STEP 2: Does the patient require the assistance of a helper? No, patient requires and independently uses an a ssistive device, such as a urinal, bedpan, bedside commode, catheter, absorbent pad, or collecting de vice BLADDER MANAGEMENT - SCORE: 6-DEBI BLADDER MANAGEMENT - FREQUENCY OF ACCIDENTS: BLADDER MANAGEMENT(FA) - STEP 1: How many accidents has the patient had during the current shift? 0 BOWEL MANAGEMENT: Activity did not occur on this shift BOWEL MANAGEMENT - SCORE: 7-IND TRANSFERS: BED, CHAIR, WHEELCHAIR: TRANSFERS: BED, CHAIR, WHEELCHAIR - STEP 1: Does the patient require assistance with bed, chair, or wheelchair transfers? Yes. TRANSFERS: BED, CHAIR, WHEELCHAIR - STEP 2: Does the patient require the assistance of a helper? No. Patient only requires an assistive device fo r bed, chair, wheelchair transfers such as a sliding board, grab bar, or brace, OR s/he takes more th an reasonable time, OR there is a safety concern when s/he performs the transfers TRANSFERS: BED, CHAIR, WHEELCHAIR - SCORE: 6-DEBI TRANSFERS: TOILET: TRANSFERS: TOILET - STEP 1: Does the patient require assistance with toilet transfers? Yes. TRANSFERS: TOILET - STEP 2: Does the patient require the assistance of a helper? No. Patient only requires an assistive device freitas ch as a grab bar or special seat, OR s/he takes more than reasonable time to perform toilet transfers , OR there is a safety concern when s/he performs toilet transfers. TRANSFERS: TOILET - SCORE: 6-DEBI TRANSFERS: SHOWER: Activity did not occur on this shift TRANSFERS: SHOWER - SCORE: 0-UNK TRANSFERS: TUB: Activity did not occur on this shift TRANSFERS: TUB - SCORE: 0-UNK LOCOMOTION: WALK: Activity did not occur on this shift LOCOMOTION: WALK - SCORE: 0-UNK LOCOMOTION: WHEELCHAIR: Activity did not occur on this shift LOCOMOTION: WHEELCHAIR - SCORE: 0-UNK COMPREHENSION: COMPREHENSION: TYPE: Both COMPREHENSION - STEP 1: Does the patient require help to understand complex and abstract ideas (such as current events, finan kellen, discharge planning, medical issues, relationships, etc)? No. COMPREHENSION - STEP 2: Does the patient need extra time, require an assistive device (such as glasses, hearing aids, or an a ugmentative communication system), OR does s/he have mild difficulty expressing complex and abstract ideas (including mild dysarthria or mild word-finding problems)? Yes. COMPREHENSION - SCORE: 6-DEBI EXPRESSION EXPRESSION: TYPE: Both EXPRESSION - STEP 1: Does the patient require help expressing complex and abstract ideas (such as current events, finances , discharge planning, medical issues, relationships, etc)? No. EXPRESSION - STEP 2: Does the patient need extra time, require an assistive device (such as augmentive communication syste m or a communication board), OR does s/he have mild difficulty expressing complex and abstract ideas (including mild dysarthria or mild word-find problems)? Yes. EXPRESSION - SCORE: 6-DEBI SOCIAL INTERACTION: SOCIAL INTERACTION - STEP 1: Does the patient require a helper to interact with others in social and therapeutic situations? No. SOCIAL INTERACTION - STEP 2: Does the patient need extra time in social situations, OR does s/he interact with staff, other patien ts, and family members ONLY in structured environments, OR does s/he require medication for social in teraction? Yes, patient needs extra time SOCIAL INTERACTION - SCORE: 6-DEBI PROBLEM SOLVING: PROBLEM SOLVING - STEP 1: Does the patient need help to solve complex problems such as managing a checking account or confronti ng interpersonal problems? No. PROBLEM SOLVING - STEP 2: Does the patient require extra time to make decisions or solve problems, OR does s/he have slight dif ficulty reading, initiating, or self-correcting in unfamiliar situations? Yes, patient needs extra ti me. PROBLEM SOLVING - SCORE: 6-DEBI MEMORY: MEMORY - STEP 1: Does the patient need help to remember frequently encountered people, daily routines, and executing r equests? No. MEMORY - STEP 2: Does the patient have slight difficulty recognizing frequently encountered people, daily routines, or executing requests without the need for repetition or using self-initiated or environmental cues to remember? Yes. MEMORY - SCORE: 6-DEBI SIGNATURE PANEL: The following modified sections: Eating - Score, Grooming - Score, Bathing - Score, Dressing - Upper Body - Score, Dressing - Lower Body - Score, Toileting - Score, Bladder Management - Score, Bowel Man agement - Score, Transfers: Bed, Chair, Wheelchair - Score, Transfers: Toilet - Score, Transfers: Dilma wer - Score, Transfers: Tub - Score, Locomotion: Walk - Score, Locomotion: Wheelchair - Score, Compre hension - Score, Expression - Score, Social Interaction - Score, Problem Solving - Score, Memory - Sc ore were [electronically] signed by Christina Tapia C.N.A. on MonJul 23 2017 01:55:45 GMT-0500 ( Central Daylight Time)
[2017-07-23] MEDS: PANTOPRAZOLE 40MG TABLET PO SCH (06:02)
[2017-07-23] MEDS: INSULIN -REGULAR HUMAN 50 UNIT/0.5 ML ML SQ SCH ×4 (07:30→20:08)
[2017-07-23] MEDS: ENOXAPARIN 40 MG/0.4 ML SQ SCH (08:55)
[2017-07-23] MEDS: SODIUM CHLORIDE 1 GM TAB PO SCH ×3 (08:55→16:28)
[2017-07-23] MEDS: MAGNESIUM OXIDE 400 MG TAB PO SCH ×2 (08:55→19:05)
[2017-07-23] MEDS: MULTIVITAMIN TAB PO SCH (08:55)
[2017-07-23] MEDS: NYSTATIN 500,000 UNIT/5 ML UDC PO SCH ×2 (08:55→19:06)
[2017-07-23] MEDS: METOPROLOL TAR 50 MG TAB PO SCH ×2 (08:56→19:05)
[2017-07-23] MEDS: THIAMINE HCL 100 MG TABLET PO SCH (08:56)
[2017-07-23] MEDS: FOLIC ACID 1 MG TABLET PO SCH (08:56)
[2017-07-23] MEDS: TAMSULOSIN 0.4 MG SR CAP PO SCH (08:56)
[2017-07-23] MEDS: HYDROCODONE/APAP 5/325 MG TAB PO PRN ×2 (08:57→19:05)
[2017-07-23] MEDS: GABAPENTIN 300 MG CAP PO SCH ×3 (08:57→20:10)
[2017-07-23] MEDS: AMLODIPINE 10 MG TAB PO SCH (08:57)
[2017-07-23] MEDS: CALCIUM CARB 500MG/VIT D 200 IU TAB PO SCH (08:57)
[2017-07-23] MEDS: TRUVADA TABLET PO SCH (08:58)
--- NOTE | 2017-07-23 13:28 | FAST ---
SHIFT START DATE/TIME: 07/23/2017 07:00 (CDT) SHIFT END DATE/TIME: 07/23/2017 19:00 (CDT) NAME CYNTHIA JENSEN DATE OF : 1965 DATE OF ADMISSION: 07/10/2017 20:00 (CDT) PHONE: AGE: 52 N# [id number] GENDER: Male ENCOUNTER PHYSICIAN: Dr. Andrew Escalona M.D. 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 EATING: EATING - STEP 1: Does the patient require assistance when eating? Yes. EATING - STEP 2: Does the patient require the assistance of a helper? No, patient only requires an assistive device, O R s/he takes more than reasonable time to eat, OR there is a safety concern, OR s/he requires modifie d food consistency EATING - SCORE: 6-DEBI GROOMING: Activity did not occur on this shift GROOMING - SCORE: 0-UNK BATHING: Activity did not occur on this shift BATHING - SCORE: 0-UNK DRESSING - UPPER BODY: Patient is not dressing in public clothing ARTICLES SCORE Total number of steps: 0 DRESSING - UPPER BODY - SCORE: 0-UNK DRESSING - LOWER BODY: Patient is not dressing in public clothing ARTICLES SCORE Total number of steps: 0 DRESSING - LOWER BODY - SCORE: 0-UNK TOILETING: TOILETING - STEP 1: Does the patient require assistance with toileting? Yes. TOILETING - STEP 2: Does the patient require the assistance of a helper? Yes. TOILETING - STEP 3: How much assistance does the patient require from the helper? Hands-on assistance from the helper TOILETING - STEP 4: Of the 3 tasks: 1) Adjusting clothing prior to use, 2) Cleansing of perineal area, 3) Adjusting clot tutu after use; How many tasks does the patient perform WITHOUT assistance of the helper? Three tasks with steadying assistance from the helper TOILETING - SCORE: 4-MIN BLADDER MANAGEMENT: BLADDER MANAGEMENT - STEP 1: Does the patient control the bladder completely and intentionally without equipment or devices or med ications, and is always continent? No. BLADDER MANAGEMENT - STEP 2: Does the patient require the assistance of a helper? No, patient requires and independently uses an a ssistive device, such as a urinal, bedpan, bedside commode, catheter, absorbent pad, or collecting de vice BLADDER MANAGEMENT - SCORE: 6-DEBI BOWEL MANAGEMENT: Activity did not occur on this shift BOWEL MANAGEMENT - SCORE: 7-IND TRANSFERS: BED, CHAIR, WHEELCHAIR: TRANSFERS: BED, CHAIR, WHEELCHAIR - STEP 1: Does the patient require assistance with bed, chair, or wheelchair transfers? Yes. TRANSFERS: BED, CHAIR, WHEELCHAIR - STEP 2: Does the patient require the assistance of a helper? No. Patient only requires an assistive device fo r bed, chair, wheelchair transfers such as a sliding board, grab bar, or brace, OR s/he takes more th an reasonable time, OR there is a safety concern when s/he performs the transfers TRANSFERS: BED, CHAIR, WHEELCHAIR - SCORE: 6-DEBI TRANSFERS: TOILET: TRANSFERS: TOILET - STEP 1: Does the patient require assistance with toilet transfers? Yes. TRANSFERS: TOILET - STEP 2: Does the patient require the assistance of a helper? No. Patient only requires an assistive device freitas ch as a grab bar or special seat, OR s/he takes more than reasonable time to perform toilet transfers , OR there is a safety concern when s/he performs toilet transfers. TRANSFERS: TOILET - SCORE: 6-DEBI TRANSFERS: SHOWER: Activity did not occur on this shift TRANSFERS: SHOWER - SCORE: 0-UNK TRANSFERS: TUB: Activity did not occur on this shift TRANSFERS: TUB - SCORE: 0-UNK LOCOMOTION: WALK: Activity did not occur on this shift LOCOMOTION: WALK - SCORE: 0-UNK LOCOMOTION: WHEELCHAIR: Activity did not occur on this shift LOCOMOTION: WHEELCHAIR - SCORE: 0-UNK COMPREHENSION: COMPREHENSION - STEP 1: Does the patient require help to understand complex and abstract ideas (such as current events, finan kellen, discharge planning, medical issues, relationships, etc)? No. COMPREHENSION - STEP 2: Does the patient need extra time, require an assistive device (such as glasses, hearing aids, or an a ugmentative communication system), OR does s/he have mild difficulty expressing complex and abstract ideas (including mild dysarthria or mild word-finding problems)? Yes. COMPREHENSION - SCORE: 6-DEBI EXPRESSION EXPRESSION - STEP 1: Does the patient require help expressing complex and abstract ideas (such as current events, finances , discharge planning, medical issues, relationships, etc)? No. EXPRESSION - STEP 2: Does the patient need extra time, require an assistive device (such as augmentive communication syste m or a communication board), OR does s/he have mild difficulty expressing complex and abstract ideas (including mild dysarthria or mild word-find problems)? No. EXPRESSION - SCORE: 7-IND SOCIAL INTERACTION: SOCIAL INTERACTION - STEP 1: Does the patient require a helper to interact with others in social and therapeutic situations? No. SOCIAL INTERACTION - STEP 2: Does the patient need extra time in social situations, OR does s/he interact with staff, other patien ts, and family members ONLY in structured environments, OR does s/he require medication for social in teraction? No. SOCIAL INTERACTION - SCORE: 7-IND PROBLEM SOLVING: PROBLEM SOLVING - STEP 1: Does the patient need help to solve complex problems such as managing a checking account or confronti ng interpersonal problems? No. PROBLEM SOLVING - STEP 2: Does the patient require extra time to make decisions or solve problems, OR does s/he have slight dif ficulty reading, initiating, or self-correcting in unfamiliar situations? Yes, patient needs extra ti me. PROBLEM SOLVING - SCORE: 6-DEBI MEMORY: MEMORY - STEP 1: Does the patient need help to remember frequently encountered people, daily routines, and executing r equests? No. MEMORY - STEP 2: Does the patient have slight difficulty recognizing frequently encountered people, daily routines, or executing requests without the need for repetition or using self-initiated or environmental cues to remember? Yes. MEMORY - SCORE: 6-DEBI SIGNATURE PANEL: The following modified sections: Eating - Score, Grooming - Score, Bathing - Score, Dressing - Upper Body - Score, Dressing - Lower Body - Score, Toileting - Score, Bladder Management - Score, Bowel Man agement - Score, Transfers: Bed, Chair, Wheelchair - Score, Transfers: Toilet - Score, Transfers: Dilma wer - Score, Transfers: Tub - Score, Locomotion: Walk - Score, Locomotion: Wheelchair - Score, Compre hension - Score, Social Interaction - Score, Problem Solving - Score, Memory - Score, Expression - Sc ore were [electronically] signed by Nasir Guido on MonJul 23 2017 12:30:13 GMT-0500 (Central Daylight Time)
[2017-07-23] MEDS: LORATADINE 10 MG TAB PO PRN (19:05)
[2017-07-23] MEDS: POLYVINYL ALCOHOL 1.4% 15 ML EACH EYE SCH (20:08)
[2017-07-23] MEDS: AMITRIPTYLINE 25 MG TAB PO SCH (20:10)
[2017-07-23] MEDS: INSULIN DETEMIR 100 UNIT/1 ML INSULIN SQ SCH (20:11)
[2017-07-23] MEDS: SENOSIDES 8.6 MG TAB PO SCH (20:11)
[2017-07-23] MEDS: ZOLPIDEM TARTRATE 5 MG TABLET PO PRN (21:02)
--- NOTE | 2017-07-24 05:21 | FAST ---
SHIFT START DATE/TIME: 07/23/2017 19:00 (CDT) SHIFT END DATE/TIME: 07/24/2017 07:00 (CDT) NAME CYNTHIA JENSEN DATE OF : 1965 DATE OF ADMISSION: 07/10/2017 20:00 (CDT) PHONE: AGE: 52 N# [id number] GENDER: Male ENCOUNTER PHYSICIAN: Dr. Andrew Escalona M.D. 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 EATING: EATING - STEP 1: Does the patient require assistance when eating? Yes. EATING - STEP 2: Does the patient require the assistance of a helper? No, patient only requires an assistive device, O R s/he takes more than reasonable time to eat, OR there is a safety concern, OR s/he requires modifie d food consistency EATING - SCORE: 6-DEBI GROOMING: Wash, rinse, and dry face Wash, rinse, and dry hands GROOMING - STEP 1: Does the patient require assistance when grooming? Yes. GROOMING - STEP 2: Does the patient require the assistance of a helper? No. The patient only requires an assistive devic e, OR takes more than reasonable time to groom, OR there is a concern for safety as the patient groom s GROOMING - SCORE: 6-DEBI BATHING: Activity did not occur on this shift BATHING - SCORE: 0-UNK DRESSING - UPPER BODY: Patient is not dressing in public clothing ARTICLES SCORE Total number of steps: 0 DRESSING - UPPER BODY - SCORE: 0-UNK DRESSING - LOWER BODY: Patient is not dressing in public clothing ARTICLES SCORE Total number of steps: 0 DRESSING - LOWER BODY - SCORE: 0-UNK TOILETING: TOILETING - STEP 1: Does the patient require assistance with toileting? Yes. TOILETING - STEP 2: Does the patient require the assistance of a helper? No. TOILETING - SCORE: 6-DEBI BLADDER MANAGEMENT: BLADDER MANAGEMENT - STEP 1: Does the patient control the bladder completely and intentionally without equipment or devices or med ications, and is always continent? No. BLADDER MANAGEMENT - STEP 2: Does the patient require the assistance of a helper? No, patient requires and independently uses an a ssistive device, such as a urinal, bedpan, bedside commode, catheter, absorbent pad, or collecting de vice BLADDER MANAGEMENT - SCORE: 6-DEBI BLADDER MANAGEMENT - FREQUENCY OF ACCIDENTS: BLADDER MANAGEMENT(FA) - STEP 1: How many accidents has the patient had during the current shift? 0 BOWEL MANAGEMENT: Activity did not occur on this shift BOWEL MANAGEMENT - SCORE: 7-IND TRANSFERS: BED, CHAIR, WHEELCHAIR: TRANSFERS: BED, CHAIR, WHEELCHAIR - STEP 1: Does the patient require assistance with bed, chair, or wheelchair transfers? Yes. TRANSFERS: BED, CHAIR, WHEELCHAIR - STEP 2: Does the patient require the assistance of a helper? No. Patient only requires an assistive device fo r bed, chair, wheelchair transfers such as a sliding board, grab bar, or brace, OR s/he takes more th an reasonable time, OR there is a safety concern when s/he performs the transfers TRANSFERS: BED, CHAIR, WHEELCHAIR - SCORE: 6-DEBI TRANSFERS: TOILET: TRANSFERS: TOILET - STEP 1: Does the patient require assistance with toilet transfers? Yes. TRANSFERS: TOILET - STEP 2: Does the patient require the assistance of a helper? No. Patient only requires an assistive device freitas ch as a grab bar or special seat, OR s/he takes more than reasonable time to perform toilet transfers , OR there is a safety concern when s/he performs toilet transfers. TRANSFERS: TOILET - SCORE: 6-DEBI TRANSFERS: SHOWER: Activity did not occur on this shift TRANSFERS: SHOWER - SCORE: 0-UNK TRANSFERS: TUB: Activity did not occur on this shift TRANSFERS: TUB - SCORE: 0-UNK LOCOMOTION: WALK: Activity did not occur on this shift LOCOMOTION: WALK - SCORE: 0-UNK LOCOMOTION: WHEELCHAIR: Activity did not occur on this shift LOCOMOTION: WHEELCHAIR - SCORE: 0-UNK COMPREHENSION: COMPREHENSION: TYPE: Both COMPREHENSION - STEP 1: Does the patient require help to understand complex and abstract ideas (such as current events, finan kellen, discharge planning, medical issues, relationships, etc)? No. COMPREHENSION - STEP 2: Does the patient need extra time, require an assistive device (such as glasses, hearing aids, or an a ugmentative communication system), OR does s/he have mild difficulty expressing complex and abstract ideas (including mild dysarthria or mild word-finding problems)? Yes. COMPREHENSION - SCORE: 6-DEBI EXPRESSION EXPRESSION: TYPE: Both EXPRESSION - STEP 1: Does the patient require help expressing complex and abstract ideas (such as current events, finances , discharge planning, medical issues, relationships, etc)? No. EXPRESSION - STEP 2: Does the patient need extra time, require an assistive device (such as augmentive communication syste m or a communication board), OR does s/he have mild difficulty expressing complex and abstract ideas (including mild dysarthria or mild word-find problems)? Yes. EXPRESSION - SCORE: 6-DEBI SOCIAL INTERACTION: SOCIAL INTERACTION - STEP 1: Does the patient require a helper to interact with others in social and therapeutic situations? No. SOCIAL INTERACTION - STEP 2: Does the patient need extra time in social situations, OR does s/he interact with staff, other patien ts, and family members ONLY in structured environments, OR does s/he require medication for social in teraction? Yes, patient needs extra time SOCIAL INTERACTION - SCORE: 6-DEBI PROBLEM SOLVING: PROBLEM SOLVING - STEP 1: Does the patient need help to solve complex problems such as managing a checking account or confronti ng interpersonal problems? No. PROBLEM SOLVING - STEP 2: Does the patient require extra time to make decisions or solve problems, OR does s/he have slight dif ficulty reading, initiating, or self-correcting in unfamiliar situations? Yes, patient needs extra ti me. PROBLEM SOLVING - SCORE: 6-DEBI MEMORY: MEMORY - STEP 1: Does the patient need help to remember frequently encountered people, daily routines, and executing r equests? No. MEMORY - STEP 2: Does the patient have slight difficulty recognizing frequently encountered people, daily routines, or executing requests without the need for repetition or using self-initiated or environmental cues to remember? Yes. MEMORY - SCORE: 6-DEBI SIGNATURE PANEL: The following modified sections: Eating - Score, Grooming - Score, Bathing - Score, Dressing - Upper Body - Score, Dressing - Lower Body - Score, Toileting - Score, Bladder Management - Score, Bowel Man agement - Score, Transfers: Bed, Chair, Wheelchair - Score, Transfers: Toilet - Score, Transfers: Dilma wer - Score, Transfers: Tub - Score, Locomotion: Walk - Score, Locomotion: Wheelchair - Score, Compre hension - Score, Expression - Score, Social Interaction - Score, Problem Solving - Score, Memory - Sc ore were [electronically] signed by Christina Tapia C.N.A. on MonJul 24 2017 04:23:26 GMT-0500 ( Central Daylight Time)
[2017-07-24] MEDS: PANTOPRAZOLE 40MG TABLET PO SCH (07:13)
[2017-07-24] MEDS: INSULIN -REGULAR HUMAN 50 UNIT/0.5 ML ML SQ SCH ×4 (07:22→21:00)
[2017-07-24] MEDS: TRUVADA TABLET PO SCH (08:00)
[2017-07-24] MEDS: NYSTATIN 500,000 UNIT/5 ML UDC PO SCH ×2 (08:19→21:07)
[2017-07-24] MEDS: ENOXAPARIN 40 MG/0.4 ML SQ SCH (08:19)
[2017-07-24] MEDS: METOPROLOL TAR 50 MG TAB PO SCH ×2 (08:19→21:07)
[2017-07-24] MEDS: SODIUM CHLORIDE 1 GM TAB PO SCH ×3 (08:19→17:02)
[2017-07-24] MEDS: CALCIUM CARB 500MG/VIT D 200 IU TAB PO SCH (08:20)
[2017-07-24] MEDS: GABAPENTIN 300 MG CAP PO SCH ×3 (08:20→21:06)
[2017-07-24] MEDS: FOLIC ACID 1 MG TABLET PO SCH (08:20)
[2017-07-24] MEDS: MULTIVITAMIN TAB PO SCH (08:20)
[2017-07-24] MEDS: TAMSULOSIN 0.4 MG SR CAP PO SCH (08:20)
[2017-07-24] MEDS: MAGNESIUM OXIDE 400 MG TAB PO SCH ×2 (08:20→21:06)
[2017-07-24] MEDS: AMLODIPINE 10 MG TAB PO SCH (08:20)
[2017-07-24] MEDS: THIAMINE HCL 100 MG TABLET PO SCH (08:20)
[2017-07-24] MEDS: HYDROCODONE/APAP 5/325 MG TAB PO PRN ×2 (08:20→19:45)
--- NOTE | 2017-07-24 15:19 | FAST ---
SHIFT START DATE/TIME: 07/24/2017 07:00 (CDT) SHIFT END DATE/TIME: 07/24/2017 19:00 (CDT) NAME CYNTHIA JENSEN DATE OF : 1965 DATE OF ADMISSION: 07/10/2017 20:00 (CDT) PHONE: AGE: 52 N# [id number] GENDER: Male ENCOUNTER PHYSICIAN: Dr. Andrew Escalona M.D. 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 EATING: EATING - STEP 1: Does the patient require assistance when eating? Yes. EATING - STEP 2: Does the patient require the assistance of a helper? No, patient only requires an assistive device, O R s/he takes more than reasonable time to eat, OR there is a safety concern, OR s/he requires modifie d food consistency EATING - SCORE: 6-DEBI GROOMING: Activity did not occur on this shift GROOMING - SCORE: 0-UNK BATHING: Activity did not occur on this shift BATHING - SCORE: 0-UNK DRESSING - UPPER BODY: Activity did not occur on this shift ARTICLES SCORE Total number of steps: 0 DRESSING - UPPER BODY - SCORE: 0-UNK DRESSING - LOWER BODY: Activity did not occur on this shift ARTICLES SCORE Total number of steps: 0 DRESSING - LOWER BODY - SCORE: 0-UNK TOILETING: TOILETING - STEP 1: Does the patient require assistance with toileting? Yes. TOILETING - STEP 2: Does the patient require the assistance of a helper? No. TOILETING - SCORE: 6-DEBI BLADDER MANAGEMENT: BLADDER MANAGEMENT - STEP 1: Does the patient control the bladder completely and intentionally without equipment or devices or med ications, and is always continent? No. BLADDER MANAGEMENT - STEP 2: Does the patient require the assistance of a helper? Yes. BLADDER MANAGEMENT - STEP 3: How much assistance does the patient require from the helper? Only supervision, stand-by, cuing, or c oaxing BLADDER MANAGEMENT - SCORE: 5-SUP BLADDER MANAGEMENT - FREQUENCY OF ACCIDENTS: BLADDER MANAGEMENT(FA) - STEP 1: How many accidents has the patient had during the current shift? 0 BOWEL MANAGEMENT: Activity did not occur on this shift BOWEL MANAGEMENT - SCORE: 7-IND BOWEL MANAGEMENT - FREQUENCY OF ACCIDENTS: BOWEL MANAGEMENT(FA) - STEP 1: How many accidents has the patient had during the current shift? 0 TRANSFERS: BED, CHAIR, WHEELCHAIR: TRANSFERS: BED, CHAIR, WHEELCHAIR - STEP 1: Does the patient require assistance with bed, chair, or wheelchair transfers? Yes. TRANSFERS: BED, CHAIR, WHEELCHAIR - STEP 2: Does the patient require the assistance of a helper? No. Patient only requires an assistive device fo r bed, chair, wheelchair transfers such as a sliding board, grab bar, or brace, OR s/he takes more th an reasonable time, OR there is a safety concern when s/he performs the transfers TRANSFERS: BED, CHAIR, WHEELCHAIR - SCORE: 6-DEBI TRANSFERS: TOILET: TRANSFERS: TOILET - STEP 1: Does the patient require assistance with toilet transfers? Yes. TRANSFERS: TOILET - STEP 2: Does the patient require the assistance of a helper? No. Patient only requires an assistive device freitas ch as a grab bar or special seat, OR s/he takes more than reasonable time to perform toilet transfers , OR there is a safety concern when s/he performs toilet transfers. TRANSFERS: TOILET - SCORE: 6-DEBI TRANSFERS: SHOWER: Activity did not occur on this shift TRANSFERS: SHOWER - SCORE: 0-UNK TRANSFERS: TUB: Activity did not occur on this shift TRANSFERS: TUB - SCORE: 0-UNK LOCOMOTION: WALK: Activity did not occur on this shift LOCOMOTION: WALK - SCORE: 0-UNK LOCOMOTION: WHEELCHAIR: Activity did not occur on this shift LOCOMOTION: WHEELCHAIR - SCORE: 0-UNK COMPREHENSION: COMPREHENSION: TYPE: Both COMPREHENSION - STEP 1: Does the patient require help to understand complex and abstract ideas (such as current events, finan kellen, discharge planning, medical issues, relationships, etc)? No. COMPREHENSION - STEP 2: Does the patient need extra time, require an assistive device (such as glasses, hearing aids, or an a ugmentative communication system), OR does s/he have mild difficulty expressing complex and abstract ideas (including mild dysarthria or mild word-finding problems)? Yes. COMPREHENSION - SCORE: 6-DEBI EXPRESSION EXPRESSION: TYPE: Both EXPRESSION - STEP 1: Does the patient require help expressing complex and abstract ideas (such as current events, finances , discharge planning, medical issues, relationships, etc)? No. EXPRESSION - STEP 2: Does the patient need extra time, require an assistive device (such as augmentive communication syste m or a communication board), OR does s/he have mild difficulty expressing complex and abstract ideas (including mild dysarthria or mild word-find problems)? Yes. EXPRESSION - SCORE: 6-DEBI SOCIAL INTERACTION: SOCIAL INTERACTION - STEP 1: Does the patient require a helper to interact with others in social and therapeutic situations? No. SOCIAL INTERACTION - STEP 2: Does the patient need extra time in social situations, OR does s/he interact with staff, other patien ts, and family members ONLY in structured environments, OR does s/he require medication for social in teraction? No. SOCIAL INTERACTION - SCORE: 7-IND PROBLEM SOLVING: PROBLEM SOLVING - STEP 1: Does the patient need help to solve complex problems such as managing a checking account or confronti ng interpersonal problems? No. PROBLEM SOLVING - STEP 2: Does the patient require extra time to make decisions or solve problems, OR does s/he have slight dif ficulty reading, initiating, or self-correcting in unfamiliar situations? Yes, patient has slight dif ficulty reading, initiating, or self-correcting in unfamiliar situations. PROBLEM SOLVING - SCORE: 6-DEBI MEMORY: MEMORY - STEP 1: Does the patient need help to remember frequently encountered people, daily routines, and executing r equests? No. MEMORY - STEP 2: Does the patient have slight difficulty recognizing frequently encountered people, daily routines, or executing requests without the need for repetition or using self-initiated or environmental cues to remember? Yes. MEMORY - SCORE: 6-DEBI SIGNATURE PANEL: The following modified sections: Eating - Score, Grooming - Score, Bathing - Score, Dressing - Upper Body - Score, Dressing - Lower Body - Score, Toileting - Score, Bladder Management - Score, Bowel Man agement - Score, Transfers: Bed, Chair, Wheelchair - Score, Transfers: Toilet - Score, Transfers: Dilma wer - Score, Transfers: Tub - Score, Locomotion: Walk - Score, Locomotion: Wheelchair - Score, Compre hension - Score, Expression - Score, Social Interaction - Score, Problem Solving - Score, Memory - Sc ore were [electronically] signed by Jada Kuo C.N.A. on MonJul 24 2017 14:21:45 T-0500 ([facility] Time)
--- NOTE | 2017-07-24 16:32 | FAST ---
ENCOUNTER DATE AND TIME: 07/24/2017 08:00 (CDT) NAME CYNTHIA JENSEN DATE OF : 1965 DATE OF ADMISSION: 07/10/2017 20:00 (CDT) PHONE: AGE: 52 N# [id number] GENDER: Male ENCOUNTER PHYSICIAN: Dr. Andrew Escalona M.D. 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 EATING: Activity did not occur on this shift EATING - SCORE: 0-UNK GROOMING: Comb/brush hair Wash, rinse, and dry face Wash, rinse, and dry hands GROOMING - STEP 1: Does the patient require assistance when grooming? No. GROOMING - SCORE: 7-IND BATHING: Abdomen Buttocks Chest Left arm Left lower leg and foot Left upper leg Perineal area Right arm Right lower leg and foot Right upper leg BATHING - STEP 1: Does the patient require assistance when bathing? Yes. BATHING - STEP 2: Does the patient require the assistance of a helper? No. The patient only requires an assistive devic e such as a bath asael, OR the patient takes more than reasonable time to bathe, OR there is a concern for safety such as regulating water temperature as the patient bathes. BATHING - SCORE: 6-DEBI DRESSING - UPPER BODY: T-shirt/pullover shirt (four steps) ARTICLES SCORE Total number of steps: 4 DRESSING - UPPER BODY - STEP 1: Does the patient require help when dressing above the waist? No. DRESSING - UPPER BODY - SCORE: 7-IND DRESSING - LOWER BODY: Elastic waist pants (three steps) Sock - Left foot (one step) Sock - Right foot (one step) Underwear (three steps) ARTICLES SCORE Total number of steps: 8 DRESSING - LOWER BODY - STEP 1: Does the patient require help when dressing below the waist? Yes. DRESSING - LOWER BODY - STEP 2: Does the patient require the assistance of a helper? Yes. DRESSING - LOWER BODY - STEP 3: Does the helper touch the patient while dressing? No. DRESSING - LOWER BODY - SCORE: 5-SUP TOILETING: Activity did not occur on this shift TOILETING - SCORE: 0-UNK BLADDER MANAGEMENT: Activity did not occur on this shift BLADDER MANAGEMENT - SCORE: 7-IND BOWEL MANAGEMENT: Activity did not occur on this shift BOWEL MANAGEMENT - SCORE: 7-IND TRANSFERS: BED, CHAIR, WHEELCHAIR: Activity did not occur on this shift TRANSFERS: BED, CHAIR, WHEELCHAIR - SCORE: 0-UNK TRANSFERS: TOILET: Activity did not occur on this shift TRANSFERS: TOILET - SCORE: 0-UNK TRANSFERS: SHOWER: Activity did not occur on this shift TRANSFERS: SHOWER - SCORE: 0-UNK TRANSFERS: TUB: TRANSFERS: TUB - STEP 1: Does the patient require assistance with tub transfers? Yes. TRANSFERS: TUB - STEP 2: Does the patient require the assistance of a helper? Yes. TRANSFERS: TUB - STEP 3: How much assistance does the patient require from the helper? Incidental help such as contact guardin g or steadying, OR help to lift one leg into the tub TRANSFERS: TUB - SCORE: 4-MIN LOCOMOTION: WALK: Activity did not occur on this shift LOCOMOTION: WALK - SCORE: 0-UNK LOCOMOTION: WHEELCHAIR: Activity did not occur on this shift LOCOMOTION: WHEELCHAIR - SCORE: 0-UNK LOCOMOTION: STAIRS: Activity did not occur on this shift LOCOMOTION: STAIRS - SCORE: 0-UNK COMPREHENSION: COMPREHENSION - STEP 1: Does the patient require help to understand complex and abstract ideas (such as current events, finan kellen, discharge planning, medical issues, relationships, etc)? No. COMPREHENSION - STEP 2: Does the patient need extra time, require an assistive device (such as glasses, hearing aids, or an a ugmentative communication system), OR does s/he have mild difficulty expressing complex and abstract ideas (including mild dysarthria or mild word-finding problems)? No. COMPREHENSION - SCORE: 7-IND EXPRESSION EXPRESSION: TYPE: Non-Vocal EXPRESSION - STEP 1: Does the patient require help expressing complex and abstract ideas (such as current events, finances , discharge planning, medical issues, relationships, etc)? No. EXPRESSION - STEP 2: Does the patient need extra time, require an assistive device (such as augmentive communication syste m or a communication board), OR does s/he have mild difficulty expressing complex and abstract ideas (including mild dysarthria or mild word-find problems)? No. EXPRESSION - SCORE: 7-IND SOCIAL INTERACTION: SOCIAL INTERACTION - STEP 1: Does the patient require a helper to interact with others in social and therapeutic situations? No. SOCIAL INTERACTION - STEP 2: Does the patient need extra time in social situations, OR does s/he interact with staff, other patien ts, and family members ONLY in structured environments, OR does s/he require medication for social in teraction? Yes, patient requires medication for social interaction SOCIAL INTERACTION - SCORE: 6-DEBI PROBLEM SOLVING: PROBLEM SOLVING - STEP 1: Does the patient need help to solve complex problems such as managing a checking account or confronti ng interpersonal problems? No. PROBLEM SOLVING - STEP 2: Does the patient require extra time to make decisions or solve problems, OR does s/he have slight dif ficulty reading, initiating, or self-correcting in unfamiliar situations? No. PROBLEM SOLVING - SCORE: 7-IND MEMORY: MEMORY - STEP 1: Does the patient need help to remember frequently encountered people, daily routines, and executing r equests? No. MEMORY - STEP 2: Does the patient have slight difficulty recognizing frequently encountered people, daily routines, or executing requests without the need for repetition or using self-initiated or environmental cues to remember? No. MEMORY - SCORE: 7-IND SIGNATURE PANEL: The following modified sections: Eating - Score, Grooming - Score, Bathing - Score, Dressing - Upper Body - Score, Dressing - Lower Body - Score, Toileting - Score, Transfers: Bed, Chair, Wheelchair - S core, Transfers: Toilet - Score, Transfers: Shower - Score, Transfers: Tub - Score, Comprehension - S core, Expression - Score, Social Interaction - Score, Problem Solving - Score, Memory - Score were [e lectronically] signed by QING Lal on MonJul 24 2017 15:34:50 T-0500 ([facility] Time)
--- NOTE | 2017-07-24 17:26 | FAST ---
ENCOUNTER DATE AND TIME: 07/24/2017 08:00 (CDT) NAME CYNTHIA JENSEN DATE OF : 1965 DATE OF ADMISSION: 07/10/2017 20:00 (CDT) PHONE: AGE: 52 N# [id number] GENDER: Male ENCOUNTER PHYSICIAN: Dr. Andrew Escalona M.D. 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 EATING: Activity did not occur on this shift EATING - SCORE: 0-UNK GROOMING: Activity did not occur on this shift GROOMING - SCORE: 0-UNK BATHING: Activity did not occur on this shift BATHING - SCORE: 0-UNK DRESSING - UPPER BODY: Activity did not occur on this shift Patient is not dressing in public clothing ARTICLES SCORE Total number of steps: 0 DRESSING - UPPER BODY - SCORE: 0-UNK DRESSING - LOWER BODY: Activity did not occur on this shift Patient is not dressing in public clothing ARTICLES SCORE Total number of steps: 0 DRESSING - LOWER BODY - SCORE: 0-UNK TOILETING: Activity did not occur on this shift TOILETING - SCORE: 0-UNK BLADDER MANAGEMENT: Activity did not occur on this shift BLADDER MANAGEMENT - SCORE: 7-IND BOWEL MANAGEMENT: Activity did not occur on this shift BOWEL MANAGEMENT - SCORE: 7-IND TRANSFERS: BED, CHAIR, WHEELCHAIR: TRANSFERS: BED, CHAIR, WHEELCHAIR - STEP 1: Does the patient require assistance with bed, chair, or wheelchair transfers? Yes. TRANSFERS: BED, CHAIR, WHEELCHAIR - STEP 2: Does the patient require the assistance of a helper? Yes. TRANSFERS: BED, CHAIR, WHEELCHAIR - STEP 3: How much assistance does the patient require from the helper? Only supervision TRANSFERS: BED, CHAIR, WHEELCHAIR - SCORE: 5-SUP TRANSFERS: TOILET: Activity did not occur on this shift TRANSFERS: TOILET - SCORE: 0-UNK TRANSFERS: SHOWER: Activity did not occur on this shift TRANSFERS: SHOWER - SCORE: 0-UNK TRANSFERS: TUB: Activity did not occur on this shift TRANSFERS: TUB - SCORE: 0-UNK LOCOMOTION: WALK: LOCOMOTION: WALK - STEP 1: Does the patient need help to walk 150 feet? Yes. LOCOMOTION: WALK - STEP 2: How much assistance does the patient require to walk a minimum of 150 feet? Only supervision, cuing, or coaxing LOCOMOTION: WALK - SCORE: 5-SUP LOCOMOTION: WHEELCHAIR: Activity did not occur on this shift LOCOMOTION: WHEELCHAIR - SCORE: 0-UNK LOCOMOTION: STAIRS: LOCOMOTION: STAIRS - STEP 1: Does the patient need help to go up and down 12 to 14 stairs? Yes. LOCOMOTION: STAIRS - STEP 2: How much assistance does the patient need from the helper to go a minimum of 12 to 14 stairs? Only freitas pervision, cuing, or coaxing LOCOMOTION: STAIRS - SCORE: 5-SUP COMPREHENSION: COMPREHENSION - SCORE: 0-UNK EXPRESSION EXPRESSION - SCORE: 0-UNK SOCIAL INTERACTION: SOCIAL INTERACTION - SCORE: 0-UNK PROBLEM SOLVING: PROBLEM SOLVING - SCORE: 0-UNK MEMORY: MEMORY - SCORE: 0-UNK SIGNATURE PANEL: The following modified sections: Transfers: Bed, Chair, Wheelchair - Score, Transfers: Toilet - Score , Locomotion: Walk - Score, Locomotion: Wheelchair - Score, Locomotion: Stairs - Score were [amina mott] signed by David Hope PT on MonJul 24 2017 16:28:40 T-0500 (Central Daylight Time)
--- NOTE | 2017-07-24 19:01 | R.PN ---
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 Pt denied any depression. Ambulated 400' with standby assistance using a rolling walker. Up and down 15 steps with standby assi stance. Propelled wheelchair 500' with modified independence. Self propelled wheelchair 250' with maximum assistance. VITAL SIGNS Temperature: 97.7 F SBP/DBP: 137/79 Pulse: 86 Resp: 16 MEDICATION ALLERGIES: CODEINE ENVIRONMENTAL ALLERGIES: - Substance Allergies None Known - Other Allergies None Known NURSING: - Shower allowing shower - Lab Results blood Sugar Check ACHS ACTIVITIES OOB only with supervision THERAPIES: - Occupational Therapy Evaluate and Treat. - Physical Therapy Evaluate and Treat. PHYSICAL EXAM - Gen Alert and awake Lying in bed No apparent distress Oriented to: person, time, and place - Vital Signs Vital signs stable, afebrile - Skin No skin breakdown. Normacephalic - Eyes No abnormalities - ENMT No abnormalities - Neck No abnormalities - CVS RRR - Resp Clear to auscultation - Abd Soft - GI Non distended Deferred - No abnormalities - Ext No significant edema - MSK 4/5 weakness in both upper extremities and 3+/5 weakness in both lower extremities. - Psych No abnormalities ASSESSMENT: Pt. 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 was independent/mod-I in Self-Care, Sphi ncter Control, Transfers Control, Communication, Social Cognition, and Locomotion; and he had good Sp hincter Control.Currently, he has deficits of Self-Care, Transfers Control, Communication, Social Cog nition, Endurance, Balance, Safety Awareness, and Locomotion.Pt. is now referred to [facility] for acute in-patient rehabilitation in order to maximize patient's functional indepe ndence in activities of daily living, strength, ROM, and mobility.- Rehab Goal Patient has realistic goal of being discharged at assistance level 6-Dhara to reside at Home with Fam shant/Relatives. MDM/PLAN: - Diet Type Continue Regular - Physical Therapy Gait dysfunction - to improve, our physical therapists will perform initial evaluation of pt's statu s upon admission and devise an individualized program for Gait Training, and Wheel Chair mobility Inability to transfer - to improve, our physical therapists will perform initial evaluation of pt's status upon admission and devise an individualized program for Bed mobility Need for home safety evaluation - to improve, our physical therapists will perform initial evaluatio n of pt's status upon admission and devise an individualized program for Home Evaluation Need in caregiver upon discharge - to improve, our physical therapists will perform initial evaluati on of pt's status upon admission and devise an individualized program for Caregiver Training New precaution - to improve, our physical therapists will perform initial evaluation of pt's status upon admission and devise an individualized program for Patient precaution education Edema - to improve, our physical therapists will perform initial evaluation of pt's status upon admi ssion and devise an individualized program for Elevation Training, and Lymphedema Therapy Poor balance - to improve, our physical therapists will perform initial evaluation of pt's status up on admission and devise an individualized program for Balance Training Poor endurance - to improve, our physical therapists will perform initial evaluation of pt's status upon admission and devise an individualized program for Endurance Training Weakness - to improve, our physical therapists will perform initial evaluation of pt's status upon a dmission and devise an individualized program for Aquatic Therapy, Neuromuscular Reeducation, and Str engthening Achieving independence - to improve, our physical therapists will perform initial evaluation of pt's status upon admission and devise an individualized program for Community Reintegration Activities - Diet - Liquid Texture Continue Regular - Tube Feed Continue N/A - Lab Results blood Sugar Check ACHS - Diet - Solid Texture Continue Regular - Shower allowing shower - Occupational Therapy ADL deficits - to improve, our occupation therapists will perform initial evaluation of pt's status upon admission and devise an individualized program for Bathing, Bed mobility, Community Reintegratio n, Cooking, Dressing, Eating, Fine Motor Skills, Grooming, Homemaking, Kitchen Mobility, Laundry, Pat ient Education, Safety Awareness, Splinting - Positioning, Transfers(Toilet, Tub, Shower), and Wheel Chair Management Cognitive deficits - to improve, our occupation therapists will perform initial evaluation of pt's s tatus upon admission and devise an individualized program for Cognition - orientation Need for administrator health care facility - to improve, our occupation therapists will perform initial evaluation of pt's status upon admission and devise an individualized program for Caregiver Training Weakness - to improve, our occupation therapists will perform initial evaluation of pt's status upon admission and devise an individualized program for Aquatic Therapy, Balance, Endurance, UE ROM, and UE strengthening FUNCTIONAL STATUS: UPDATED AT WEEKLY TEAM CONFERENCE - Bladder Same accident frequency: 7-Ind - No accidents in the past 7 days - Bowel Same accident frequency: 7-Ind - No accidents in the past 7 days - Walking Same score based on distance walked: 0(N/A) FUNCTIONAL STATUS: - Self-Care A. Eating sup B. Grooming Satinder C. Bathing modA D. Dressing - Upper modA E. Dressing - Lower modA F. Toileting modA - Sphincter Control G: Bladder control Ind H: Bowel control Ind - Transfers Control I. Bed/Chair/Wheelchair modA J. Toilet modA K. Tub/Shower ADNO - Locomotion L. Walk/Wheelchair (B) Dep M. Stairs ADNO - Communication N. Comprehension (B) sup O. Expression (B) sup - Social Cognition P. Social Interaction sup Q. Problem Solving sup R. Memory Dhara - Endurance Poor - Balance Poor - Safety Awareness Poor CURRENT FUNC. DEFICITS: Self-Care, Transfers Control, Communication, Social Cognition, Endurance, Balance, Safety Awareness, and Locomotion SIGNATURE PANEL: (CDT)
[2017-07-24] MEDS: POLYVINYL ALCOHOL 1.4% 15 ML EACH EYE SCH (21:00)
[2017-07-24] MEDS: INSULIN DETEMIR 100 UNIT/1 ML INSULIN SQ SCH (21:05)
[2017-07-24] MEDS: AMITRIPTYLINE 25 MG TAB PO SCH (21:06)
[2017-07-24] MEDS: SENOSIDES 8.6 MG TAB PO SCH (21:07)
--- NOTE | 2017-07-25 03:23 | FAST ---
SHIFT START DATE/TIME: 07/24/2017 19:00 (CDT) SHIFT END DATE/TIME: 07/25/2017 07:00 (CDT) NAME CYNTHIA JENSEN DATE OF : 1965 DATE OF ADMISSION: 07/10/2017 20:00 (CDT) PHONE: AGE: 52 N# [id number] GENDER: Male ENCOUNTER PHYSICIAN: Dr. Andrew Escalona M.D. 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 EATING: Activity did not occur on this shift EATING - SCORE: 0-UNK GROOMING: Wash, rinse, and dry hands GROOMING - STEP 1: Does the patient require assistance when grooming? Yes. GROOMING - STEP 2: Does the patient require the assistance of a helper? Yes. GROOMING - STEP 3: How much assistance does the patient require from the helper? Only prior equipment preparation/set up from the helper GROOMING - SCORE: 5-SUP BATHING: Activity did not occur on this shift BATHING - SCORE: 0-UNK DRESSING - UPPER BODY: Patient is not dressing in public clothing ARTICLES SCORE Total number of steps: 0 DRESSING - UPPER BODY - SCORE: 0-UNK DRESSING - LOWER BODY: Patient is not dressing in public clothing ARTICLES SCORE Total number of steps: 0 DRESSING - LOWER BODY - SCORE: 0-UNK TOILETING: TOILETING - STEP 1: Does the patient require assistance with toileting? Yes. TOILETING - STEP 2: Does the patient require the assistance of a helper? Yes. TOILETING - STEP 3: How much assistance does the patient require from the helper? Only supervision TOILETING - SCORE: 5-SUP BLADDER MANAGEMENT: BLADDER MANAGEMENT - STEP 1: Does the patient control the bladder completely and intentionally without equipment or devices or med ications, and is always continent? No. BLADDER MANAGEMENT - STEP 2: Does the patient require the assistance of a helper? Yes. BLADDER MANAGEMENT - STEP 3: How much assistance does the patient require from the helper? Only supervision, stand-by, cuing, or c oaxing BLADDER MANAGEMENT - SCORE: 5-SUP BOWEL MANAGEMENT: Activity did not occur on this shift BOWEL MANAGEMENT - SCORE: 7-IND TRANSFERS: BED, CHAIR, WHEELCHAIR: TRANSFERS: BED, CHAIR, WHEELCHAIR - STEP 1: Does the patient require assistance with bed, chair, or wheelchair transfers? Yes. TRANSFERS: BED, CHAIR, WHEELCHAIR - STEP 2: Does the patient require the assistance of a helper? Yes. TRANSFERS: BED, CHAIR, WHEELCHAIR - STEP 3: How much assistance does the patient require from the helper? Only supervision TRANSFERS: BED, CHAIR, WHEELCHAIR - SCORE: 5-SUP TRANSFERS: TOILET: TRANSFERS: TOILET - STEP 1: Does the patient require assistance with toilet transfers? Yes. TRANSFERS: TOILET - STEP 2: Does the patient require the assistance of a helper? Yes. TRANSFERS: TOILET - STEP 3: How much assistance does the patient require from the helper? Only supervision, cuing, coaxing, OR he lp to set out transfer equipment or to lock brakes and/or lift foot rests TRANSFERS: TOILET - SCORE: 5-SUP TRANSFERS: SHOWER: Activity did not occur on this shift TRANSFERS: SHOWER - SCORE: 0-UNK TRANSFERS: TUB: Activity did not occur on this shift TRANSFERS: TUB - SCORE: 0-UNK LOCOMOTION: WALK: Activity did not occur on this shift LOCOMOTION: WALK - SCORE: 0-UNK LOCOMOTION: WHEELCHAIR: Activity did not occur on this shift LOCOMOTION: WHEELCHAIR - SCORE: 0-UNK COMPREHENSION: COMPREHENSION - STEP 1: Does the patient require help to understand complex and abstract ideas (such as current events, finan kellen, discharge planning, medical issues, relationships, etc)? No. COMPREHENSION - STEP 2: Does the patient need extra time, require an assistive device (such as glasses, hearing aids, or an a ugmentative communication system), OR does s/he have mild difficulty expressing complex and abstract ideas (including mild dysarthria or mild word-finding problems)? Yes. COMPREHENSION - SCORE: 6-DEBI EXPRESSION EXPRESSION - STEP 1: Does the patient require help expressing complex and abstract ideas (such as current events, finances , discharge planning, medical issues, relationships, etc)? No. EXPRESSION - STEP 2: Does the patient need extra time, require an assistive device (such as augmentive communication syste m or a communication board), OR does s/he have mild difficulty expressing complex and abstract ideas (including mild dysarthria or mild word-find problems)? No. EXPRESSION - SCORE: 7-IND SOCIAL INTERACTION: SOCIAL INTERACTION - STEP 1: Does the patient require a helper to interact with others in social and therapeutic situations? No. SOCIAL INTERACTION - STEP 2: Does the patient need extra time in social situations, OR does s/he interact with staff, other patien ts, and family members ONLY in structured environments, OR does s/he require medication for social in teraction? No. SOCIAL INTERACTION - SCORE: 7-IND PROBLEM SOLVING: PROBLEM SOLVING - STEP 1: Does the patient need help to solve complex problems such as managing a checking account or confronti ng interpersonal problems? No. PROBLEM SOLVING - STEP 2: Does the patient require extra time to make decisions or solve problems, OR does s/he have slight dif ficulty reading, initiating, or self-correcting in unfamiliar situations? Yes, patient needs extra ti me. PROBLEM SOLVING - SCORE: 6-DEBI MEMORY: MEMORY - STEP 1: Does the patient need help to remember frequently encountered people, daily routines, and executing r equests? No. MEMORY - STEP 2: Does the patient have slight difficulty recognizing frequently encountered people, daily routines, or executing requests without the need for repetition or using self-initiated or environmental cues to remember? No. MEMORY - SCORE: 7-IND SIGNATURE PANEL: The following modified sections: Eating - Score, Grooming - Score, Dressing - Upper Body - Score, Robert ssing - Lower Body - Score, Toileting - Score, Bladder Management - Score, Bowel Management - Score, Transfers: Bed, Chair, Wheelchair - Score, Transfers: Toilet - Score, Transfers: Shower - Score, Gamez sfers: Tub - Score, Locomotion: Walk - Score, Locomotion: Wheelchair - Score, Comprehension - Score, Expression - Score, Social Interaction - Score, Problem Solving - Score, Memory - Score were [electro nically] signed by Jeanne Shaw CNA on MonJul 25 2017 02:25:21 GMT-0500 (Central Daylight Time)
[2017-07-25] MEDS: PANTOPRAZOLE 40MG TABLET PO SCH (07:14)
[2017-07-25] MEDS: INSULIN -REGULAR HUMAN 50 UNIT/0.5 ML ML SQ SCH ×4 (07:26→20:52)
[2017-07-25] MEDS: TRUVADA TABLET PO SCH (08:56)
[2017-07-25] MEDS: SODIUM CHLORIDE 1 GM TAB PO SCH ×3 (08:56→17:21)
[2017-07-25] MEDS: HYDROCODONE/APAP 5/325 MG TAB PO PRN ×2 (08:56→20:52)
[2017-07-25] MEDS: ENOXAPARIN 40 MG/0.4 ML SQ SCH (08:56)
[2017-07-25] MEDS: NYSTATIN 500,000 UNIT/5 ML UDC PO SCH ×2 (08:56→20:51)
[2017-07-25] MEDS: FOLIC ACID 1 MG TABLET PO SCH (08:56)
[2017-07-25] MEDS: MAGNESIUM OXIDE 400 MG TAB PO SCH ×2 (08:56→20:51)
[2017-07-25] MEDS: METOPROLOL TAR 50 MG TAB PO SCH ×2 (08:57→20:00)
[2017-07-25] MEDS: AMLODIPINE 10 MG TAB PO SCH (08:57)
[2017-07-25] MEDS: CALCIUM CARB 500MG/VIT D 200 IU TAB PO SCH (08:57)
[2017-07-25] MEDS: MULTIVITAMIN TAB PO SCH (08:57)
[2017-07-25] MEDS: THIAMINE HCL 100 MG TABLET PO SCH (08:57)
[2017-07-25] MEDS: GABAPENTIN 300 MG CAP PO SCH ×3 (08:57→20:51)
[2017-07-25] MEDS: TAMSULOSIN 0.4 MG SR CAP PO SCH (08:57)
[2017-07-25] MEDS: LORATADINE 10 MG TAB PO PRN (08:57)
--- NOTE | 2017-07-25 15:43 | FAST ---
SHIFT START DATE/TIME: 07/25/2017 07:00 (CDT) SHIFT END DATE/TIME: 07/25/2017 19:00 (CDT) NAME CYNTHIA JENSEN DATE OF : 1965 DATE OF ADMISSION: 07/10/2017 20:00 (CDT) PHONE: AGE: 52 N# [id number] GENDER: Male ENCOUNTER PHYSICIAN: Dr. Andrew Escalona M.D. 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 EATING: EATING - STEP 1: Does the patient require assistance when eating? Yes. EATING - STEP 2: Does the patient require the assistance of a helper? No, patient only requires an assistive device, O R s/he takes more than reasonable time to eat, OR there is a safety concern, OR s/he requires modifie d food consistency EATING - SCORE: 6-DEBI GROOMING: Activity did not occur on this shift GROOMING - SCORE: 0-UNK BATHING: Activity did not occur on this shift BATHING - SCORE: 0-UNK DRESSING - UPPER BODY: Activity did not occur on this shift ARTICLES SCORE Total number of steps: 0 DRESSING - UPPER BODY - SCORE: 0-UNK DRESSING - LOWER BODY: Activity did not occur on this shift ARTICLES SCORE Total number of steps: 0 DRESSING - LOWER BODY - SCORE: 0-UNK TOILETING: TOILETING - STEP 1: Does the patient require assistance with toileting? Yes. TOILETING - STEP 2: Does the patient require the assistance of a helper? No. TOILETING - SCORE: 6-DEBI BLADDER MANAGEMENT: BLADDER MANAGEMENT - STEP 1: Does the patient control the bladder completely and intentionally without equipment or devices or med ications, and is always continent? No. BLADDER MANAGEMENT - STEP 2: Does the patient require the assistance of a helper? No, patient requires and independently uses an a ssistive device, such as a urinal, bedpan, bedside commode, catheter, absorbent pad, or collecting de vice BLADDER MANAGEMENT - SCORE: 6-DEBI BLADDER MANAGEMENT - FREQUENCY OF ACCIDENTS: BLADDER MANAGEMENT(FA) - STEP 1: How many accidents has the patient had during the current shift? 0 BOWEL MANAGEMENT: Activity did not occur on this shift BOWEL MANAGEMENT - SCORE: 7-IND BOWEL MANAGEMENT - FREQUENCY OF ACCIDENTS: BOWEL MANAGEMENT(FA) - STEP 1: How many accidents has the patient had during the current shift? 0 TRANSFERS: BED, CHAIR, WHEELCHAIR: TRANSFERS: BED, CHAIR, WHEELCHAIR - STEP 1: Does the patient require assistance with bed, chair, or wheelchair transfers? Yes. TRANSFERS: BED, CHAIR, WHEELCHAIR - STEP 2: Does the patient require the assistance of a helper? No. Patient only requires an assistive device fo r bed, chair, wheelchair transfers such as a sliding board, grab bar, or brace, OR s/he takes more th an reasonable time, OR there is a safety concern when s/he performs the transfers TRANSFERS: BED, CHAIR, WHEELCHAIR - SCORE: 6-DEBI TRANSFERS: TOILET: TRANSFERS: TOILET - STEP 1: Does the patient require assistance with toilet transfers? Yes. TRANSFERS: TOILET - STEP 2: Does the patient require the assistance of a helper? No. Patient only requires an assistive device fre[place] ch as a grab bar or special seat, OR s/he takes more than reasonable time to perform toilet transfers , OR there is a safety concern when s/he performs toilet transfers. TRANSFERS: TOILET - SCORE: 6-DEBI TRANSFERS: SHOWER: Activity did not occur on this shift TRANSFERS: SHOWER - SCORE: 0-UNK TRANSFERS: TUB: Activity did not occur on this shift TRANSFERS: TUB - SCORE: 0-UNK LOCOMOTION: WALK: Activity did not occur on this shift LOCOMOTION: WALK - SCORE: 0-UNK LOCOMOTION: WHEELCHAIR: LOCOMOTION: WHEELCHAIR - STEP 1: Does the patient need help to go 150 feet in a wheelchair? Yes. LOCOMOTION: WHEELCHAIR - STEP 2: How much assistance does the patient need from the helper? Only supervision, cuing, or coaxing LOCOMOTION: WHEELCHAIR - SCORE: 5-SUP COMPREHENSION: COMPREHENSION: TYPE: Both COMPREHENSION - STEP 1: Does the patient require help to understand complex and abstract ideas (such as current events, finan kellen, discharge planning, medical issues, relationships, etc)? No. COMPREHENSION - STEP 2: Does the patient need extra time, require an assistive device (such as glasses, hearing aids, or an a ugmentative communication system), OR does s/he have mild difficulty expressing complex and abstract ideas (including mild dysarthria or mild word-finding problems)? Yes. COMPREHENSION - SCORE: 6-DEBI EXPRESSION EXPRESSION: TYPE: Both EXPRESSION - STEP 1: Does the patient require help expressing complex and abstract ideas (such as current events, finances , discharge planning, medical issues, relationships, etc)? No. EXPRESSION - STEP 2: Does the patient need extra time, require an assistive device (such as augmentive communication syste m or a communication board), OR does s/he have mild difficulty expressing complex and abstract ideas (including mild dysarthria or mild word-find problems)? Yes. EXPRESSION - SCORE: 6-DEBI SOCIAL INTERACTION: SOCIAL INTERACTION - STEP 1: Does the patient require a helper to interact with others in social and therapeutic situations? No. SOCIAL INTERACTION - STEP 2: Does the patient need extra time in social situations, OR does s/he interact with staff, other patien ts, and family members ONLY in structured environments, OR does s/he require medication for social in teraction? Yes, patient needs extra time SOCIAL INTERACTION - SCORE: 6-DEBI PROBLEM SOLVING: PROBLEM SOLVING - STEP 1: Does the patient need help to solve complex problems such as managing a checking account or confronti ng interpersonal problems? No. PROBLEM SOLVING - STEP 2: Does the patient require extra time to make decisions or solve problems, OR does s/he have slight dif ficulty reading, initiating, or self-correcting in unfamiliar situations? Yes, patient needs extra ti me. PROBLEM SOLVING - SCORE: 6-DEBI MEMORY: MEMORY - STEP 1: Does the patient need help to remember frequently encountered people, daily routines, and executing r equests? No. MEMORY - STEP 2: Does the patient have slight difficulty recognizing frequently encountered people, daily routines, or executing requests without the need for repetition or using self-initiated or environmental cues to remember? Yes. MEMORY - SCORE: 6-DEBI SIGNATURE PANEL: The following modified sections: Eating - Score, Grooming - Score, Bathing - Score, Dressing - Upper Body - Score, Dressing - Lower Body - Score, Toileting - Score, Bladder Management - Score, Bowel Man agement - Score, Transfers: Bed, Chair, Wheelchair - Score, Transfers: Toilet - Score, Transfers: Dilma wer - Score, Transfers: Tub - Score, Locomotion: Walk - Score, Locomotion: Wheelchair - Score, Compre hension - Score, Expression - Score, Social Interaction - Score, Problem Solving - Score, Memory - Sc ore were [electronically] signed by Jada Kuo C.N.A. on MonJul 25 2017 14:45:44 T-0500 (Centra l Daylight Time)
--- NOTE | 2017-07-25 15:48 | FAST ---
ENCOUNTER DATE AND TIME: 07/25/2017 08:00 (CDT) NAME CYNTHIA JENSEN DATE OF : 1965 DATE OF ADMISSION: 07/10/2017 20:00 (CDT) PHONE: AGE: 52 N# [id number] GENDER: Male ENCOUNTER PHYSICIAN: Dr. Andrew Escalona M.D. 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 EATING: Activity did not occur on this shift EATING - SCORE: 0-UNK GROOMING: Activity did not occur on this shift GROOMING - SCORE: 0-UNK BATHING: Activity did not occur on this shift BATHING - SCORE: 0-UNK DRESSING - UPPER BODY: Activity did not occur on this shift ARTICLES SCORE Total number of steps: 0 DRESSING - UPPER BODY - SCORE: 0-UNK DRESSING - LOWER BODY: Activity did not occur on this shift ARTICLES SCORE Total number of steps: 0 DRESSING - LOWER BODY - SCORE: 0-UNK TOILETING: Activity did not occur on this shift TOILETING - SCORE: 0-UNK BLADDER MANAGEMENT: Activity did not occur on this shift BLADDER MANAGEMENT - SCORE: 7-IND BOWEL MANAGEMENT: Activity did not occur on this shift BOWEL MANAGEMENT - SCORE: 7-IND TRANSFERS: BED, CHAIR, WHEELCHAIR: Activity did not occur on this shift TRANSFERS: BED, CHAIR, WHEELCHAIR - SCORE: 0-UNK TRANSFERS: TOILET: Activity did not occur on this shift TRANSFERS: TOILET - SCORE: 0-UNK TRANSFERS: SHOWER: Activity did not occur on this shift TRANSFERS: SHOWER - SCORE: 0-UNK TRANSFERS: TUB: Activity did not occur on this shift TRANSFERS: TUB - SCORE: 0-UNK LOCOMOTION: WALK: Activity did not occur on this shift LOCOMOTION: WALK - SCORE: 0-UNK LOCOMOTION: WHEELCHAIR: Activity did not occur on this shift LOCOMOTION: WHEELCHAIR - SCORE: 0-UNK LOCOMOTION: STAIRS: Activity did not occur on this shift LOCOMOTION: STAIRS - SCORE: 0-UNK COMPREHENSION: COMPREHENSION - STEP 1: Does the patient require help to understand complex and abstract ideas (such as current events, finan kellen, discharge planning, medical issues, relationships, etc)? No. COMPREHENSION - STEP 2: Does the patient need extra time, require an assistive device (such as glasses, hearing aids, or an a ugmentative communication system), OR does s/he have mild difficulty expressing complex and abstract ideas (including mild dysarthria or mild word-finding problems)? No. COMPREHENSION - SCORE: 7-IND EXPRESSION EXPRESSION: TYPE: Non-Vocal EXPRESSION - STEP 1: Does the patient require help expressing complex and abstract ideas (such as current events, finances , discharge planning, medical issues, relationships, etc)? No. EXPRESSION - STEP 2: Does the patient need extra time, require an assistive device (such as augmentive communication syste m or a communication board), OR does s/he have mild difficulty expressing complex and abstract ideas (including mild dysarthria or mild word-find problems)? No. EXPRESSION - SCORE: 7-IND SOCIAL INTERACTION: SOCIAL INTERACTION - STEP 1: Does the patient require a helper to interact with others in social and therapeutic situations? No. SOCIAL INTERACTION - STEP 2: Does the patient need extra time in social situations, OR does s/he interact with staff, other patien ts, and family members ONLY in structured environments, OR does s/he require medication for social in teraction? Yes, patient needs extra time SOCIAL INTERACTION - SCORE: 6-DEBI PROBLEM SOLVING: PROBLEM SOLVING - STEP 1: Does the patient need help to solve complex problems such as managing a checking account or confronti ng interpersonal problems? No. PROBLEM SOLVING - STEP 2: Does the patient require extra time to make decisions or solve problems, OR does s/he have slight dif ficulty reading, initiating, or self-correcting in unfamiliar situations? No. PROBLEM SOLVING - SCORE: 7-IND MEMORY: MEMORY - STEP 1: Does the patient need help to remember frequently encountered people, daily routines, and executing r equests? No. MEMORY - STEP 2: Does the patient have slight difficulty recognizing frequently encountered people, daily routines, or executing requests without the need for repetition or using self-initiated or environmental cues to remember? No. MEMORY - SCORE: 7-IND SIGNATURE PANEL: The following modified sections: Eating - Score, Grooming - Score, Bathing - Score, Dressing - Upper Body - Score, Dressing - Lower Body - Score, Toileting - Score, Transfers: Bed, Chair, Wheelchair - S core, Transfers: Toilet - Score, Transfers: Shower - Score, Transfers: Tub - Score, Comprehension - S core, Expression - Score, Social Interaction - Score, Problem Solving - Score, Memory - Score were [e lectronically] signed by QING Lal on MonJul 25 2017 14:50:48 [facility]-0500 (Formerly [facility], [facility] Time)
--- NOTE | 2017-07-25 16:16 | FAST ---
ENCOUNTER DATE AND TIME: 07/25/2017 08:00 (CDT) NAME CYNTHIA JENSEN DATE OF : 1965 DATE OF ADMISSION: 07/10/2017 20:00 (CDT) PHONE: AGE: 52 N# [id number] GENDER: Male ENCOUNTER PHYSICIAN: Dr. Andrew Escalona M.D. 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 EATING: Activity did not occur on this shift EATING - SCORE: 0-UNK GROOMING: Activity did not occur on this shift GROOMING - SCORE: 0-UNK BATHING: Activity did not occur on this shift BATHING - SCORE: 0-UNK DRESSING - UPPER BODY: Activity did not occur on this shift Patient is not dressing in public clothing ARTICLES SCORE Total number of steps: 0 DRESSING - UPPER BODY - SCORE: 0-UNK DRESSING - LOWER BODY: Activity did not occur on this shift Patient is not dressing in public clothing ARTICLES SCORE Total number of steps: 0 DRESSING - LOWER BODY - SCORE: 0-UNK TOILETING: Activity did not occur on this shift TOILETING - SCORE: 0-UNK BLADDER MANAGEMENT: Activity did not occur on this shift BLADDER MANAGEMENT - SCORE: 7-IND BOWEL MANAGEMENT: Activity did not occur on this shift BOWEL MANAGEMENT - SCORE: 7-IND TRANSFERS: BED, CHAIR, WHEELCHAIR: TRANSFERS: BED, CHAIR, WHEELCHAIR - STEP 1: Does the patient require assistance with bed, chair, or wheelchair transfers? Yes. TRANSFERS: BED, CHAIR, WHEELCHAIR - STEP 2: Does the patient require the assistance of a helper? No. Patient only requires an assistive device fo r bed, chair, wheelchair transfers such as a sliding board, grab bar, or brace, OR s/he takes more th an reasonable time, OR there is a safety concern when s/he performs the transfers TRANSFERS: BED, CHAIR, WHEELCHAIR - SCORE: 6-DEBI TRANSFERS: TOILET: Activity did not occur on this shift TRANSFERS: TOILET - SCORE: 0-UNK TRANSFERS: SHOWER: Activity did not occur on this shift TRANSFERS: SHOWER - SCORE: 0-UNK TRANSFERS: TUB: Activity did not occur on this shift TRANSFERS: TUB - SCORE: 0-UNK LOCOMOTION: WALK: LOCOMOTION: WALK - STEP 1: Does the patient need help to walk 150 feet? No. LOCOMOTION: WALK - STEP 2: Does the patient need an assistive device (such as an orthosis, prosthesis, crutches, or walker) to g o 150 feet, OR does s/he take more than reasonable time, OR is there a concern for safety? Yes, the p atient needs an assistive device LOCOMOTION: WALK - SCORE: 6-DEBI LOCOMOTION: WHEELCHAIR: LOCOMOTION: WHEELCHAIR - STEP 1: Does the patient need help to go 150 feet in a wheelchair? No. LOCOMOTION: WHEELCHAIR - SCORE: 6-DEBI LOCOMOTION: STAIRS: LOCOMOTION: STAIRS - STEP 1: Does the patient need help to go up and down 12 to 14 stairs? No. LOCOMOTION: STAIRS - STEP 2: Does the patient require an assistive device - such as handrails or cane - to go up and down one flig ht of stairs, OR does s/he take more than reasonable time, OR is there a concern for safety? Yes, the patient requires an assistive device LOCOMOTION: STAIRS - SCORE: 6-DEBI COMPREHENSION: COMPREHENSION - SCORE: 0-UNK EXPRESSION EXPRESSION - SCORE: 0-UNK SOCIAL INTERACTION: SOCIAL INTERACTION - SCORE: 0-UNK PROBLEM SOLVING: PROBLEM SOLVING - SCORE: 0-UNK MEMORY: MEMORY - SCORE: 0-UNK SIGNATURE PANEL: The following modified sections: Transfers: Bed, Chair, Wheelchair - Score, Transfers: Toilet - Score , Locomotion: Walk - Score, Locomotion: Wheelchair - Score, Locomotion: Stairs - Score were [amina mott] signed by Inocente Lau PTA on MonJul 25 2017 15:18:40 GMT-0500 (Central Daylight Time)
--- NOTE | 2017-07-25 18:00 | R.PN ---
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 Pt denied any depression. Ambulated 550' with modfied independence using a rolling walker. Up and down 15 steps with modified i ndependence. Propelled wheelchair 500' with modified independence. Self propelled wheelchair 250' with maximum assistance. VITAL SIGNS Temperature: 97.7 F SBP/DBP: 131/76 Pulse: 87 Resp: 15 MEDICATION ALLERGIES: CODEINE ENVIRONMENTAL ALLERGIES: - Substance Allergies None Known - Other Allergies None Known NURSING: - Shower allowing shower - Lab Results blood Sugar Check ACHS ACTIVITIES OOB only with supervision THERAPIES: - Occupational Therapy Evaluate and Treat. - Physical Therapy Evaluate and Treat. PHYSICAL EXAM - Gen Alert and awake Lying in bed No apparent distress Oriented to: person, time, and place - Vital Signs Vital signs stable, afebrile - Skin No skin breakdown. Normacephalic - Eyes No abnormalities - ENMT No abnormalities - Neck No abnormalities - CVS RRR - Resp Clear to auscultation - Abd Soft - GI Non distended Deferred - No abnormalities - Ext No significant edema - MSK 4/5 weakness in both upper extremities and 3+/5 weakness in both lower extremities. - Psych No abnormalities ASSESSMENT: Pt. 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 was independent/mod-I in Self-Care, Sphi ncter Control, Transfers Control, Communication, Social Cognition, and Locomotion; and he had good Sp hincter Control.Currently, he has deficits of Self-Care, Transfers Control, Communication, Social Cog nition, Endurance, Balance, Safety Awareness, and Locomotion.Pt. is now referred to [facility] for acute in-patient rehabilitation in order to maximize patient's functional indepe ndence in activities of daily living, strength, ROM, and mobility.- Rehab Goal Patient has realistic goal of being discharged at assistance level 6-Dhara to reside at Home with Fam shant/Relatives. MDM/PLAN: - Diet Type Continue Regular - Physical Therapy Gait dysfunction - to improve, our physical therapists will perform initial evaluation of pt's statu s upon admission and devise an individualized program for Gait Training, and Wheel Chair mobility Inability to transfer - to improve, our physical therapists will perform initial evaluation of pt's status upon admission and devise an individualized program for Bed mobility Need for home safety evaluation - to improve, our physical therapists will perform initial evaluatio n of pt's status upon admission and devise an individualized program for Home Evaluation Need in caregiver upon discharge - to improve, our physical therapists will perform initial evaluati on of pt's status upon admission and devise an individualized program for Caregiver Training New precaution - to improve, our physical therapists will perform initial evaluation of pt's status upon admission and devise an individualized program for Patient precaution education Edema - to improve, our physical therapists will perform initial evaluation of pt's status upon admi ssion and devise an individualized program for Elevation Training, and Lymphedema Therapy Poor balance - to improve, our physical therapists will perform initial evaluation of pt's status up on admission and devise an individualized program for Balance Training Poor endurance - to improve, our physical therapists will perform initial evaluation of pt's status upon admission and devise an individualized program for Endurance Training Weakness - to improve, our physical therapists will perform initial evaluation of pt's status upon a dmission and devise an individualized program for Aquatic Therapy, Neuromuscular Reeducation, and Str engthening Achieving independence - to improve, our physical therapists will perform initial evaluation of pt's status upon admission and devise an individualized program for Community Reintegration Activities - Diet - Liquid Texture Continue Regular - Tube Feed Continue N/A - Lab Results blood Sugar Check ACHS - Diet - Solid Texture Continue Regular - Shower allowing shower - Occupational Therapy ADL deficits - to improve, our occupation therapists will perform initial evaluation of pt's status upon admission and devise an individualized program for Bathing, Bed mobility, Community Reintegratio n, Cooking, Dressing, Eating, Fine Motor Skills, Grooming, Homemaking, Kitchen Mobility, Laundry, Pat ient Education, Safety Awareness, Splinting - Positioning, Transfers(Toilet, Tub, Shower), and Wheel Chair Management Cognitive deficits - to improve, our occupation therapists will perform initial evaluation of pt's s tatus upon admission and devise an individualized program for Cognition - orientation Need for healthcare corporate account director - to improve, our occupation therapists will perform initial evaluation of pt's status upon admission and devise an individualized program for Caregiver Training Weakness - to improve, our occupation therapists will perform initial evaluation of pt's status upon admission and devise an individualized program for Aquatic Therapy, Balance, Endurance, UE ROM, and UE strengthening FUNCTIONAL STATUS: UPDATED AT WEEKLY TEAM CONFERENCE - Bladder Same accident frequency: 7-Ind - No accidents in the past 7 days - Bowel Same accident frequency: 7-Ind - No accidents in the past 7 days - Walking Same score based on distance walked: 0(N/A) FUNCTIONAL STATUS: - Self-Care A. Eating sup B. Grooming Satinder C. Bathing modA D. Dressing - Upper modA E. Dressing - Lower modA F. Toileting modA - Sphincter Control G: Bladder control Ind H: Bowel control Ind - Transfers Control I. Bed/Chair/Wheelchair modA J. Toilet modA K. Tub/Shower ADNO - Locomotion L. Walk/Wheelchair (B) Dep M. Stairs ADNO - Communication N. Comprehension (B) sup O. Expression (B) sup - Social Cognition P. Social Interaction sup Q. Problem Solving sup R. Memory Dhara - Endurance Poor - Balance Poor - Safety Awareness Poor CURRENT FUNC. DEFICITS: Self-Care, Transfers Control, Communication, Social Cognition, Endurance, Balance, Safety Awareness, and Locomotion SIGNATURE PANEL: (CDT)
[2017-07-25] MEDS: AMITRIPTYLINE 50 MG TAB PO SCH (20:50)
[2017-07-25] MEDS: SENOSIDES 8.6 MG TAB PO SCH (20:51)
[2017-07-25] MEDS: POLYVINYL ALCOHOL 1.4% 15 ML EACH EYE SCH (20:52)
[2017-07-25] MEDS: INSULIN DETEMIR 100 UNIT/1 ML INSULIN SQ SCH (20:52)
[2017-07-25] MEDS: ZOLPIDEM TARTRATE 5 MG TABLET PO PRN (20:57)
[2017-07-26] MEDS: PANTOPRAZOLE 40MG TABLET PO SCH (06:20)
[2017-07-26] MEDS: NYSTATIN 500,000 UNIT/5 ML UDC PO SCH ×2 (07:01→19:09)
[2017-07-26] MEDS: ENOXAPARIN 40 MG/0.4 ML SQ SCH (07:01)
[2017-07-26] MEDS: INSULIN -REGULAR HUMAN 50 UNIT/0.5 ML ML SQ SCH ×4 (07:16→21:00)
[2017-07-26] MEDS: GABAPENTIN 300 MG CAP PO SCH ×3 (08:19→21:07)
[2017-07-26] MEDS: FOLIC ACID 1 MG TABLET PO SCH (08:20)
[2017-07-26] MEDS: THIAMINE HCL 100 MG TABLET PO SCH (08:20)
[2017-07-26] MEDS: CALCIUM CARB 500MG/VIT D 200 IU TAB PO SCH (08:20)
[2017-07-26] MEDS: MAGNESIUM OXIDE 400 MG TAB PO SCH ×2 (08:20→19:09)
[2017-07-26] MEDS: AMLODIPINE 10 MG TAB PO SCH (08:20)
[2017-07-26] MEDS: METOPROLOL TAR 50 MG TAB PO SCH ×2 (08:21→19:09)
[2017-07-26] MEDS: SODIUM CHLORIDE 1 GM TAB PO SCH ×3 (08:21→16:42)
[2017-07-26] MEDS: MULTIVITAMIN TAB PO SCH (08:21)
[2017-07-26] MEDS: TAMSULOSIN 0.4 MG SR CAP PO SCH (08:21)
[2017-07-26] MEDS: TRUVADA TABLET PO SCH (08:22)
[2017-07-26] MEDS: HYDROCODONE/APAP 5/325 MG TAB PO PRN ×2 (08:22→19:09)
--- NOTE | 2017-07-26 12:32 | FAST ---
SHIFT START DATE/TIME: 07/26/2017 07:00 (CDT) SHIFT END DATE/TIME: 07/26/2017 19:00 (CDT) NAME CYNTHIA JENSEN DATE OF : 1965 DATE OF ADMISSION: 07/10/2017 20:00 (CDT) PHONE: AGE: 52 N# [id number] GENDER: Male ENCOUNTER PHYSICIAN: Dr. Andrew Escalona M.D. 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 EATING: EATING - STEP 1: Does the patient require assistance when eating? Yes. EATING - STEP 2: Does the patient require the assistance of a helper? No, patient only requires an assistive device, O R s/he takes more than reasonable time to eat, OR there is a safety concern, OR s/he requires modifie d food consistency EATING - SCORE: 6-DEBI GROOMING: Comb/brush hair Oral care Wash, rinse, and dry face Wash, rinse, and dry hands GROOMING - STEP 1: Does the patient require assistance when grooming? No. GROOMING - SCORE: 7-IND BATHING: Activity did not occur on this shift BATHING - SCORE: 0-UNK DRESSING - UPPER BODY: Activity did not occur on this shift ARTICLES SCORE Total number of steps: 0 DRESSING - UPPER BODY - SCORE: 0-UNK DRESSING - LOWER BODY: Activity did not occur on this shift ARTICLES SCORE Total number of steps: 0 DRESSING - LOWER BODY - SCORE: 0-UNK TOILETING: TOILETING - STEP 1: Does the patient require assistance with toileting? Yes. TOILETING - STEP 2: Does the patient require the assistance of a helper? No. TOILETING - SCORE: 6-DEBI BLADDER MANAGEMENT: BLADDER MANAGEMENT - STEP 1: Does the patient control the bladder completely and intentionally without equipment or devices or med ications, and is always continent? No. BLADDER MANAGEMENT - STEP 2: Does the patient require the assistance of a helper? No, patient requires and independently uses an a ssistive device, such as a urinal, bedpan, bedside commode, catheter, absorbent pad, or collecting de vice BLADDER MANAGEMENT - SCORE: 6-DEBI BOWEL MANAGEMENT: BOWEL MANAGEMENT - STEP 1: Does the patient control bowels completely and intentionally without equipment devices or medications AND is always continent? No. BOWEL MANAGEMENT - STEP 2: Does the patient require the assistance of a helper? No, patient requires and manages independently a n assistive device such as a bedpan, bedside commode, absorbent pad, incontinent device, or collectin g device BOWEL MANAGEMENT - SCORE: 6-DEBI TRANSFERS: BED, CHAIR, WHEELCHAIR: TRANSFERS: BED, CHAIR, WHEELCHAIR - STEP 1: Does the patient require assistance with bed, chair, or wheelchair transfers? Yes. TRANSFERS: BED, CHAIR, WHEELCHAIR - STEP 2: Does the patient require the assistance of a helper? No. Patient only requires an assistive device fo r bed, chair, wheelchair transfers such as a sliding board, grab bar, or brace, OR s/he takes more th an reasonable time, OR there is a safety concern when s/he performs the transfers TRANSFERS: BED, CHAIR, WHEELCHAIR - SCORE: 6-DEBI TRANSFERS: TOILET: TRANSFERS: TOILET - STEP 1: Does the patient require assistance with toilet transfers? Yes. TRANSFERS: TOILET - STEP 2: Does the patient require the assistance of a helper? No. Patient only requires an assistive device freitas ch as a grab bar or special seat, OR s/he takes more than reasonable time to perform toilet transfers , OR there is a safety concern when s/he performs toilet transfers. TRANSFERS: TOILET - SCORE: 6-DEBI TRANSFERS: SHOWER: Activity did not occur on this shift TRANSFERS: SHOWER - SCORE: 0-UNK TRANSFERS: TUB: Activity did not occur on this shift TRANSFERS: TUB - SCORE: 0-UNK LOCOMOTION: WALK: Activity did not occur on this shift LOCOMOTION: WALK - SCORE: 0-UNK LOCOMOTION: WHEELCHAIR: Activity did not occur on this shift LOCOMOTION: WHEELCHAIR - SCORE: 0-UNK COMPREHENSION: COMPREHENSION - SCORE: 0-UNK EXPRESSION EXPRESSION - SCORE: 0-UNK SOCIAL INTERACTION: SOCIAL INTERACTION - SCORE: 0-UNK PROBLEM SOLVING: PROBLEM SOLVING - SCORE: 0-UNK MEMORY: MEMORY - SCORE: 0-UNK SIGNATURE PANEL: The following modified sections: Eating - Score, Grooming - Score, Bathing - Score, Dressing - Upper Body - Score, Dressing - Lower Body - Score, Toileting - Score, Bladder Management - Score, Bowel Man agement - Score, Transfers: Bed, Chair, Wheelchair - Score, Transfers: Toilet - Score, Transfers: Dilma wer - Score, Transfers: Tub - Score, Locomotion: Walk - Score, Locomotion: Wheelchair - Score, Compre hension - Score, Expression - Score, Social Interaction - Score, Problem Solving - Score, Memory - Sc ore were [electronically] signed by Nasir Guido on MonJul 26 2017 11:33:45 T-0500 (Central Daylight Time)
--- NOTE | 2017-07-26 15:59 | FAST ---
ENCOUNTER DATE AND TIME: 07/26/2017 08:00 (CDT) NAME CYNTHIA JENSEN DATE OF : 1965 DATE OF ADMISSION: 07/10/2017 20:00 (CDT) PHONE: AGE: 52 N# [id number] GENDER: Male ENCOUNTER PHYSICIAN: Dr. Andrew Escalona M.D. 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 EATING: Activity did not occur on this shift EATING - SCORE: 0-UNK GROOMING: Oral care Patient shaved Wash, rinse, and dry face Wash, rinse, and dry hands GROOMING - STEP 1: Does the patient require assistance when grooming? No. GROOMING - SCORE: 7-IND BATHING: Abdomen Buttocks Chest Left arm Left lower leg and foot Left upper leg Perineal area Right arm Right lower leg and foot Right upper leg BATHING - STEP 1: Does the patient require assistance when bathing? Yes. BATHING - STEP 2: Does the patient require the assistance of a helper? No. The patient only requires an assistive devic e such as a bath asael, OR the patient takes more than reasonable time to bathe, OR there is a concern for safety such as regulating water temperature as the patient bathes. BATHING - SCORE: 6-DEBI DRESSING - UPPER BODY: T-shirt/pullover shirt (four steps) ARTICLES SCORE Total number of steps: 4 DRESSING - UPPER BODY - STEP 1: Does the patient require help when dressing above the waist? No. DRESSING - UPPER BODY - SCORE: 7-IND DRESSING - LOWER BODY: Elastic waist pants (three steps) Slip-on shoe - Left foot (one step) Slip-on shoe - Right foot (one step) Sock - Left foot (one step) Sock - Right foot (one step) Underwear (three steps) ARTICLES SCORE Total number of steps: 10 DRESSING - LOWER BODY - STEP 1: Does the patient require help when dressing below the waist? Yes. DRESSING - LOWER BODY - STEP 2: Does the patient require the assistance of a helper? Yes. DRESSING - LOWER BODY - STEP 3: Does the helper touch the patient while dressing? No. DRESSING - LOWER BODY - SCORE: 5-SUP TOILETING: Activity did not occur on this shift TOILETING - SCORE: 0-UNK BLADDER MANAGEMENT: Activity did not occur on this shift BLADDER MANAGEMENT - SCORE: 7-IND BOWEL MANAGEMENT: Activity did not occur on this shift BOWEL MANAGEMENT - SCORE: 7-IND TRANSFERS: BED, CHAIR, WHEELCHAIR: Activity did not occur on this shift TRANSFERS: BED, CHAIR, WHEELCHAIR - SCORE: 0-UNK TRANSFERS: TOILET: Activity did not occur on this shift TRANSFERS: TOILET - SCORE: 0-UNK TRANSFERS: SHOWER: Activity did not occur on this shift TRANSFERS: SHOWER - SCORE: 0-UNK TRANSFERS: TUB: TRANSFERS: TUB - STEP 1: Does the patient require assistance with tub transfers? Yes. TRANSFERS: TUB - STEP 2: Does the patient require the assistance of a helper? Yes. TRANSFERS: TUB - STEP 3: How much assistance does the patient require from the helper? Only supervision, cuing, coaxing, or he lp to set out transfer equipment or to lock brakes and/or lift foot rests TRANSFERS: TUB - SCORE: 5-SUP LOCOMOTION: WALK: Activity did not occur on this shift LOCOMOTION: WALK - SCORE: 0-UNK LOCOMOTION: WHEELCHAIR: Activity did not occur on this shift LOCOMOTION: WHEELCHAIR - SCORE: 0-UNK LOCOMOTION: STAIRS: Activity did not occur on this shift LOCOMOTION: STAIRS - SCORE: 0-UNK COMPREHENSION: COMPREHENSION - STEP 1: Does the patient require help to understand complex and abstract ideas (such as current events, finan kellen, discharge planning, medical issues, relationships, etc)? No. COMPREHENSION - STEP 2: Does the patient need extra time, require an assistive device (such as glasses, hearing aids, or an a ugmentative communication system), OR does s/he have mild difficulty expressing complex and abstract ideas (including mild dysarthria or mild word-finding problems)? No. COMPREHENSION - SCORE: 7-IND EXPRESSION EXPRESSION: TYPE: Non-Vocal EXPRESSION - STEP 1: Does the patient require help expressing complex and abstract ideas (such as current events, finances , discharge planning, medical issues, relationships, etc)? No. EXPRESSION - STEP 2: Does the patient need extra time, require an assistive device (such as augmentive communication syste m or a communication board), OR does s/he have mild difficulty expressing complex and abstract ideas (including mild dysarthria or mild word-find problems)? No. EXPRESSION - SCORE: 7-IND SOCIAL INTERACTION: SOCIAL INTERACTION - STEP 1: Does the patient require a helper to interact with others in social and therapeutic situations? No. SOCIAL INTERACTION - STEP 2: Does the patient need extra time in social situations, OR does s/he interact with staff, other patien ts, and family members ONLY in structured environments, OR does s/he require medication for social in teraction? Yes, patient requires medication for social interaction SOCIAL INTERACTION - SCORE: 6-DEBI PROBLEM SOLVING: PROBLEM SOLVING - STEP 1: Does the patient need help to solve complex problems such as managing a checking account or confronti ng interpersonal problems? No. PROBLEM SOLVING - STEP 2: Does the patient require extra time to make decisions or solve problems, OR does s/he have slight dif ficulty reading, initiating, or self-correcting in unfamiliar situations? No. PROBLEM SOLVING - SCORE: 7-IND MEMORY: MEMORY - STEP 1: Does the patient need help to remember frequently encountered people, daily routines, and executing r equests? No. MEMORY - STEP 2: Does the patient have slight difficulty recognizing frequently encountered people, daily routines, or executing requests without the need for repetition or using self-initiated or environmental cues to remember? No. MEMORY - SCORE: 7-IND SIGNATURE PANEL: The following modified sections: Eating - Score, Grooming - Score, Bathing - Score, Dressing - Upper Body - Score, Dressing - Lower Body - Score, Toileting - Score, Transfers: Bed, Chair, Wheelchair - S core, Transfers: Toilet - Score, Transfers: Shower - Score, Transfers: Tub - Score, Comprehension - S core, Expression - Score, Social Interaction - Score, Problem Solving - Score, Memory - Score were [e lectronically] signed by QING Lal on MonJul 26 2017 15:00:42 T-0500 ([facility] Time)
--- NOTE | 2017-07-26 16:42 | FAST ---
ENCOUNTER DATE AND TIME: 07/26/2017 08:00 (CDT) NAME CYNTHIA JENSEN DATE OF : 1965 DATE OF ADMISSION: 07/10/2017 20:00 (CDT) PHONE: AGE: 52 N# [id number] GENDER: Male ENCOUNTER PHYSICIAN: Dr. Andrew Escalona M.D. 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 EATING: Activity did not occur on this shift EATING - SCORE: 0-UNK GROOMING: Activity did not occur on this shift GROOMING - SCORE: 0-UNK BATHING: Activity did not occur on this shift BATHING - SCORE: 0-UNK DRESSING - UPPER BODY: Activity did not occur on this shift Patient is not dressing in public clothing ARTICLES SCORE Total number of steps: 0 DRESSING - UPPER BODY - SCORE: 0-UNK DRESSING - LOWER BODY: Activity did not occur on this shift Patient is not dressing in public clothing ARTICLES SCORE Total number of steps: 0 DRESSING - LOWER BODY - SCORE: 0-UNK TOILETING: Activity did not occur on this shift TOILETING - SCORE: 0-UNK BLADDER MANAGEMENT: Activity did not occur on this shift BLADDER MANAGEMENT - SCORE: 7-IND BOWEL MANAGEMENT: Activity did not occur on this shift BOWEL MANAGEMENT - SCORE: 7-IND TRANSFERS: BED, CHAIR, WHEELCHAIR: TRANSFERS: BED, CHAIR, WHEELCHAIR - STEP 1: Does the patient require assistance with bed, chair, or wheelchair transfers? Yes. TRANSFERS: BED, CHAIR, WHEELCHAIR - STEP 2: Does the patient require the assistance of a helper? No. Patient only requires an assistive device fo r bed, chair, wheelchair transfers such as a sliding board, grab bar, or brace, OR s/he takes more th an reasonable time, OR there is a safety concern when s/he performs the transfers TRANSFERS: BED, CHAIR, WHEELCHAIR - SCORE: 6-DEBI TRANSFERS: TOILET: Activity did not occur on this shift TRANSFERS: TOILET - SCORE: 0-UNK TRANSFERS: SHOWER: Activity did not occur on this shift TRANSFERS: SHOWER - SCORE: 0-UNK TRANSFERS: TUB: Activity did not occur on this shift TRANSFERS: TUB - SCORE: 0-UNK LOCOMOTION: WALK: LOCOMOTION: WALK - STEP 1: Does the patient need help to walk 150 feet? No. LOCOMOTION: WALK - STEP 2: Does the patient need an assistive device (such as an orthosis, prosthesis, crutches, or walker) to g o 150 feet, OR does s/he take more than reasonable time, OR is there a concern for safety? Yes, the p atient needs an assistive device LOCOMOTION: WALK - SCORE: 6-DEBI LOCOMOTION: WHEELCHAIR: LOCOMOTION: WHEELCHAIR - STEP 1: Does the patient need help to go 150 feet in a wheelchair? No. LOCOMOTION: WHEELCHAIR - SCORE: 6-DEBI LOCOMOTION: STAIRS: LOCOMOTION: STAIRS - STEP 1: Does the patient need help to go up and down 12 to 14 stairs? No. LOCOMOTION: STAIRS - STEP 2: Does the patient require an assistive device - such as handrails or cane - to go up and down one flig ht of stairs, OR does s/he take more than reasonable time, OR is there a concern for safety? Yes, the patient requires an assistive device LOCOMOTION: STAIRS - SCORE: 6-DEBI COMPREHENSION: COMPREHENSION - SCORE: 0-UNK EXPRESSION EXPRESSION - SCORE: 0-UNK SOCIAL INTERACTION: SOCIAL INTERACTION - SCORE: 0-UNK PROBLEM SOLVING: PROBLEM SOLVING - SCORE: 0-UNK MEMORY: MEMORY - SCORE: 0-UNK SIGNATURE PANEL: The following modified sections: Transfers: Bed, Chair, Wheelchair - Score, Transfers: Toilet - Score , Locomotion: Walk - Score, Locomotion: Wheelchair - Score, Locomotion: Stairs - Score were [amina [email or web address]] signed by Inocente Lau PTA on MonJul 26 2017 15:43:29 GMT-0500 (Central Daylight Time)
--- NOTE | 2017-07-26 19:29 | R.PN ---
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 Pt denied any depression. Ambulated 500' with modfied independence using a rolling walker. Up and down 15 steps with modified i ndependence. Propelled wheelchair 500' with modified independence. Self propelled wheelchair 250' with maximum assistance. VITAL SIGNS Temperature: 97.7 F SBP/DBP: 126/75 Pulse: 98 Resp: 16 MEDICATION ALLERGIES: CODEINE ENVIRONMENTAL ALLERGIES: - Substance Allergies None Known - Other Allergies None Known NURSING: - Shower allowing shower - Lab Results blood Sugar Check ACHS ACTIVITIES OOB only with supervision THERAPIES: - Occupational Therapy Evaluate and Treat. - Physical Therapy Evaluate and Treat. PHYSICAL EXAM - Gen Alert and awake Lying in bed No apparent distress Oriented to: person, time, and place - Vital Signs Vital signs stable, afebrile - Skin No skin breakdown. Normacephalic - Eyes No abnormalities - ENMT No abnormalities - Neck No abnormalities - CVS RRR - Resp Clear to auscultation - Abd Soft - GI Non distended Deferred - No abnormalities - Ext No significant edema - MSK 4/5 weakness in both upper extremities and 3+/5 weakness in both lower extremities. - Psych No abnormalities ASSESSMENT: Pt. 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 was independent/mod-I in Self-Care, Sphi ncter Control, Transfers Control, Communication, Social Cognition, and Locomotion; and he had good Sp hincter Control.Currently, he has deficits of Self-Care, Transfers Control, Communication, Social Cog nition, Endurance, Balance, Safety Awareness, and Locomotion.Pt. is now referred to [facility] for acute in-patient rehabilitation in order to maximize patient's functional indepe ndence in activities of daily living, strength, ROM, and mobility.- Rehab Goal Patient has realistic goal of being discharged at assistance level 6-Dhara to reside at Home with Fam shant/Relatives. MDM/PLAN: - Diet Type Continue Regular - Physical Therapy Gait dysfunction - to improve, our physical therapists will perform initial evaluation of pt's statu s upon admission and devise an individualized program for Gait Training, and Wheel Chair mobility Inability to transfer - to improve, our physical therapists will perform initial evaluation of pt's status upon admission and devise an individualized program for Bed mobility Need for home safety evaluation - to improve, our physical therapists will perform initial evaluatio n of pt's status upon admission and devise an individualized program for Home Evaluation Need in caregiver upon discharge - to improve, our physical therapists will perform initial evaluati on of pt's status upon admission and devise an individualized program for Caregiver Training New precaution - to improve, our physical therapists will perform initial evaluation of pt's status upon admission and devise an individualized program for Patient precaution education Edema - to improve, our physical therapists will perform initial evaluation of pt's status upon admi ssion and devise an individualized program for Elevation Training, and Lymphedema Therapy Poor balance - to improve, our physical therapists will perform initial evaluation of pt's status up on admission and devise an individualized program for Balance Training Poor endurance - to improve, our physical therapists will perform initial evaluation of pt's status upon admission and devise an individualized program for Endurance Training Weakness - to improve, our physical therapists will perform initial evaluation of pt's status upon a dmission and devise an individualized program for Aquatic Therapy, Neuromuscular Reeducation, and Str engthening Achieving independence - to improve, our physical therapists will perform initial evaluation of pt's status upon admission and devise an individualized program for Community Reintegration Activities - Diet - Liquid Texture Continue Regular - Tube Feed Continue N/A - Lab Results blood Sugar Check ACHS - Diet - Solid Texture Continue Regular - Shower allowing shower - Occupational Therapy ADL deficits - to improve, our occupation therapists will perform initial evaluation of pt's status upon admission and devise an individualized program for Bathing, Bed mobility, Community Reintegratio n, Cooking, Dressing, Eating, Fine Motor Skills, Grooming, Homemaking, Kitchen Mobility, Laundry, Pat ient Education, Safety Awareness, Splinting - Positioning, Transfers(Toilet, Tub, Shower), and Wheel Chair Management Cognitive deficits - to improve, our occupation therapists will perform initial evaluation of pt's s tatus upon admission and devise an individualized program for Cognition - orientation Need for health and social care teacher - to improve, our occupation therapists will perform initial evaluation of pt's status upon admission and devise an individualized program for Caregiver Training Weakness - to improve, our occupation therapists will perform initial evaluation of pt's status upon admission and devise an individualized program for Aquatic Therapy, Balance, Endurance, UE ROM, and UE strengthening FUNCTIONAL STATUS: UPDATED AT WEEKLY TEAM CONFERENCE - Bladder Same accident frequency: 7-Ind - No accidents in the past 7 days - Bowel Same accident frequency: 7-Ind - No accidents in the past 7 days - Walking Same score based on distance walked: 0(N/A) FUNCTIONAL STATUS: - Self-Care A. Eating sup B. Grooming Satinder C. Bathing modA D. Dressing - Upper modA E. Dressing - Lower modA F. Toileting modA - Sphincter Control G: Bladder control Ind H: Bowel control Ind - Transfers Control I. Bed/Chair/Wheelchair modA J. Toilet modA K. Tub/Shower ADNO - Locomotion L. Walk/Wheelchair (B) Dep M. Stairs ADNO - Communication N. Comprehension (B) sup O. Expression (B) sup - Social Cognition P. Social Interaction sup Q. Problem Solving sup R. Memory Dhara - Endurance Poor - Balance Poor - Safety Awareness Poor CURRENT FUNC. DEFICITS: Self-Care, Transfers Control, Communication, Social Cognition, Endurance, Balance, Safety Awareness, and Locomotion SIGNATURE PANEL: (CDT)
[2017-07-26] MEDS: POLYVINYL ALCOHOL 1.4% 15 ML EACH EYE SCH (21:00)
[2017-07-26] MEDS: SENOSIDES 8.6 MG TAB PO SCH (21:07)
[2017-07-26] MEDS: AMITRIPTYLINE 50 MG TAB PO SCH (21:07)
[2017-07-26] MEDS: ZOLPIDEM TARTRATE 5 MG TABLET PO PRN (21:07)
[2017-07-26] MEDS: INSULIN DETEMIR 100 UNIT/1 ML INSULIN SQ SCH (21:07)
--- NOTE | 2017-07-27 03:52 | FAST ---
SHIFT START DATE/TIME: 07/26/2017 19:00 (CDT) SHIFT END DATE/TIME: 07/27/2017 07:00 (CDT) NAME CYNTHIA JENSEN DATE OF : 1965 DATE OF ADMISSION: 07/10/2017 20:00 (CDT) PHONE: AGE: 52 [facility]# [id number] GENDER: Male ENCOUNTER PHYSICIAN: Dr. Andrew Escalona M.D. 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 EATING: Activity did not occur on this shift EATING - SCORE: 0-UNK GROOMING: Wash, rinse, and dry hands GROOMING - STEP 1: Does the patient require assistance when grooming? Yes. GROOMING - STEP 2: Does the patient require the assistance of a helper? Yes. GROOMING - STEP 3: How much assistance does the patient require from the helper? Cuing, coaxing, instructions, or encour agement for completion of grooming GROOMING - SCORE: 5-SUP BATHING: Activity did not occur on this shift BATHING - SCORE: 0-UNK DRESSING - UPPER BODY: Activity did not occur on this shift ARTICLES SCORE Total number of steps: 0 DRESSING - UPPER BODY - SCORE: 0-UNK DRESSING - LOWER BODY: Activity did not occur on this shift ARTICLES SCORE Total number of steps: 0 DRESSING - LOWER BODY - SCORE: 0-UNK TOILETING: TOILETING - STEP 1: Does the patient require assistance with toileting? Yes. TOILETING - STEP 2: Does the patient require the assistance of a helper? Yes. TOILETING - STEP 3: How much assistance does the patient require from the helper? Only supervision TOILETING - SCORE: 5-SUP BLADDER MANAGEMENT: BLADDER MANAGEMENT - STEP 1: Does the patient control the bladder completely and intentionally without equipment or devices or med ications, and is always continent? No. BLADDER MANAGEMENT - STEP 2: Does the patient require the assistance of a helper? Yes. BLADDER MANAGEMENT - STEP 3: How much assistance does the patient require from the helper? Only set-up of equipment - such as plac ing it within reach of the patient or emptying a device - to maintain either satisfactory voiding pat tern or managing an external device, such as an absorbent pad, ileal device, or catheter BLADDER MANAGEMENT - SCORE: 5-SUP BOWEL MANAGEMENT: Activity did not occur on this shift BOWEL MANAGEMENT - SCORE: 7-IND TRANSFERS: BED, CHAIR, WHEELCHAIR: TRANSFERS: BED, CHAIR, WHEELCHAIR - STEP 1: Does the patient require assistance with bed, chair, or wheelchair transfers? Yes. TRANSFERS: BED, CHAIR, WHEELCHAIR - STEP 2: Does the patient require the assistance of a helper? Yes. TRANSFERS: BED, CHAIR, WHEELCHAIR - STEP 3: How much assistance does the patient require from the helper? Only supervision TRANSFERS: BED, CHAIR, WHEELCHAIR - SCORE: 5-SUP TRANSFERS: TOILET: TRANSFERS: TOILET - STEP 1: Does the patient require assistance with toilet transfers? Yes. TRANSFERS: TOILET - STEP 2: Does the patient require the assistance of a helper? Yes. TRANSFERS: TOILET - STEP 3: How much assistance does the patient require from the helper? Only supervision, cuing, coaxing, OR he lp to set out transfer equipment or to lock brakes and/or lift foot rests TRANSFERS: TOILET - SCORE: 5-SUP TRANSFERS: SHOWER: Activity did not occur on this shift TRANSFERS: SHOWER - SCORE: 0-UNK TRANSFERS: TUB: Activity did not occur on this shift TRANSFERS: TUB - SCORE: 0-UNK LOCOMOTION: WALK: Activity did not occur on this shift LOCOMOTION: WALK - SCORE: 0-UNK LOCOMOTION: WHEELCHAIR: Activity did not occur on this shift LOCOMOTION: WHEELCHAIR - SCORE: 0-UNK COMPREHENSION: COMPREHENSION: TYPE: Both COMPREHENSION - STEP 1: Does the patient require help to understand complex and abstract ideas (such as current events, finan kellen, discharge planning, medical issues, relationships, etc)? No. COMPREHENSION - STEP 2: Does the patient need extra time, require an assistive device (such as glasses, hearing aids, or an a ugmentative communication system), OR does s/he have mild difficulty expressing complex and abstract ideas (including mild dysarthria or mild word-finding problems)? Yes. COMPREHENSION - SCORE: 6-DEBI EXPRESSION EXPRESSION: TYPE: Both EXPRESSION - STEP 1: Does the patient require help expressing complex and abstract ideas (such as current events, finances , discharge planning, medical issues, relationships, etc)? No. EXPRESSION - STEP 2: Does the patient need extra time, require an assistive device (such as augmentive communication syste m or a communication board), OR does s/he have mild difficulty expressing complex and abstract ideas (including mild dysarthria or mild word-find problems)? No. EXPRESSION - SCORE: 7-IND SOCIAL INTERACTION: SOCIAL INTERACTION - STEP 1: Does the patient require a helper to interact with others in social and therapeutic situations? No. SOCIAL INTERACTION - STEP 2: Does the patient need extra time in social situations, OR does s/he interact with staff, other patien ts, and family members ONLY in structured environments, OR does s/he require medication for social in teraction? Yes, patient needs extra time SOCIAL INTERACTION - SCORE: 6-DEBI PROBLEM SOLVING: PROBLEM SOLVING - STEP 1: Does the patient need help to solve complex problems such as managing a checking account or confronti ng interpersonal problems? No. PROBLEM SOLVING - STEP 2: Does the patient require extra time to make decisions or solve problems, OR does s/he have slight dif ficulty reading, initiating, or self-correcting in unfamiliar situations? Yes, patient needs extra ti me. PROBLEM SOLVING - SCORE: 6-DEBI MEMORY: MEMORY - STEP 1: Does the patient need help to remember frequently encountered people, daily routines, and executing r equests? No. MEMORY - STEP 2: Does the patient have slight difficulty recognizing frequently encountered people, daily routines, or executing requests without the need for repetition or using self-initiated or environmental cues to remember? No. MEMORY - SCORE: 7-IND
[2017-07-27] MEDS: PANTOPRAZOLE 40MG TABLET PO SCH (06:12)
[2017-07-27 06:31] LABS: Absolute Lymphocytes (CBC) 2.3 K/uL (0.7-4.9); Absolute Monocytes 0.5 K/uL (0.1-1.3); Absolute Neutrophil 1.8 K/uL (1.8-8.0); Basophils % 0.4 % (0-1.3); Hematocrit 28.2 % (39.6-49.0); Lymphocytes % 46.1 % (15.3-44.8); MCH 28.1 pg (27.0-35.0); MCV 82.4 fL (80-100); Monocytes % 9.8 % (3.3-12.3); RBC Red Blood Cell Count 3.42 M/uL (4.33-5.43)
[2017-07-27 06:40] LABS: Albumin 2.7 g/dL (3.2-5.5); BUN Blood Urea Nitrogen 12 mg/dL (6-20); Bicarbonate 29 mEq/L (21-31); Glucose Level 121 mg/dL (65-120); Prealbumin 22.6 mg/dl (18-38); Sodium Level 133 mEq/L (135-145)
[2017-07-27] MEDS: INSULIN -REGULAR HUMAN 50 UNIT/0.5 ML ML SQ SCH ×4 (07:01→20:11)
[2017-07-27] MEDS: METOPROLOL TAR 50 MG TAB PO SCH ×2 (08:00→20:10)
[2017-07-27] MEDS: AMLODIPINE 10 MG TAB PO SCH (08:00)
[2017-07-27] MEDS: ENOXAPARIN 40 MG/0.4 ML SQ SCH (08:40)
[2017-07-27] MEDS: NYSTATIN 500,000 UNIT/5 ML UDC PO SCH ×2 (08:40→20:10)
[2017-07-27] MEDS: THIAMINE HCL 100 MG TABLET PO SCH (08:40)
[2017-07-27] MEDS: SODIUM CHLORIDE 1 GM TAB PO SCH ×3 (08:40→16:50)
[2017-07-27] MEDS: TAMSULOSIN 0.4 MG SR CAP PO SCH (08:40)
[2017-07-27] MEDS: FOLIC ACID 1 MG TABLET PO SCH (08:41)
[2017-07-27] MEDS: GABAPENTIN 300 MG CAP PO SCH ×3 (08:41→20:10)
[2017-07-27] MEDS: MAGNESIUM OXIDE 400 MG TAB PO SCH ×2 (08:41→20:10)
[2017-07-27] MEDS: MULTIVITAMIN TAB PO SCH (08:41)
[2017-07-27] MEDS: CALCIUM CARB 500MG/VIT D 200 IU TAB PO SCH (08:41)
[2017-07-27] MEDS: HYDROCODONE/APAP 5/325 MG TAB PO PRN ×2 (08:42→20:10)
[2017-07-27] MEDS: TRUVADA TABLET PO SCH (08:43)
--- NOTE | 2017-07-27 11:14 | FAST ---
SHIFT START DATE/TIME: 07/27/2017 07:00 (CDT) SHIFT END DATE/TIME: 07/27/2017 19:00 (CDT) NAME CYNTHIA JENSEN DATE OF : 1965 DATE OF ADMISSION: 07/10/2017 20:00 (CDT) PHONE: AGE: 52 N# [id number] GENDER: Male ENCOUNTER PHYSICIAN: Dr. Andrew Escalona M.D. 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 EATING: EATING - STEP 1: Does the patient require assistance when eating? Yes. EATING - STEP 2: Does the patient require the assistance of a helper? No, patient only requires an assistive device, O R s/he takes more than reasonable time to eat, OR there is a safety concern, OR s/he requires modifie d food consistency EATING - SCORE: 6-DEBI GROOMING: Comb/brush hair Oral care Wash, rinse, and dry face Wash, rinse, and dry hands GROOMING - STEP 1: Does the patient require assistance when grooming? Yes. GROOMING - STEP 2: Does the patient require the assistance of a helper? Yes. GROOMING - STEP 3: How much assistance does the patient require from the helper? Only prior equipment preparation/set up from the helper GROOMING - SCORE: 5-SUP BATHING: Activity did not occur on this shift BATHING - SCORE: 0-UNK DRESSING - UPPER BODY: Activity did not occur on this shift ARTICLES SCORE Total number of steps: 0 DRESSING - UPPER BODY - SCORE: 0-UNK DRESSING - LOWER BODY: Activity did not occur on this shift ARTICLES SCORE Total number of steps: 0 DRESSING - LOWER BODY - SCORE: 0-UNK TOILETING: TOILETING - STEP 1: Does the patient require assistance with toileting? Yes. TOILETING - STEP 2: Does the patient require the assistance of a helper? No. TOILETING - SCORE: 6-DEBI BLADDER MANAGEMENT: BLADDER MANAGEMENT - STEP 1: Does the patient control the bladder completely and intentionally without equipment or devices or med ications, and is always continent? Yes. BLADDER MANAGEMENT - SCORE: 7-IND BOWEL MANAGEMENT: Activity did not occur on this shift BOWEL MANAGEMENT - SCORE: 7-IND TRANSFERS: BED, CHAIR, WHEELCHAIR: TRANSFERS: BED, CHAIR, WHEELCHAIR - STEP 1: Does the patient require assistance with bed, chair, or wheelchair transfers? Yes. TRANSFERS: BED, CHAIR, WHEELCHAIR - STEP 2: Does the patient require the assistance of a helper? No. Patient only requires an assistive device fo r bed, chair, wheelchair transfers such as a sliding board, grab bar, or brace, OR s/he takes more th an reasonable time, OR there is a safety concern when s/he performs the transfers TRANSFERS: BED, CHAIR, WHEELCHAIR - SCORE: 6-DEBI TRANSFERS: TOILET: TRANSFERS: TOILET - STEP 1: Does the patient require assistance with toilet transfers? Yes. TRANSFERS: TOILET - STEP 2: Does the patient require the assistance of a helper? No. Patient only requires an assistive device freitas ch as a grab bar or special seat, OR s/he takes more than reasonable time to perform toilet transfers , OR there is a safety concern when s/he performs toilet transfers. TRANSFERS: TOILET - SCORE: 6-DEBI TRANSFERS: SHOWER: Activity did not occur on this shift TRANSFERS: SHOWER - SCORE: 0-UNK TRANSFERS: TUB: Activity did not occur on this shift TRANSFERS: TUB - SCORE: 0-UNK LOCOMOTION: WALK: Activity did not occur on this shift LOCOMOTION: WALK - SCORE: 0-UNK LOCOMOTION: WHEELCHAIR: Activity did not occur on this shift LOCOMOTION: WHEELCHAIR - SCORE: 0-UNK COMPREHENSION: COMPREHENSION - SCORE: 0-UNK EXPRESSION EXPRESSION - SCORE: 0-UNK SOCIAL INTERACTION: SOCIAL INTERACTION - SCORE: 0-UNK PROBLEM SOLVING: PROBLEM SOLVING - SCORE: 0-UNK MEMORY: MEMORY - SCORE: 0-UNK SIGNATURE PANEL: The following modified sections: Eating - Score, Grooming - Score, Bathing - Score, Dressing - Upper Body - Score, Dressing - Lower Body - Score, Toileting - Score, Bladder Management - Score, Bowel Man agement - Score, Transfers: Bed, Chair, Wheelchair - Score, Transfers: Toilet - Score, Transfers: Dilma wer - Score, Transfers: Tub - Score, Locomotion: Walk - Score, Locomotion: Wheelchair - Score, Compre hension - Score, Social Interaction - Score, Expression - Score, Problem Solving - Score, Memory - Sc ore were [electronically] signed by Nasir Guido on MonJul 27 2017 10:15:37 GMT-0500 (Central Daylight Time)
--- NOTE | 2017-07-27 16:32 | FAST ---
ENCOUNTER DATE AND TIME: 07/27/2017 08:00 (CDT) NAME CYNTHIA JENSEN DATE OF : 1965 DATE OF ADMISSION: 07/10/2017 20:00 (CDT) PHONE: AGE: 52 N# [id number] GENDER: Male ENCOUNTER PHYSICIAN: Dr. Andrew Escalona M.D. 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 EATING: Activity did not occur on this shift EATING - SCORE: 0-UNK GROOMING: Activity did not occur on this shift GROOMING - SCORE: 0-UNK BATHING: Activity did not occur on this shift BATHING - SCORE: 0-UNK DRESSING - UPPER BODY: Activity did not occur on this shift Patient is not dressing in public clothing ARTICLES SCORE Total number of steps: 0 DRESSING - UPPER BODY - SCORE: 0-UNK DRESSING - LOWER BODY: Activity did not occur on this shift Patient is not dressing in public clothing ARTICLES SCORE Total number of steps: 0 DRESSING - LOWER BODY - SCORE: 0-UNK TOILETING: Activity did not occur on this shift TOILETING - SCORE: 0-UNK BLADDER MANAGEMENT: Activity did not occur on this shift BLADDER MANAGEMENT - SCORE: 7-IND BOWEL MANAGEMENT: Activity did not occur on this shift BOWEL MANAGEMENT - SCORE: 7-IND TRANSFERS: BED, CHAIR, WHEELCHAIR: TRANSFERS: BED, CHAIR, WHEELCHAIR - STEP 1: Does the patient require assistance with bed, chair, or wheelchair transfers? Yes. TRANSFERS: BED, CHAIR, WHEELCHAIR - STEP 2: Does the patient require the assistance of a helper? No. Patient only requires an assistive device fo r bed, chair, wheelchair transfers such as a sliding board, grab bar, or brace, OR s/he takes more th an reasonable time, OR there is a safety concern when s/he performs the transfers TRANSFERS: BED, CHAIR, WHEELCHAIR - SCORE: 6-DEBI TRANSFERS: TOILET: Activity did not occur on this shift TRANSFERS: TOILET - SCORE: 0-UNK TRANSFERS: SHOWER: Activity did not occur on this shift TRANSFERS: SHOWER - SCORE: 0-UNK TRANSFERS: TUB: Activity did not occur on this shift TRANSFERS: TUB - SCORE: 0-UNK LOCOMOTION: WALK: LOCOMOTION: WALK - STEP 1: Does the patient need help to walk 150 feet? No. LOCOMOTION: WALK - STEP 2: Does the patient need an assistive device (such as an orthosis, prosthesis, crutches, or walker) to g o 150 feet, OR does s/he take more than reasonable time, OR is there a concern for safety? Yes, the p atient needs an assistive device LOCOMOTION: WALK - SCORE: 6-DEBI LOCOMOTION: WHEELCHAIR: LOCOMOTION: WHEELCHAIR - STEP 1: Does the patient need help to go 150 feet in a wheelchair? No. LOCOMOTION: WHEELCHAIR - SCORE: 6-DEBI LOCOMOTION: STAIRS: LOCOMOTION: STAIRS - STEP 1: Does the patient need help to go up and down 12 to 14 stairs? No. LOCOMOTION: STAIRS - STEP 2: Does the patient require an assistive device - such as handrails or cane - to go up and down one flig ht of stairs, OR does s/he take more than reasonable time, OR is there a concern for safety? Yes, the patient requires an assistive device LOCOMOTION: STAIRS - SCORE: 6-DEBI COMPREHENSION: COMPREHENSION - SCORE: 0-UNK EXPRESSION EXPRESSION - SCORE: 0-UNK SOCIAL INTERACTION: SOCIAL INTERACTION - SCORE: 0-UNK PROBLEM SOLVING: PROBLEM SOLVING - SCORE: 0-UNK MEMORY: MEMORY - SCORE: 0-UNK SIGNATURE PANEL: The following modified sections: Transfers: Bed, Chair, Wheelchair - Score, Transfers: Toilet - Score , Locomotion: Walk - Score, Locomotion: Wheelchair - Score, Locomotion: Stairs - Score were [[email or web address] [email or web address]] signed by Inocente Lau PTA on MonJul 27 2017 15:33:51 T-0500 (Central Daylight Time)
--- NOTE | 2017-07-27 18:32 | R.PN ---
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 Pt denied any depression. Ambulated 500' with modfied independence using a rolling walker. Up and down 15 steps with modified i ndependence. Propelled wheelchair 500' with modified independence. Self propelled wheelchair 250' with maximum assistance. VITAL SIGNS Temperature: 97.6 F SBP/DBP: 116/70 Pulse: 85 Resp: 16 MEDICATION ALLERGIES: CODEINE ENVIRONMENTAL ALLERGIES: - Substance Allergies None Known - Other Allergies None Known NURSING: - Shower allowing shower - Lab Results blood Sugar Check ACHS ACTIVITIES OOB only with supervision THERAPIES: - Occupational Therapy Evaluate and Treat. - Physical Therapy Evaluate and Treat. PHYSICAL EXAM - Gen Alert and awake Lying in bed No apparent distress Oriented to: person, time, and place - Vital Signs Vital signs stable, afebrile - Skin No skin breakdown. Normacephalic - Eyes No abnormalities - ENMT No abnormalities - Neck No abnormalities - CVS RRR - Resp Clear to auscultation - Abd Soft - GI Non distended Deferred - No abnormalities - Ext No significant edema - MSK 4/5 weakness in both upper extremities and 3+/5 weakness in both lower extremities. - Psych No abnormalities ASSESSMENT: Pt. 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 was independent/mod-I in Self-Care, Sphi ncter Control, Transfers Control, Communication, Social Cognition, and Locomotion; and he had good Sp hincter Control.Currently, he has deficits of Self-Care, Transfers Control, Communication, Social Cog nition, Endurance, Balance, Safety Awareness, and Locomotion.Pt. is now referred to [facility] for acute in-patient rehabilitation in order to maximize patient's functional indepe ndence in activities of daily living, strength, ROM, and mobility.- Rehab Goal Patient has realistic goal of being discharged at assistance level 6-Dhara to reside at Home with Fam shant/Relatives. MDM/PLAN: - Diet Type Continue Regular - Physical Therapy Gait dysfunction - to improve, our physical therapists will perform initial evaluation of pt's statu s upon admission and devise an individualized program for Gait Training, and Wheel Chair mobility Inability to transfer - to improve, our physical therapists will perform initial evaluation of pt's status upon admission and devise an individualized program for Bed mobility Need for home safety evaluation - to improve, our physical therapists will perform initial evaluatio n of pt's status upon admission and devise an individualized program for Home Evaluation Need in caregiver upon discharge - to improve, our physical therapists will perform initial evaluati on of pt's status upon admission and devise an individualized program for Caregiver Training New precaution - to improve, our physical therapists will perform initial evaluation of pt's status upon admission and devise an individualized program for Patient precaution education Edema - to improve, our physical therapists will perform initial evaluation of pt's status upon admi ssion and devise an individualized program for Elevation Training, and Lymphedema Therapy Poor balance - to improve, our physical therapists will perform initial evaluation of pt's status up on admission and devise an individualized program for Balance Training Poor endurance - to improve, our physical therapists will perform initial evaluation of pt's status upon admission and devise an individualized program for Endurance Training Weakness - to improve, our physical therapists will perform initial evaluation of pt's status upon a dmission and devise an individualized program for Aquatic Therapy, Neuromuscular Reeducation, and Str engthening Achieving independence - to improve, our physical therapists will perform initial evaluation of pt's status upon admission and devise an individualized program for Community Reintegration Activities - Diet - Liquid Texture Continue Regular - Tube Feed Continue N/A - Lab Results blood Sugar Check ACHS - Diet - Solid Texture Continue Regular - Shower allowing shower - Occupational Therapy ADL deficits - to improve, our occupation therapists will perform initial evaluation of pt's status upon admission and devise an individualized program for Bathing, Bed mobility, Community Reintegratio n, Cooking, Dressing, Eating, Fine Motor Skills, Grooming, Homemaking, Kitchen Mobility, Laundry, Pat ient Education, Safety Awareness, Splinting - Positioning, Transfers(Toilet, Tub, Shower), and Wheel Chair Management Cognitive deficits - to improve, our occupation therapists will perform initial evaluation of pt's s tatus upon admission and devise an individualized program for Cognition - orientation Need for child care lead teacher - to improve, our occupation therapists will perform initial evaluation of pt's status upon admission and devise an individualized program for Caregiver Training Weakness - to improve, our occupation therapists will perform initial evaluation of pt's status upon admission and devise an individualized program for Aquatic Therapy, Balance, Endurance, UE ROM, and UE strengthening FUNCTIONAL STATUS: UPDATED AT WEEKLY TEAM CONFERENCE - Bladder Same accident frequency: 7-Ind - No accidents in the past 7 days - Bowel Same accident frequency: 7-Ind - No accidents in the past 7 days - Walking Same score based on distance walked: 0(N/A) FUNCTIONAL STATUS: - Self-Care A. Eating sup B. Grooming Satinder C. Bathing modA D. Dressing - Upper modA E. Dressing - Lower modA F. Toileting modA - Sphincter Control G: Bladder control Ind H: Bowel control Ind - Transfers Control I. Bed/Chair/Wheelchair modA J. Toilet modA K. Tub/Shower ADNO - Locomotion L. Walk/Wheelchair (B) Dep M. Stairs ADNO - Communication N. Comprehension (B) sup O. Expression (B) sup - Social Cognition P. Social Interaction sup Q. Problem Solving sup R. Memory Dhara - Endurance Poor - Balance Poor - Safety Awareness Poor CURRENT FUNC. DEFICITS: Self-Care, Transfers Control, Communication, Social Cognition, Endurance, Balance, Safety Awareness, and Locomotion SIGNATURE PANEL: (CDT)
[2017-07-27] MEDS: ZOLPIDEM TARTRATE 5 MG TABLET PO PRN (20:10)
[2017-07-27] MEDS: AMITRIPTYLINE 50 MG TAB PO SCH (20:10)
[2017-07-27] MEDS: SENOSIDES 8.6 MG TAB PO SCH (20:10)
[2017-07-27] MEDS: INSULIN DETEMIR 100 UNIT/1 ML INSULIN SQ SCH (20:11)
[2017-07-27] MEDS: POLYVINYL ALCOHOL 1.4% 15 ML EACH EYE SCH (20:11)
--- NOTE | 2017-07-28 02:20 | FAST ---
SHIFT START DATE/TIME: 07/27/2017 19:00 (CDT) SHIFT END DATE/TIME: 07/28/2017 07:00 (CDT) NAME CYNTHIA JENSEN DATE OF : 1965 DATE OF ADMISSION: 07/10/2017 20:00 (CDT) PHONE: AGE: 52 N# [id number] GENDER: Male ENCOUNTER PHYSICIAN: Dr. Andrew Escalona M.D. 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 EATING: EATING - STEP 1: Does the patient require assistance when eating? Yes. EATING - STEP 2: Does the patient require the assistance of a helper? No, patient only requires an assistive device, O R s/he takes more than reasonable time to eat, OR there is a safety concern, OR s/he requires modifie d food consistency EATING - SCORE: 6-DEBI GROOMING: Oral care Wash, rinse, and dry face Wash, rinse, and dry hands GROOMING - STEP 1: Does the patient require assistance when grooming? Yes. GROOMING - STEP 2: Does the patient require the assistance of a helper? No. The patient only requires an assistive devic e, OR takes more than reasonable time to groom, OR there is a concern for safety as the patient groom s GROOMING - SCORE: 6-DEBI BATHING: Activity did not occur on this shift BATHING - SCORE: 0-UNK DRESSING - UPPER BODY: Patient is not dressing in public clothing ARTICLES SCORE Total number of steps: 0 DRESSING - UPPER BODY - SCORE: 0-UNK DRESSING - LOWER BODY: Patient is not dressing in public clothing ARTICLES SCORE Total number of steps: 0 DRESSING - LOWER BODY - SCORE: 0-UNK TOILETING: TOILETING - STEP 1: Does the patient require assistance with toileting? Yes. TOILETING - STEP 2: Does the patient require the assistance of a helper? No. TOILETING - SCORE: 6-DEBI BLADDER MANAGEMENT: BLADDER MANAGEMENT - STEP 1: Does the patient control the bladder completely and intentionally without equipment or devices or med ications, and is always continent? No. BLADDER MANAGEMENT - STEP 2: Does the patient require the assistance of a helper? No, patient requires and independently uses an a ssistive device, such as a urinal, bedpan, bedside commode, catheter, absorbent pad, or collecting de vice BLADDER MANAGEMENT - SCORE: 6-DEBI BLADDER MANAGEMENT - FREQUENCY OF ACCIDENTS: BLADDER MANAGEMENT(FA) - STEP 1: How many accidents has the patient had during the current shift? 0 BOWEL MANAGEMENT: BOWEL MANAGEMENT - STEP 1: Does the patient control bowels completely and intentionally without equipment devices or medications AND is always continent? No. BOWEL MANAGEMENT - STEP 2: Does the patient require the assistance of a helper? No, patient requires and manages independently a n assistive device such as a bedpan, bedside commode, absorbent pad, incontinent device, or collectin g device BOWEL MANAGEMENT - SCORE: 6-DEBI BOWEL MANAGEMENT - FREQUENCY OF ACCIDENTS: BOWEL MANAGEMENT(FA) - STEP 1: How many accidents has the patient had during the current shift? 0 TRANSFERS: BED, CHAIR, WHEELCHAIR: TRANSFERS: BED, CHAIR, WHEELCHAIR - STEP 1: Does the patient require assistance with bed, chair, or wheelchair transfers? Yes. TRANSFERS: BED, CHAIR, WHEELCHAIR - STEP 2: Does the patient require the assistance of a helper? No. Patient only requires an assistive device fo r bed, chair, wheelchair transfers such as a sliding board, grab bar, or brace, OR s/he takes more th an reasonable time, OR there is a safety concern when s/he performs the transfers TRANSFERS: BED, CHAIR, WHEELCHAIR - SCORE: 6-DEBI TRANSFERS: TOILET: TRANSFERS: TOILET - STEP 1: Does the patient require assistance with toilet transfers? Yes. TRANSFERS: TOILET - STEP 2: Does the patient require the assistance of a helper? No. Patient only requires an assistive device freitas ch as a grab bar or special seat, OR s/he takes more than reasonable time to perform toilet transfers , OR there is a safety concern when s/he performs toilet transfers. TRANSFERS: TOILET - SCORE: 6-DEBI TRANSFERS: SHOWER: Activity did not occur on this shift TRANSFERS: SHOWER - SCORE: 0-UNK TRANSFERS: TUB: Activity did not occur on this shift TRANSFERS: TUB - SCORE: 0-UNK LOCOMOTION: WALK: Activity did not occur on this shift LOCOMOTION: WALK - SCORE: 0-UNK LOCOMOTION: WHEELCHAIR: Activity did not occur on this shift LOCOMOTION: WHEELCHAIR - SCORE: 0-UNK COMPREHENSION: COMPREHENSION: TYPE: Both COMPREHENSION - STEP 1: Does the patient require help to understand complex and abstract ideas (such as current events, finan kellen, discharge planning, medical issues, relationships, etc)? No. COMPREHENSION - STEP 2: Does the patient need extra time, require an assistive device (such as glasses, hearing aids, or an a ugmentative communication system), OR does s/he have mild difficulty expressing complex and abstract ideas (including mild dysarthria or mild word-finding problems)? Yes. COMPREHENSION - SCORE: 6-DEBI EXPRESSION EXPRESSION: TYPE: Both EXPRESSION - STEP 1: Does the patient require help expressing complex and abstract ideas (such as current events, finances , discharge planning, medical issues, relationships, etc)? No. EXPRESSION - STEP 2: Does the patient need extra time, require an assistive device (such as augmentive communication syste m or a communication board), OR does s/he have mild difficulty expressing complex and abstract ideas (including mild dysarthria or mild word-find problems)? No. EXPRESSION - SCORE: 7-IND SOCIAL INTERACTION: SOCIAL INTERACTION - STEP 1: Does the patient require a helper to interact with others in social and therapeutic situations? No. SOCIAL INTERACTION - STEP 2: Does the patient need extra time in social situations, OR does s/he interact with staff, other patien ts, and family members ONLY in structured environments, OR does s/he require medication for social in teraction? Yes, patient requires medication for social interaction SOCIAL INTERACTION - SCORE: 6-DEBI PROBLEM SOLVING: PROBLEM SOLVING - STEP 1: Does the patient need help to solve complex problems such as managing a checking account or confronti ng interpersonal problems? No. PROBLEM SOLVING - STEP 2: Does the patient require extra time to make decisions or solve problems, OR does s/he have slight dif ficulty reading, initiating, or self-correcting in unfamiliar situations? Yes, patient needs extra ti me. PROBLEM SOLVING - SCORE: 6-DEBI MEMORY: MEMORY - STEP 1: Does the patient need help to remember frequently encountered people, daily routines, and executing r equests? No. MEMORY - STEP 2: Does the patient have slight difficulty recognizing frequently encountered people, daily routines, or executing requests without the need for repetition or using self-initiated or environmental cues to remember? Yes. MEMORY - SCORE: 6-DEBI SIGNATURE PANEL: The following modified sections: Eating - Score, Grooming - Score, Bathing - Score, Dressing - Upper Body - Score, Dressing - Lower Body - Score, Toileting - Score, Bladder Management - Score, Bowel Man agement - Score, Transfers: Bed, Chair, Wheelchair - Score, Transfers: Toilet - Score, Transfers: Dilma wer - Score, Transfers: Tub - Score, Locomotion: Walk - Score, Locomotion: Wheelchair - Score, Compre hension - Score, Expression - Score, Social Interaction - Score, Problem Solving - Score, Memory - Sc ore were [electronically] signed by Christina Tapia C.N.Cheli on MonJul 28 2017 01:22:06 T-0500 ( Central Daylight Time)
[2017-07-28] MEDS: ENOXAPARIN 40 MG/0.4 ML SQ SCH (06:57)
[2017-07-28] MEDS: PANTOPRAZOLE 40MG TABLET PO SCH (06:57)
[2017-07-28] MEDS: INSULIN -REGULAR HUMAN 50 UNIT/0.5 ML ML SQ SCH ×4 (07:30→20:14)
[2017-07-28] MEDS: AMLODIPINE 10 MG TAB PO SCH (08:00)
[2017-07-28] MEDS: NYSTATIN 500,000 UNIT/5 ML UDC PO SCH ×2 (08:00→20:12)
[2017-07-28] MEDS: CALCIUM CARB 500MG/VIT D 200 IU TAB PO SCH (08:59)
[2017-07-28] MEDS: SODIUM CHLORIDE 1 GM TAB PO SCH ×3 (08:59→17:25)
[2017-07-28] MEDS: TAMSULOSIN 0.4 MG SR CAP PO SCH (08:59)
[2017-07-28] MEDS: THIAMINE HCL 100 MG TABLET PO SCH (08:59)
[2017-07-28] MEDS: MAGNESIUM OXIDE 400 MG TAB PO SCH ×2 (08:59→20:09)
[2017-07-28] MEDS: FOLIC ACID 1 MG TABLET PO SCH (09:00)
[2017-07-28] MEDS: MULTIVITAMIN TAB PO SCH (09:01)
[2017-07-28] MEDS: GABAPENTIN 300 MG CAP PO SCH ×3 (09:01→20:11)
[2017-07-28] MEDS: METOPROLOL TAR 50 MG TAB PO SCH ×2 (09:01→20:08)
[2017-07-28] MEDS: HYDROCODONE/APAP 5/325 MG TAB PO PRN ×3 (09:02→20:12)
[2017-07-28] MEDS: TRUVADA TABLET PO SCH (09:03)
--- NOTE | 2017-07-28 09:48 | P.RH.PN ---
Estimated Length of Stay: 23 Expected Discharge Date: 08/01/17 Discharge Disposition Plan: Home Family Support: Yes Group Home Goal: Mobility, Transfers, Self Care Vital Signs: Last Vital Signs Temp 97.6 F 07/28/17 07:47 Pulse 85 07/28/17 09:01 Resp 14 07/28/17 07:47 BP 124/68 07/28/17 09:01 Pulse Ox 99 07/28/17 07:47 Laboratory: Laboratory Last Values WBC 5.0 K/uL (4.3-10.9) D 07/27/17 05:46 RBC 3.42 M/uL (4.33-5.43) L 07/27/17 05:46 Hgb 9.6 g/dL (13.6-17.9) L 07/27/17 05:46 Hct 28.2 % (39.6-49.0) L 07/27/17 05:46 MCV 82.4 fL (80-100) 07/27/17 05:46 MCH 28.1 pg (27.0-35.0) 07/27/17 05:46 MCHC 34.1 g/dL (32.0-36.0) 07/27/17 05:46 RDW 15.2 % (12.1-15.2) 07/27/17 05:46 Plt Count 168 K/uL (152-406) 07/27/17 05:46 MPV 7.0 fL (7.6-11.3) L 07/27/17 05:46 Neutrophils % 36.7 % (41.7-73.7) L 07/27/17 05:46 Lymphocytes % 46.1 % (15.3-44.8) H 07/27/17 05:46 Monocytes % 9.8 % (3.3-12.3) 07/27/17 05:46 Eosinophils % 7.0 % (0-4.4) H 07/27/17 05:46 Basophils % 0.4 % (0-1.3) 07/27/17 05:46 Absolute Neutrophils 1.8 K/uL (1.8-8.0) 07/27/17 05:46 Segmented Neutrophils 27 % (40-80) L 07/11/17 05:40 Band Neutrophils 7 % (0-1) H 07/11/17 05:40 Absolute Lymphocytes 2.3 K/uL (0.7-4.9) 07/27/17 05:46 Lymphocytes 59 % (15-42) H 07/11/17 05:40 Monocytes 5 % (0-10) 07/11/17 05:40 Absolute Monocytes 0.5 K/uL (0.1-1.3) 07/27/17 05:46 Eosinophils 1 % (0-3) 07/11/17 05:40 Absolute Eosinophils 0.4 K/uL (0-0.5) 07/27/17 05:46 Absolute Basophils 0.0 K/uL (0-0.5) 07/27/17 05:46 Atypical Lymphocytes 1 07/11/17 05:40 Hypochromasia 1+ 07/11/17 05:40 Morphology Comment Noted (NOT SEEN) 07/11/17 05:40 Sodium 133 mEq/L (135-145) L 07/27/17 05:46 Potassium 4.0 mEq/L (3.6-5.0) 07/27/17 05:46 Chloride 101 mEq/L (101-111) 07/27/17 05:46 Carbon Dioxide 29 mEq/L (21-31) 07/27/17 05:46 BUN 12 mg/dL (6-20) 07/27/17 05:46 Creatinine 0.57 mg/dL (0.61-1.24) L 07/27/17 05:46 Estimated GFR > 90 mL/min (=/>90) 07/27/17 05:46 Glucose 121 mg/dL (65-120) H 07/27/17 05:46 POC Glucose 98 mg/dl (65-120) 07/28/17 06:57 Calcium 9.0 mg/dL (8.5-10.5) 07/27/17 05:46 Magnesium 1.8 mg/dL (1.8-2.5) 07/11/17 05:40 Albumin 2.7 g/dL (3.2-5.5) L 07/27/17 05:46 Prealbumin 22.6 mg/dl (18-38) 07/27/17 05:46 Urine Color Yellow 07/10/17 20:30 Urine Appearance Clear 07/10/17 20:30 Urine pH 7.0 (5.0-7.0) 07/10/17 20:30 Ur Specific [place] 1.020 (1.005-1.030) 07/10/17 20:30 Urine Ketones Negative (NEG) 07/10/17 20:30 Urine Blood Negative (NEG) 07/10/17 20:30 Urine Nitrite Negative (NEG) 07/10/17 20:30 Urine Bilirubin Negative (NEG) 07/10/17 20:30 Urine Urobilinogen 0.2 mg/dL (0.2-1.0) 07/10/17 20:30 Ur Leukocyte Esterase Negative (NEG) 07/10/17 20:30 Urine RBC <5 /HPF (NONE SEEN) 07/10/17 20:30 Urine WBC <5 /HPF (<5) 07/10/17 20:30 Ur Squamous Epith Cells 5-10 /HPF (NONE SEEN) H 07/10/17 20:30 Urine Bacteria 20-50 /HPF (NONE SEEN) H 07/10/17 20:30 Urine Mucus 2+ /HPF (NONE SEEN) 07/10/17 20:30 Urine Culture Reflexed Reflexed 07/10/17 20:30 Urine Glucose Negative (NEG) 07/10/17 20:30 Urine Total Protein 2+ (NEG) H 07/10/17 20:30 Weight: 117 lb 4.8 oz Wound Present: No Closed Surgical Incision Present: No Negative Pressure Wound Therapy Present: No Physician Update: His sodium is chronically low. Will increase NaCl to 1 gram tid. He is on hemocyte plus for low Hgb. Functional Improvement: Patient has met all short-term and long-term goals at this time, w/ the exception of a car transfer due to inability for family member to be present w/ car. Functional Improvement Occupational Therapy: cont with the POC and the goals by the supervising OTR. Pt has demo and improved with increasing pt's endurance, UB strength and ROM. cont to increase pt's static standing tolerance and endurance for adl tasks. Speech Therapy Update: Initial evaluation completed this week. Cognitive- linguistic abilities are WFL. Deficits noted in facial movement for speech sound production, non-verbal expression, and labial closure when swallowing. Pt. is learning and utilizing compensatory strategies for swallowing effectively. He continues to require moderate feedback and cuing to utilize compensatory strategies for speech intelligibility in conversations but is making excellent progress toward mastering compensatory strategy use. Summary: Patient's care plan and custodial goals have been reviewed and revised as necessary. Please see the Rehabilitation Signature page for all necessary signatures.
--- NOTE | 2017-07-28 10:01 | FAST ---
SHIFT START DATE/TIME: 07/28/2017 07:00 (CDT) SHIFT END DATE/TIME: 07/28/2017 19:00 (CDT) NAME CYNTHIA JENSEN DATE OF : 1965 DATE OF ADMISSION: 07/10/2017 20:00 (CDT) PHONE: AGE: 52 N# [id number] GENDER: Male ENCOUNTER PHYSICIAN: Dr. Andrew Escalona M.D. 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 EATING: EATING - STEP 1: Does the patient require assistance when eating? Yes. EATING - STEP 2: Does the patient require the assistance of a helper? No, patient only requires an assistive device, O R s/he takes more than reasonable time to eat, OR there is a safety concern, OR s/he requires modifie d food consistency EATING - SCORE: 6-DEBI GROOMING: Oral care GROOMING - STEP 1: Does the patient require assistance when grooming? Yes. GROOMING - STEP 2: Does the patient require the assistance of a helper? No. The patient only requires an assistive devic e, OR takes more than reasonable time to groom, OR there is a concern for safety as the patient groom s GROOMING - SCORE: 6-DEBI BATHING: Activity did not occur on this shift BATHING - SCORE: 0-UNK DRESSING - UPPER BODY: T-shirt/pullover shirt (four steps) ARTICLES SCORE Total number of steps: 4 DRESSING - UPPER BODY - STEP 1: Does the patient require help when dressing above the waist? Yes. DRESSING - UPPER BODY - STEP 2: Does the patient require the assistance of a helper? No. Patient only requires an assistive device, s uch as a button hook, velcro, or core blower operator. OR s/he takes more than reasonable time as s/he dresses the upper body. OR there is a concern for safety when s/he dresses the upper body DRESSING - UPPER BODY - SCORE: 6-DEBI DRESSING - LOWER BODY: Elastic waist pants (three steps) Sock - Left foot (one step) Sock - Right foot (one step) Tied or buckled shoe - Left foot (two steps) Tied or buckled shoe - Right foot (two steps) ARTICLES SCORE Total number of steps: 9 DRESSING - LOWER BODY - STEP 1: Does the patient require help when dressing below the waist? Yes. DRESSING - LOWER BODY - STEP 2: Does the patient require the assistance of a helper? Yes. DRESSING - LOWER BODY - STEP 3: Does the helper touch the patient while dressing? No. DRESSING - LOWER BODY - SCORE: 5-SUP TOILETING: TOILETING - STEP 1: Does the patient require assistance with toileting? Yes. TOILETING - STEP 2: Does the patient require the assistance of a helper? No. TOILETING - SCORE: 6-DEBI BLADDER MANAGEMENT: BLADDER MANAGEMENT - STEP 1: Does the patient control the bladder completely and intentionally without equipment or devices or med ications, and is always continent? Yes. BLADDER MANAGEMENT - SCORE: 7-IND BOWEL MANAGEMENT: Activity did not occur on this shift BOWEL MANAGEMENT - SCORE: 7-IND TRANSFERS: BED, CHAIR, WHEELCHAIR: TRANSFERS: BED, CHAIR, WHEELCHAIR - STEP 1: Does the patient require assistance with bed, chair, or wheelchair transfers? Yes. TRANSFERS: BED, CHAIR, WHEELCHAIR - STEP 2: Does the patient require the assistance of a helper? No. Patient only requires an assistive device fo r bed, chair, wheelchair transfers such as a sliding board, grab bar, or brace, OR s/he takes more th an reasonable time, OR there is a safety concern when s/he performs the transfers TRANSFERS: BED, CHAIR, WHEELCHAIR - SCORE: 6-DEBI TRANSFERS: TOILET: TRANSFERS: TOILET - STEP 1: Does the patient require assistance with toilet transfers? Yes. TRANSFERS: TOILET - STEP 2: Does the patient require the assistance of a helper? No. Patient only requires an assistive device freitas ch as a grab bar or special seat, OR s/he takes more than reasonable time to perform toilet transfers , OR there is a safety concern when s/he performs toilet transfers. TRANSFERS: TOILET - SCORE: 6-DEBI TRANSFERS: SHOWER: Activity did not occur on this shift TRANSFERS: SHOWER - SCORE: 0-UNK TRANSFERS: TUB: Activity did not occur on this shift TRANSFERS: TUB - SCORE: 0-UNK LOCOMOTION: WALK: Activity did not occur on this shift LOCOMOTION: WALK - SCORE: 0-UNK LOCOMOTION: WHEELCHAIR: Activity did not occur on this shift LOCOMOTION: WHEELCHAIR - SCORE: 0-UNK COMPREHENSION: COMPREHENSION - SCORE: 0-UNK EXPRESSION EXPRESSION - SCORE: 0-UNK SOCIAL INTERACTION: SOCIAL INTERACTION - SCORE: 0-UNK PROBLEM SOLVING: PROBLEM SOLVING - SCORE: 0-UNK MEMORY: MEMORY - SCORE: 0-UNK SIGNATURE PANEL: The following modified sections: Eating - Score, Grooming - Score, Bathing - Score, Dressing - Upper Body - Score, Dressing - Lower Body - Score, Toileting - Score, Bladder Management - Score, Bowel Man agement - Score, Transfers: Bed, Chair, Wheelchair - Score, Transfers: Toilet - Score, Transfers: Dilma wer - Score, Transfers: Tub - Score, Locomotion: Walk - Score, Locomotion: Wheelchair - Score, Compre hension - Score, Expression - Score, Social Interaction - Score, Problem Solving - Score, Memory - Sc ore were [electronically] signed by Nasir Guido on MonJul 28 2017 09:03:18 GMT-0500 (Central Daylight Time)
--- NOTE | 2017-07-28 13:24 | FAST ---
ENCOUNTER DATE AND TIME: 07/28/2017 08:00 (CDT) NAME CYNTHIA JENSEN DATE OF : 1965 DATE OF ADMISSION: 07/10/2017 20:00 (CDT) PHONE: AGE: 52 N# [id number] GENDER: Male ENCOUNTER PHYSICIAN: Dr. Andrew Escalona M.D. 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 EATING: Activity did not occur on this shift EATING - SCORE: 0-UNK GROOMING: Oral care Wash, rinse, and dry face Wash, rinse, and dry hands GROOMING - STEP 1: Does the patient require assistance when grooming? No. GROOMING - SCORE: 7-IND BATHING: Activity did not occur on this shift BATHING - SCORE: 0-UNK DRESSING - UPPER BODY: T-shirt/pullover shirt (four steps) ARTICLES SCORE Total number of steps: 4 DRESSING - UPPER BODY - STEP 1: Does the patient require help when dressing above the waist? No. DRESSING - UPPER BODY - SCORE: 7-IND DRESSING - LOWER BODY: Elastic waist pants (three steps) Underwear (three steps) ARTICLES SCORE Total number of steps: 6 DRESSING - LOWER BODY - STEP 1: Does the patient require help when dressing below the waist? Yes. DRESSING - LOWER BODY - STEP 2: Does the patient require the assistance of a helper? No. Patient requires an assistive device such as a net front end developer. OR s/he takes more than reasonable time as s/he dresses the lower body, OR there is a con cern for safety when s/he dresses the lower body DRESSING - LOWER BODY - SCORE: 6-DEBI TOILETING: TOILETING - STEP 1: Does the patient require assistance with toileting? Yes. TOILETING - STEP 2: Does the patient require the assistance of a helper? No. TOILETING - SCORE: 6-DEBI BLADDER MANAGEMENT: Activity did not occur on this shift BLADDER MANAGEMENT - SCORE: 7-IND BOWEL MANAGEMENT: Activity did not occur on this shift BOWEL MANAGEMENT - SCORE: 7-IND TRANSFERS: BED, CHAIR, WHEELCHAIR: TRANSFERS: BED, CHAIR, WHEELCHAIR - STEP 1: Does the patient require assistance with bed, chair, or wheelchair transfers? Yes. TRANSFERS: BED, CHAIR, WHEELCHAIR - STEP 2: Does the patient require the assistance of a helper? No. Patient only requires an assistive device fo r bed, chair, wheelchair transfers such as a sliding board, grab bar, or brace, OR s/he takes more th an reasonable time, OR there is a safety concern when s/he performs the transfers TRANSFERS: BED, CHAIR, WHEELCHAIR - SCORE: 6-DEBI TRANSFERS: TOILET: TRANSFERS: TOILET - STEP 1: Does the patient require assistance with toilet transfers? Yes. TRANSFERS: TOILET - STEP 2: Does the patient require the assistance of a helper? No. Patient only requires an assistive device freitas ch as a grab bar or special seat, OR s/he takes more than reasonable time to perform toilet transfers , OR there is a safety concern when s/he performs toilet transfers. TRANSFERS: TOILET - SCORE: 6-DEBI TRANSFERS: SHOWER: Activity did not occur on this shift TRANSFERS: SHOWER - SCORE: 0-UNK TRANSFERS: TUB: Activity did not occur on this shift TRANSFERS: TUB - SCORE: 0-UNK LOCOMOTION: WALK: Activity did not occur on this shift LOCOMOTION: WALK - SCORE: 0-UNK LOCOMOTION: WHEELCHAIR: Activity did not occur on this shift LOCOMOTION: WHEELCHAIR - SCORE: 0-UNK LOCOMOTION: STAIRS: Activity did not occur on this shift LOCOMOTION: STAIRS - SCORE: 0-UNK COMPREHENSION: COMPREHENSION: TYPE: Both COMPREHENSION - STEP 1: Does the patient require help to understand complex and abstract ideas (such as current events, finan kellen, discharge planning, medical issues, relationships, etc)? Yes. COMPREHENSION - STEP 2: Does the patient require help to understand questions or statements about basic needs or ideas (such as hunger, thirst, sleep, safety, daily schedule, room location, or discomfort) half or more of the t valentin? No. COMPREHENSION - STEP 3: How often does the patient need help to understand directions and conversation about basic needs? Les s than 10% of the time COMPREHENSION - SCORE: 5-SUP EXPRESSION EXPRESSION: TYPE: Both EXPRESSION - STEP 1: Does the patient require help expressing complex and abstract ideas (such as current events, finances , discharge planning, medical issues, relationships, etc)? Yes. EXPRESSION - STEP 2: Does the patient require help to express basic necessities or ideas (such as hunger, thirst, sleep, s afety, daily schedule, room location, or discomfort) half or more of the time? No. EXPRESSION - STEP 3: How often does the patient need help to express directions and conversation about basic needs? 10-24% of the time EXPRESSION - SCORE: 4-MIN SOCIAL INTERACTION: SOCIAL INTERACTION - STEP 1: Does the patient require a helper to interact with others in social and therapeutic situations? No. SOCIAL INTERACTION - STEP 2: Does the patient need extra time in social situations, OR does s/he interact with staff, other patien ts, and family members ONLY in structured environments, OR does s/he require medication for social in teraction? Yes, patient needs extra time SOCIAL INTERACTION - SCORE: 6-DEBI PROBLEM SOLVING: PROBLEM SOLVING - STEP 1: Does the patient need help to solve complex problems such as managing a checking account or confronti ng interpersonal problems? Yes. PROBLEM SOLVING - STEP 2: Does the patient solve basic routine problems half or more of the time? Yes. PROBLEM SOLVING - STEP 3: How often does the patient need help to solve basic routine problems? Less than 10% of the time PROBLEM SOLVING - SCORE: 5-SUP MEMORY: MEMORY - STEP 1: Does the patient need help to remember frequently encountered people, daily routines, and executing r equests? No. MEMORY - STEP 2: Does the patient have slight difficulty recognizing frequently encountered people, daily routines, or executing requests without the need for repetition or using self-initiated or environmental cues to remember? Yes. MEMORY - SCORE: 6-DEBI SIGNATURE PANEL: The following modified sections: Eating - Score, Grooming - Score, Bathing - Score, Dressing - Upper Body - Score, Dressing - Lower Body - Score, Toileting - Score, Transfers: Bed, Chair, Wheelchair - S core, Transfers: Toilet - Score, Transfers: Shower - Score, Transfers: Tub - Score, Comprehension - S core, Expression - Score, Social Interaction - Score, Problem Solving - Score, Memory - Score were [e lectronically] signed by Unique Navarro OT on MonJul 28 2017 12:26:00 T-0500 ([place] Da ylight Time)
[2017-07-28] MEDS ORDERED: [UNRECOGNIZED DRUG - OTHER] TOP PRN (17:19)
[2017-07-28] MEDS ORDERED: [UNRECOGNIZED DRUG - OTHER] TOP SCH (20:00)
[2017-07-28] MEDS: ZOLPIDEM TARTRATE 5 MG TABLET PO PRN (20:06)
[2017-07-28] MEDS: SENOSIDES 8.6 MG TAB PO SCH (20:08)
[2017-07-28] MEDS: AMITRIPTYLINE 50 MG TAB PO SCH (20:11)
[2017-07-28] MEDS: INSULIN DETEMIR 100 UNIT/1 ML INSULIN SQ SCH (20:12)
[2017-07-28] MEDS: POLYVINYL ALCOHOL 1.4% 15 ML EACH EYE SCH (20:13)
--- NOTE | 2017-07-29 05:20 | FAST ---
SHIFT START DATE/TIME: 07/28/2017 19:00 (CDT) SHIFT END DATE/TIME: 07/29/2017 07:00 (CDT) NAME CYNTHIA JENSEN DATE OF : 1965 DATE OF ADMISSION: 07/10/2017 20:00 (CDT) PHONE: AGE: 52 N# [id number] GENDER: Male ENCOUNTER PHYSICIAN: Dr. Andrew Escalona M.D. 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 EATING: EATING - STEP 1: Does the patient require assistance when eating? Yes. EATING - STEP 2: Does the patient require the assistance of a helper? No, patient only requires an assistive device, O R s/he takes more than reasonable time to eat, OR there is a safety concern, OR s/he requires modifie d food consistency EATING - SCORE: 6-DEBI GROOMING: Comb/brush hair Oral care Wash, rinse, and dry face Wash, rinse, and dry hands GROOMING - STEP 1: Does the patient require assistance when grooming? Yes. GROOMING - STEP 2: Does the patient require the assistance of a helper? No. The patient only requires an assistive devic e, OR takes more than reasonable time to groom, OR there is a concern for safety as the patient groom s GROOMING - SCORE: 6-DEBI BATHING: Activity did not occur on this shift BATHING - SCORE: 0-UNK DRESSING - UPPER BODY: Patient is not dressing in public clothing ARTICLES SCORE Total number of steps: 0 DRESSING - UPPER BODY - SCORE: 0-UNK DRESSING - LOWER BODY: Patient is not dressing in public clothing ARTICLES SCORE Total number of steps: 0 DRESSING - LOWER BODY - SCORE: 0-UNK TOILETING: TOILETING - STEP 1: Does the patient require assistance with toileting? Yes. TOILETING - STEP 2: Does the patient require the assistance of a helper? No. TOILETING - SCORE: 6-DEBI BLADDER MANAGEMENT: BLADDER MANAGEMENT - STEP 1: Does the patient control the bladder completely and intentionally without equipment or devices or med ications, and is always continent? No. BLADDER MANAGEMENT - STEP 2: Does the patient require the assistance of a helper? No, patient requires and independently uses an a ssistive device, such as a urinal, bedpan, bedside commode, catheter, absorbent pad, or collecting de vice BLADDER MANAGEMENT - SCORE: 6-DEBI BLADDER MANAGEMENT - FREQUENCY OF ACCIDENTS: BLADDER MANAGEMENT(FA) - STEP 1: How many accidents has the patient had during the current shift? 0 BOWEL MANAGEMENT: Activity did not occur on this shift BOWEL MANAGEMENT - SCORE: 7-IND TRANSFERS: BED, CHAIR, WHEELCHAIR: TRANSFERS: BED, CHAIR, WHEELCHAIR - STEP 1: Does the patient require assistance with bed, chair, or wheelchair transfers? Yes. TRANSFERS: BED, CHAIR, WHEELCHAIR - STEP 2: Does the patient require the assistance of a helper? No. Patient only requires an assistive device fo r bed, chair, wheelchair transfers such as a sliding board, grab bar, or brace, OR s/he takes more th an reasonable time, OR there is a safety concern when s/he performs the transfers TRANSFERS: BED, CHAIR, WHEELCHAIR - SCORE: 6-DEBI TRANSFERS: TOILET: TRANSFERS: TOILET - STEP 1: Does the patient require assistance with toilet transfers? Yes. TRANSFERS: TOILET - STEP 2: Does the patient require the assistance of a helper? No. Patient only requires an assistive device freitas ch as a grab bar or special seat, OR s/he takes more than reasonable time to perform toilet transfers , OR there is a safety concern when s/he performs toilet transfers. TRANSFERS: TOILET - SCORE: 6-DEBI TRANSFERS: SHOWER: Activity did not occur on this shift TRANSFERS: SHOWER - SCORE: 0-UNK TRANSFERS: TUB: Activity did not occur on this shift TRANSFERS: TUB - SCORE: 0-UNK LOCOMOTION: WALK: Activity did not occur on this shift LOCOMOTION: WALK - SCORE: 0-UNK LOCOMOTION: WHEELCHAIR: Activity did not occur on this shift LOCOMOTION: WHEELCHAIR - SCORE: 0-UNK COMPREHENSION: COMPREHENSION: TYPE: Both COMPREHENSION - STEP 1: Does the patient require help to understand complex and abstract ideas (such as current events, finan kellen, discharge planning, medical issues, relationships, etc)? No. COMPREHENSION - STEP 2: Does the patient need extra time, require an assistive device (such as glasses, hearing aids, or an a ugmentative communication system), OR does s/he have mild difficulty expressing complex and abstract ideas (including mild dysarthria or mild word-finding problems)? Yes. COMPREHENSION - SCORE: 6-DEBI EXPRESSION EXPRESSION: TYPE: Both EXPRESSION - STEP 1: Does the patient require help expressing complex and abstract ideas (such as current events, finances , discharge planning, medical issues, relationships, etc)? No. EXPRESSION - STEP 2: Does the patient need extra time, require an assistive device (such as augmentive communication syste m or a communication board), OR does s/he have mild difficulty expressing complex and abstract ideas (including mild dysarthria or mild word-find problems)? No. EXPRESSION - SCORE: 7-IND SOCIAL INTERACTION: SOCIAL INTERACTION - STEP 1: Does the patient require a helper to interact with others in social and therapeutic situations? No. SOCIAL INTERACTION - STEP 2: Does the patient need extra time in social situations, OR does s/he interact with staff, other patien ts, and family members ONLY in structured environments, OR does s/he require medication for social in teraction? No. SOCIAL INTERACTION - SCORE: 7-IND PROBLEM SOLVING: PROBLEM SOLVING - STEP 1: Does the patient need help to solve complex problems such as managing a checking account or confronti ng interpersonal problems? No. PROBLEM SOLVING - STEP 2: Does the patient require extra time to make decisions or solve problems, OR does s/he have slight dif ficulty reading, initiating, or self-correcting in unfamiliar situations? No. PROBLEM SOLVING - SCORE: 7-IND MEMORY: MEMORY - STEP 1: Does the patient need help to remember frequently encountered people, daily routines, and executing r equests? No. MEMORY - STEP 2: Does the patient have slight difficulty recognizing frequently encountered people, daily routines, or executing requests without the need for repetition or using self-initiated or environmental cues to remember? No. MEMORY - SCORE: 7-IND SIGNATURE PANEL: The following modified sections: Eating - Score, Grooming - Score, Bathing - Score, Dressing - Upper Body - Score, Dressing - Lower Body - Score, Toileting - Score, Bladder Management - Score, Bowel Man agement - Score, Transfers: Bed, Chair, Wheelchair - Score, Transfers: Toilet - Score, Transfers: Dimla wer - Score, Transfers: Tub - Score, Locomotion: Walk - Score, Locomotion: Wheelchair - Score, Compre hension - Score, Expression - Score, Social Interaction - Score, Problem Solving - Score, Memory - Sc ore were [electronically] signed by Christina Tapia C.N.A. on MonJul 29 2017 04:21:33 T-0500 ( [place] Daylight Time)
[2017-07-29] MEDS: INSULIN -REGULAR HUMAN 50 UNIT/0.5 ML ML SQ SCH ×4 (07:30→20:31)
[2017-07-29] MEDS: ENOXAPARIN 40 MG/0.4 ML SQ SCH (08:46)
[2017-07-29] MEDS: SODIUM CHLORIDE 1 GM TAB PO SCH ×3 (08:47→17:06)
[2017-07-29] MEDS: TRUVADA TABLET PO SCH (08:47)
[2017-07-29] MEDS: FOLIC ACID 1 MG TABLET PO SCH (08:47)
[2017-07-29] MEDS: MAGNESIUM OXIDE 400 MG TAB PO SCH ×2 (08:47→20:27)
[2017-07-29] MEDS: METOPROLOL TAR 50 MG TAB PO SCH ×2 (08:48→20:26)
[2017-07-29] MEDS: MULTIVITAMIN TAB PO SCH (08:48)
[2017-07-29] MEDS: CALCIUM CARB 500MG/VIT D 200 IU TAB PO SCH (08:48)
[2017-07-29] MEDS: FE SULF/FA/VIT B COMP & C TAB PO SCH (08:48)
[2017-07-29] MEDS: TAMSULOSIN 0.4 MG SR CAP PO SCH (08:49)
[2017-07-29] MEDS: AMLODIPINE 5 MG TAB PO SCH (08:49)
[2017-07-29] MEDS: GABAPENTIN 300 MG CAP PO SCH ×3 (08:50→20:25)
[2017-07-29] MEDS: THIAMINE HCL 100 MG TABLET PO SCH (08:50)
[2017-07-29] MEDS: NYSTATIN 500,000 UNIT/5 ML UDC PO SCH ×2 (08:50→20:25)
[2017-07-29] MEDS: PANTOPRAZOLE 40MG TABLET PO SCH (08:50)
[2017-07-29] MEDS: HYDROCODONE/APAP 5/325 MG TAB PO PRN ×2 (08:52→20:27)
--- NOTE | 2017-07-29 13:22 | FAST ---
ENCOUNTER DATE AND TIME: 07/29/2017 08:00 (CDT) NAME CYNTHIA JENSEN DATE OF : 1965 DATE OF ADMISSION: 07/10/2017 20:00 (CDT) PHONE: AGE: 52 N# [id number] GENDER: Male ENCOUNTER PHYSICIAN: Dr. Andrew Escalona M.D. 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 EATING: Activity did not occur on this shift EATING - SCORE: 0-UNK GROOMING: Activity did not occur on this shift GROOMING - SCORE: 0-UNK BATHING: Activity did not occur on this shift BATHING - SCORE: 0-UNK DRESSING - UPPER BODY: Activity did not occur on this shift Patient is not dressing in public clothing ARTICLES SCORE Total number of steps: 0 DRESSING - UPPER BODY - SCORE: 0-UNK DRESSING - LOWER BODY: Activity did not occur on this shift Patient is not dressing in public clothing ARTICLES SCORE Total number of steps: 0 DRESSING - LOWER BODY - SCORE: 0-UNK TOILETING: Activity did not occur on this shift TOILETING - SCORE: 0-UNK BLADDER MANAGEMENT: Activity did not occur on this shift BLADDER MANAGEMENT - SCORE: 7-IND BOWEL MANAGEMENT: Activity did not occur on this shift BOWEL MANAGEMENT - SCORE: 7-IND TRANSFERS: BED, CHAIR, WHEELCHAIR: TRANSFERS: BED, CHAIR, WHEELCHAIR - STEP 1: Does the patient require assistance with bed, chair, or wheelchair transfers? Yes. TRANSFERS: BED, CHAIR, WHEELCHAIR - STEP 2: Does the patient require the assistance of a helper? No. Patient only requires an assistive device fo r bed, chair, wheelchair transfers such as a sliding board, grab bar, or brace, OR s/he takes more th an reasonable time, OR there is a safety concern when s/he performs the transfers TRANSFERS: BED, CHAIR, WHEELCHAIR - SCORE: 6-DEBI TRANSFERS: TOILET: Activity did not occur on this shift TRANSFERS: TOILET - SCORE: 0-UNK TRANSFERS: SHOWER: Activity did not occur on this shift TRANSFERS: SHOWER - SCORE: 0-UNK TRANSFERS: TUB: Activity did not occur on this shift TRANSFERS: TUB - SCORE: 0-UNK LOCOMOTION: WALK: LOCOMOTION: WALK - STEP 1: Does the patient need help to walk 150 feet? Yes. LOCOMOTION: WALK - STEP 2: How much assistance does the patient require to walk a minimum of 150 feet? Only supervision, cuing, or coaxing LOCOMOTION: WALK - SCORE: 5-SUP LOCOMOTION: WHEELCHAIR: Activity did not occur on this shift LOCOMOTION: WHEELCHAIR - SCORE: 0-UNK LOCOMOTION: STAIRS: Activity did not occur on this shift LOCOMOTION: STAIRS - SCORE: 0-UNK COMPREHENSION: COMPREHENSION - SCORE: 0-UNK EXPRESSION EXPRESSION - SCORE: 0-UNK SOCIAL INTERACTION: SOCIAL INTERACTION - SCORE: 0-UNK PROBLEM SOLVING: PROBLEM SOLVING - SCORE: 0-UNK MEMORY: MEMORY - SCORE: 0-UNK SIGNATURE PANEL: The following modified sections: Transfers: Bed, Chair, Wheelchair - Score, Transfers: Toilet - Score , Locomotion: Walk - Score, Locomotion: Wheelchair - Score, Locomotion: Stairs - Score were [electron ically] signed by Unique Dodge PTA on Sat Jul 29 2017 12:23:45 T-0500 ([place] Daylight Time)
--- NOTE | 2017-07-29 16:00 | FAST ---
SHIFT START DATE/TIME: 07/29/2017 07:00 (CDT) SHIFT END DATE/TIME: 07/29/2017 19:00 (CDT) NAME CYNTHIA JENSEN DATE OF : 1965 DATE OF ADMISSION: 07/10/2017 20:00 (CDT) PHONE: AGE: 52 N# [id number] GENDER: Male ENCOUNTER PHYSICIAN: Dr. Andrew Escalona M.D. 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 EATING: EATING - STEP 1: Does the patient require assistance when eating? Yes. EATING - STEP 2: Does the patient require the assistance of a helper? No, patient only requires an assistive device, O R s/he takes more than reasonable time to eat, OR there is a safety concern, OR s/he requires modifie d food consistency EATING - SCORE: 6-DEBI GROOMING: Comb/brush hair Oral care Wash, rinse, and dry face Wash, rinse, and dry hands GROOMING - STEP 1: Does the patient require assistance when grooming? Yes. GROOMING - STEP 2: Does the patient require the assistance of a helper? No. The patient only requires an assistive devic e, OR takes more than reasonable time to groom, OR there is a concern for safety as the patient groom s GROOMING - SCORE: 6-DEBI BATHING: Activity did not occur on this shift BATHING - SCORE: 0-UNK DRESSING - UPPER BODY: Activity did not occur on this shift ARTICLES SCORE Total number of steps: 0 DRESSING - UPPER BODY - STEP 1: Does the patient require help when dressing above the waist? Yes. DRESSING - UPPER BODY - STEP 2: Does the patient require the assistance of a helper? Yes. DRESSING - UPPER BODY - STEP 3: Does the helper touch the patient while dressing? No. DRESSING - UPPER BODY - SCORE: 5-SUP DRESSING - LOWER BODY: ARTICLES SCORE Total number of steps: 0 DRESSING - LOWER BODY - STEP 1: Does the patient require help when dressing below the waist? Yes. DRESSING - LOWER BODY - STEP 2: Does the patient require the assistance of a helper? No. Patient requires an assistive device such as a metal window frame maker. OR s/he takes more than reasonable time as s/he dresses the lower body, OR there is a con cern for safety when s/he dresses the lower body DRESSING - LOWER BODY - SCORE: 6-DEBI TOILETING: TOILETING - STEP 1: Does the patient require assistance with toileting? No. TOILETING - SCORE: 7-IND BLADDER MANAGEMENT: BLADDER MANAGEMENT - STEP 1: Does the patient control the bladder completely and intentionally without equipment or devices or med ications, and is always continent? Yes. BLADDER MANAGEMENT - SCORE: 7-IND BLADDER MANAGEMENT - FREQUENCY OF ACCIDENTS: BLADDER MANAGEMENT(FA) - STEP 1: How many accidents has the patient had during the current shift? 0 BOWEL MANAGEMENT: Activity did not occur on this shift BOWEL MANAGEMENT - SCORE: 7-IND BOWEL MANAGEMENT - FREQUENCY OF ACCIDENTS: BOWEL MANAGEMENT(FA) - STEP 1: How many accidents has the patient had during the current shift? 0 TRANSFERS: BED, CHAIR, WHEELCHAIR: TRANSFERS: BED, CHAIR, WHEELCHAIR - STEP 1: Does the patient require assistance with bed, chair, or wheelchair transfers? Yes. TRANSFERS: BED, CHAIR, WHEELCHAIR - STEP 2: Does the patient require the assistance of a helper? No. Patient only requires an assistive device fo r bed, chair, wheelchair transfers such as a sliding board, grab bar, or brace, OR s/he takes more th an reasonable time, OR there is a safety concern when s/he performs the transfers TRANSFERS: BED, CHAIR, WHEELCHAIR - SCORE: 6-DEBI TRANSFERS: TOILET: TRANSFERS: TOILET - STEP 1: Does the patient require assistance with toilet transfers? No. TRANSFERS: TOILET - SCORE: 7-IND TRANSFERS: SHOWER: Activity did not occur on this shift TRANSFERS: SHOWER - SCORE: 0-UNK TRANSFERS: TUB: Activity did not occur on this shift TRANSFERS: TUB - SCORE: 0-UNK LOCOMOTION: WALK: Activity did not occur on this shift LOCOMOTION: WALK - SCORE: 0-UNK LOCOMOTION: WHEELCHAIR: LOCOMOTION: WHEELCHAIR - STEP 1: Does the patient need help to go 150 feet in a wheelchair? Yes. LOCOMOTION: WHEELCHAIR - STEP 2: How much assistance does the patient need from the helper? Only supervision, cuing, or coaxing LOCOMOTION: WHEELCHAIR - SCORE: 5-SUP COMPREHENSION: COMPREHENSION: TYPE: Both COMPREHENSION - STEP 1: Does the patient require help to understand complex and abstract ideas (such as current events, finan klelen, discharge planning, medical issues, relationships, etc)? Yes. COMPREHENSION - STEP 2: Does the patient require help to understand questions or statements about basic needs or ideas (such as hunger, thirst, sleep, safety, daily schedule, room location, or discomfort) half or more of the t valentin? No. COMPREHENSION - STEP 3: How often does the patient need help to understand directions and conversation about basic needs? Les s than 10% of the time COMPREHENSION - SCORE: 5-SUP EXPRESSION EXPRESSION: TYPE: Both EXPRESSION - STEP 1: Does the patient require help expressing complex and abstract ideas (such as current events, finances , discharge planning, medical issues, relationships, etc)? Yes. EXPRESSION - STEP 2: Does the patient require help to express basic necessities or ideas (such as hunger, thirst, sleep, s afety, daily schedule, room location, or discomfort) half or more of the time? No. EXPRESSION - STEP 3: How often does the patient need help to express directions and conversation about basic needs? 10-24% of the time EXPRESSION - SCORE: 4-MIN SOCIAL INTERACTION: SOCIAL INTERACTION - STEP 1: Does the patient require a helper to interact with others in social and therapeutic situations? No. SOCIAL INTERACTION - STEP 2: Does the patient need extra time in social situations, OR does s/he interact with staff, other patien ts, and family members ONLY in structured environments, OR does s/he require medication for social in teraction? Yes, patient needs extra time SOCIAL INTERACTION - SCORE: 6-DEBI PROBLEM SOLVING: PROBLEM SOLVING - STEP 1: Does the patient need help to solve complex problems such as managing a checking account or confronti ng interpersonal problems? No. PROBLEM SOLVING - STEP 2: Does the patient require extra time to make decisions or solve problems, OR does s/he have slight dif ficulty reading, initiating, or self-correcting in unfamiliar situations? Yes, patient needs extra ti me. PROBLEM SOLVING - SCORE: 6-DEBI MEMORY: MEMORY - STEP 1: Does the patient need help to remember frequently encountered people, daily routines, and executing r equests? No. MEMORY - STEP 2: Does the patient have slight difficulty recognizing frequently encountered people, daily routines, or executing requests without the need for repetition or using self-initiated or environmental cues to remember? Yes. MEMORY - SCORE: 6-DEBI SIGNATURE PANEL: The following modified sections: Eating - Score, Grooming - Score, Bathing - Score, Dressing - Upper Body - Score, Dressing - Lower Body - Score, Toileting - Score, Bladder Management - Score, Bowel Man agement - Score, Transfers: Bed, Chair, Wheelchair - Score, Transfers: Toilet - Score, Transfers: Dilma wer - Score, Transfers: Tub - Score, Locomotion: Walk - Score, Locomotion: Wheelchair - Score, Compre hension - Score, Expression - Score, Social Interaction - Score, Problem Solving - Score, Memory - Sc ore were [electronically] signed by Jada Kuo C.N.A. on Sat Jul 29 2017 15:01:29 T-0500 ([place])
[2017-07-29] MEDS: AMITRIPTYLINE 50 MG TAB PO SCH (20:25)
[2017-07-29] MEDS: SENOSIDES 8.6 MG TAB PO SCH (20:25)
[2017-07-29] MEDS: ZOLPIDEM TARTRATE 5 MG TABLET PO PRN (20:27)
[2017-07-29] MEDS: INSULIN DETEMIR 100 UNIT/1 ML INSULIN SQ SCH (20:27)
[2017-07-29] MEDS: POLYVINYL ALCOHOL 1.4% 15 ML EACH EYE SCH (20:31)
--- NOTE | 2017-07-30 03:11 | FAST ---
SHIFT START DATE/TIME: 07/29/2017 19:00 (CDT) SHIFT END DATE/TIME: 07/30/2017 07:00 (CDT) NAME CYNTHIA JENSEN DATE OF : 1965 DATE OF ADMISSION: 07/10/2017 20:00 (CDT) PHONE: AGE: 52 N# [id number] GENDER: Male ENCOUNTER PHYSICIAN: Dr. Andrew Escalona M.D. 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 EATING: Activity did not occur on this shift EATING - SCORE: 0-UNK GROOMING: Wash, rinse, and dry face Wash, rinse, and dry hands GROOMING - STEP 1: Does the patient require assistance when grooming? Yes. GROOMING - STEP 2: Does the patient require the assistance of a helper? Yes. GROOMING - STEP 3: How much assistance does the patient require from the helper? Only prior equipment preparation/set up from the helper GROOMING - SCORE: 5-SUP BATHING: Activity did not occur on this shift BATHING - SCORE: 0-UNK DRESSING - UPPER BODY: Patient is not dressing in public clothing ARTICLES SCORE Total number of steps: 0 DRESSING - UPPER BODY - SCORE: 0-UNK DRESSING - LOWER BODY: Patient is not dressing in public clothing ARTICLES SCORE Total number of steps: 0 DRESSING - LOWER BODY - SCORE: 0-UNK TOILETING: TOILETING - STEP 1: Does the patient require assistance with toileting? Yes. TOILETING - STEP 2: Does the patient require the assistance of a helper? Yes. TOILETING - STEP 3: How much assistance does the patient require from the helper? Only supervision TOILETING - SCORE: 5-SUP BLADDER MANAGEMENT: BLADDER MANAGEMENT - STEP 1: Does the patient control the bladder completely and intentionally without equipment or devices or med ications, and is always continent? No. BLADDER MANAGEMENT - STEP 2: Does the patient require the assistance of a helper? Yes. BLADDER MANAGEMENT - STEP 3: How much assistance does the patient require from the helper? Only supervision, stand-by, cuing, or c oaxing BLADDER MANAGEMENT - SCORE: 5-SUP BOWEL MANAGEMENT: Activity did not occur on this shift BOWEL MANAGEMENT - SCORE: 7-IND TRANSFERS: BED, CHAIR, WHEELCHAIR: TRANSFERS: BED, CHAIR, WHEELCHAIR - STEP 1: Does the patient require assistance with bed, chair, or wheelchair transfers? Yes. TRANSFERS: BED, CHAIR, WHEELCHAIR - STEP 2: Does the patient require the assistance of a helper? Yes. TRANSFERS: BED, CHAIR, WHEELCHAIR - STEP 3: How much assistance does the patient require from the helper? Only supervision TRANSFERS: BED, CHAIR, WHEELCHAIR - SCORE: 5-SUP TRANSFERS: TOILET: TRANSFERS: TOILET - STEP 1: Does the patient require assistance with toilet transfers? Yes. TRANSFERS: TOILET - STEP 2: Does the patient require the assistance of a helper? Yes. TRANSFERS: TOILET - STEP 3: How much assistance does the patient require from the helper? Only supervision, cuing, coaxing, OR he lp to set out transfer equipment or to lock brakes and/or lift foot rests TRANSFERS: TOILET - SCORE: 5-SUP TRANSFERS: SHOWER: Activity did not occur on this shift TRANSFERS: SHOWER - SCORE: 0-UNK TRANSFERS: TUB: Activity did not occur on this shift TRANSFERS: TUB - SCORE: 0-UNK LOCOMOTION: WALK: Activity did not occur on this shift LOCOMOTION: WALK - SCORE: 0-UNK LOCOMOTION: WHEELCHAIR: Activity did not occur on this shift LOCOMOTION: WHEELCHAIR - SCORE: 0-UNK COMPREHENSION: COMPREHENSION - STEP 1: Does the patient require help to understand complex and abstract ideas (such as current events, finan kellen, discharge planning, medical issues, relationships, etc)? No. COMPREHENSION - STEP 2: Does the patient need extra time, require an assistive device (such as glasses, hearing aids, or an a ugmentative communication system), OR does s/he have mild difficulty expressing complex and abstract ideas (including mild dysarthria or mild word-finding problems)? Yes. COMPREHENSION - SCORE: 6-DEBI EXPRESSION EXPRESSION - STEP 1: Does the patient require help expressing complex and abstract ideas (such as current events, finances , discharge planning, medical issues, relationships, etc)? No. EXPRESSION - STEP 2: Does the patient need extra time, require an assistive device (such as augmentive communication syste m or a communication board), OR does s/he have mild difficulty expressing complex and abstract ideas (including mild dysarthria or mild word-find problems)? No. EXPRESSION - SCORE: 7-IND SOCIAL INTERACTION: SOCIAL INTERACTION - STEP 1: Does the patient require a helper to interact with others in social and therapeutic situations? No. SOCIAL INTERACTION - STEP 2: Does the patient need extra time in social situations, OR does s/he interact with staff, other patien ts, and family members ONLY in structured environments, OR does s/he require medication for social in teraction? No. SOCIAL INTERACTION - SCORE: 7-IND PROBLEM SOLVING: PROBLEM SOLVING - STEP 1: Does the patient need help to solve complex problems such as managing a checking account or confronti ng interpersonal problems? No. PROBLEM SOLVING - STEP 2: Does the patient require extra time to make decisions or solve problems, OR does s/he have slight dif ficulty reading, initiating, or self-correcting in unfamiliar situations? No. PROBLEM SOLVING - SCORE: 7-IND MEMORY: MEMORY - STEP 1: Does the patient need help to remember frequently encountered people, daily routines, and executing r equests? No. MEMORY - STEP 2: Does the patient have slight difficulty recognizing frequently encountered people, daily routines, or executing requests without the need for repetition or using self-initiated or environmental cues to remember? No. MEMORY - SCORE: 7-IND SIGNATURE PANEL: The following modified sections: Eating - Score, Grooming - Score, Dressing - Upper Body - Score, Robert ssing - Lower Body - Score, Toileting - Score, Bladder Management - Score, Bowel Management - Score, Transfers: Bed, Chair, Wheelchair - Score, Transfers: Toilet - Score, Transfers: Shower - Score, Gamez sfers: Tub - Score, Locomotion: Walk - Score, Locomotion: Wheelchair - Score, Comprehension - Score, Expression - Score, Social Interaction - Score, Problem Solving - Score, Memory - Score were [electro nically] signed by Jeanne Shaw CNA on MonJul 30 2017 02:12:37 GMT-0500 (Central Daylight Time)
[2017-07-30] MEDS: PANTOPRAZOLE 40MG TABLET PO SCH (07:30)
[2017-07-30] MEDS: INSULIN -REGULAR HUMAN 50 UNIT/0.5 ML ML SQ SCH ×4 (07:30→20:28)
[2017-07-30] MEDS: ENOXAPARIN 40 MG/0.4 ML SQ SCH (08:25)
[2017-07-30] MEDS: MAGNESIUM OXIDE 400 MG TAB PO SCH ×2 (08:25→20:25)
[2017-07-30] MEDS: NYSTATIN 500,000 UNIT/5 ML UDC PO SCH ×2 (08:25→20:26)
[2017-07-30] MEDS: FE SULF/FA/VIT B COMP & C TAB PO SCH (08:26)
[2017-07-30] MEDS: SODIUM CHLORIDE 1 GM TAB PO SCH ×3 (08:26→17:09)
[2017-07-30] MEDS: THIAMINE HCL 100 MG TABLET PO SCH (08:26)
[2017-07-30] MEDS: AMLODIPINE 5 MG TAB PO SCH (08:26)
[2017-07-30] MEDS: TAMSULOSIN 0.4 MG SR CAP PO SCH (08:26)
[2017-07-30] MEDS: METOPROLOL TAR 50 MG TAB PO SCH ×2 (08:27→20:26)
[2017-07-30] MEDS: MULTIVITAMIN TAB PO SCH (08:27)
[2017-07-30] MEDS: FOLIC ACID 1 MG TABLET PO SCH (08:27)
[2017-07-30] MEDS: CALCIUM CARB 500MG/VIT D 200 IU TAB PO SCH (08:27)
[2017-07-30] MEDS: HYDROCODONE/APAP 5/325 MG TAB PO PRN ×3 (08:33→20:26)
[2017-07-30] MEDS: TRUVADA TABLET PO SCH (09:26)
[2017-07-30] MEDS: GABAPENTIN 300 MG CAP PO SCH ×3 (09:27→20:25)
[2017-07-30] MEDS: ZOLPIDEM TARTRATE 5 MG TABLET PO PRN (20:25)
[2017-07-30] MEDS: AMITRIPTYLINE 50 MG TAB PO SCH (20:25)
[2017-07-30] MEDS: SENOSIDES 8.6 MG TAB PO SCH (20:25)
[2017-07-30] MEDS: POLYVINYL ALCOHOL 1.4% 15 ML EACH EYE SCH (20:27)
[2017-07-30] MEDS: INSULIN DETEMIR 100 UNIT/1 ML INSULIN SQ SCH (20:27)
--- NOTE | 2017-07-31 03:04 | FAST ---
SHIFT START DATE/TIME: 07/30/2017 19:00 (CDT) SHIFT END DATE/TIME: 07/31/2017 07:00 (CDT) NAME CYNTHIA JENSEN DATE OF : 1965 DATE OF ADMISSION: 07/10/2017 20:00 (CDT) PHONE: AGE: 52 N# [id number] GENDER: Male ENCOUNTER PHYSICIAN: Dr. Andrew Escalona M.D. 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 EATING: Activity did not occur on this shift EATING - SCORE: 0-UNK GROOMING: Wash, rinse, and dry hands GROOMING - STEP 1: Does the patient require assistance when grooming? Yes. GROOMING - STEP 2: Does the patient require the assistance of a helper? Yes. GROOMING - STEP 3: How much assistance does the patient require from the helper? Only prior equipment preparation/set up from the helper GROOMING - SCORE: 5-SUP BATHING: Activity did not occur on this shift BATHING - SCORE: 0-UNK DRESSING - UPPER BODY: Patient is not dressing in public clothing ARTICLES SCORE Total number of steps: 0 DRESSING - UPPER BODY - SCORE: 0-UNK DRESSING - LOWER BODY: Patient is not dressing in public clothing ARTICLES SCORE Total number of steps: 0 DRESSING - LOWER BODY - SCORE: 0-UNK TOILETING: TOILETING - STEP 1: Does the patient require assistance with toileting? Yes. TOILETING - STEP 2: Does the patient require the assistance of a helper? Yes. TOILETING - STEP 3: How much assistance does the patient require from the helper? Only supervision TOILETING - SCORE: 5-SUP BLADDER MANAGEMENT: BLADDER MANAGEMENT - STEP 1: Does the patient control the bladder completely and intentionally without equipment or devices or med ications, and is always continent? No. BLADDER MANAGEMENT - STEP 2: Does the patient require the assistance of a helper? No, patient requires and independently uses an a ssistive device, such as a urinal, bedpan, bedside commode, catheter, absorbent pad, or collecting de vice BLADDER MANAGEMENT - SCORE: 6-DEBI BOWEL MANAGEMENT: Activity did not occur on this shift BOWEL MANAGEMENT - SCORE: 7-IND TRANSFERS: BED, CHAIR, WHEELCHAIR: TRANSFERS: BED, CHAIR, WHEELCHAIR - STEP 1: Does the patient require assistance with bed, chair, or wheelchair transfers? Yes. TRANSFERS: BED, CHAIR, WHEELCHAIR - STEP 2: Does the patient require the assistance of a helper? No. Patient only requires an assistive device fo r bed, chair, wheelchair transfers such as a sliding board, grab bar, or brace, OR s/he takes more th an reasonable time, OR there is a safety concern when s/he performs the transfers TRANSFERS: BED, CHAIR, WHEELCHAIR - SCORE: 6-DEBI TRANSFERS: TOILET: TRANSFERS: TOILET - STEP 1: Does the patient require assistance with toilet transfers? Yes. TRANSFERS: TOILET - STEP 2: Does the patient require the assistance of a helper? No. Patient only requires an assistive device [place] as a grab bar or special seat, OR s/he takes more than reasonable time to perform toilet transfers , OR there is a safety concern when s/he performs toilet transfers. TRANSFERS: TOILET - SCORE: 6-DEBI TRANSFERS: SHOWER: Activity did not occur on this shift TRANSFERS: SHOWER - SCORE: 0-UNK TRANSFERS: TUB: Activity did not occur on this shift TRANSFERS: TUB - SCORE: 0-UNK LOCOMOTION: WALK: Activity did not occur on this shift LOCOMOTION: WALK - SCORE: 0-UNK LOCOMOTION: WHEELCHAIR: Activity did not occur on this shift LOCOMOTION: WHEELCHAIR - SCORE: 0-UNK COMPREHENSION: COMPREHENSION - STEP 1: Does the patient require help to understand complex and abstract ideas (such as current events, finan kellen, discharge planning, medical issues, relationships, etc)? No. COMPREHENSION - STEP 2: Does the patient need extra time, require an assistive device (such as glasses, hearing aids, or an a ugmentative communication system), OR does s/he have mild difficulty expressing complex and abstract ideas (including mild dysarthria or mild word-finding problems)? Yes. COMPREHENSION - SCORE: 6-DEBI EXPRESSION EXPRESSION - STEP 1: Does the patient require help expressing complex and abstract ideas (such as current events, finances , discharge planning, medical issues, relationships, etc)? No. EXPRESSION - STEP 2: Does the patient need extra time, require an assistive device (such as augmentive communication syste m or a communication board), OR does s/he have mild difficulty expressing complex and abstract ideas (including mild dysarthria or mild word-find problems)? No. EXPRESSION - SCORE: 7-IND SOCIAL INTERACTION: SOCIAL INTERACTION - STEP 1: Does the patient require a helper to interact with others in social and therapeutic situations? No. SOCIAL INTERACTION - STEP 2: Does the patient need extra time in social situations, OR does s/he interact with staff, other patien ts, and family members ONLY in structured environments, OR does s/he require medication for social in teraction? No. SOCIAL INTERACTION - SCORE: 7-IND PROBLEM SOLVING: PROBLEM SOLVING - STEP 1: Does the patient need help to solve complex problems such as managing a checking account or confronti ng interpersonal problems? No. PROBLEM SOLVING - STEP 2: Does the patient require extra time to make decisions or solve problems, OR does s/he have slight dif ficulty reading, initiating, or self-correcting in unfamiliar situations? Yes, patient needs extra ti me. PROBLEM SOLVING - SCORE: 6-DEBI MEMORY: MEMORY - STEP 1: Does the patient need help to remember frequently encountered people, daily routines, and executing r equests? No. MEMORY - STEP 2: Does the patient have slight difficulty recognizing frequently encountered people, daily routines, or executing requests without the need for repetition or using self-initiated or environmental cues to remember? No. MEMORY - SCORE: 7-IND SIGNATURE PANEL: The following modified sections: Eating - Score, Grooming - Score, Dressing - Upper Body - Score, Robert ssing - Lower Body - Score, Toileting - Score, Bladder Management - Score, Bowel Management - Score, Transfers: Bed, Chair, Wheelchair - Score, Transfers: Toilet - Score, Transfers: Shower - Score, Gamez sfers: Tub - Score, Locomotion: Walk - Score, Locomotion: Wheelchair - Score, Comprehension - Score, Expression - Score, Social Interaction - Score, Problem Solving - Score, Memory - Score were [electro nically] signed by Jeanne Shaw CNA on MonJul 31 2017 02:05:38 GMT-0500 (Central Daylight Time)
[2017-07-31] MEDS: PANTOPRAZOLE 40MG TABLET PO SCH (06:20)
[2017-07-31] MEDS: INSULIN -REGULAR HUMAN 50 UNIT/0.5 ML ML SQ SCH ×4 (07:30→20:22)
[2017-07-31] MEDS: TRUVADA TABLET PO SCH (08:11)
[2017-07-31] MEDS: NYSTATIN 500,000 UNIT/5 ML UDC PO SCH ×2 (08:12→20:20)
[2017-07-31] MEDS: METOPROLOL TAR 50 MG TAB PO SCH ×2 (08:12→20:00)
[2017-07-31] MEDS: GABAPENTIN 300 MG CAP PO SCH ×3 (08:12→20:19)
[2017-07-31] MEDS: ENOXAPARIN 40 MG/0.4 ML SQ SCH (08:12)
[2017-07-31] MEDS: MAGNESIUM OXIDE 400 MG TAB PO SCH ×2 (08:13→20:20)
[2017-07-31] MEDS: CALCIUM CARB 500MG/VIT D 200 IU TAB PO SCH (08:13)
[2017-07-31] MEDS: MULTIVITAMIN TAB PO SCH (08:13)
[2017-07-31] MEDS: TAMSULOSIN 0.4 MG SR CAP PO SCH (08:13)
[2017-07-31] MEDS: SODIUM CHLORIDE 1 GM TAB PO SCH ×3 (08:13→16:24)
[2017-07-31] MEDS: HYDROCODONE/APAP 5/325 MG TAB PO PRN ×2 (08:14→20:20)
[2017-07-31] MEDS: FOLIC ACID 1 MG TABLET PO SCH (08:14)
[2017-07-31] MEDS: FE SULF/FA/VIT B COMP & C TAB PO SCH (08:14)
[2017-07-31] MEDS: AMLODIPINE 5 MG TAB PO SCH (08:14)
[2017-07-31] MEDS: THIAMINE HCL 100 MG TABLET PO SCH (08:15)
--- NOTE | 2017-07-31 16:09 | FAST ---
ENCOUNTER DATE AND TIME: 07/31/2017 08:00 (CDT) NAME CYNTHIA JENSEN DATE OF : 1965 DATE OF ADMISSION: 07/10/2017 20:00 (CDT) PHONE: AGE: 52 N# [id number] GENDER: Male ENCOUNTER PHYSICIAN: Dr. Andrew Escalona M.D. 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 EATING: Activity did not occur on this shift EATING - SCORE: 0-UNK GROOMING: Oral care Patient shaved Wash, rinse, and dry face Wash, rinse, and dry hands GROOMING - STEP 1: Does the patient require assistance when grooming? No. GROOMING - SCORE: 7-IND BATHING: Abdomen Buttocks Chest Left arm Left lower leg and foot Left upper leg Perineal area Right arm Right lower leg and foot Right upper leg BATHING - STEP 1: Does the patient require assistance when bathing? Yes. BATHING - STEP 2: Does the patient require the assistance of a helper? No. The patient only requires an assistive devic e such as a bath asael, OR the patient takes more than reasonable time to bathe, OR there is a concern for safety such as regulating water temperature as the patient bathes. BATHING - SCORE: 6-DEBI DRESSING - UPPER BODY: T-shirt/pullover shirt (four steps) ARTICLES SCORE Total number of steps: 4 DRESSING - UPPER BODY - STEP 1: Does the patient require help when dressing above the waist? No. DRESSING - UPPER BODY - SCORE: 7-IND DRESSING - LOWER BODY: Elastic waist pants (three steps) Slip-on shoe - Left foot (one step) Slip-on shoe - Right foot (one step) Sock - Left foot (one step) Sock - Right foot (one step) Underwear (three steps) ARTICLES SCORE Total number of steps: 10 DRESSING - LOWER BODY - STEP 1: Does the patient require help when dressing below the waist? Yes. DRESSING - LOWER BODY - STEP 2: Does the patient require the assistance of a helper? No. Patient requires an assistive device such as a side stitching machine operator. OR s/he takes more than reasonable time as s/he dresses the lower body, OR there is a con cern for safety when s/he dresses the lower body DRESSING - LOWER BODY - SCORE: 6-DEBI TOILETING: Activity did not occur on this shift TOILETING - SCORE: 0-UNK BLADDER MANAGEMENT: Activity did not occur on this shift BLADDER MANAGEMENT - SCORE: 7-IND BOWEL MANAGEMENT: Activity did not occur on this shift BOWEL MANAGEMENT - SCORE: 7-IND TRANSFERS: BED, CHAIR, WHEELCHAIR: Activity did not occur on this shift TRANSFERS: BED, CHAIR, WHEELCHAIR - SCORE: 0-UNK TRANSFERS: TOILET: Activity did not occur on this shift TRANSFERS: TOILET - SCORE: 0-UNK TRANSFERS: SHOWER: Activity did not occur on this shift TRANSFERS: SHOWER - SCORE: 0-UNK TRANSFERS: TUB: TRANSFERS: TUB - STEP 1: Does the patient require assistance with tub transfers? Yes. TRANSFERS: TUB - STEP 2: Does the patient require the assistance of a helper? No. Only requires the assistance of an assistive device, OR takes more than reasonable time, OR there is a concern for safety when s/he performs tub transfers TRANSFERS: TUB - SCORE: 6-DEBI LOCOMOTION: WALK: Activity did not occur on this shift LOCOMOTION: WALK - SCORE: 0-UNK LOCOMOTION: WHEELCHAIR: Activity did not occur on this shift LOCOMOTION: WHEELCHAIR - SCORE: 0-UNK LOCOMOTION: STAIRS: Activity did not occur on this shift LOCOMOTION: STAIRS - SCORE: 0-UNK COMPREHENSION: COMPREHENSION - STEP 1: Does the patient require help to understand complex and abstract ideas (such as current events, finan kellen, discharge planning, medical issues, relationships, etc)? No. COMPREHENSION - STEP 2: Does the patient need extra time, require an assistive device (such as glasses, hearing aids, or an a ugmentative communication system), OR does s/he have mild difficulty expressing complex and abstract ideas (including mild dysarthria or mild word-finding problems)? No. COMPREHENSION - SCORE: 7-IND EXPRESSION EXPRESSION: TYPE: Non-Vocal EXPRESSION - STEP 1: Does the patient require help expressing complex and abstract ideas (such as current events, finances , discharge planning, medical issues, relationships, etc)? No. EXPRESSION - STEP 2: Does the patient need extra time, require an assistive device (such as augmentive communication syste m or a communication board), OR does s/he have mild difficulty expressing complex and abstract ideas (including mild dysarthria or mild word-find problems)? No. EXPRESSION - SCORE: 7-IND SOCIAL INTERACTION: SOCIAL INTERACTION - STEP 1: Does the patient require a helper to interact with others in social and therapeutic situations? No. SOCIAL INTERACTION - STEP 2: Does the patient need extra time in social situations, OR does s/he interact with staff, other patien ts, and family members ONLY in structured environments, OR does s/he require medication for social in teraction? Yes, patient requires medication for social interaction SOCIAL INTERACTION - SCORE: 6-DEBI PROBLEM SOLVING: PROBLEM SOLVING - STEP 1: Does the patient need help to solve complex problems such as managing a checking account or confronti ng interpersonal problems? No. PROBLEM SOLVING - STEP 2: Does the patient require extra time to make decisions or solve problems, OR does s/he have slight dif ficulty reading, initiating, or self-correcting in unfamiliar situations? No. PROBLEM SOLVING - SCORE: 7-IND MEMORY: MEMORY - STEP 1: Does the patient need help to remember frequently encountered people, daily routines, and executing r equests? No. MEMORY - STEP 2: Does the patient have slight difficulty recognizing frequently encountered people, daily routines, or executing requests without the need for repetition or using self-initiated or environmental cues to remember? No. MEMORY - SCORE: 7-IND SIGNATURE PANEL: The following modified sections: Eating - Score, Grooming - Score, Bathing - Score, Dressing - Upper Body - Score, Dressing - Lower Body - Score, Toileting - Score, Transfers: Bed, Chair, Wheelchair - S core, Transfers: Toilet - Score, Transfers: Shower - Score, Transfers: Tub - Score, Comprehension - S core, Expression - Score, Social Interaction - Score, Problem Solving - Score, Memory - Score were [e lectronically] signed by QING Lal on MonJul 31 2017 15:11:16 T-0500 ([facility] hospital Time)
--- NOTE | 2017-07-31 16:12 | FAST ---
SHIFT START DATE/TIME: 07/31/2017 07:00 (CDT) SHIFT END DATE/TIME: 07/31/2017 19:00 (CDT) NAME CYNTHIA JENSEN DATE OF : 1965 DATE OF ADMISSION: 07/10/2017 20:00 (CDT) PHONE: AGE: 52 N# [id number] GENDER: Male ENCOUNTER PHYSICIAN: Dr. Andrew Escalona M.D. 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 EATING: EATING - STEP 1: Does the patient require assistance when eating? Yes. EATING - STEP 2: Does the patient require the assistance of a helper? No, patient only requires an assistive device, O R s/he takes more than reasonable time to eat, OR there is a safety concern, OR s/he requires modifie d food consistency EATING - SCORE: 6-DEBI GROOMING: GROOMING - STEP 1: Does the patient require assistance when grooming? Yes. GROOMING - STEP 2: Does the patient require the assistance of a helper? No. The patient only requires an assistive devic e, OR takes more than reasonable time to groom, OR there is a concern for safety as the patient groom s GROOMING - SCORE: 6-DEBI BATHING: Activity did not occur on this shift BATHING - SCORE: 0-UNK DRESSING - UPPER BODY: Activity did not occur on this shift ARTICLES SCORE Total number of steps: 0 DRESSING - UPPER BODY - SCORE: 0-UNK DRESSING - LOWER BODY: Activity did not occur on this shift ARTICLES SCORE Total number of steps: 0 DRESSING - LOWER BODY - SCORE: 0-UNK TOILETING: TOILETING - STEP 1: Does the patient require assistance with toileting? Yes. TOILETING - STEP 2: Does the patient require the assistance of a helper? Yes. TOILETING - STEP 3: How much assistance does the patient require from the helper? Only supervision TOILETING - SCORE: 5-SUP BLADDER MANAGEMENT: [place] removes incontinent device (Depends, pull ups, etc.); cleans the patient after accident / inco ntinent episode; and, applies new incontinent device. BLADDER MANAGEMENT - SCORE: 1-DEP BLADDER MANAGEMENT - FREQUENCY OF ACCIDENTS: BLADDER MANAGEMENT(FA) - STEP 1: How many accidents has the patient had during the current shift? 2 BOWEL MANAGEMENT: Activity did not occur on this shift BOWEL MANAGEMENT - SCORE: 7-IND TRANSFERS: BED, CHAIR, WHEELCHAIR: TRANSFERS: BED, CHAIR, WHEELCHAIR - STEP 1: Does the patient require assistance with bed, chair, or wheelchair transfers? Yes. TRANSFERS: BED, CHAIR, WHEELCHAIR - STEP 2: Does the patient require the assistance of a helper? Yes. TRANSFERS: BED, CHAIR, WHEELCHAIR - STEP 3: How much assistance does the patient require from the helper? Lifting of the patient TRANSFERS: BED, CHAIR, WHEELCHAIR - STEP 4: Does the helper lift the patient ONLY up? ONLY down? Up AND Down? ONLY up. TRANSFERS: BED, CHAIR, WHEELCHAIR - SCORE: 3-MOD TRANSFERS: TOILET: Activity did not occur on this shift TRANSFERS: TOILET - SCORE: 0-UNK TRANSFERS: SHOWER: Activity did not occur on this shift TRANSFERS: SHOWER - SCORE: 0-UNK TRANSFERS: TUB: Activity did not occur on this shift TRANSFERS: TUB - SCORE: 0-UNK LOCOMOTION: WALK: Activity did not occur on this shift LOCOMOTION: WALK - SCORE: 0-UNK LOCOMOTION: WHEELCHAIR: Activity did not occur on this shift LOCOMOTION: WHEELCHAIR - SCORE: 0-UNK COMPREHENSION: COMPREHENSION: TYPE: Both COMPREHENSION - SCORE: 0-UNK EXPRESSION EXPRESSION - SCORE: 0-UNK SOCIAL INTERACTION: SOCIAL INTERACTION - SCORE: 0-UNK PROBLEM SOLVING: PROBLEM SOLVING - SCORE: 0-UNK MEMORY: MEMORY - SCORE: 0-UNK SIGNATURE PANEL: The following modified sections: Eating - Score, Grooming - Score, Bathing - Score, Dressing - Upper Body - Score, Dressing - Lower Body - Score, Toileting - Score, Bladder Management - Score, Bowel Man agement - Score, Transfers: Bed, Chair, Wheelchair - Score, Transfers: Toilet - Score, Transfers: Dilma wer - Score, Transfers: Tub - Score, Locomotion: Walk - Score, Locomotion: Wheelchair - Score, Compre hension - Score, Expression - Score, Social Interaction - Score, Problem Solving - Score, Memory - Sc ore were [electronically] signed by Diego KimNAbbie on MonJul 31 2017 15:14:18 T-0500 (Centra [place] Daylight Time)
[2017-07-31] MEDS: AMITRIPTYLINE 50 MG TAB PO SCH (20:19)
[2017-07-31] MEDS: SENOSIDES 8.6 MG TAB PO SCH (20:20)
[2017-07-31] MEDS: LORATADINE 10 MG TAB PO PRN (20:20)
[2017-07-31] MEDS: ZOLPIDEM TARTRATE 5 MG TABLET PO PRN (20:20)
[2017-07-31] MEDS: INSULIN DETEMIR 100 UNIT/1 ML INSULIN SQ SCH (20:21)
[2017-07-31] MEDS: POLYVINYL ALCOHOL 1.4% 15 ML EACH EYE SCH (20:22)
[2017-08-01] MEDS: PANTOPRAZOLE 40MG TABLET PO SCH (06:55)
[2017-08-01] MEDS: INSULIN -REGULAR HUMAN 50 UNIT/0.5 ML ML SQ SCH (07:30)
[2017-08-01] MEDS: ENOXAPARIN 40 MG/0.4 ML SQ SCH (07:40)
[2017-08-01] MEDS: NYSTATIN 500,000 UNIT/5 ML UDC PO SCH (08:36)
[2017-08-01] MEDS: MULTIVITAMIN TAB PO SCH (08:36)
[2017-08-01] MEDS: THIAMINE HCL 100 MG TABLET PO SCH (08:37)
[2017-08-01] MEDS: MAGNESIUM OXIDE 400 MG TAB PO SCH (08:37)
[2017-08-01] MEDS: GABAPENTIN 300 MG CAP PO SCH (08:37)
[2017-08-01] MEDS: FOLIC ACID 1 MG TABLET PO SCH (08:37)
[2017-08-01] MEDS: TAMSULOSIN 0.4 MG SR CAP PO SCH (08:37)
[2017-08-01] MEDS: SODIUM CHLORIDE 1 GM TAB PO SCH (08:37)
[2017-08-01] MEDS: FE SULF/FA/VIT B COMP & C TAB PO SCH (08:37)
[2017-08-01] MEDS: CALCIUM CARB 500MG/VIT D 200 IU TAB PO SCH (08:38)
[2017-08-01] MEDS: METOPROLOL TAR 50 MG TAB PO SCH (08:38)
[2017-08-01] MEDS: HYDROCODONE/APAP 5/325 MG TAB PO PRN (08:38)
[2017-08-01] MEDS: AMLODIPINE 5 MG TAB PO SCH (08:38)
[2017-08-01] MEDS: TRUVADA TABLET PO SCH (08:39)
--- NOTE | 2017-08-02 17:28 | R.PN ---
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 Pt denied any depression. Ambulated 500' with modfied independence using a rolling walker. Up and down 15 steps with modified i ndependence. Propelled wheelchair 500' with modified independence. Self propelled wheelchair 250' with maximum assistance. VITAL SIGNS Temperature: 97.6 F SBP/DBP: 127/70 Pulse: 79 Resp: 16 MEDICATION ALLERGIES: CODEINE ENVIRONMENTAL ALLERGIES: - Substance Allergies None Known - Other Allergies None Known NURSING: - Shower allowing shower - Lab Results blood Sugar Check ACHS ACTIVITIES OOB only with supervision THERAPIES: - Occupational Therapy Evaluate and Treat. - Physical Therapy Evaluate and Treat. PHYSICAL EXAM - Gen Alert and awake Lying in bed No apparent distress Oriented to: person, time, and place - Vital Signs Vital signs stable, afebrile - Skin No skin breakdown. Normacephalic - Eyes No abnormalities - ENMT No abnormalities - Neck No abnormalities - CVS RRR - Resp Clear to auscultation - Abd Soft - GI Non distended Deferred - No abnormalities - Ext No significant edema - MSK 4/5 weakness in both upper extremities and 3+/5 weakness in both lower extremities. - Psych No abnormalities ASSESSMENT: Pt. 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 was independent/mod-I in Self-Care, Sphi ncter Control, Transfers Control, Communication, Social Cognition, and Locomotion; and he had good Sp hincter Control.Currently, he has deficits of Self-Care, Transfers Control, Communication, Social Cog nition, Endurance, Balance, Safety Awareness, and Locomotion.Pt. is now referred to [facility] for acute in-patient rehabilitation in order to maximize patient's functional indepe ndence in activities of daily living, strength, ROM, and mobility.- Rehab Goal Patient has realistic goal of being discharged at assistance level 6-Dhara to reside at Home with Fam shant/Relatives. MDM/PLAN: - Diet Type Continue Regular - Physical Therapy Gait dysfunction - to improve, our physical therapists will perform initial evaluation of pt's statu s upon admission and devise an individualized program for Gait Training, and Wheel Chair mobility Inability to transfer - to improve, our physical therapists will perform initial evaluation of pt's status upon admission and devise an individualized program for Bed mobility Need for home safety evaluation - to improve, our physical therapists will perform initial evaluatio n of pt's status upon admission and devise an individualized program for Home Evaluation Need in caregiver upon discharge - to improve, our physical therapists will perform initial evaluati on of pt's status upon admission and devise an individualized program for Caregiver Training New precaution - to improve, our physical therapists will perform initial evaluation of pt's status upon admission and devise an individualized program for Patient precaution education Edema - to improve, our physical therapists will perform initial evaluation of pt's status upon admi ssion and devise an individualized program for Elevation Training, and Lymphedema Therapy Poor balance - to improve, our physical therapists will perform initial evaluation of pt's status up on admission and devise an individualized program for Balance Training Poor endurance - to improve, our physical therapists will perform initial evaluation of pt's status upon admission and devise an individualized program for Endurance Training Weakness - to improve, our physical therapists will perform initial evaluation of pt's status upon a dmission and devise an individualized program for Aquatic Therapy, Neuromuscular Reeducation, and Str engthening Achieving independence - to improve, our physical therapists will perform initial evaluation of pt's status upon admission and devise an individualized program for Community Reintegration Activities - Diet - Liquid Texture Continue Regular - Tube Feed Continue N/A - Lab Results blood Sugar Check ACHS - Diet - Solid Texture Continue Regular - Shower allowing shower - Occupational Therapy ADL deficits - to improve, our occupation therapists will perform initial evaluation of pt's status upon admission and devise an individualized program for Bathing, Bed mobility, Community Reintegratio n, Cooking, Dressing, Eating, Fine Motor Skills, Grooming, Homemaking, Kitchen Mobility, Laundry, Pat ient Education, Safety Awareness, Splinting - Positioning, Transfers(Toilet, Tub, Shower), and Wheel Chair Management Cognitive deficits - to improve, our occupation therapists will perform initial evaluation of pt's s tatus upon admission and devise an individualized program for Cognition - orientation Need for resident care coordinator - to improve, our occupation therapists will perform initial evaluation of pt's status upon admission and devise an individualized program for Caregiver Training Weakness - to improve, our occupation therapists will perform initial evaluation of pt's status upon admission and devise an individualized program for Aquatic Therapy, Balance, Endurance, UE ROM, and UE strengthening FUNCTIONAL STATUS: UPDATED AT WEEKLY TEAM CONFERENCE - Bladder Same accident frequency: 7-Ind - No accidents in the past 7 days - Bowel Same accident frequency: 7-Ind - No accidents in the past 7 days - Walking Same score based on distance walked: 0(N/A) FUNCTIONAL STATUS: - Self-Care A. Eating sup B. Grooming Satinder C. Bathing modA D. Dressing - Upper modA E. Dressing - Lower modA F. Toileting modA - Sphincter Control G: Bladder control Ind H: Bowel control Ind - Transfers Control I. Bed/Chair/Wheelchair modA J. Toilet modA K. Tub/Shower ADNO - Locomotion L. Walk/Wheelchair (B) Dep M. Stairs ADNO - Communication N. Comprehension (B) sup O. Expression (B) sup - Social Cognition P. Social Interaction sup Q. Problem Solving sup R. Memory Dhara - Endurance Poor - Balance Poor - Safety Awareness Poor CURRENT FUNC. DEFICITS: Self-Care, Transfers Control, Communication, Social Cognition, Endurance, Balance, Safety Awareness, and Locomotion SIGNATURE PANEL: (CDT)
--- NOTE | 2017-08-02 17:28 | FAST ---
ENCOUNTER DATE AND TIME: 07/31/2017 08:00 (CDT) NAME CYNTHIA JENSEN DATE OF : 1965 DATE OF ADMISSION: 07/10/2017 20:00 (CDT) PHONE: AGE: 52 N# [id number] GENDER: Male ENCOUNTER PHYSICIAN: Dr. Andrew Escalona M.D. 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 EATING: Activity did not occur on this shift EATING - SCORE: 0-UNK GROOMING: Activity did not occur on this shift GROOMING - SCORE: 0-UNK BATHING: Activity did not occur on this shift BATHING - SCORE: 0-UNK DRESSING - UPPER BODY: Activity did not occur on this shift Patient is not dressing in public clothing ARTICLES SCORE Total number of steps: 0 DRESSING - UPPER BODY - SCORE: 0-UNK DRESSING - LOWER BODY: Activity did not occur on this shift Patient is not dressing in public clothing ARTICLES SCORE Total number of steps: 0 DRESSING - LOWER BODY - SCORE: 0-UNK TOILETING: Activity did not occur on this shift TOILETING - SCORE: 0-UNK BLADDER MANAGEMENT: Activity did not occur on this shift BLADDER MANAGEMENT - SCORE: 7-IND BOWEL MANAGEMENT: Activity did not occur on this shift BOWEL MANAGEMENT - SCORE: 7-IND TRANSFERS: BED, CHAIR, WHEELCHAIR: TRANSFERS: BED, CHAIR, WHEELCHAIR - STEP 1: Does the patient require assistance with bed, chair, or wheelchair transfers? Yes. TRANSFERS: BED, CHAIR, WHEELCHAIR - STEP 2: Does the patient require the assistance of a helper? No. Patient only requires an assistive device fo r bed, chair, wheelchair transfers such as a sliding board, grab bar, or brace, OR s/he takes more th an reasonable time, OR there is a safety concern when s/he performs the transfers TRANSFERS: BED, CHAIR, WHEELCHAIR - SCORE: 6-DEBI TRANSFERS: TOILET: Activity did not occur on this shift TRANSFERS: TOILET - SCORE: 0-UNK TRANSFERS: SHOWER: Activity did not occur on this shift TRANSFERS: SHOWER - SCORE: 0-UNK TRANSFERS: TUB: Activity did not occur on this shift TRANSFERS: TUB - SCORE: 0-UNK LOCOMOTION: WALK: LOCOMOTION: WALK - STEP 1: Does the patient need help to walk 150 feet? No. LOCOMOTION: WALK - STEP 2: Does the patient need an assistive device (such as an orthosis, prosthesis, crutches, or walker) to g o 150 feet, OR does s/he take more than reasonable time, OR is there a concern for safety? Yes, the p atient needs an assistive device LOCOMOTION: WALK - SCORE: 6-DEBI LOCOMOTION: WHEELCHAIR: LOCOMOTION: WHEELCHAIR - STEP 1: Does the patient need help to go 150 feet in a wheelchair? No. LOCOMOTION: WHEELCHAIR - SCORE: 6-DEBI LOCOMOTION: STAIRS: LOCOMOTION: STAIRS - STEP 1: Does the patient need help to go up and down 12 to 14 stairs? No. LOCOMOTION: STAIRS - STEP 2: Does the patient require an assistive device - such as handrails or cane - to go up and down one flig ht of stairs, OR does s/he take more than reasonable time, OR is there a concern for safety? Yes, the patient requires an assistive device LOCOMOTION: STAIRS - SCORE: 6-DEBI COMPREHENSION: COMPREHENSION - SCORE: 0-UNK EXPRESSION EXPRESSION - SCORE: 0-UNK SOCIAL INTERACTION: SOCIAL INTERACTION - SCORE: 0-UNK PROBLEM SOLVING: PROBLEM SOLVING - SCORE: 0-UNK MEMORY: MEMORY - SCORE: 0-UNK SIGNATURE PANEL: The following modified sections: Transfers: Bed, Chair, Wheelchair - Score, Transfers: Toilet - Score , Locomotion: Walk - Score, Locomotion: Wheelchair - Score, Locomotion: Stairs - Score were [amina [email or web address]] signed by Inocente Lau PTA on MonJul 31 2017 16:13:41 T-0500 (Central Daylight Time)
--- NOTE | 2017-08-02 17:29 | FAST ---
SHIFT START DATE/TIME: 08/01/2017 07:00 (CDT) SHIFT END DATE/TIME: 08/01/2017 19:00 (CDT) NAME CYNTHIA JENSEN DATE OF : 1965 DATE OF ADMISSION: 07/10/2017 20:00 (CDT) PHONE: AGE: 52 N# [id number] GENDER: Male ENCOUNTER PHYSICIAN: Dr. Andrew Escalona M.D. 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 EATING: EATING - STEP 1: Does the patient require assistance when eating? Yes. EATING - STEP 2: Does the patient require the assistance of a helper? Yes. EATING - STEP 3: Does the patient perform half or more of the eating tasks? Yes. EATING - STEP 4: Does the patient need only supervision, cuing, coaxing OR help to apply an orthosis OR help to cut fo od, open containers, pour liquids, or butter bread? Yes. EATING - SCORE: 5-SUP GROOMING: Comb/brush hair Oral care Wash, rinse, and dry face Wash, rinse, and dry hands GROOMING - STEP 1: Does the patient require assistance when grooming? Yes. GROOMING - STEP 2: Does the patient require the assistance of a helper? Yes. GROOMING - STEP 3: How much assistance does the patient require from the helper? Cuing, coaxing, instructions, or encour agement for completion of grooming GROOMING - SCORE: 5-SUP BATHING: Activity did not occur on this shift BATHING - SCORE: 0-UNK DRESSING - UPPER BODY: Activity did not occur on this shift ARTICLES SCORE Total number of steps: 0 DRESSING - UPPER BODY - SCORE: 0-UNK DRESSING - LOWER BODY: Activity did not occur on this shift ARTICLES SCORE Total number of steps: 0 DRESSING - LOWER BODY - SCORE: 0-UNK TOILETING: TOILETING - STEP 1: Does the patient require assistance with toileting? Yes. TOILETING - STEP 2: Does the patient require the assistance of a helper? No. TOILETING - SCORE: 6-DEBI BLADDER MANAGEMENT: BLADDER MANAGEMENT - STEP 1: Does the patient control the bladder completely and intentionally without equipment or devices or med ications, and is always continent? Yes. BLADDER MANAGEMENT - SCORE: 7-IND BOWEL MANAGEMENT: Activity did not occur on this shift BOWEL MANAGEMENT - SCORE: 7-IND TRANSFERS: BED, CHAIR, WHEELCHAIR: TRANSFERS: BED, CHAIR, WHEELCHAIR - STEP 1: Does the patient require assistance with bed, chair, or wheelchair transfers? Yes. TRANSFERS: BED, CHAIR, WHEELCHAIR - STEP 2: Does the patient require the assistance of a helper? No. Patient only requires an assistive device fo r bed, chair, wheelchair transfers such as a sliding board, grab bar, or brace, OR s/he takes more th an reasonable time, OR there is a safety concern when s/he performs the transfers TRANSFERS: BED, CHAIR, WHEELCHAIR - SCORE: 6-DEBI TRANSFERS: TOILET: TRANSFERS: TOILET - STEP 1: Does the patient require assistance with toilet transfers? Yes. TRANSFERS: TOILET - STEP 2: Does the patient require the assistance of a helper? No. Patient only requires an assistive device freitas ch as a grab bar or special seat, OR s/he takes more than reasonable time to perform toilet transfers , OR there is a safety concern when s/he performs toilet transfers. TRANSFERS: TOILET - SCORE: 6-DEBI TRANSFERS: SHOWER: Activity did not occur on this shift TRANSFERS: SHOWER - SCORE: 0-UNK TRANSFERS: TUB: Activity did not occur on this shift TRANSFERS: TUB - SCORE: 0-UNK LOCOMOTION: WALK: Activity did not occur on this shift LOCOMOTION: WALK - SCORE: 0-UNK LOCOMOTION: WHEELCHAIR: Activity did not occur on this shift LOCOMOTION: WHEELCHAIR - SCORE: 0-UNK COMPREHENSION: COMPREHENSION - SCORE: 0-UNK EXPRESSION EXPRESSION - SCORE: 0-UNK SOCIAL INTERACTION: SOCIAL INTERACTION - SCORE: 0-UNK PROBLEM SOLVING: PROBLEM SOLVING - SCORE: 0-UNK MEMORY: MEMORY - SCORE: 0-UNK SIGNATURE PANEL: The following modified sections: Eating - Score, Grooming - Score, Bathing - Score, Dressing - Upper Body - Score, Dressing - Lower Body - Score, Toileting - Score, Bladder Management - Score, Bowel Man agement - Score, Transfers: Bed, Chair, Wheelchair - Score, Transfers: Toilet - Score, Transfers: Dilma wer - Score, Transfers: Tub - Score, Locomotion: Walk - Score, Locomotion: Wheelchair - Score, Compre hension - Score, Expression - Score, Social Interaction - Score, Problem Solving - Score, Memory - Sc ore were [electronically] signed by Nasir Guido on MonAug 01 2017 09:37:09 GMT-0500 (Central Daylight Time)
--- NOTE | 2017-08-02 17:29 | R.DS ---
FACILITY [facility] MR# [id number] NAME CYNTHIA JENSEN [address]ESS [address] [place] [address] PHONE DATE OF 1965 AGE 52 SSN# [id number] GENDER Male DEXTERITY Right-handed MARITAL STATUS RACE ENCOUNTER PHYSICIAN Dr. Andrew Escalona M.D. REFERRING DOCTOR ANTOINETTE VEGA REFERRING FACILITY [facility] DISCHARGE DIAGNOSIS: - Neurologic Conditions 03 - Guillain-Coeur D Alene Syndrome (03.4) Guillain-Coeur D Alene syndrome [G610]. DISCHARGE COMORBIDITIES: - Non-Tiered Type 2 diabetes mellitus [E11] HIV CHRONIC HEPATITIS C FATTY LIVER - N/A hypertension DATE OF ADMISSION 07/10/2017 20:00 (CDT) MEDICATION ALLERGIES: CODEINE ENVIRONMENTAL ALLERGIES: - Substance Allergies None Known - Other Allergies None Known NURSING: - Shower allowing shower - Lab Results blood Sugar Check ACHS ACTIVITIES OOB only with supervision THERAPIES: - Occupational Therapy Evaluate and Treat - Physical Therapy Evaluate and Treat HISTORY OF PRESENT ILLNESS: Pt. 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 was independent/mod-I in Sphincter Contr ol and Social Cognition; and he had good Sphincter Control.Currently, he has deficits of Self-Care, T ransfers Control, Communication, Social Cognition, Endurance, Balance, Safety Awareness, and Locomoti on.Pt. is now referred to [facility] for acute in-patient rehabilitation in or [place] to maximize patient's functional independence in activities of daily living, strength, ROM, and m obility.- Rehab Goal Patient has realistic goal of being discharged at assistance level 6-Dhara to reside at Home with Fam shant/Relatives. HOSPITAL COURSE: DIET TYPE: On 07/10/2017 Pt was upgraded to Regular Diet Type. DIET - LIQUID TEXTURE: On 07/10/2017 Pt was upgraded to Regular Diet - Liquid Texture. DIET - SOLID TEXTURE: On 07/10/2017 Pt was upgraded to Regular Diet - Solid Texture. TUBE FEED: On 07/10/2017 Pt was changed to N/A Tube Feed. DISCHARGE PHYSICAL EXAM - Gen Alert and awake Lying in bed No apparent distress Oriented to: person, time, and place - Vital Signs Vital signs stable, afebrile - Skin No skin breakdown. Normacephalic - Eyes No abnormalities - ENMT No abnormalities - Neck No abnormalities - CVS RRR - Resp Clear to auscultation - Abd Soft - GI Non distended Deferred - No abnormalities - Ext No significant edema - MSK 4/5 weakness in both upper extremities and 3+/5 weakness in both lower extremities. - Psych No abnormalities FUNCTIONAL STATUS: - Self-Care A. Eating 5-sup 6-Dhara B. Grooming 4-Satinder 6-hDara C. Bathing 3-modA 6-Dhara D. Dressing - Upper 3-modA 6-Dhara E. Dressing - Lower 3-modA 6-Dhara F. Toileting 3-modA 6-Dhara - Sphincter Control G: Bladder control 7-Ind 7-Ind H: Bowel control 7-Ind 7-Ind - Transfers Control I. Bed/Chair/Wheelchair 3-modA 6-Dhara J. Toilet 3-modA 6-Dhara K. Tub/Shower 0-ADNO 6-Dhara - Locomotion L. Walk/Wheelchair (B) 1-Dep 6-Dhara M. Stairs 0-ADNO 6-Dhara - Communication N. Comprehension (B) 5-sup 5-sup O. Expression (B) 5-sup 5-sup - Social Cognition P. Social Interaction 5-sup 5-sup Q. Problem Solving 5-sup 5-sup R. Memory 6-Dhara 6-Dhara - Endurance Poor - Balance Poor - Safety Awareness Poor DISCHARGE INSTRUCTIONS: - N/A Lovenox 40 mg sq daily. DISCHARGE PLAN, FOLLOW UP CARE PROVISIONS: - Estimated Length of Stay (days) 20. - Consensus on plan Discharge plan has been discussed with primary caregiver. Patient/Family is in agreement with the eri n. Primary caregiver is in agreement with the plan. - Patient/Family Goals Return home with assistance. - Planned Living Setting Upon Discharge Home, to live with Family/Relatives. SIGNATURE PANEL: (CDT)
--- NOTE | 2017-08-02 17:29 | FAST ---
SHIFT START DATE/TIME: 07/31/2017 19:00 (CDT) SHIFT END DATE/TIME: 08/01/2017 07:00 (CDT) NAME CYNTHIA JENSEN DATE OF : 1965 DATE OF ADMISSION: 07/10/2017 20:00 (CDT) PHONE: AGE: 52 N# [id number] GENDER: Male ENCOUNTER PHYSICIAN: Dr. Andrew Escalona M.D. 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 EATING: EATING - STEP 1: Does the patient require assistance when eating? Yes. EATING - STEP 2: Does the patient require the assistance of a helper? No, patient only requires an assistive device, O R s/he takes more than reasonable time to eat, OR there is a safety concern, OR s/he requires modifie d food consistency EATING - SCORE: 6-DEBI GROOMING: Comb/brush hair Oral care Wash, rinse, and dry face Wash, rinse, and dry hands GROOMING - STEP 1: Does the patient require assistance when grooming? Yes. GROOMING - STEP 2: Does the patient require the assistance of a helper? No. The patient only requires an assistive devic e, OR takes more than reasonable time to groom, OR there is a concern for safety as the patient groom s GROOMING - SCORE: 6-DEBI BATHING: Activity did not occur on this shift BATHING - SCORE: 0-UNK DRESSING - UPPER BODY: Patient is not dressing in public clothing ARTICLES SCORE Total number of steps: 0 DRESSING - UPPER BODY - SCORE: 0-UNK DRESSING - LOWER BODY: Patient is not dressing in public clothing ARTICLES SCORE Total number of steps: 0 DRESSING - LOWER BODY - SCORE: 0-UNK TOILETING: TOILETING - STEP 1: Does the patient require assistance with toileting? Yes. TOILETING - STEP 2: Does the patient require the assistance of a helper? No. TOILETING - SCORE: 6-DEBI BLADDER MANAGEMENT: BLADDER MANAGEMENT - STEP 1: Does the patient control the bladder completely and intentionally without equipment or devices or med ications, and is always continent? No. BLADDER MANAGEMENT - STEP 2: Does the patient require the assistance of a helper? No, patient requires and independently uses an a ssistive device, such as a urinal, bedpan, bedside commode, catheter, absorbent pad, or collecting de vice BLADDER MANAGEMENT - SCORE: 6-DEBI BLADDER MANAGEMENT - FREQUENCY OF ACCIDENTS: BLADDER MANAGEMENT(FA) - STEP 1: How many accidents has the patient had during the current shift? 0 BOWEL MANAGEMENT: Activity did not occur on this shift BOWEL MANAGEMENT - SCORE: 7-IND TRANSFERS: BED, CHAIR, WHEELCHAIR: TRANSFERS: BED, CHAIR, WHEELCHAIR - STEP 1: Does the patient require assistance with bed, chair, or wheelchair transfers? Yes. TRANSFERS: BED, CHAIR, WHEELCHAIR - STEP 2: Does the patient require the assistance of a helper? No. Patient only requires an assistive device fo r bed, chair, wheelchair transfers such as a sliding board, grab bar, or brace, OR s/he takes more th an reasonable time, OR there is a safety concern when s/he performs the transfers TRANSFERS: BED, CHAIR, WHEELCHAIR - SCORE: 6-DEBI TRANSFERS: TOILET: TRANSFERS: TOILET - STEP 1: Does the patient require assistance with toilet transfers? Yes. TRANSFERS: TOILET - STEP 2: Does the patient require the assistance of a helper? No. Patient only requires an assistive device freitas ch as a grab bar or special seat, OR s/he takes more than reasonable time to perform toilet transfers , OR there is a safety concern when s/he performs toilet transfers. TRANSFERS: TOILET - SCORE: 6-DEBI TRANSFERS: SHOWER: Activity did not occur on this shift TRANSFERS: SHOWER - SCORE: 0-UNK TRANSFERS: TUB: Activity did not occur on this shift TRANSFERS: TUB - SCORE: 0-UNK LOCOMOTION: WALK: Activity did not occur on this shift LOCOMOTION: WALK - SCORE: 0-UNK LOCOMOTION: WHEELCHAIR: Activity did not occur on this shift LOCOMOTION: WHEELCHAIR - SCORE: 0-UNK COMPREHENSION: COMPREHENSION: TYPE: Both COMPREHENSION - STEP 1: Does the patient require help to understand complex and abstract ideas (such as current events, finan kellen, discharge planning, medical issues, relationships, etc)? No. COMPREHENSION - STEP 2: Does the patient need extra time, require an assistive device (such as glasses, hearing aids, or an a ugmentative communication system), OR does s/he have mild difficulty expressing complex and abstract ideas (including mild dysarthria or mild word-finding problems)? Yes. COMPREHENSION - SCORE: 6-DEBI EXPRESSION EXPRESSION: TYPE: Both EXPRESSION - STEP 1: Does the patient require help expressing complex and abstract ideas (such as current events, finances , discharge planning, medical issues, relationships, etc)? No. EXPRESSION - STEP 2: Does the patient need extra time, require an assistive device (such as augmentive communication syste m or a communication board), OR does s/he have mild difficulty expressing complex and abstract ideas (including mild dysarthria or mild word-find problems)? No. EXPRESSION - SCORE: 7-IND SOCIAL INTERACTION: SOCIAL INTERACTION - STEP 1: Does the patient require a helper to interact with others in social and therapeutic situations? No. SOCIAL INTERACTION - STEP 2: Does the patient need extra time in social situations, OR does s/he interact with staff, other patien ts, and family members ONLY in structured environments, OR does s/he require medication for social in teraction? No. SOCIAL INTERACTION - SCORE: 7-IND PROBLEM SOLVING: PROBLEM SOLVING - STEP 1: Does the patient need help to solve complex problems such as managing a checking account or confronti ng interpersonal problems? No. PROBLEM SOLVING - STEP 2: Does the patient require extra time to make decisions or solve problems, OR does s/he have slight dif ficulty reading, initiating, or self-correcting in unfamiliar situations? No. PROBLEM SOLVING - SCORE: 7-IND MEMORY: MEMORY - STEP 1: Does the patient need help to remember frequently encountered people, daily routines, and executing r equests? No. MEMORY - STEP 2: Does the patient have slight difficulty recognizing frequently encountered people, daily routines, or executing requests without the need for repetition or using self-initiated or environmental cues to remember? No. MEMORY - SCORE: 7-IND SIGNATURE PANEL: The following modified sections: Eating - Score, Grooming - Score, Bathing - Score, Dressing - Upper Body - Score, Dressing - Lower Body - Score, Toileting - Score, Bladder Management - Score, Bowel Man agement - Score, Transfers: Bed, Chair, Wheelchair - Score, Transfers: Toilet - Score, Transfers: Dilma wer - Score, Transfers: Tub - Score, Locomotion: Walk - Score, Locomotion: Wheelchair - Score, Compre hension - Score, Expression - Score, Social Interaction - Score, Problem Solving - Score, Memory - Sc ore were [electronically] signed by Christina Tapia C.N.A. on MonAug 01 2017 03:31:43 T-0500 ( Central Daylight Time)
== END 2017-08-01 11:25 | disposition home or self-care (01) | DRG 96 ==
LOC: 5TH 07-10 20:18
PROVIDERS: ADMIT Psychiatry & Neurology Neurology with Special Qualifications in Child Neurology; ATTEND Psychiatry & Neurology Neurology with Special Qualifications in Child Neurology
DX: G61.0 Guillain-Barre syndrome (principal); E11.9 Type 2 diabetes mellitus without complications; Z21 Asymptomatic human immunodeficiency virus [HIV] infection status; K76.0 Fatty (change of) liver, not elsewhere classified
CPT/HCPCS: 36415; 80048; 81001; 82040; 82962; 83735; 84134; 85025; 87086; 87088; 97542; J1650; J3490

== ENCOUNTER 2017-09-07 17:35 | Emergency (ER) | payer BC ==
--- OUTSIDE RECORDS SUMMARY | 2017-09-07 17:38 | XMS REPORT | Clinical Summary ---
:1965 Author Organization [facility] Address [address] [place] [address] Phone Care Team Providers Name Role Phone Unavailable Primary Care Provider Unavailable Allergies Active Allergy Reactions Severity Noted Date Comments Shireen Nguyen 06/25/2017 Current Medications Prescription Sig. Disp. Refills Start End Status Date Date acetaminophen Take 500 mg by Active (TYLENOL) 500 MG mouth every 6 tablet (six) hours as needed for Pain. carvedilol (COREG) Take 6.25 mg by Active 6.25 MG tablet mouth 2 (two) times daily with breakfast and dinner. cholecalciferol, Take 5,000 Units Active vitamin D3, 1,000 by mouth daily. unit capsule tamsulosin (FLOMAX) Take 0.4 mg by Active 0.4 mg Cp24 24 hr mouth daily. capsule thiamine 100 MG Take 100 mg by Active tablet mouth daily. amitriptyline Take 1 tablet (25 30 tablet 2 07/06/07/06/ Active (ELAVIL) 25 MG mg total) by 2018 tablet mouth nightly. amLODIPine Take 1 tablet (10 30 tablet 2 07/08/1907/07/ Active (NORVASC) 10 MG mg total) by 2018 tablet mouth daily. Dolutegravir Take 1 tablet (50 30 tablet 2 07/08/19 Active (TIVICAY) 50 mg Tab mg total) by 18 mouth daily. emtricitabine-tenof Take 1 tablet by 30 tablet 11 07/08/1907/07/ Active ovir, TDF, mouth daily. 2018 (TRUVADA) 200-300 mg enoxaparin Inject 0.4 mLs 400 mL 0 07/08/19 Active (LOVENOX) 40 mg/0.4 (40 mg total) 18 mL Syrg subcutaneously daily. gabapentin Take 3 capsules 270 capsule 11 07/07/1907/06/ Active (NEURONTIN) 300 MG (900 mg total) by 2018 capsule mouth 3 (three) times daily. folic acid Take 1 tablet (1 30 tablet 2 07/08/1907/07/ Active (FOLVITE) 1 MG mg total) by 2018 tablet mouth daily. insulin detemir Inject 15 Units 10 mL 0 07/07/19 Active (LEVEMIR) 100 subcutaneously 18 unit/mL injection nightly. magnesium oxide Take 1 tablet 30 tablet 2 07/08/1907/07/ Active (MAG-OX) 400 mg (400 mg total) by 2018 tablet mouth daily. metoprolol Take 0.5 tablets 60 tablet 0 07/07/19 Active (LOPRESSOR) 100 MG (50 mg total) by 18 tablet mouth 2 (two) times daily. multivitamin Take 1 tablet by 30 tablet 2 07/08/1907/07/ Active (THERAGRAN) tablet mouth daily. 2018 pantoprazole Take 1 tablet (40 30 tablet 0 07/08/19 Active (PROTONIX) 40 MG mg total) by 18 tablet mouth daily. senna-docusate Take 1 tablet by 60 tablet 2 07/07/1907/06/ Active (SENOKOT S) 8.6-50 mouth 2 (two) 2018 mg per tablet times daily. sodium chloride 1 Take 2 tablets (2 180 tablet 2 07/07/1907/06/ Active gram tablet g total) by mouth 2018 3 (three) times daily with meals. viscous lidocaine Swish and spit 10 100 mL 0 07/07/19 Active 2% (VISCOUS mLs every 6 (six) 18 LIDOCAINE) 2 % Soln hours as needed. mucosal solution white Place 1 3.5 g 0 07/07/19 Active petrolatum-mineral application into 18 oil (ARTIFICIAL both eyes TEARS) 83-15 % Oint nightly. ophthalmic ointment calcium Take 1 tablet by 30 tablet 0 07/11/07/11/ Active carbonate-vitamin mouth daily. 2018 D3 (OSCAL-D) 500 mg(1,250mg) -200 unit per tablet magnesium oxide Take 1 tablet 30 tablet 0 07/10/07/10/ Active (MAG-OX) 400 mg (400 mg total) by 2018 tablet mouth 2 (two) times daily. nystatin Apply topically 2 15 g 0 07/11/1907/10/ Active (MYCOSTATIN) (two) times 2018 100,000 unit/gram daily. powder HYDROcodone-acetami Take 1 tablet by Discontinued nophen (NORCO mouth every 4 2017 10-325) 10-325 mg (four) hours as per tablet needed for Pain. acyclovir (ZOVIRAX) Take 400 mg by Discontinued 400 MG tablet mouth 5 (five) 2018 times daily. chlordiazePOXIDE Take 10 mg by Discontinued (LIBRIUM) 10 MG mouth 3 (three) 2018 capsule times daily as needed for Anxiety. insulin detemir Inject 10 Units Discontinued (LEVEMIR) 100 subcutaneously 2017 unit/mL injection nightly. lisinopril Take 10 mg by Discontinued (PRINIVIL,ZESTRIL) mouth daily. 2018 10 MG tablet metoprolol Take 100 mg by Discontinued (LOPRESSOR) 100 MG mouth 2 (two) 2018 tablet times daily. bisacodyl Take 2 tablets 30 tablet 0 07/07/1908/05/ (DULCOLAX) 5 mg EC (10 mg total) by 2017 tablet mouth daily as needed for Constipation for up to [address] 1 12 suppository 0 07/07/1907/16/ (DULCOLAX) 10 mg suppository (02 01 2018 suppository mg total) rectally daily as needed for up to 10 days. doxycycline Take 1 capsule 14 capsule 0 07/07/1907/13/ (MONODOX) 100 MG (100 mg total) by 2017 capsule mouth every 12 (twelve) hours for 7 days. HYDROcodone-acetami Take 1 tablet by 30 tablet 0 07/07/1907/10/ Discontinued nophen (NORCO mouth every 8 2017 5-325) 5-325 mg per (eight) hours as tablet needed for up to 10 days. Max Daily Amount: 3 tablets nystatin Use as directed 5 60 mL 0 07/07/1907/16/ (MYCOSTATIN) mLs (500,417 24 8954 100,000 unit/mL Units total) in suspension the mouth or throat 4 (four) times daily for 10 days. penicillin G Inject 24 Million 0 07/07/1907/06/ Discontinued potassium IVPB Units 2017 intravenously continuous. polyvinyl alcohol Place 1 drop into 15 mL 0 07/07/1908/05/ (LIQUIFILM TEARS) both eyes 4 2017 1.4 % ophthalmic (four) times solution daily as needed for up to 30 days. zolpidem (AMBIEN) 5 Take 1 tablet (5 30 tablet 0 07/07/1908/05/ MG tablet mg total) by 2017 mouth every night as needed for Insomnia for up to 30 days. Max Daily Amount: 5 mg penicillin G Inject 24 Million 0 07/07/1907/13/ potassium IVPB Units 2017 intravenously continuous for 7 days. 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 Weakness generalized 06/25/2017 Encounters Date Type Specialty Care Team Description 07/01/2017 Orders Only General Internal Medicine 06/27/2017 Ancillary Orders Lab Butt, Bilal 06/27/2017 Ancillary Orders Lab Butt, Bilal 06/25/2017 - [facility] General Internal Una Bellamy Weakness of both lower 07/10/2017 Encounter Medicine MD Haley extremities;HIV (human Suzanne, immunodeficiency virus Edinson Calhoun, infection) ([facility]);GBS (Guillain-Miami Alex, Yashash syndrome) D ([facility]);Essential hypertension;Hyponatrem ia;Weakness generalized;Chronic hepatitis C without hepatic coma ([facility]) after 09/06/2016 Immunizations Name Dates Previously Given Next Due Pneumococcal Conjugate (Prevnar) 13-Valent 07/04/2017 Social History Tobacco Use Types Packs/Day Years Used Date Never Assessed Sex Assigned at Date Recorded Not on file Last Filed Vital Signs Vital Sign Reading Time Taken Blood Pressure 126/74 07/10/2017 11:00 AM CDT Pulse 89 07/10/2017 11:00 AM CDT Temperature 36.4 C (97.5 F) 07/10/2017 11:00 AM CDT Respiratory Rate 18 07/10/2017 11:00 AM CDT Oxygen Saturation 94% 07/10/2017 11:00 AM CDT Inhaled Oxygen Concentration - - Weight 66.6 kg (146 lb 13.2 oz) 06/25/2017 10:00 PM CDT Height 160 cm (5' 3") 06/25/2017 10:00 PM CDT Body Mass Index 26.01 06/25/2017 10:00 PM CDT Plan of Treatment Not on file Results RHYTHM STRIP - SCAN (07/12/2017 11:20 AM)POC-Glucose meter (07/10/2017 4:55 PM) Only the most recent of62 resultswithin the time period is included. Component Value Ref Range POC-Glucose Meter 104Comment: TESTED AT [address] [place] 70 - 110 mg/dL [address] Specimen Performing Laboratory Blood [address] [address] Manual Differential (07/10/2017 5:25 AM)Only the most recent of15 resultswithin the time period is included. Component Value Ref Range Total Counted Specimen Performing Laboratory Blood - Arm, Right [address] [address] CBC with platelet count + automated diff (07/10/2017 5:25 AM)Only the most recent of16 resultswithin the time period is included. Component Value Ref Range WBC 4.9 3.5 - 10.5 K/L RBC 3.62 (L) 4.63 - 6.08 M/L Hemoglobin 10.2 (L) 13.7 - 17.5 GM/DL Hematocrit 30.4 (L) 40.1 - 51.0 % MCV 84.0 79.0 - 92.2 fL MCH 28.2 25.7 - 32.2 pg MCHC 33.6 32.3 - 36.5 GM/DL RDW 13.7 11.6 - 14.4 % Platelets 150 150 - 450 K/CU MM MPV 8.8 (L) 9.4 - 12.4 fL nRBC 0 0 - 0 /100 WBC % Neutros 25 % % Lymphs 60 % % Monos 9 % % Eos 5 % % Baso 0 % # Neutros 1.21 (L) 1.78 - 5.38 K/L # Lymphs 2.93 1.32 - 3.57 K/L # Monos 0.43 0.30 - 0.82 K/L # Eos 0.26 0.04 - 0.54 K/L # Baso 0.02 0.01 - 0.08 K/L Immature Granulocytes-Relative 0 0 - 1 % Specimen Performing Laboratory Blood - Arm, [address] [address] CBC with platelet count + automated diff (07/10/2017 5:25 AM)Only the most recent of16 resultswithin the time period is included. Specimen Performing Laboratory Blood Narrative The following orders were created for panel order CBC with platelet count + automated diff. Procedure Abnormality Status --------- ------ CBC with platelet count ...[[id number]]AbnormalFinal result Manual Differential[[id number]] Fi nal result Please view results for these tests on the individual orders. Sodium (07/10/2017 5:25 AM)Only the most recent of18 resultswithin the time period is included. Component Value Ref Range Sodium 131 (L) 136 - 145 meq/L Specimen Performing Laboratory Blood - Arm, [address] [address] Magnesium (07/08/2017 5:56 AM)Only the most recent of5 resultswithin the time period is included. Component Value Ref Range Magnesium 1.8 1.6 - 2.6 mg/dL Specimen Performing Laboratory Blood [address] [address] CD4 T Cell Subset (07/07/2017 10:06 AM)Only the most recent of3 resultswithin the time period is included. Component Value Ref Range Total Lymphocytes 2906 /cu mm CD3+ T Lymphocytes % 95 (H) 49 - 84 % CD3+ T Lymphocytes Absolute 2763 603 - 2990 /cu mm CD3+/CD8+ T Lymph cells % 71 (H) 10 - 40 % CD3+/CD8+ T Lymph cells Absolute 2050 (H) 125 - 1312 /cu mm CD3+/CD4+ T Lymph cells% 22 (L) 28 - 63 % CD3+/CD4+ T Lymph Cells Absolute 652 441 - 2156 /cu mm T Lymphocytes CD4/CD8 ratio 0.32 (L) 0.70 - 3.23 CD16+/CD56+ NK Cells % 3 (L) 4 - 25 % CD16+/CD56+ NK Cells Absolute 84 (L) 95 - 640 /cu mm CD19+ B Lymphocytes % 2 (L) 6 - 27 % CD19+ B Lymphocytes Absolute 51 (L) 107 - 698 /cu mm Specimen Performing Laboratory Blood [address] [address] Calcium, Ionized (07/07/2017 5:53 AM)Only the most recent of5 resultswithin the time period is included. Component Value Ref Range Calcium, Ion 1.03 (L) 1.12 - 1.27 mmol/L pH, Blood 7.50 Specimen Performing Laboratory Blood [address] [address] Phosphorus (07/07/2017 5:53 AM)Only the most recent of4 resultswithin the time period is included. Component Value Ref Range Phosphorus 4.0 2.3 - 4.7 mg/dL Specimen Performing Laboratory Blood [address] [address] Basic Metabolic Panel (07/07/2017 5:53 AM)Only the most recent of13 resultswithin the time period is included. Component Value Ref Range Sodium 129 (L) 136 - 145 meq/L Potassium 4.7 3.5 - 5.1 meq/L Chloride 100 98 - 107 meq/L CO2 24 22 - 29 meq/L BUN 14 7 - 21 mg/dL Creatinine 0.65 0.57 - 1.25 mg/dL Glucose 79 70 - 105 mg/dL Calcium 8.6 8.4 - 10.2 mg/dL EGFR 129Comment: ESTIMATED GFR IS NOT ACCURATE mL/min/1.73 sq m CREATININE CLEARANCE IN PREDICTING GLOMERULAR FILTRATION RATE. ESTIMATED GFR IS NOT APPLICABLE FOR DIALYSIS PATIENTS. Specimen Performing Laboratory Blood [address] [address] HIV-1 PCR, Quantitative (07/06/2017 12:11 PM)Only the most recent of2 resultswithin the time period is included. Component Value Ref Range HIV-1 PCR, Quantitative 399038 (H) <20 Cp/mL Specimen Performing Laboratory Blood - Arm, Left [address] [address] Narrative This test uses a Real-Time Polymerase Chain Reaction (RT-PCR) methodology to detect a highly conserved region of the HIV-1 gag gene and was performed using the KELVIN AmpliPrep/KELVIN TaqMan HIV-1 test kit version 2.0 ([employer] Reportable range for this assay is 20 - 10,000,000 copies per mL (1.3 - 7.0 Log copies/mL). STD Panel - CT/GC RNA (07/05/2017 10:33 AM) Component Value Ref Range C. trachomatis RNA, TMA NOT DETECTED N. gonorrhoeae RNA, TMA NOT DETECTED Comment: REFERENCE RANGE: C. TRACHOMATIS RNA, TMA: NOT DETECTED N. GONORRHOEAE RNA, TMA: NOT DETECTED This test was performed using the APTIMA(R) COMBO2 Assay (GEN-PROBE). Specimen Performing Laboratory Urine - Urine, Unspecified Source [facility] [address] [address] Narrative Performing Lab *[facility] [address] [place] [phone] H Catracho Angel MD Electrolytes (07/04/2017 9:26 PM) Component Value Ref Range Sodium 129 (L) 136 - 145 meq/L Potassium 4.6 3.5 - 5.1 meq/L Chloride 97 (L) 98 - 107 meq/L CO2 25 22 - 29 meq/L Specimen Performing Laboratory Blood - Arm, Left [address] [address] Narrative Call results [id number] Osmolality, serum (07/04/2017 3:11 AM)Only the most recent of4 resultswithin the time period is included. Component Value Ref Range Osmolality Serum 278 275 - 295 mOsm/kg Specimen Performing Laboratory Blood [address] [address] Sodium, random urine (07/04/2017 12:51 AM)Only the most recent of4 resultswithin the time period is included. Component Value Ref Range Sodium Urine 101 meq/L Specimen Performing Laboratory Urine [address] [address] Narrative Reference Range: No Normals Osmolality, urine (07/04/2017 12:51 AM)Only the most recent of4 resultswithin the time period is included. Component Value Ref Range Osmolality, Ur 447 40 - 1400 mOsm/kg Specimen Performing Laboratory Urine [address] [address] HLA [id number] (07/03/2017 9:49 AM)Only the most recent of5 resultswithin the time period is included. Component Value Ref Range Scan Result Specimen Performing Laboratory Blood - Arm, Right [facility] [address] [place] [address] G6PD, quantitative (07/03/2017 9:41 AM) Component Value Ref Range G-6-Pd, Quant 14.0 7.0 - 20.5 U/g Hgb Specimen Performing Laboratory Blood [facility] [address] [address] Narrative Performing Lab [facility] [address] [address] Catracho Holliday MD, PhD Toxoplasma gondii antibody, IgG (07/03/2017 9:41 AM) Component Value Ref Range Toxoplasma gondii IgG Positive Specimen Performing Laboratory Blood [address] [address] ECG 12 lead (07/01/2017 11:17 AM) Specimen Performing Laboratory GE MUSE Narrative Ventricular Rate 81 BPM Atrial Rate 81 BPM P-R Interval 156 ms QRS Duration 76 ms Q-T Interval 378 ms QTC Calculation(Bazett) 439 ms P [place] 62 degrees R [place] -39 degrees T [place] 53 degrees Normal sinus rhythm Left axis deviation Minimal voltage criteria for LVH, may be normal variant Nonspecific T wave abnormality Abnormal ECG No previous ECGs available Confirmed by MD LEUNG YOCHAI ([id number]) on 07/02/2017 6:14:34 AM Procedure Note Interface, External Ris In - 07/02/2017 6:14 AM CDT Ventricular Rate 81 BPM Atrial Rate 81 BPM P-R Interval 156 ms QRS Duration 76 ms Q-T Interval 378 ms QTC Calculation(Bazett) 439 ms P [place] 62 degrees R [place] -39 degrees T [place] 53 degrees Normal sinus rhythm Left axis deviation Minimal voltage criteria for LVH, may be normal variant Nonspecific T wave abnormality Abnormal ECG No previous ECGs available Confirmed by MD LEUNG YOCHAI ([id number]) on 07/02/2017 6:14:34 AM Hepatitis B Panel (06/29/2017 3:44 PM) Component Value Ref Range Hep B Core Total Ab Reactive (A) Nonreactive Hep B S Ab 416.6 (H) <8.0 mIU/mL hepatitis B Surface Ag Nonreactive Nonreactive Specimen Performing Laboratory Blood - Arm, [facility] [address] [place] [address] Hepatitis A Panel (06/29/2017 3:44 PM) Component Value Ref Range Hep A IgM Nonreactive Nonreactive Hep A IgG Reactive (A) Nonreactive Specimen Performing Laboratory Blood - Arm, [address] [address] HIV-1 Genotype (06/28/2017 3:57 PM) Component Value Ref Range Pr Gene Mutations DETECTED (A) Comment: HIV Subtype: B Antiretroviral drugsResistanceMutations Detected Predicted ! ! NRTIs ! ! ZDV (zidovudine or Retrovir)! NO! ABC (abacavir or Ziagen)! NO! ddI (didanosine or Videx) ! NO! 3TC (lamivudine or Epivir)! NO! FTC (emtricitabine or Emtriva)! NO! d4T (stavudine or Zerit)! NO! TDF (tenofovir or Viread) ! NO! !___! ! ! NNRTIs! ! ETR (etravirine or Intelence) ! NO! EFV (efavirenz or Sustiva)! NO! NVP (nevirapine or Viramune)! NO! RPV (rilpivirine or Edurant)! NO! !___! ! ! PIs ! ! FPV (fos-amprenavir or Lexiva)! NO! IDV (indinavir or Crixivan) ! NO! NFV (nelfinavir or Viracept)! NO! SQV (saquinavir or Invirase)! NO! LPV (lopinavir or Kaletra)! NO! ATV (atazanavir or Reyataz) ! NO! TPV (tipranavir or Aptivus) ! NO! DRV (darunavir or Prezista) ! NO! ! ! !___! PRB=PROBABLE OR EMERGING RESISTANCE OTHER MUTATIONS DETECTED: RT GENE MUTATIONS: T69S,V179D,R211K,F214L [place] GENE MUTATIONS: I62V,L63H,A71T [facility] Apr 2017 Interpretation Algorithm The method used in this test is RT-PCR and sequencing Of the HIV-1 polymerase gene. The phrases "resistance predicted" and "probable Or emerging resistance" refer to the application of The interpretive rules. The FDA has not reviewed all of the interpretive rules used by the laboratory to predict drug resistance. FDA may not currently recognize some of the HIV gene mutations reported as predictive of drug resistance, but the laboratory considers these mutations to be associated with resistance to anti-viral drugs based on current clinical or scientific studies. The test has been validated pursuant to CLIA regulations and is not considered investigational or for research use only. Treatment decisions should be made in consideration of All relevant clinical and laboratory findings and the prescribing information for the drugs. This test was developed and its analytical performance characteristics have been determined by [facility]. It has not been cleared or approvedby FDA. This assay has been validated pursuant to theCLIA regulations and is used for clinical purposes. Specimen Performing Laboratory Blood - Line, Venous Shut Down [facility] [address] [address] Narrative Performing Lab *[facility], [facility]. [address] [place] [phone] Bernadette Angel MD FTA antibodies, Serum (06/28/2017 3:57 PM) Component Value Ref Range FTA-ABS REACTIVE (A)Comment: REFERENCE RANGE: NON-REACTIVE Specimen Performing Laboratory Blood - Line, Venous Shut Down [facility] [address] [address] Narrative Performing Lab *[facility] [address] [place] [phone] Bernadette Angel MD Creatinine, random urine (06/28/2017 9:36 AM)Only the most recent of2 resultswithin the time period is included. Component Value Ref Range Creatinine, Ur 18.7 mg/dL Specimen Performing Laboratory [place] [address] Narrative Reference Range: No Normals REFLEX-HIV 1/2 ANTIGEN AND ANTIBODIES,4TH GENERATION (06/28/2017 4:06 AM) Component Value Ref Range HIV AG/AB, 4TH GEN ([facility]) REPEATEDLY REACTIVE (A) Comment: "The repeatedly reactive screening assay result is confirmed by duplicate repeat testing, and indicates a POSSIBLE presence of HIV-1 antibodies or HIV-2 antibodies, and/or HIV-1 p24 antigen. Additional testing is required for diagnosis. Therefore, these screening results must be correlated with results of reflex confirmatory tests, including the HIV-1/HIV-2 antibody differentiation assay and, if necessary, the HIV-1 RNA qualitative TMA. The 4th generation HIV-1/2 Antigen/Antibody combination immunoassay is a screening test and should not be used alone for diagnosis. Repeatedly reactive results from the 4th generation screening test are only indicative of HIV infection when those screening results are confirmed to be positive by either the HIV-1/2 Antibody Differentiation Assay or the HIV-1 RNA test by TMA." REFERENCE RANGE: NON-REACTIVE PLEASE NOTE This information has been disclosed to you from records whose confidentiality may be protected by state law. If your state requires such protection, then the state law prohibits you from making any further disclosure of the information without the specific written consent of the person to whom it pertains, or as otherwise permitted by law. A general authorization for the release of medical or other information is NOT sufficient for this purpose. The performance of this assay has not been clinically validated in patients less than 2 years old. For additional information, please refer to http://education.Solx/faq/DKK399 (This link is being provided for informational/educational purposes only.) Specimen Performing Laboratory Blood [employer] [facility] [employer] [address] [address] Narrative Performing Lab *[facility] [address] [place] [phone] Bernadette Angel MD HIV 1/2 ANTIBODY DIFFERENTIATION (06/28/2017 4:06 AM) Component Value Ref Range HIV 1 AB POSITIVE (A) HIV 2 Ab NEGATIVE Comment: Positive for HIV-1 antibodies. Laboratory evidence of HIV-1 infection is present in patients greater than 24 months of age. In patients less than 24 months of age, a positive HIV-1 Antibody Differentiation assay result may represent passive transfer of maternal antibody. In patients less than 24 months of age, testing the patient's specimen with the HIV-1 RNA Qualitative TMA assay (test code 89668{X}), or the HIV-1 DNA, Qualitative, PCR (Test Code 8401({X}), is recommended to confirm HIV-1 infection. Specimen Performing Laboratory Blood [employer] [facility] [employer] [address] [address] Narrative Performing Lab *[facility] [address] [place] [phone] Bernadette Angel MD RPR Titer (06/28/2017 4:06 AM) Component Value Ref Range RPR Titer >=1:256 Specimen Performing Laboratory Blood [address] [address] Rickettsia Ab Panel with reflex to titer (06/28/2017 4:06 AM) Component Value Ref Range Scan Result Specimen Performing Laboratory Blood [facility] [address] [place] [address] MHA - TP (06/28/2017 4:06 AM) Component Value Ref Range MHA-TP Reactive Specimen Performing Laboratory Blood [address] [address] HIV-1 Antigen with HIV-1/2 Antibody (06/28/2017 4:06 AM) Component Value Ref Range HIV-1 Antigen with HIV 1&2 Antibody Reactive (A) Nonreactive Specimen Performing Laboratory [address] [address] Narrative This screening test for HIV antigen/antibodies may give false positive results. All reactive specimens are submitted for confirmatory testing, the results of which will be reported separately. Only a reactive HIV antigen/antibody test in conjunction with a positive confirmatory test indicates HIV infection. RPR (06/28/2017 4:06 AM) Component Value Ref Range RPR Reactive (A) Nonreactive Specimen Performing Laboratory Blood [address] [address] NERVE CONDUCTION STUDIES; 13 + STUDIES (06/27/2017 4:25 PM) Specimen Performing Laboratory GE RIS Narrative [facility] Neurophysiology Department ELECTROMYOGRAPHY / NERVE CONDUCTION STUDY [address] [place] [address] [address] [place] [address] Name: Cynthia Jensen Address:Date of : 1965 Gender: Male Date of Exam: 06/27/2017 4:00 PM Referring Physician: Dr. Alexey Hardy Examining Physician: Dr. Bonita Navarro Patient History: Patient presents with a 1-2 week history of rapidly progressive weakness in arms and legs, distal paresthesias and significant facial weakness.On exam, he has no movement in facial muscles with incomplete eye closure; 2/5 deltoids, 3/5 right elbow flexion/extension, 2/5 on the left elbow flexion/extension, right wrist f/e 3/5, 2/5 on the left; finger abduction 2/5 on right, 0/5 on the left; hipflexion 2/5, knee extension/flexion 4-/5, 2/5 right ankle flexion/extension, 1/5 on the left; 2/5 right toe extension 0/5 on the left.This study was done to evaluate for polyneuropathy. Motor Nerve Conduction: Nerve and Site Latency Amplitude Segment Latency Difference Distance Conduction Velocity Median.R Wrist 5.4 ms 1.7 mV Abductor pollicis brevis-Wrist 5.4 ms 60 mm Elbow 11.7 ms 0.6 mV Wrist-Elbow 6.3 ms 235 mm 37 m/s Ulnar.R Wrist 3.0 ms 1.8 mV Abductor digiti minimi (manus)-Wrist 3.0 ms 60 mm Below elbow 7.8 ms 0.8 mV Wrist-Below elbow 4.8 ms 190 mm 40 m/s Above elbow 10.5 ms 0.5 mV Below elbow-Above elbow 2.7 ms 100 mm 37 m/s Peroneal.R Ankle 7.7 ms 0.1 mV Extensor digitorum brevis-Ankle 7.7 ms 80 mm Fibula (head) NR NR Ankle-Fibula (head)280 mm Knee NR NR Fibula (head)-[id number] mm Peroneal.R Fibula (head) 3.2 ms 2.6 mV Tibialis anterior-Fibula Knee 6.3 ms 1.4 mV Fibula (head)-Knee 3.1 ms 100 mm 32 m/s Tibial.R Ankle 4.2 ms 0.8 mV Abductor hallucis-Ankle 4.2 ms 80 mm Popliteal fossa 16.3 ms 0.1 mV Ankle-Popliteal fossa 12.1 ms 370 mm 31 m/s Peroneal.L Ankle 4.8 ms 0.5 mV Extensor digitorum brevis-Ankle 4.8 ms 80 mm Fibula (head) NRNRAnkle-Fibula (head) mm NR Knee NRNRFibula (head)-Sooy434 mm NR Peroneal.L Fibula (head) 2.8 ms 4.1 mV Tibialis anterior-Fibula Knee 4.9 ms 2.2 mV Fibula (head)-Knee 2.1 ms 100 mm 48 m/s Tibial.L Ankle 4.6 ms 0.6 mV Abductor hallucis-Ankle 4.6 ms 80 mm Popliteal fossa 16.7 ms 0.2 mV Ankle-Popliteal fossa 12.1 ms 350 mm 29 m/s Median.L Wrist 5.7 ms 1.6 mV Abductor pollicis brevis-Wrist 5.7 ms 60 mm Elbow 11.6 ms 0.9 mV Wrist-Elbow 5.9 ms 230 mm 39 m/s Ulnar.L Wrist 2.2 ms 3.7 mV Abductor digiti minimi (manus)-Wrist 2.2 ms 60 mm Below elbow 6.7 ms 1.5 mV Wrist-Below elbow 4.5 ms 180 mm 40 m/s Above elbow 9.1 ms 1.1 mV Below elbow-Above elbow 2.4 ms 100 mm 42 m/s F-Wave Studies Nerve M-Latency F-Latency Median.R 11.7 NR Ulnar.R 10.5 NR Ulnar.L 9.1 NR Sensory Nerve Conduction: Nerve and Site Onset Latency Peak Latency Amplitude Segment Latency Difference Distance Conduction Velocity Median.R Wrist NR NR NR Digit II (index finger)-[id number] mm Ulnar.R Wrist NR NRNR Digit V (little finger)-Cpyzw229 mm Radial.R Forearm 2.1 ms 2.6 ms 9 mV Anatomical snuff box-Forearm 2.1 ms 100 mm 38 m/s Sural.R Lower leg NR NR NR Ankle-Lower [id number] mm Sural.L Lower leg NR NR NR Ankle-Lower btd577 mm Median.L Wrist NR NR NR Digit II (index finger)-[id number] mm Ulnar.L Wrist 2.7 ms 3.2 ms 5 mV Digit V (little finger)-Wrist 2.7 ms 110 mm 41 m/s Radial.L Forearm 2.0 ms 2.5 ms 8 mV Anatomical snuff box-Forearm 2.0 ms 100 mm 40 m/s H-waves: Nerve Latency Amplitude (max) Tibial.R M-wave: 5.2 ms 3.5 mV H-wave: NR NR Tibial.L M-wave: 5.7 ms 3.3 mV H-wave: NR NR Needle EMG Examination: Insertional Spontaneous Activity Volitional MUAPs [...] sural, and right ulnar nerves showed no responses.The left ulnar and bilateral superficial radial nerves showed normal peak latencies and low amplitudes. 2. Motor studies of the bilateral peroneal (EDB) nerves showed prolonged distal latency on the right (128% of ULN), very low amplitudes, and no proximal responses.At the TA, the peroneal nerves showed normal latencies, normal to slightly low amplitudes, close to 50% drop in amplitudes at the knees, and slow velocity on the right (80% of LLN).The tibial nerves showed normal latencies, low amplitudes, conduction blocks at the knees, and slow velocities (80% of LLN).The median nerves showed prolonged distal latencies (>130% of ULN), lower amplitudes, conduction blocks (close to 50% amplitude drops at elbows), and slow velocities (<78% of LLN).The ulnar nerves showed normal distal latencies, lower amplitudes, conduction blocks below the elbows, and slow velocities (80% of LLN). F-wave latencies in bilateral ulnar and right median nerves showed no responses. 3.H-wave reflexes recording at the soleus muscles showed no responses. 4.Electromyography of the right frontalis, upper and lower limbs was done using a disposable concentric needle.There was abnormal spontaneous activity in the gastrocnemius, EHL, and FDI.There were no units recruited in the frontalis and TA.There was severe (discrete) reduced recruitment in the EHL, FDI, and FCR with normal morphologies.There was moderate reduced recruitment and normal morphologies in the biceps and deltoid. 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 Bonita Navarro M.D. Procedure Note Interface, External Ris In - 06/27/2017 4:31 PM CDT [facility] [place] Neurophysiology Department ELECTROMYOGRAPHY / NERVE CONDUCTION STUDY [address] [facility] [address] [place] [address] Name: Cynthia Jensen Address: Date of : 1965 Gender: Male Date of Exam: 06/27/2017 4:00 PM Referring Physician: Dr. Alexey Hardy Examining Physician: Dr. Bonita Navarro Patient History: Patient presents with a 1-2 week history of rapidly progressive weakness in arms and legs, distal paresthesias and significant facial weakness. On exam, he has no movement in facial muscles with incomplete eye closure; 2/5 deltoids, 3/5 right elbow flexion/extension, 2/5 on the left elbow flexion/extension, right wrist f/e 3/5, 2/5 on the left; finger abduction 2/5 on right, 0/5 on the left; hipflexion 2/5, knee extension/flexion 4-/5, 2/5 right ankle flexion/extension, 1/5 on the left; 2/5 right toe extension 0/5 on the left. This study was done to evaluate for polyneuropathy. Motor Nerve Conduction: Nerve and Site Latency Amplitude Segment Latency Difference Distance Conduction Velocity Median.R Wrist 5.4 ms 1.7 mV Abductor pollicis brevis-Wrist 5.4 ms 60 mm Elbow 11.7 ms 0.6 mV Wrist-Elbow 6.3 ms 235 mm 37 m/s Ulnar.R Wrist 3.0 ms 1.8 mV Abductor digiti minimi (manus)-Wrist 3.0 ms 60 mm Below elbow 7.8 ms 0.8 mV Wrist-Below elbow 4.8 ms 190 mm 40 m/s Above elbow 10.5 ms 0.5 mV Below elbow-Above elbow 2.7 ms 100 mm 37 m/s Peroneal.R Ankle 7.7 ms 0.1 mV Extensor digitorum brevis-Ankle 7.7 ms 80 mm Fibula (head) NR NR Ankle-Fibula (head) 280 mm Knee NR NR Fibula (head)-Knee 100 mm Peroneal.R Fibula (head) 3.2 ms 2.6 mV Tibialis anterior-Fibula Knee 6.3 ms 1.4 mV Fibula (head)-Knee 3.1 ms 100 mm 32 m/s Tibial.R Ankle 4.2 ms 0.8 mV Abductor hallucis-Ankle 4.2 ms 80 mm Popliteal fossa 16.3 ms 0.1 mV Ankle-Popliteal fossa 12.1 ms 370 mm 31 m/s Peroneal.L Ankle 4.8 ms 0.5 mV Extensor digitorum brevis-Ankle 4.8 ms 80 mm Fibula (head) NR NR Ankle-Fibula (head) mm NR Knee NR NR Fibula (head)-Knee 100 mm NR Peroneal.L Fibula (head) 2.8 ms 4.1 mV Tibialis anterior-Fibula Knee 4.9 ms 2.2 mV Fibula (head)-Knee 2.1 ms 100 mm 48 m/s Tibial.L Ankle 4.6 ms 0.6 mV Abductor hallucis-Ankle 4.6 ms 80 mm Popliteal fossa 16.7 ms 0.2 mV Ankle-Popliteal fossa 12.1 ms 350 mm 29 m/s Median.L Wrist 5.7 ms 1.6 mV Abductor pollicis brevis-Wrist 5.7 ms 60 mm Elbow 11.6 ms 0.9 mV Wrist-Elbow 5.9 ms 230 mm 39 m/s Ulnar.L Wrist 2.2 ms 3.7 mV Abductor digiti minimi (manus)-Wrist 2.2 ms 60 mm Below elbow 6.7 ms 1.5 mV Wrist-Below elbow 4.5 ms 180 mm 40 m/s Above elbow 9.1 ms 1.1 mV Below elbow-Above elbow 2.4 ms 100 mm 42 m/s F-Wave Studies Nerve M-Latency F-Latency Median.R 11.7 NR Ulnar.R 10.5 NR Ulnar.L 9.1 NR Sensory Nerve Conduction: Nerve and Site Onset Latency Peak Latency Amplitude Segment Latency Difference Distance Conduction Velocity Median.R Wrist NR NR NR Digit II (index finger)-Wrist 130 mm Ulnar.R Wrist NR NR NR Digit V (little finger)-Wrist 110 mm Radial.R Forearm 2.1 ms 2.6 ms 9 mV Anatomical snuff box-Forearm 2.1 ms 100 mm 38 m/s Sural.R Lower leg NR NR NR Ankle-Lower leg 140 mm Sural.L Lower leg NR NR NR Ankle-Lower leg 140 mm Median.L Wrist NR NR NR Digit II (index finger)-Wrist 130 mm Ulnar.L Wrist 2.7 ms 3.2 ms 5 mV Digit V (little finger)-Wrist 2.7 ms 110 mm 41 m/s Radial.L Forearm 2.0 ms 2.5 ms 8 mV Anatomical snuff box-Forearm 2.0 ms 100 mm 40 m/s H-waves: Nerve Latency Amplitude (max) Tibial.R M-wave: 5.2 ms 3.5 mV H-wave: NR NR Tibial.L M-wave: 5.7 ms 3.3 mV H-wave: NR NR Needle EMG Examination: Insertional Spontaneous Activity Volitional MUAPs [...] nerves showed normal peak latencies and low amplitudes. 2. Motor studies of the bilateral peroneal (EDB) nerves showed prolonged distal latency on the right (128% of ULN), very low amplitudes, and no proximal responses. At the TA, the peroneal nerves showed normal latencies, normal to slightly low amplitudes, close to 50% drop in amplitudes at the knees, and slow velocity on the right (80% of LLN). The tibial nerves showed normal [...] the elbows, and slow velocities (80% of LLN). F-wave latencies in bilateral ulnar and right median nerves showed no responses. 3. H-wave reflexes recording at the soleus muscles showed no responses. 4. Electromyography of the right frontalis, upper and [...] sensorimotor demyelinating polyneuropathy with secondary axonal loss, moderate to severe and affecting the facial nerves as well. 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 Bonita Navarro M.D. abdomen / KUB 1 view (06/27/2017 3:08 PM) Specimen Performing Laboratory GE [facility]IS Narrative FINAL REPORT Abdomen. MEDICAL HISTORY: Concern for nephrolithiasis. COMPARISON STUDY: None available. FINDINGS: Two views of the abdomen demonstrate no dilated loops of large or small bowel. No suspicious calcific lesions are seen. The regional skeleton is unremarkable. IMPRESSION: No acute abnormality seen. No nephrolithiasis. Signed: Gio Rivera MD Report Verified Date/Time:06/27/2017 15:50:01 Reading Location: [address] Radiology Reading Room Procedure Note Interface, External Ris In - 06/27/2017 3:52 PM CDT FINAL REPORT Abdomen. MEDICAL HISTORY: Concern for nephrolithiasis. COMPARISON STUDY: None available. FINDINGS: Two views of the abdomen demonstrate no dilated loops of large or small bowel. No suspicious calcific lesions are seen. The regional skeleton is unremarkable. IMPRESSION: No acute abnormality seen. No nephrolithiasis. Signed: Gio Rivera MD Report Verified Date/Time: 06/27/2017 15:50:01 Reading Location: [address] Radiology Reading Room Fungus culture + smear (06/27/2017 12:08 PM) Component Value Ref Range Result No fungus isolated in 28 days Fungus Smear No fungi seen Specimen Performing Laboratory Cerebrospinal [place]uid [place] [address] Varicella zoster PCR, qualitative (06/26/2017 8:35 PM) Component Value Ref Range Source-Body Site CEREBROSPINAL FLUID VZV DNA,Qual.PCR NOT DETECTED Comment: REFERENCE RANGE: NOT DETECTED This test was developed and its analytical performance characteristics have been determined by [facility]. It has not been cleared or approved by FDA. This assay has been validated pursuant to the CLIA regulations and is used for clinical purposes. Specimen Performing Laboratory Cerebrospinal Fluid - CSF, tube 4 [facility] [address] [place] [address] Narrative Performing Lab *[facility] [id number] [place] [phone] Bernadette Angel MD PERIPHERAL VASCULAR REPORT - SCAN (06/26/2017 6:20 PM)Only the most recent of2 resultswithin the time period is included.Porphobilinogen, Quantitative (2017 5:55 PM) Component Value Ref Range Porphobilinogen,Quant SEE BELOW <2.0 mg/g creat Comment: Porphobilinogen concentration was below the sensitivity of the assay, 0.5 mg/L.Therefore the result was <1.1 mg/g creatinine. This result was calculated by dividing 0.5 mg/L by the creatinine concentration in g/L. Interpretation SEE BELOW Comment: Porphobilinogen (PBG) was below the normal range. The clinical significance of decreased PBG is uncertain. However, it has been found in a few cases of aminolevulinic acid dehydratase deficiency porphyria (ADP). Please consider sending either a random or 24 hour urine specimen for aminolevulinic acid (ALA) analysis. INTERPRETATION REVIEWED BY: MUNDO BURROWS, Ph.D., SORAIDA, MARTHA (ASCP)CM, JL (AAB). IF YOU HAVE ANY QUESTIONS REGARDING THESE RESULTS, PLEASE CONTACT THE [facility] AT ext [phone] or ext [phone] AND ASK TO SPEAK WITH THE FEED ADVISER STONE SAWYER.FOR GENERAL QUESTIONS ABOUT [facility], PLEASE CALL THE GENE INFO LINE AT [phone]. Specimen Performing Laboratory Urine - Urine, Straight Cathe[facility] [address] [address] Narrative Performing Lab [facility] [address] [address] Catracho Holliday MD, PhD AFB culture + smear (06/26/2017 3:00 PM) Component Value Ref Range Result No acid-fast bacilli isolated in 42 days AFB Smear No acid fast bacilli seen Specimen Performing Laboratory Cerebrospinal Fluid - CSF [address] [address] Cryptococcal antigen, CSF (06/26/2017 2:58 PM) Component Value Ref Range Cryptococcal Antigen, CSF Negative Negative, Interference Specimen Performing Laboratory Cerebrospinal Fluid - CSF, tube [address] [address] CSF cell count with differential (06/26/2017 2:58 PM) Component Value Ref Range Appearance Clear Clear Color Colorless Colorless RBCs 10 (H) 0 - 5 /cu mm WBCs 16 (H) <=5 /cu mm RBCs Fresh? 100% Fresh # of Cells Diff'd 100 % Neutros 9 (H) 0 - 5 % % Lymphs 89 (H) 40 - 80 % % Monos 2 (L) 15 - 45 % % Eos 0 <=0 % % Baso 0 <=0 % Tube Number 1 Specimen Performing Laboratory Cerebrospinal Fluid - CSF, tube [address] [facility] [address] [address] West Nile Virus, CSF, IgG and IgM (06/26/2017 2:58 PM) Component Value Ref Range West Nile Ab,Igm <0.90 Comment: REFERENCE RANGE: <0.90 INTERPRETIVE CRITERIA <0.90 Antibody not detected 0.90 - 1.10 Equivocal >1.10 Antibody detected West Nile virus (WNV) IgM is usually detectable in CSF from WNV-infected patients with encephalitis or meningitis at the time of clinical presentation. Because IgM antibody does not readily cross the blood-brain barrier, IgM antibody in CSF strongly suggests acute central nervous system infection. WNV antibody results from CSF should be in interpreted with caution. Possible complicating factors include low levels of antibody found in CSF, passive transfer of antibodies from blood, and contamination via bloody spinal taps. Antibodies induced by other flavivirus infections (e.g. Dengue virus, [place] encephalitis virus) may show cross-reactivity with WNV. Specimen Performing Laboratory Cerebrospinal Fluid - CSF, tube 1 [facility] [address] [address] Narrative Performing Lab *[facility] [address] [place] [phone] Bernadette Angel MD Protein, CSF (06/26/2017 2:58 PM) Component Value Ref Range Protein, CSF 294 (H) 15 - 45 mg/dL Specimen Performing Laboratory Cerebrospinal Fluid - CSF, tube [address] [address] Glucose, CSF (06/26/2017 2:58 PM) Component Value Ref Range Glucose, CSF 63 40 - 70 mg/dL Specimen Performing Laboratory Cerebrospinal Fluid - CSF, tube [address] [address] VDRL Titer (06/26/2017 2:48 PM) Component Value Ref Range VDRL Titer 1:4 Specimen Performing Laboratory Cerebrospinal Fluid - CSF [address] [address] VDRL, CSF (06/26/2017 2:48 PM) Component Value Ref Range VDRL, CSF Reactive (A) Nonreactive Specimen Performing Laboratory Cerebrospinal Fluid - CSF [address] [address] Venous doppler arms bilateral (06/26/2017 1:47 PM) Component Value Ref Range Ejection Fraction Specimen Performing Laboratory [facility] Impressions Right Impression 1. There is no deep venous obstruction in the jugular, subclavian, axillary, brachial, radial or ulnar veins. 2. There is no superficial venous obstruction in the cephalic or basilic veins. Left Impression 1. There is no deep venous obstruction in the jugular, subclavian, axillary, brachial, radial or ulnar veins. 2. There is no superficial venous obstruction in the cephalic or basilic veins. Conclusions Summary Venous duplex imaging and compression of the bilateral upper extremities were performed. The veins were adequately visualized. The bilateral venous systems were patent and compressible with no evidence of thrombus. Signature Velocities are measured in cm/s ; Diameters are measured in cm Narrative [facility] - Upper Extremities Veins Demographics Patient Jess Aldridgete of Study 06/26/2017 Age 52 Visit [id number] Gender Male Date of 01/15 Number Referring Edinson Lazcano Room Number [id number] Physician MD Suzanne Honing Machine Set Up Operator Rafael Banegas InterpretingJ. Sangita Will MD, ZARI Procedure Type of Study: Veins: Upper Extremities Veins, VENOUS DOPPLER ARMS, BILATERAL. Indications for Study:Elevated D-dimer. Patient Status:Routine. Study Location:Portable. Technical Quality:Adequate visualization. Risk Factors History of Disease + +----+ + !Diagnosis!Date!Comments ! 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 + +----+ + Procedure Note Interface, External Ris In - 06/26/2017 5:34 PM CDT [facility] - Upper Extremities Veins Demographics Patient Name CYNTHIA JENSEN Date of Study 06/26/2017 Age 52 Visit Number [id number] Gender Male Date of 1965 Number Referring Edinson Lazcano Room Number 7513 Physician MD Suzanne Honing Machine Set Up Operator Rafael Banegas [facility] Physician , ZARI Procedure Type of Study: Veins: Upper Extremities Veins, VENOUS DOPPLER ARMS, BILATERAL. Indications for Study:Elevated D-dimer. Patient Status:Routine. Study Location:Portable. Technical Quality:Adequate visualization. Risk Factors History of Disease + +----+ + !Diagnosis !Date!Comments ! + +----+ + !History/Risk Factors:! !Guillain [place] Syndrome, HTN, DM, HIV, Hep C ! + +----+ + Impressions Right Impression 1. There is no deep venous obstruction in the jugular, subclavian, axillary, brachial, radial or ulnar veins. 2. There is no superficial venous obstruction in the cephalic or basilic veins. Left Impression 1. There is no deep venous obstruction in the jugular, subclavian, axillary, brachial, radial or ulnar veins. 2. There is no superficial venous obstruction in the cephalic or basilic veins. Conclusions Summary Venous duplex imaging and compression of the bilateral upper extremities were performed. The veins were adequately visualized. The bilateral venous systems were patent and compressible with no evidence of thrombus. Signature Velocities are measured in cm/s ; Diameters are measured in cm Creatine Kinase (CK) (06/26/2017 12:22 PM) Component Value Ref Range Total CK 24 (L) 29 - 200 U/L Specimen Performing Laboratory Blood - Line, Venous [facility] [address] US abdomen limited (06/26/2017 11:30 AM) Specimen Performing Laboratory GE RIS Narrative FINAL REPORT History: Hyponatremia, fatty liver. FINDINGS: No comparisons are available. Real-time sonographic examination of the right upper quadrant of the abdomen reveals a mildly enlarged liver measuring up to 17 cm in length. Hepatic echotexture is mildly and diffusely increased, possibly representing mild diffuse fatty infiltration. There are no sonographically detectable masses or focal intrahepatic abnormalities identified. The gallbladder [...] bowel gas but is unremarkable where visible. Aorta and IVC are unremarkable. No ascites or abdominal fluid collections. IMPRESSION: 1. Cholelithiasis and a mildly distended gallbladder without ultrasound evidence for acute cholecystitis. 2. Mild hepatomegaly and probable mild diffuse fatty infiltration the liver. 3. Moderate right-sided hydronephrosis. 4. Incomplete evaluation of the pancreas. Signed: Francine Gann MD Report Verified Date/Time:06/26/2017 18:11:31 Reading Location: [facility] [id number] Ultrasound Reading Room Procedure Note Interface, External Ris In - 06/26/2017 6:13 PM CDT FINAL REPORT History: Hyponatremia, fatty liver. FINDINGS: No comparisons are available. Real-time sonographic examination of the right upper quadrant of the abdomen reveals a mildly enlarged liver measuring up to 17 cm in length. Hepatic echotexture is mildly and diffusely increased, possibly representing mild diffuse fatty infiltration. There are no sonographically detectable masses or focal intrahepatic abnormalities identified. The gallbladder [...] bowel gas but is unremarkable where visible. Aorta and IVC are unremarkable. No ascites or abdominal fluid collections. IMPRESSION: 1. Cholelithiasis and a mildly distended gallbladder without ultrasound evidence for acute cholecystitis. 2. Mild hepatomegaly and probable mild diffuse fatty infiltration the liver. 3. Moderate right-sided hydronephrosis. 4. Incomplete evaluation of the pancreas. Signed: Francine Gann MD Report Verified Date/Time: 06/26/2017 18:11:31 Reading Location: [address] Ultrasound Reading Room Hepatic function panel (06/26/2017 8:58 AM)Only the most recent of2 resultswithin the time period is included. Component Value Ref Range Protein, Total 7.2 6.0 - 8.3 gm/dL Albumin 1.9 (L) 3.5 - 5.0 g/dL Total Bilirubin 0.4 0.2 - 1.2 mg/dL Bilirubin, Direct 0.3 0.1 - 0.5 mg/dL Alkaline Phosphatase 103 40 - 150 U/L AST 35 (H) 5 - 34 U/L ALT 25 6 - 55 U/L Specimen Performing Laboratory Blood - Line, Venous [address] [address] Cortisol (06/26/2017 6:56 AM) Component Value Ref Range Cortisol, Total 5.9 3.7 - 19.4 ug/dL Specimen Performing Laboratory Blood [address] [address] XR chest 1 view portable / bedside (06/26/2017 6:50 AM) Specimen Performing Laboratory GE RIS Narrative FINAL REPORT HISTORY : Cough, congestion. Comparison: None Comment: Single portable view of the chest was obtained. The cardiac silhouette size is within normal limits. No pneumothorax, pleural effusion or focal infiltrate is seen. No lytic or blastic abnormalities. Signed: Rizwana Mathews MD Report Verified Date/Time:06/26/2017 07:37:08 Reading Location: [facility] Diagnostic Imaging Reading Room - [place] [address] Procedure Note Interface, External Ris In - 06/26/2017 7:39 AM CDT FINAL REPORT HISTORY : Cough, congestion. Comparison: None Comment: Single portable view of the chest was obtained. The cardiac silhouette size is within normal limits. No pneumothorax, pleural effusion or focal infiltrate is seen. No lytic or blastic abnormalities. Signed: Rizwana Mathews MD Report Verified Date/Time: 06/26/2017 07:37:08 Reading Location: [facility] Diagnostic Imaging Reading Room - [place] [address] Flow Cytometry (06/26/2017 3:40 AM) Component Value Ref Range Case Report Flow Cytometry Report Case: [id number] Authorizing Provider:Edinson Palacios,Collected: 06/26/2017 0340 Ordering Location: [place] [address] ICUReceived: 06/26/2017 1055 Pathologist: Myra Downey MD Specimen:Other Flow Interpretation RESULTS: ADULT NORMALS ABSOLUTE LYMPHS:3597.79/cmm 911-4017/cmm T LYMPHOCYTE ENUMERATION: CD3 (Total T cell) 95.96% 3452.49/cmm 603--2990/cmm CD4 (T [place] cells) 29.77% 1071.02/cmm 441-2156/cmm CD8 (T Suppressor cells) 64.85% 2333.04/ mpg656-6209/cmm CD4:CD8 (Th:Ts Ratio) 0.46 0.7-3.23 CD16+56 (Natural Killer cells)1.91% 68.54/cmm 95-640/cmm B LYMPHOCYTE ENUMERATION: CD19 (Total B cells)1.78% 63.97/atc603-432/cmm Flow Interpretation Comment Cellular immune alteration, characterized by decreased CD4: CD8 ratio. CPT Code(s) 66251 CLINICAL HISTORY HIV SPECIMEN SOURCE Peripheral blood CELLULAR BIOMARKER ANALYSIS CD3, CD4, CD8, CD16+56, CD19 DISCLAIMER These tests were developed and their performance characteristics determined by [facility] [place] [facility].They have not been cleared or approved by the U.S. Food and Drug Administration. The [facility] has determined that such clearance or approval is not necessary. It should not be regarded as investigational or for research. This laboratory is certified under the Clinical Laboratory Improvement A mendments of 1988 ("CLIA") as qualified to perform high-complexity clinical testing. Specimen Performing Laboratory [address] [address] TAMIKO Titer & Pattern (06/26/2017 3:40 AM) Component Value Ref Range TAMIKO Titer >=1:2560 TAMIKO Pattern Nucleolar Specimen Performing Laboratory Blood [address] [address] Double-Stranded DNA (dsDNA) Antibody (06/26/2017 3:40 AM) Component Value Ref Range ds DNA Ab Negative Specimen Performing Laboratory [address] [address] Rheumatoid factor Ab, reflex to titer (06/26/2017 3:40 AM) Component Value Ref Range Rheumatoid Factor Positive Specimen Performing Laboratory Blood [address] [address] Rheumatoid factor titer (06/26/2017 3:40 AM) Component Value Ref Range Rheumatoid Factor TTR 1:2 Specimen Performing Laboratory [address] [address] Anti-Nuclear Antibody (TAMIKO) (06/26/2017 3:40 AM) Component Value Ref Range TAMIKO Positive (A) Negative Specimen Performing Laboratory [address] [address] Prothrombin time/INR (06/26/2017 3:24 AM)Only the most recent of2 resultswithin the time period is included. Component Value Ref Range Protime 15.6 (H) 11.7 - 14.7 seconds INR 1.2 <=5.9 Specimen Performing Laboratory Blood [facility] [address] [address] Narrative RECOMMENDED COUMADIN/WARFARIN INR THERAPY RANGES STANDARD DOSE: 2.0 - 3.0 Includes: PROPHYLAXIS for venous thrombosis, systemic embolization; TREATMENT for venous thrombosis and/or pulmonary embolus. HIGH RISK: Target INR is 2.5-3.5 for patients with mechanical heart valves. Venous doppler legs bilateral (06/26/2017 12:40 AM) Component Value Ref Range Ejection Fraction Specimen Performing Laboratory [facility] MKCKESSON CPACS Impressions Right Impression 1. There is no deep venous obstruction in the common femoral, profunda femoral, femoral, popliteal, posterior tibial or peroneal veins. 2. There is no superficial venous obstruction in the great saphenous vein. Left Impression 1. There is no deep venous obstruction in the common femoral, profunda femoral, femoral, popliteal, posterior tibial or peroneal veins. 2. There is no superficial venous obstruction in the great saphenous vein. Conclusions Summary Venous duplex imaging and compression of the bilateral lower extremities were performed. The veins were adequately visualized. The bilateral venous systems were patent and compressible with no evidence of thrombus. The venous Doppler waveforms were phasic with respiration. Signature Velocities are measured in cm/s ; Diameters are measured in cm Narrative [facility] - Lower Extremities DVT Study Demographics Patient MahadHERBIECYNTHIA RodríguezWilliamste of Study 06/26/2017 Age 52 Visit [id number] Gender Male Date of [birth year] Number Referring Edinson Lazcano Room Number 7513 Physician Suzanne MD Honing Machine Set Up Operator Manda Segundo InterpretingHugh Banegas RN, Nikhil POLK, RPCAROLYNN Procedure Type of Study: Veins: Lower Extremities DVT Study, VENOUS DOPPLER LEG, BILATERAL. Indications for Study:Elevated D-dimer and Prolonged bedrest/immobilization. Patient Status:Routine. Study Location:Portable. Technical Quality:Adequate visualization. Risk Factors History of Disease + +----+ + !Diagnosis!Date!Comments ! 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 + +----+ + Procedure Note Interface, External Ris In - 06/26/2017 11:57 AM CDT [facility] - Lower Extremities DVT Study Demographics Patient Name CYNTHIA JENSEN Date of Study 06/26/2017 Age 52 Visit Number [id number] Gender Male Date of 1965 Number Referring Edinson Lazcano Room Number 7513 Physician Suzanne MD Honing Machine Set Up Operator Manda Segundo Interpreting Hugh Banegas RN, RVT Physician , RPCAROLYNN Procedure Type of Study: Veins: Lower Extremities DVT Study, VENOUS DOPPLER LEG, BILATERAL. Indications for Study:Elevated D-dimer and Prolonged bedrest/immobilization. Patient Status:Routine. Study Location:Portable. Technical Quality:Adequate visualization. Risk Factors History of Disease + +----+ + !Diagnosis !Date!Comments ! + +----+ + !History/Risk Factors:! !Guillain [place] Syndrome, HTN, DM, HIV, Hep C ! + +----+ + Impressions Right Impression 1. There is no deep venous obstruction in the common femoral, profunda femoral, femoral, popliteal, posterior tibial or peroneal veins. 2. There is no superficial venous obstruction in the great saphenous vein. Left Impression 1. There is no deep venous obstruction in the common femoral, profunda femoral, femoral, popliteal, posterior tibial or peroneal veins. 2. There is no superficial venous obstruction in the great saphenous vein. Conclusions Summary Venous duplex imaging and compression of the bilateral lower extremities were performed. The veins were adequately visualized. The bilateral venous systems were patent and compressible with no evidence of thrombus. The venous Doppler waveforms were phasic with respiration. Signature Velocities are measured in cm/s ; Diameters are measured in cm Urine culture (06/25/2017 11:28 PM) Component Value Ref Range Result No growth Specimen Performing Laboratory Urine - Urine, Clean Catch [address] [address] Urinalysis w/ Microscopic (06/25/2017 11:27 PM) Component Value Ref Range Color, UA Yellow Clarity, UA Clear Specific Yellow Pine, UA 1.007 1.001 - 1.035 pH, UA 6.0 5.0 - 8.0 Protein, UA 30 mg/dL (A) Negative Glucose, UA Negative Negative Ketones, UA Negative Negative Bilirubin, UA Negative Negative Blood, UA Negative Negative Nitrite, UA Negative Negative Leukocytes, UA Negative Negative Urobilinogen, UA 0.2 0.2 - 1.0 mg/dL RBC, UA 1 /HPF WBC, UA 1 /HPF Mucus Rare Specimen Source Specimen Performing Laboratory Urine [address] [address] Vitamin B12 and Folate (06/25/2017 11:13 PM) Component Value Ref Range Vitamin B12 451 213 - 816 pg/mL Folate 7.9 >=7.0 ng/mL Specimen Performing Laboratory Blood [address] [address] TSH/Free T4 If Indicated (06/25/2017 11:13 PM) Component Value Ref Range TSH 2.06 0.35 - 4.94 uIU/mL Specimen Performing Laboratory Blood [address] [address] Sjogren's antibodies (06/25/2017 11:13 PM) Component Value Ref Range Anti-Ss-A <1.0 NEG <1.0 NEGATIVE AI Anti-Ss-B <1.0 NEG <1.0 NEGATIVE AI Specimen Performing Laboratory Blood [facility] [address] [place] [address] Narrative Performing Lab [facility] [address] [place] [address] Catracho Holliday MD, PhD Troponin I (06/25/2017 11:13 PM) Component Value Ref Range Troponin I 0.01 0.00 - 0.03 ng/mL Specimen Performing Laboratory Blood [address] [address] Narrative Troponin I (TnI) levels must be interpreted [...] failure, acidosis, acute neurological disease, and persistent tachyarrhythmia. aPTT (06/25/2017 11:13 PM) Component Value Ref Range PTT 45.1 (H) 22.5 - 36.0 seconds Specimen Performing Laboratory Blood [address] [address] Hemoglobin A1c (06/25/2017 11:13 PM) Component Value Ref Range Hemoglobin A1C 7.0 (H) 4.3 - 6.1 % Specimen Performing Laboratory Blood [facility] [address] [place] [address] Creatine Kinase (CK), Total and MB (06/25/2017 11:13 PM) Component Value Ref Range Total CK 25 (L) 29 - 200 U/L CK-MB 0.4 0.0 - 6.6 ng/mL MB Relative Index 1.6 % Specimen Performing Laboratory Blood [address] [address] Narrative CK-MB Reference Range: <6.7Normal 6.7-10.0Borderline >10.0 Abnormal Immunofixation electrophoresis (JOE) (06/25/2017 9:43 PM) Component Value Ref Range IgG 3052 (H) 540 - 1822 mg/dL IgA 900 (H) 63 - 484 mg/dL IgM 244 22 - 293 mg/dL Serum JOE Identification No monoclonal proteins detected. Polyclonal elevation of gamma globulins. Pathologist: Destinee Hemphill MD (electronic signature) Specimen Performing Laboratory Blood [address] [address] Protein electrophoresis, serum (06/25/2017 9:43 PM) Component Value Ref Range Albumin Fraction 2.1 (L) 3.5 - 5.5 g/dL Alpha 1 Fraction 0.3 0.2 - 0.4 g/dL Alpha 2 Fraction 0.7 0.5 - 0.9 g/dL Beta Fraction 1.0 0.6 - 1.1 g/dL Gamma Globulin Fraction 2.6 (H) 0.7 - 1.7 g/dL Interpretation Polyclonal elevation of gamma globulins, consistent with chronic inflammation. Serum JOE ordered to exclude presence of small underlying monoclonal band in gamma region. Pathologist: Destinee Hemphill MD (electronic signature) Protein, Total 6.6 6.0 - 8.3 gm/dL Specimen Performing Laboratory Blood [address] [address] after 09/06/2016
--- OUTSIDE RECORDS SUMMARY | 2017-09-07 17:40 | XMS REPORT ---
:1965 [facility] [address] [place] [address] Care Team Providers Name Role Phone NICOL COONEY Unavailable Unavailable Problems This patient has no known problems. Allergies, Adverse Reactions, Alerts This patient has no known allergies or adverse reactions. Medications This patient has no known medications. Results Test Description Test Time Test Comments Text Results Atomic Results Result Comments AFB CULTURE + SMEAR 2017-08-09 12:49:00 Test Item Value Reference Range Comments CULTURE (BEAKER) (test fjzl=5022) No acid-fast bacilli isolated in 42 days AFB SMEAR (BEAKER) (test ymaj=538) No acid fast bacilli seen FUNGUS CULTURE + [id number] 14:38:00 Test Item Value Reference Range Comments CULTURE (BEAKER) (test No fungus isolated in 28 days fchj=9690) FUNGUS SMEAR (BEAKER) (test No fungi seen mpqt=5333) MISCELLANEOUS LAB [id number] 07:26:00 Test Item Value Reference Range Comments SCAN RESULT (test hpnn=[id number]) POCT-GLUCOSE [id number] 17:08:00 Test Item Value Reference Range Comments POC-GLUCOSE METER (BEAKER) 104 mg/dL 70-110 TESTED AT [facility] [address] [facility] (test lorz=5998) [facility] [address] POCT-GLUCOSE [id number] 11:49:00 Test Item Value Reference Range Comments POC-GLUCOSE METER (BEAKER) 111 mg/dL 70-110 TESTED AT [facility] [address] [facility] (test ofqy=1990) [facility] [address] CBC W/PLT COUNT & AUTO [id number] 08:14:00 Test Item Value Reference Range Comments WHITE BLOOD CELL COUNT (BEAKER) (test qhnb=883) 4.9 K/ L 3.5-10.5 RED BLOOD CELL COUNT (BEAKER) (test wzpx=395) 3.62 M/ L 4.63-6.08 HEMOGLOBIN (BEAKER) (test iiwy=104) 10.2 GM/DL 13.7-17.5 HEMATOCRIT (BEAKER) (test rohj=403) 30.4 % 40.1-51.0 MEAN CORPUSCULAR VOLUME (BEAKER) (test yccz=843) 84.0 fL 79.0-92.2 MEAN CORPUSCULAR HEMOGLOBIN (BEAKER) (test 28.2 pg 25.7-32.2 trhk=231) MEAN CORPUSCULAR HEMOGLOBIN CONC (BEAKER) (test 33.6 GM/DL 32.3-36.5 ocmo=710) RED CELL DISTRIBUTION WIDTH (BEAKER) (test 13.7 % 11.6-14.4 doui=047) PLATELET COUNT (BEAKER) (test hvbh=230) 150 K/CU MM 150-450 MEAN PLATELET VOLUME (BEAKER) (test gsmd=804) 8.8 fL 9.4-12.4 NUCLEATED RED BLOOD CELLS (BEAKER) (test 0 /100 WBC 0-0 twie=355) NEUTROPHILS RELATIVE PERCENT (BEAKER) (test 25 % phlx=436) LYMPHOCYTES RELATIVE PERCENT (BEAKER) (test 60 % tlgb=736) MONOCYTES RELATIVE PERCENT (BEAKER) (test 9 % jizn=915) EOSINOPHILS RELATIVE PERCENT (BEAKER) (test 5 % xwjn=978) BASOPHILS RELATIVE PERCENT (BEAKER) (test 0 % soad=027) NEUTROPHILS ABSOLUTE COUNT (BEAKER) (test 1.21 K/ L 1.78-5.38 fjta=848) LYMPHOCYTES ABSOLUTE COUNT (BEAKER) (test 2.93 K/ L 1.32-3.57 whrg=377) MONOCYTES ABSOLUTE COUNT (BEAKER) (test 0.43 K/ L 0.30-0.82 lnvj=233) EOSINOPHILS ABSOLUTE COUNT (BEAKER) (test 0.26 K/ L 0.04-0.54 vrtn=190) BASOPHILS ABSOLUTE COUNT (BEAKER) (test 0.02 K/ L 0.01-0.08 xprk=789) IMMATURE GRANULOCYTES-RELATIVE PERCENT (BEAKER) 0 % 0-1 (test dpnh=9835) (MANUAL DIFFERENTIAL)2017-07-10 08:14:00 Test Item Value Reference Range Comments TOTAL COUNTED (BEAKER) (test bbqx=5836) POCT-GLUCOSE [id number] 08:09:00 Test Item Value Reference Range Comments POC-GLUCOSE METER (BEAKER) 93 mg/dL 70-110 TESTED AT [address] (test zttr=5607) [place] [address] [id number] 06:31:00 Test Item Value Reference Range Comments SODIUM (BEAKER) (test qsys=213) 131 meq/L 136-145 POCT-GLUCOSE [id number] 22:14:00 Test Item Value Reference Range Comments POC-GLUCOSE METER (BEAKER) 214 mg/dL 70-110 TESTED AT [address] (test ityu=5362) [place] [address] POCT-GLUCOSE [id number] 22:01:00 Test Item Value Reference Range Comments POC-GLUCOSE METER (BEAKER) 211 mg/dL 70-110 TESTED AT [address] (test rvjz=7593) [place] [address] POCT-GLUCOSE [id number] 17:28:00 Test Item Value Reference Range Comments POC-GLUCOSE METER (BEAKER) 259 mg/dL 70-110 TESTED AT [address] (test kcwv=2751) [place] [address] POCT-GLUCOSE [id number] 12:35:00 Test Item Value Reference Range Comments POC-GLUCOSE METER (BEAKER) 245 mg/dL 70-110 TESTED AT [address] (test fgwn=1989) [place] [address] [id number] 11:05:00 Test Item Value Reference Range Comments SODIUM (BEAKER) (test ryqg=198) 130 meq/L 136-145 POCT-GLUCOSE [id number] 09:39:00 Test Item Value Reference Range Comments POC-GLUCOSE METER (BEAKER) 136 mg/dL 70-110 TESTED AT [address] (test wbst=1989) [place] [address] CBC W/PLT COUNT & AUTO [id number] 08:35:00 Test Item Value Reference Range Comments WHITE BLOOD CELL COUNT (BEAKER) (test yftv=014) 5.1 K/ L 3.5-10.5 RED BLOOD CELL COUNT (BEAKER) (test nvfd=983) 3.66 M/ L 4.63-6.08 HEMOGLOBIN (BEAKER) (test jtzr=864) 10.2 GM/DL 13.7-17.5 HEMATOCRIT (BEAKER) (test ydcr=341) 31.0 % 40.1-51.0 MEAN CORPUSCULAR VOLUME (BEAKER) (test meaf=315) 84.7 fL 79.0-92.2 MEAN CORPUSCULAR HEMOGLOBIN (BEAKER) (test 27.9 pg 25.7-32.2 zplx=641) MEAN CORPUSCULAR HEMOGLOBIN CONC (BEAKER) (test 32.9 GM/DL 32.3-36.5 okyk=087) RED CELL DISTRIBUTION WIDTH (BEAKER) (test 13.8 % 11.6-14.4 lscf=423) PLATELET COUNT (BEAKER) (test sgel=999) 160 K/CU MM 150-450 MEAN PLATELET VOLUME (BEAKER) (test ahpe=728) 9.2 fL 9.4-12.4 NUCLEATED RED BLOOD CELLS (BEAKER) (test 0 /100 WBC 0-0 lruo=969) NEUTROPHILS RELATIVE PERCENT (BEAKER) (test 27 % exqd=360) LYMPHOCYTES RELATIVE PERCENT (BEAKER) (test 59 % vxph=913) MONOCYTES RELATIVE PERCENT (BEAKER) (test 9 % yddw=182) EOSINOPHILS RELATIVE PERCENT (BEAKER) (test 4 % izqx=291) BASOPHILS RELATIVE PERCENT (BEAKER) (test 0 % smzi=547) NEUTROPHILS ABSOLUTE COUNT (BEAKER) (test 1.35 K/ L 1.78-5.38 ekcx=331) LYMPHOCYTES ABSOLUTE COUNT (BEAKER) (test 3.02 K/ L 1.32-3.57 djyp=722) MONOCYTES ABSOLUTE COUNT (BEAKER) (test 0.47 K/ L 0.30-0.82 iymb=674) EOSINOPHILS ABSOLUTE COUNT (BEAKER) (test 0.20 K/ L 0.04-0.54 oode=966) BASOPHILS ABSOLUTE COUNT (BEAKER) (test 0.02 K/ L 0.01-0.08 sbgv=389) IMMATURE GRANULOCYTES-RELATIVE PERCENT (BEAKER) 0 % 0-1 (test txan=0518) POCT-GLUCOSE [id number] 22:36:00 Test Item Value Reference Range Comments POC-GLUCOSE METER (BEAKER) 205 mg/dL 70-110 TESTED AT [place] [id number] [facility] (test cfzp=9016) [facility] [address] POCT-GLUCOSE [id number] 15:56:00 Test Item Value Reference Range Comments POC-GLUCOSE METER (BEAKER) 134 mg/dL 70-110 TESTED AT [place] [id number] [facility] (test isid=7876) [facility] [address] CBC W/PLT COUNT & AUTO [id number] 12:33:00 Test Item Value Reference Range Comments WHITE BLOOD CELL COUNT (BEAKER) (test whof=189) 5.3 K/ L 3.5-10.5 RED BLOOD CELL COUNT (BEAKER) (test ljpd=241) 3.73 M/ L 4.63-6.08 HEMOGLOBIN (BEAKER) (test xbsx=983) 10.5 GM/DL 13.7-17.5 HEMATOCRIT (BEAKER) (test nchs=576) 31.7 % 40.1-51.0 MEAN CORPUSCULAR VOLUME (BEAKER) (test zarl=458) 85.0 fL 79.0-92.2 MEAN CORPUSCULAR HEMOGLOBIN (BEAKER) (test 28.2 pg 25.7-32.2 oqpu=219) MEAN CORPUSCULAR HEMOGLOBIN CONC (BEAKER) (test 33.1 GM/DL 32.3-36.5 hrud=209) RED CELL DISTRIBUTION WIDTH (BEAKER) (test 13.6 % 11.6-14.4 wspm=691) PLATELET COUNT (BEAKER) (test mtpb=146) 162 K/CU MM 150-450 MEAN PLATELET VOLUME (BEAKER) (test fhhm=811) 9.0 fL 9.4-12.4 NUCLEATED RED BLOOD CELLS (BEAKER) (test 0 /100 WBC 0-0 cmog=689) NEUTROPHILS RELATIVE PERCENT (BEAKER) (test 26 % jjgy=458) LYMPHOCYTES RELATIVE PERCENT (BEAKER) (test 60 % wvty=617) MONOCYTES RELATIVE PERCENT (BEAKER) (test 10 % siwp=651) EOSINOPHILS RELATIVE PERCENT (BEAKER) (test 4 % dhpx=791) BASOPHILS RELATIVE PERCENT (BEAKER) (test 0 % qvsz=009) NEUTROPHILS ABSOLUTE COUNT (BEAKER) (test 1.40 K/ L 1.78-5.38 kdyo=111) LYMPHOCYTES ABSOLUTE COUNT (BEAKER) (test 3.19 K/ L 1.32-3.57 lmwy=417) MONOCYTES ABSOLUTE COUNT (BEAKER) (test 0.52 K/ L 0.30-0.82 mybd=221) EOSINOPHILS ABSOLUTE COUNT (BEAKER) (test 0.20 K/ L 0.04-0.54 keei=400) BASOPHILS ABSOLUTE COUNT (BEAKER) (test 0.02 K/ L 0.01-0.08 nuar=106) IMMATURE GRANULOCYTES-RELATIVE PERCENT (BEAKER) 0 % 0-1 (test kjhh=0718) (MANUAL DIFFERENTIAL)2017-07-08 12:33:00 Test Item Value Reference Range Comments TOTAL COUNTED (BEAKER) (test qjun=2511) WBC MORPHOLOGY (BEAKER) (test swgm=198) Normal PLT MORPHOLOGY (BEAKER) (test bbde=980) Normal ANISOCYTOSIS (BEAKER) (test yahe=029) 1+ few HYPOCHROMIA (BEAKER) (test deny=816) 1+ few MACROCYTES (BEAKER) (test nvxb=757) 1+ few POIKILOCYTES (BEAKER) (test jfwd=803) 1+ few POCT-GLUCOSE [id number] 12:28:00 Test Item Value Reference Range Comments POC-GLUCOSE METER (BEAKER) 118 mg/dL 70-110 TESTED AT [address] (test aszm=3407) [place] [address] [id number] 07:55:00 Test Item Value Reference Range Comments MAGNESIUM (BEAKER) (test qejz=497) 1.8 mg/dL 1.6-2.6 [id number] 07:55:00 Test Item Value Reference Range Comments SODIUM (BEAKER) (test pekj=098) 129 meq/L 136-145 POCT-GLUCOSE [id number] 07:36:00 Test Item Value Reference Range Comments POC-GLUCOSE METER (BEAKER) 106 mg/dL 70-110 TESTED AT [address] (test naxt=5008) [place] [address] POCT-GLUCOSE [id number] 21:13:00 Test Item Value Reference Range Comments POC-GLUCOSE METER (BEAKER) 163 mg/dL 70-110 TESTED AT [address] (test tqmk=6673) [place] [address] HIV-1 PCR, [id number] 20:24:00 Test Item Value Reference Range Comments HIV-1 NUMERIC RESULT (BEAKER) (test odzw=5091) 023355 Cp/mL <20 This test uses a Real-Time Polymerase Chain Reaction (RT-PCR) methodology to detect a highly conserved region of the HIV-1 gag gene and was performed using the [employer] AmpliPrep/KELVIN TaqMan HIV-1 test kit version 2.0 ([employer]Reportable range for this assay is 20 - 10,000,000 copies per mL (1.3 - 7.0 Log copies/mL).[id number] 17:25:00 Test Item Value Reference Range Comments SODIUM (BEAKER) (test vcka=348) 131 meq/L 136-145 POCT-GLUCOSE [id number] 17:17:00 Test Item Value Reference Range Comments POC-GLUCOSE METER (BEAKER) 130 mg/dL 70-110 TESTED AT [facility] [address] [facility] (test xrsk=7308) [facility] [address] CD4 T CELL [id number] 12:38:00 Test Item Value Reference Range Comments CD4/CD8 RATIO FC (BEAKER) (test krzx=5092) 0.32 0.70-3.23 CBC W/PLT COUNT & AUTO [id number] 12:02:00 Test Item Value Reference Range Comments WHITE BLOOD CELL COUNT (BEAKER) (test cdsy=518) 5.0 K/ L 3.5-10.5 RED BLOOD CELL COUNT (BEAKER) (test fvap=964) 3.87 M/ L 4.63-6.08 HEMOGLOBIN (BEAKER) (test wxxu=074) 10.8 GM/DL 13.7-17.5 HEMATOCRIT (BEAKER) (test gbwg=459) 32.9 % 40.1-51.0 MEAN CORPUSCULAR VOLUME (BEAKER) (test btzw=907) 85.0 fL 79.0-92.2 MEAN CORPUSCULAR HEMOGLOBIN (BEAKER) (test 27.9 pg 25.7-32.2 jopx=131) MEAN CORPUSCULAR HEMOGLOBIN CONC (BEAKER) (test 32.8 GM/DL 32.3-36.5 melc=002) RED CELL DISTRIBUTION WIDTH (BEAKER) (test 13.7 % 11.6-14.4 nzuv=669) PLATELET COUNT (BEAKER) (test ncwe=383) 164 K/CU MM 150-450 MEAN PLATELET VOLUME (BEAKER) (test khlw=012) 8.5 fL 9.4-12.4 NUCLEATED RED BLOOD CELLS (BEAKER) (test 0 /100 WBC 0-0 utbd=199) NEUTROPHILS RELATIVE PERCENT (BEAKER) (test 23 % ekux=994) LYMPHOCYTES RELATIVE PERCENT (BEAKER) (test 62 % cbkf=984) MONOCYTES RELATIVE PERCENT (BEAKER) (test 11 % kczi=872) EOSINOPHILS RELATIVE PERCENT (BEAKER) (test 4 % ggrs=615) BASOPHILS RELATIVE PERCENT (BEAKER) (test 1 % ffxv=189) NEUTROPHILS ABSOLUTE COUNT (BEAKER) (test 1.16 K/ L 1.78-5.38 kyij=156) LYMPHOCYTES ABSOLUTE COUNT (BEAKER) (test 3.10 K/ L 1.32-3.57 amaw=637) MONOCYTES ABSOLUTE COUNT (BEAKER) (test 0.53 K/ L 0.30-0.82 gnrn=611) EOSINOPHILS ABSOLUTE COUNT (BEAKER) (test 0.18 K/ L 0.04-0.54 inhn=217) BASOPHILS ABSOLUTE COUNT (BEAKER) (test 0.04 K/ L 0.01-0.08 zlle=450) IMMATURE GRANULOCYTES-RELATIVE PERCENT (BEAKER) 1 % 0-1 (test lvwu=1653) (MANUAL DIFFERENTIAL)2017-07-07 12:02:00 Test Item Value Reference Range Comments TOTAL COUNTED (BEAKER) (test skmo=3133) POCT-GLUCOSE [id number] 11:50:00 Test Item Value Reference Range Comments POC-GLUCOSE METER (BEAKER) 89 mg/dL 70-110 TESTED AT [address] (test ldvy=3160) [facility] [address] POCT-GLUCOSE [id number] 07:42:00 Test Item Value Reference Range Comments POC-GLUCOSE METER (BEAKER) 71 mg/dL 70-110 TESTED AT [address] (test xpzn=2612) [place] [address] [id number] 07:41:00 Test Item Value Reference Range Comments PHOSPHORUS (BEAKER) (test isfw=093) 4.0 mg/dL 2.3-4.7 [id number] 07:41:00 Test Item Value Reference Range Comments MAGNESIUM (BEAKER) (test fhuq=657) 1.7 mg/dL 1.6-2.6 [id number] 07:41:00 Test Item Value Reference Range Comments SODIUM (BEAKER) (test lkgv=335) 129 meq/L 136-145 BASIC METABOLIC [id number] 07:41:00 Test Item Value Reference Range Comments SODIUM (BEAKER) (test 129 meq/L 136-145 oczw=802) POTASSIUM (BEAKER) (test 4.7 meq/L 3.5-5.1 grsc=712) CHLORIDE (BEAKER) (test 100 meq/L 98-107 levd=236) CO2 (BEAKER) (test 24 meq/L 22-29 rmfa=891) BLOOD UREA NITROGEN 14 mg/dL 7-21 (BEAKER) (test ojcp=884) CREATININE (BEAKER) (test 0.65 mg/dL 0.57-1.25 zzfr=091) GLUCOSE RANDOM (BEAKER) 79 mg/dL 70-105 (test jcbp=256) CALCIUM (BEAKER) (test 8.6 mg/dL 8.4-10.2 jqjx=044) EGFR (BEAKER) (test 129 mL/min/1.73 sq m ESTIMATED GFR IS NOT qfde=5949) ACCURATE CREATININE CLEARANCE IN PREDICTING GLOMERULAR FILTRATION RATE. ESTIMATED GFR IS NOT APPLICABLE FOR DIALYSIS PATIENTS. CALCIUM, [id number] 06:54:00 Test Item Value Reference Range Comments CALCIUM IONIZED (BEAKER) (test psuv=665) 1.03 mmol/L 1.12-1.27 PH, BLOOD (BEAKER) (test ezir=5856) 7.50 POCT-GLUCOSE [id number] 23:59:00 Test Item Value Reference Range Comments POC-GLUCOSE METER (BEAKER) 188 mg/dL 70-110 TESTED AT [place] [id number] [facility] (test rlww=2231) [facility] [address] POCT-GLUCOSE [id number] 18:08:00 Test Item Value Reference Range Comments POC-GLUCOSE METER (BEAKER) 199 mg/dL 70-110 TESTED AT [address] (test ngxe=8368) [facility] [address] BASIC METABOLIC [id number] 17:27:00 Test Item Value Reference Range Comments SODIUM (BEAKER) (test 130 meq/L 136-145 xbzn=128) POTASSIUM (BEAKER) (test 4.3 meq/L 3.5-5.1 iapb=830) CHLORIDE (BEAKER) (test 99 meq/L 98-107 gxuf=479) CO2 (BEAKER) (test 26 meq/L 22-29 bpzu=135) BLOOD UREA NITROGEN 14 mg/dL 7-21 (BEAKER) (test czus=126) CREATININE (BEAKER) (test 0.69 mg/dL 0.57-1.25 bagt=596) GLUCOSE RANDOM (BEAKER) 163 mg/dL 70-105 (test yxtc=306) CALCIUM (BEAKER) (test 8.5 mg/dL 8.4-10.2 wugg=788) EGFR (BEAKER) (test 120 mL/min/1.73 sq m ESTIMATED GFR IS NOT eiom=4036) ACCURATE CREATININE CLEARANCE IN PREDICTING GLOMERULAR FILTRATION RATE. ESTIMATED GFR IS NOT APPLICABLE FOR DIALYSIS PATIENTS. Call [id number] T CELL [id number] 14:52:00 Test Item Value Reference Range Comments CD4/CD8 RATIO FC (BEAKER) (test elzo=7301) 0.33 0.70-3.23 POCT-GLUCOSE [id number] 11:17:00 Test Item Value Reference Range Comments POC-GLUCOSE METER (BEAKER) 116 mg/dL 70-110 TESTED AT [facility] [address] [facility] (test wxtb=2164) [facility] [address] CBC W/PLT COUNT & AUTO [id number] 09:40:00 Test Item Value Reference Range Comments WHITE BLOOD CELL COUNT (BEAKER) (test ywpp=899) 4.5 K/ L 3.5-10.5 RED BLOOD CELL COUNT (BEAKER) (test qwth=099) 3.71 M/ L 4.63-6.08 HEMOGLOBIN (BEAKER) (test vrov=616) 10.4 GM/DL 13.7-17.5 HEMATOCRIT (BEAKER) (test jtaf=119) 31.1 % 40.1-51.0 MEAN CORPUSCULAR VOLUME (BEAKER) (test oxqq=354) 83.8 fL 79.0-92.2 MEAN CORPUSCULAR HEMOGLOBIN (BEAKER) (test 28.0 pg 25.7-32.2 nvjr=175) MEAN CORPUSCULAR HEMOGLOBIN CONC (BEAKER) (test 33.4 GM/DL 32.3-36.5 bsmq=100) RED CELL DISTRIBUTION WIDTH (BEAKER) (test 13.6 % 11.6-14.4 mvfp=068) PLATELET COUNT (BEAKER) (test coha=883) 160 K/CU MM 150-450 MEAN PLATELET VOLUME (BEAKER) (test puqr=568) 8.1 fL 9.4-12.4 NUCLEATED RED BLOOD CELLS (BEAKER) (test 0 /100 WBC 0-0 gwdk=500) NEUTROPHILS RELATIVE PERCENT (BEAKER) (test 20 % bdzc=763) LYMPHOCYTES RELATIVE PERCENT (BEAKER) (test 65 % uqbd=432) MONOCYTES RELATIVE PERCENT (BEAKER) (test 12 % kbem=963) EOSINOPHILS RELATIVE PERCENT (BEAKER) (test 2 % mego=612) BASOPHILS RELATIVE PERCENT (BEAKER) (test 0 % creq=704) NEUTROPHILS ABSOLUTE COUNT (BEAKER) (test 0.90 K/ L 1.78-5.38 hngm=934) LYMPHOCYTES ABSOLUTE COUNT (BEAKER) (test 2.89 K/ L 1.32-3.57 zztp=157) MONOCYTES ABSOLUTE COUNT (BEAKER) (test 0.55 K/ L 0.30-0.82 ezsx=905) EOSINOPHILS ABSOLUTE COUNT (BEAKER) (test 0.10 K/ L 0.04-0.54 nbis=877) BASOPHILS ABSOLUTE COUNT (BEAKER) (test 0.02 K/ L 0.01-0.08 tftz=451) IMMATURE GRANULOCYTES-RELATIVE PERCENT (BEAKER) 0 % 0-1 (test aqvd=5207) (MANUAL DIFFERENTIAL)2017-07-06 09:40:00 Test Item Value Reference Range Comments TOTAL COUNTED (BEAKER) (test eicp=6127) PLT MORPHOLOGY (BEAKER) (test fnyn=423) Normal RBC MORPHOLOGY (BEAKER) (test wdmb=117) Normal ATYPICAL LYMPHS(BEAKER) (test vsfi=6400) Present POCT-GLUCOSE [id number] 09:04:00 Test Item Value Reference Range Comments POC-GLUCOSE METER (BEAKER) 92 mg/dL 70-110 TESTED AT [facility] [address] [facility] (test oemu=1874) [facility] [address] CALCIUM, [id number] 08:22:00 Test Item Value Reference Range Comments CALCIUM IONIZED (BEAKER) (test fcyj=795) 0.93 mmol/L 1.12-1.27 PH, BLOOD (BEAKER) (test epbx=7390) 7.50 [id number] 06:47:00 Test Item Value Reference Range Comments PHOSPHORUS (BEAKER) (test tbjd=377) 3.8 mg/dL 2.3-4.7 [id number] 06:47:00 Test Item Value Reference Range Comments MAGNESIUM (BEAKER) (test wywr=895) 1.9 mg/dL 1.6-2.6 [id number] 06:47:00 Test Item Value Reference Range Comments SODIUM (BEAKER) (test yvkm=028) 121 meq/L 136-145 POCT-GLUCOSE [id number] 21:32:00 Test Item Value Reference Range Comments POC-GLUCOSE METER (BEAKER) 210 mg/dL 70-110 TESTED AT [address] (test undz=9723) [place] [address] POCT-GLUCOSE [id number] 18:18:00 Test Item Value Reference Range Comments POC-GLUCOSE METER (BEAKER) 204 mg/dL 70-110 TESTED AT [address] (test ptwg=3851) [place] [address] [id number] 16:54:00 Test Item Value Reference Range Comments SODIUM (BEAKER) (test thlg=950) 126 meq/L 136-145 POCT-GLUCOSE [id number] 11:39:00 Test Item Value Reference Range Comments POC-GLUCOSE METER (BEAKER) 73 mg/dL 70-110 TESTED AT [address] (test uaqm=0590) [place] [id number] TOXOPLASMA GONDII ANTIBODY, [id number] 10:36:00 Test Item Value Reference Range Comments TOXOPLASMA GONDII IGG (BEAKER) (test kyea=005) Positive RICKETTSIA AB PANEL WITH REFLEX TO [id number] 08:58:00 Test Item Value Reference Range Comments SCAN RESULT (test mcme=[id number]) POCT-GLUCOSE [id number] 08:25:00 Test Item Value Reference Range Comments POC-GLUCOSE METER (BEAKER) 80 mg/dL 70-110 TESTED AT [address] (test ufaz=4944) [facility] [address] CBC W/PLT COUNT & AUTO [id number] 07:42:00 Test Item Value Reference Range Comments WHITE BLOOD CELL COUNT (BEAKER) (test ngyy=327) 4.9 K/ L 3.5-10.5 RED BLOOD CELL COUNT (BEAKER) (test anos=111) 3.82 M/ L 4.63-6.08 HEMOGLOBIN (BEAKER) (test xdgh=168) 10.6 GM/DL 13.7-17.5 HEMATOCRIT (BEAKER) (test bzyr=378) 32.0 % 40.1-51.0 MEAN CORPUSCULAR VOLUME (BEAKER) (test thgb=211) 83.8 fL 79.0-92.2 MEAN CORPUSCULAR HEMOGLOBIN (BEAKER) (test 27.7 pg 25.7-32.2 oegu=953) MEAN CORPUSCULAR HEMOGLOBIN CONC (BEAKER) (test 33.1 GM/DL 32.3-36.5 mluu=807) RED CELL DISTRIBUTION WIDTH (BEAKER) (test 13.4 % 11.6-14.4 hxny=095) PLATELET COUNT (BEAKER) (test vgbd=102) 168 K/CU MM 150-450 MEAN PLATELET VOLUME (BEAKER) (test jwoy=757) 8.3 fL 9.4-12.4 NUCLEATED RED BLOOD CELLS (BEAKER) (test 0 /100 WBC 0-0 afdt=467) IMMATURE GRANULOCYTES-RELATIVE PERCENT (BEAKER) 0 % 0-1 (test owtw=8020) (MANUAL DIFFERENTIAL)2017-07-05 07:42:00 Test Item Value Reference Range Comments NEUTROPHILS - REL (DIFF) (BEAKER) (test coge=0941) 20 % LYMPHOCYTES - REL (DIFF) (BEAKER) (test vqmy=7305) 63 % MONOCYTES - REL (DIFF) (BEAKER) (test gfgb=4379) 13 % EOSINOPHILS - REL (DIFF) (BEAKER) (test krre=8443) 0 % BASOPHILS - REL (DIFF) (BEAKER) (test ayqa=6623) 0 % BANDS - REL (DIFF) (BEAKER) (test yqko=8058) 4 % 0-10 NEUTROPHILS - ABS (DIFF) (BEAKER) (test sbew=6114) 0.98 K/ L 1.80-8.00 LYMPHOCYTES - ABS (DIFF) (BEAKER) (test sjln=4394) 3.09 K/ L 1.48-4.50 MONOCYTES - ABS (DIFF) (BEAKER) (test hgdr=0483) 0.64 K/ L 0.00-1.30 EOSINOPHILS - ABS (DIFF) (BEAKER) (test puve=7476) 0.00 K/ L 0.00-0.50 BASOPHILS - ABS (DIFF) (BEAKER) (test plaj=6225) 0.00 K/ L 0.00-0.20 BANDS-ABS (DIFF) (BEAKER) (test daza=9102) 0.2 K/ L 0.0-0.8 TOTAL COUNTED (BEAKER) (test lnwd=1564) 100 BANDS + SEGMENTED NEUTROPHILS (BEAKER) (test 1.18 prgu=3733) WBC MORPHOLOGY (BEAKER) (test ovge=092) Normal PLT MORPHOLOGY (BEAKER) (test gqft=425) Normal RBC MORPHOLOGY (BEAKER) (test bywk=919) Normal CALCIUM, [id number] 07:36:00 Test Item Value Reference Range Comments CALCIUM IONIZED (BEAKER) (test fsfh=934) 1.08 mmol/L 1.12-1.27 PH, BLOOD (BEAKER) (test btmh=4254) 7.46 [id number] 04:57:00 Test Item Value Reference Range Comments PHOSPHORUS (BEAKER) (test cjbn=843) 4.0 mg/dL 2.3-4.7 [id number] 04:57:00 Test Item Value Reference Range Comments MAGNESIUM (BEAKER) (test qjax=180) 1.7 mg/dL 1.6-2.6 [id number] 04:57:00 Test Item Value Reference Range Comments SODIUM (BEAKER) (test xqlz=231) 130 meq/L 136-145 BASIC METABOLIC [id number] 04:57:00 Test Item Value Reference Range Comments SODIUM (BEAKER) (test 130 meq/L 136-145 okxc=316) POTASSIUM (BEAKER) (test 4.4 meq/L 3.5-5.1 rnfe=103) CHLORIDE (BEAKER) (test 99 meq/L 98-107 qagz=150) CO2 (BEAKER) (test 26 meq/L 22-29 fpdx=264) BLOOD UREA NITROGEN 14 mg/dL 7-21 (BEAKER) (test fzxu=684) CREATININE (BEAKER) (test 0.63 mg/dL 0.57-1.25 infz=673) GLUCOSE RANDOM (BEAKER) 136 mg/dL 70-105 (test hyws=543) CALCIUM (BEAKER) (test 8.6 mg/dL 8.4-10.2 asxj=346) EGFR (BEAKER) (test 133 mL/min/1.73 sq m ESTIMATED GFR IS NOT ycwa=5915) ACCURATE CREATININE CLEARANCE IN PREDICTING GLOMERULAR FILTRATION RATE. ESTIMATED GFR IS NOT APPLICABLE FOR DIALYSIS PATIENTS. [id number] 21:46:00 Test Item Value Reference Range Comments SODIUM (BEAKER) (test cmrs=871) 129 meq/L 136-145 POTASSIUM (BEAKER) (test uhmd=769) 4.6 meq/L 3.5-5.1 CHLORIDE (BEAKER) (test yaym=428) 97 meq/L 98-107 CO2 (BEAKER) (test apnd=040) 25 meq/L 22-29 Call results [id number] 21:37:00 Test Item Value Reference Range Comments POC-GLUCOSE METER (BEAKER) 143 mg/dL 70-110 TESTED AT [address] (test cntf=9114) [place] [address] [id number] 17:59:00 Test Item Value Reference Range Comments SODIUM (BEAKER) (test bttv=137) 123 meq/L 136-145 POCT-GLUCOSE [id number] 16:50:00 Test Item Value Reference Range Comments POC-GLUCOSE METER (BEAKER) 141 mg/dL 70-110 TESTED AT [address] (test jitm=7345) [place] [id number] POCT-GLUCOSE [id number] 12:01:00 Test Item Value Reference Range Comments POC-GLUCOSE METER (BEAKER) 90 mg/dL 70-110 TESTED AT [address] (test rzop=4066) [place] [id number] POCT-GLUCOSE [id number] 08:25:00 Test Item Value Reference Range Comments POC-GLUCOSE METER (BEAKER) 81 mg/dL 70-110 TESTED AT [address] (test peti=0869) [place] [address] CBC W/PLT COUNT & AUTO [id number] 07:20:00 Test Item Value Reference Range Comments WHITE BLOOD CELL COUNT (BEAKER) (test rmvc=298) 4.5 K/ L 3.5-10.5 RED BLOOD CELL COUNT (BEAKER) (test fzwm=940) 3.62 M/ L 4.63-6.08 HEMOGLOBIN (BEAKER) (test ssqz=392) 10.3 GM/DL 13.7-17.5 HEMATOCRIT (BEAKER) (test ewnq=866) 30.5 % 40.1-51.0 MEAN CORPUSCULAR VOLUME (BEAKER) (test ieor=019) 84.3 fL 79.0-92.2 MEAN CORPUSCULAR HEMOGLOBIN (BEAKER) (test 28.5 pg 25.7-32.2 ahow=027) MEAN CORPUSCULAR HEMOGLOBIN CONC (BEAKER) (test 33.8 GM/DL 32.3-36.5 iyar=606) RED CELL DISTRIBUTION WIDTH (BEAKER) (test 13.4 % 11.6-14.4 udjk=922) PLATELET COUNT (BEAKER) (test sojd=288) 186 K/CU MM 150-450 MEAN PLATELET VOLUME (BEAKER) (test fdjk=682) 8.2 fL 9.4-12.4 NUCLEATED RED BLOOD CELLS (BEAKER) (test 0 /100 WBC 0-0 wxmg=724) IMMATURE GRANULOCYTES-RELATIVE PERCENT (BEAKER) 0 % 0-1 (test xxiq=9585) (MANUAL DIFFERENTIAL)2017-07-04 07:20:00 Test Item Value Reference Range Comments NEUTROPHILS - REL (DIFF) (BEAKER) (test dxvf=6857) 21 % LYMPHOCYTES - REL (DIFF) (BEAKER) (test zhbr=7794) 55 % MONOCYTES - REL (DIFF) (BEAKER) (test rzer=3996) 13 % ATYPICAL LYMPHOCYTE - REL (DIFF) (BEAKER) (test 11 % 0-0 qede=146) NEUTROPHILS - ABS (DIFF) (BEAKER) (test yapi=5036) 0.95 K/ L 1.80-8.00 LYMPHOCYTES - ABS (DIFF) (BEAKER) (test rtpj=4558) 2.48 K/ L 1.48-4.50 MONOCYTES - ABS (DIFF) (BEAKER) (test spab=1232) 0.59 K/ L 0.00-1.30 ATYPICAL LYMPHOCYTES - ABS (DIFF) (BEAKER) (test 0.50 K/ L 0.00-0.00 vygc=664) TOTAL COUNTED (BEAKER) (test cbgm=1494) 100 WBC MORPHOLOGY (BEAKER) (test dvbj=450) Normal PLT MORPHOLOGY (BEAKER) (test ubgk=563) Normal RBC MORPHOLOGY (BEAKER) (test ytzb=791) Normal OSMOLALITY, [id number] 05:20:00 Test Item Value Reference Range Comments OSMOLALITY, SERUM (BEAKER) (test gcyh=547) 278 mOsm/kg 275-295 CALCIUM, [id number] 03:37:00 Test Item Value Reference Range Comments CALCIUM IONIZED (BEAKER) (test boyb=061) 1.07 mmol/L 1.12-1.27 PH, BLOOD (BEAKER) (test ldfr=3905) 7.46 [id number] 03:36:00 Test Item Value Reference Range Comments PHOSPHORUS (BEAKER) (test uwjz=590) 4.5 mg/dL 2.3-4.7 [id number] 03:36:00 Test Item Value Reference Range Comments MAGNESIUM (BEAKER) (test ksuj=676) 1.4 mg/dL 1.6-2.6 BASIC METABOLIC [id number] 03:36:00 Test Item Value Reference Range Comments SODIUM (BEAKER) (test 127 meq/L 136-145 zejx=148) POTASSIUM (BEAKER) (test 4.4 meq/L 3.5-5.1 annt=603) CHLORIDE (BEAKER) (test 96 meq/L 98-107 dxxm=669) CO2 (BEAKER) (test 26 meq/L 22-29 imoj=564) BLOOD UREA NITROGEN 13 mg/dL 7-21 (BEAKER) (test ylce=612) CREATININE (BEAKER) (test 0.62 mg/dL 0.57-1.25 onyk=943) GLUCOSE RANDOM (BEAKER) 97 mg/dL 70-105 (test ocpt=949) CALCIUM (BEAKER) (test 8.5 mg/dL 8.4-10.2 sckj=343) EGFR (BEAKER) (test 136 mL/min/1.73 sq m ESTIMATED GFR IS NOT jbqn=1357) ACCURATE CREATININE CLEARANCE IN PREDICTING GLOMERULAR FILTRATION RATE. ESTIMATED GFR IS NOT APPLICABLE FOR DIALYSIS PATIENTS. OSMOLALITY, [id number] 01:18:00 Test Item Value Reference Range Comments OSMOLALITY URINE (BEAKER) (test arna=148) 447 mOsm/kg 40-1400 SODIUM, RANDOM [id number] 01:13:00 Test Item Value Reference Range Comments SODIUM URINE (BEAKER) (test pnwp=877) 101 meq/L Reference Range: No NormalsPOCT-GLUCOSE [id number] 22:24:00 Test Item Value Reference Range Comments POC-GLUCOSE METER (BEAKER) 214 mg/dL 70-110 TESTED AT [address] (test gywn=3030) [facility] [address] POCT-GLUCOSE [id number] 18:10:00 Test Item Value Reference Range Comments POC-GLUCOSE METER (BEAKER) 243 mg/dL 70-110 TESTED AT [address] (test yibv=5712) [facility] [address] CBC W/PLT COUNT & AUTO [id number] 14:59:00 Test Item Value Reference Range Comments WHITE BLOOD CELL COUNT (BEAKER) (test mndm=699) 4.3 K/ L 3.5-10.5 RED BLOOD CELL COUNT (BEAKER) (test zspy=976) 3.85 M/ L 4.63-6.08 HEMOGLOBIN (BEAKER) (test loaw=488) 10.7 GM/DL 13.7-17.5 HEMATOCRIT (BEAKER) (test vgtn=829) 32.6 % 40.1-51.0 MEAN CORPUSCULAR VOLUME (BEAKER) (test dihi=926) 84.7 fL 79.0-92.2 MEAN CORPUSCULAR HEMOGLOBIN (BEAKER) (test 27.8 pg 25.7-32.2 kxfy=134) MEAN CORPUSCULAR HEMOGLOBIN CONC (BEAKER) (test 32.8 GM/DL 32.3-36.5 ecbg=333) RED CELL DISTRIBUTION WIDTH (BEAKER) (test 13.3 % 11.6-14.4 npgx=736) PLATELET COUNT (BEAKER) (test mads=543) 192 K/CU MM 150-450 MEAN PLATELET VOLUME (BEAKER) (test ljwk=960) 8.2 fL 9.4-12.4 NUCLEATED RED BLOOD CELLS (BEAKER) (test 0 /100 WBC 0-0 rvky=370) IMMATURE GRANULOCYTES-RELATIVE PERCENT (BEAKER) 0 % 0-1 (test joez=3600) (MANUAL DIFFERENTIAL)2017-07-03 14:59:00 Test Item Value Reference Range Comments NEUTROPHILS - REL (DIFF) (BEAKER) (test tiej=2641) 42 % LYMPHOCYTES - REL (DIFF) (BEAKER) (test nbdn=2971) 32 % MONOCYTES - REL (DIFF) (BEAKER) (test bboq=2107) 18 % EOSINOPHILS - REL (DIFF) (BEAKER) (test xexi=8053) 4 % BANDS - REL (DIFF) (BEAKER) (test rfdv=5059) 1 % 0-10 ATYPICAL LYMPHOCYTE - REL (DIFF) (BEAKER) (test 3 % 0-0 cufn=214) NEUTROPHILS - ABS (DIFF) (BEAKER) (test tagn=9272) 1.81 K/ L 1.80-8.00 LYMPHOCYTES - ABS (DIFF) (BEAKER) (test sgpt=0791) 1.38 K/ L 1.48-4.50 MONOCYTES - ABS (DIFF) (BEAKER) (test ldga=6839) 0.77 K/ L 0.00-1.30 EOSINOPHILS - ABS (DIFF) (BEAKER) (test yxal=5025) 0.17 K/ L 0.00-0.50 BANDS-ABS (DIFF) (BEAKER) (test ygnr=6910) 0.0 K/ L 0.0-0.8 ATYPICAL LYMPHOCYTES - ABS (DIFF) (BEAKER) (test 0.13 K/ L 0.00-0.00 eyyo=084) TOTAL COUNTED (BEAKER) (test twtn=8494) 100 BANDS + SEGMENTED NEUTROPHILS (BEAKER) (test 1.85 vaxe=2260) PLT MORPHOLOGY (BEAKER) (test zolp=721) Normal SMUDGE CELLS (BEAKER) (test azce=3850) Present SPHEROCYTES (BEAKER) (test pzvc=261) 1+ few BASIC METABOLIC [id number] 12:46:00 Test Item Value Reference Range Comments SODIUM (BEAKER) (test 127 meq/L 136-145 whjf=646) POTASSIUM (BEAKER) (test 4.2 meq/L 3.5-5.1 ugog=347) CHLORIDE (BEAKER) (test 95 meq/L 98-107 ocyk=453) CO2 (BEAKER) (test 26 meq/L 22-29 vqoq=958) BLOOD UREA NITROGEN 10 mg/dL 7-21 (BEAKER) (test nbie=003) CREATININE (BEAKER) (test 0.58 mg/dL 0.57-1.25 mren=196) GLUCOSE RANDOM (BEAKER) 92 mg/dL 70-105 (test slsn=633) CALCIUM (BEAKER) (test 8.3 mg/dL 8.4-10.2 ebsd=237) EGFR (BEAKER) (test 147 mL/min/1.73 sq m ESTIMATED GFR IS NOT qjwk=2654) ACCURATE CREATININE CLEARANCE IN PREDICTING GLOMERULAR FILTRATION RATE. ESTIMATED GFR IS NOT APPLICABLE FOR DIALYSIS PATIENTS. POCT-GLUCOSE [id number] 12:10:00 Test Item Value Reference Range Comments POC-GLUCOSE METER (BEAKER) 164 mg/dL 70-110 TESTED AT [address] (test ijrf=3327) [place] [address] CALCIUM, [id number] 10:14:00 Test Item Value Reference Range Comments CALCIUM IONIZED (BEAKER) (test nhuy=514) 1.07 mmol/L 1.12-1.27 PH, BLOOD (BEAKER) (test jksd=9035) 7.46 POCT-GLUCOSE [id number] 07:48:00 Test Item Value Reference Range Comments POC-GLUCOSE METER (BEAKER) 89 mg/dL 70-110 TESTED AT [address] (test crbp=2531) [place] [id number] POCT-GLUCOSE [id number] 21:34:00 Test Item Value Reference Range Comments POC-GLUCOSE METER (BEAKER) 175 mg/dL 70-110 TESTED AT [address] (test nsnw=8024) [place] [address] [id number] 18:01:00 Test Item Value Reference Range Comments SODIUM (BEAKER) (test xhsd=830) 128 meq/L 136-145 POCT-GLUCOSE [id number] 17:58:00 Test Item Value Reference Range Comments POC-GLUCOSE METER (BEAKER) 143 mg/dL 70-110 TESTED AT [facility] [address] [facility] (test cgsb=8424) [facility] [address] POCT-GLUCOSE [id number] 12:09:00 Test Item Value Reference Range Comments POC-GLUCOSE METER (BEAKER) 178 mg/dL 70-110 TESTED AT [place] [id number] [facility] (test elik=1780) [facility] [address] CBC W/PLT COUNT & AUTO [id number] 11:33:00 Test Item Value Reference Range Comments WHITE BLOOD CELL COUNT (BEAKER) (test lcld=801) 3.6 K/ L 3.5-10.5 RED BLOOD CELL COUNT (BEAKER) (test zisq=540) 3.57 M/ L 4.63-6.08 HEMOGLOBIN (BEAKER) (test lxvh=372) 9.9 GM/DL 13.7-17.5 HEMATOCRIT (BEAKER) (test ekim=715) 30.5 % 40.1-51.0 MEAN CORPUSCULAR VOLUME (BEAKER) (test wwlz=580) 85.4 fL 79.0-92.2 MEAN CORPUSCULAR HEMOGLOBIN (BEAKER) (test 27.7 pg 25.7-32.2 mlvl=012) MEAN CORPUSCULAR HEMOGLOBIN CONC (BEAKER) (test 32.5 GM/DL 32.3-36.5 aiqy=836) RED CELL DISTRIBUTION WIDTH (BEAKER) (test 13.5 % 11.6-14.4 iudj=920) PLATELET COUNT (BEAKER) (test ibhg=124) 184 K/CU MM 150-450 MEAN PLATELET VOLUME (BEAKER) (test plvw=126) 8.4 fL 9.4-12.4 NUCLEATED RED BLOOD CELLS (BEAKER) (test 0 /100 WBC 0-0 ekaz=807) NEUTROPHILS RELATIVE PERCENT (BEAKER) (test 17 % ogae=076) LYMPHOCYTES RELATIVE PERCENT (BEAKER) (test 65 % wzuw=366) MONOCYTES RELATIVE PERCENT (BEAKER) (test 15 % lmbf=411) EOSINOPHILS RELATIVE PERCENT (BEAKER) (test 3 % qynw=866) BASOPHILS RELATIVE PERCENT (BEAKER) (test 0 % jxqm=781) NEUTROPHILS ABSOLUTE COUNT (BEAKER) (test 0.61 K/ L 1.78-5.38 nekw=950) LYMPHOCYTES ABSOLUTE COUNT (BEAKER) (test 2.34 K/ L 1.32-3.57 kryb=957) MONOCYTES ABSOLUTE COUNT (BEAKER) (test 0.52 K/ L 0.30-0.82 iftb=382) EOSINOPHILS ABSOLUTE COUNT (BEAKER) (test 0.09 K/ L 0.04-0.54 jegx=367) BASOPHILS ABSOLUTE COUNT (BEAKER) (test 0.01 K/ L 0.01-0.08 yggu=445) IMMATURE GRANULOCYTES-RELATIVE PERCENT (BEAKER) 0 % 0-1 (test skzo=9144) (MANUAL DIFFERENTIAL)2017-07-02 11:33:00 Test Item Value Reference Range Comments TOTAL COUNTED (BEAKER) (test rnci=2795) WBC MORPHOLOGY (BEAKER) (test okdq=535) Normal PLT MORPHOLOGY (BEAKER) (test uhgo=341) Normal RBC MORPHOLOGY (BEAKER) (test evaz=388) Normal POCT-GLUCOSE [id number] 08:33:00 Test Item Value Reference Range Comments POC-GLUCOSE METER (BEAKER) 104 mg/dL 70-110 TESTED AT [address] (test vwwe=8747) [facility] [address] BASIC METABOLIC [id number] 06:30:00 Test Item Value Reference Range Comments SODIUM (BEAKER) (test 129 meq/L 136-145 mqxl=643) POTASSIUM (BEAKER) (test 4.0 meq/L 3.5-5.1 bkbh=697) CHLORIDE (BEAKER) (test 99 meq/L 98-107 rryd=291) CO2 (BEAKER) (test 26 meq/L 22-29 neoh=291) BLOOD UREA NITROGEN 9 mg/dL 7-21 (BEAKER) (test eebi=172) CREATININE (BEAKER) (test 0.59 mg/dL 0.57-1.25 gpra=065) GLUCOSE RANDOM (BEAKER) 145 mg/dL 70-105 (test gxlr=592) CALCIUM (BEAKER) (test 7.9 mg/dL 8.4-10.2 gybf=933) EGFR (BEAKER) (test 144 mL/min/1.73 sq m ESTIMATED GFR IS NOT ixac=5341) ACCURATE CREATININE CLEARANCE IN PREDICTING GLOMERULAR FILTRATION RATE. ESTIMATED GFR IS NOT APPLICABLE FOR DIALYSIS PATIENTS. POCT-GLUCOSE [id number] 21:11:00 Test Item Value Reference Range Comments POC-GLUCOSE METER (BEAKER) 255 mg/dL 70-110 TESTED AT [address] (test kwor=7899) [place] [id number] POCT-GLUCOSE [id number] 17:49:00 Test Item Value Reference Range Comments POC-GLUCOSE METER (BEAKER) 215 mg/dL 70-110 TESTED AT [address] (test iwww=5472) [place] [address] [id number] 16:51:00 Test Item Value Reference Range Comments SODIUM (BEAKER) (test btwn=000) 128 meq/L 136-145 POCT-GLUCOSE [id number] 12:39:00 Test Item Value Reference Range Comments POC-GLUCOSE METER (BEAKER) 201 mg/dL 70-110 TESTED AT [address] (test lqvx=0986) [place] [address] POCT-GLUCOSE [id number] 08:17:00 Test Item Value Reference Range Comments POC-GLUCOSE METER (BEAKER) 114 mg/dL 70-110 TESTED AT [address] (test tvza=1289) [place] [address] CBC W/PLT COUNT & AUTO [id number] 07:16:00 Test Item Value Reference Range Comments WHITE BLOOD CELL COUNT (BEAKER) (test zjgt=036) 4.4 K/ L 3.5-10.5 RED BLOOD CELL COUNT (BEAKER) (test pgjn=777) 3.56 M/ L 4.63-6.08 HEMOGLOBIN (BEAKER) (test tkqy=084) 10.0 GM/DL 13.7-17.5 HEMATOCRIT (BEAKER) (test yqln=462) 30.1 % 40.1-51.0 MEAN CORPUSCULAR VOLUME (BEAKER) (test wuxi=132) 84.6 fL 79.0-92.2 MEAN CORPUSCULAR HEMOGLOBIN (BEAKER) (test 28.1 pg 25.7-32.2 kiqv=898) MEAN CORPUSCULAR HEMOGLOBIN CONC (BEAKER) (test 33.2 GM/DL 32.3-36.5 tuzn=027) RED CELL DISTRIBUTION WIDTH (BEAKER) (test 13.4 % 11.6-14.4 rcdj=521) PLATELET COUNT (BEAKER) (test subs=477) 193 K/CU MM 150-450 MEAN PLATELET VOLUME (BEAKER) (test bfwc=663) 8.6 fL 9.4-12.4 NUCLEATED RED BLOOD CELLS (BEAKER) (test 0 /100 WBC 0-0 fopk=920) NEUTROPHILS RELATIVE PERCENT (BEAKER) (test 25 % dcpp=112) LYMPHOCYTES RELATIVE PERCENT (BEAKER) (test 59 % rzgj=059) MONOCYTES RELATIVE PERCENT (BEAKER) (test 14 % uqrn=688) EOSINOPHILS RELATIVE PERCENT (BEAKER) (test 2 % gvjv=489) BASOPHILS RELATIVE PERCENT (BEAKER) (test 1 % syds=391) NEUTROPHILS ABSOLUTE COUNT (BEAKER) (test 1.10 K/ L 1.78-5.38 wymf=461) LYMPHOCYTES ABSOLUTE COUNT (BEAKER) (test 2.55 K/ L 1.32-3.57 vslp=433) MONOCYTES ABSOLUTE COUNT (BEAKER) (test 0.59 K/ L 0.30-0.82 spge=145) EOSINOPHILS ABSOLUTE COUNT (BEAKER) (test 0.08 K/ L 0.04-0.54 gunv=358) BASOPHILS ABSOLUTE COUNT (BEAKER) (test 0.02 K/ L 0.01-0.08 eytv=856) IMMATURE GRANULOCYTES-RELATIVE PERCENT (BEAKER) 1 % 0-1 (test tlaa=1491) (MANUAL DIFFERENTIAL)2017-07-01 07:16:00 Test Item Value Reference Range Comments TOTAL COUNTED (BEAKER) (test aygh=4948) WBC MORPHOLOGY (BEAKER) (test ldpb=750) Normal PLT MORPHOLOGY (BEAKER) (test lkiu=206) Normal RBC MORPHOLOGY (BEAKER) (test iqer=893) Normal BASIC METABOLIC [id number] 05:28:00 Test Item Value Reference Range Comments SODIUM (BEAKER) (test 124 meq/L 136-145 amuj=108) POTASSIUM (BEAKER) (test 4.1 meq/L 3.5-5.1 jeas=417) CHLORIDE (BEAKER) (test 95 meq/L 98-107 tpgd=547) CO2 (BEAKER) (test 27 meq/L 22-29 rjbb=045) BLOOD UREA NITROGEN 9 mg/dL 7-21 (BEAKER) (test uktn=013) CREATININE (BEAKER) (test 0.58 mg/dL 0.57-1.25 nmyb=016) GLUCOSE RANDOM (BEAKER) 141 mg/dL 70-105 (test hlop=027) CALCIUM (BEAKER) (test 8.1 mg/dL 8.4-10.2 opjj=442) EGFR (BEAKER) (test 147 mL/min/1.73 sq m ESTIMATED GFR IS NOT ppiu=0444) ACCURATE CREATININE CLEARANCE IN PREDICTING GLOMERULAR FILTRATION RATE. ESTIMATED GFR IS NOT APPLICABLE FOR DIALYSIS PATIENTS. POCT-GLUCOSE [id number] 21:16:00 Test Item Value Reference Range Comments POC-GLUCOSE METER (BEAKER) 250 mg/dL 70-110 TESTED AT [address] (test hogu=4422) [place] [id number] 19:39:00 Test Item Value Reference Range Comments SODIUM (BEAKER) (test svlg=620) 126 meq/L 136-145 POCT-GLUCOSE [id number] 17:20:00 Test Item Value Reference Range Comments POC-GLUCOSE METER (BEAKER) 202 mg/dL 70-110 TESTED AT [address] (test cdcw=1412) [facility] [address] CBC W/PLT COUNT & AUTO [id number] 14:29:00 Test Item Value Reference Range Comments WHITE BLOOD CELL COUNT (BEAKER) (test lijw=866) 5.5 K/ L 3.5-10.5 RED BLOOD CELL COUNT (BEAKER) (test dbmj=298) 3.56 M/ L 4.63-6.08 HEMOGLOBIN (BEAKER) (test ahkl=036) 9.9 GM/DL 13.7-17.5 HEMATOCRIT (BEAKER) (test rpjp=730) 30.1 % 40.1-51.0 MEAN CORPUSCULAR VOLUME (BEAKER) (test cnpy=273) 84.6 fL 79.0-92.2 MEAN CORPUSCULAR HEMOGLOBIN (BEAKER) (test 27.8 pg 25.7-32.2 pmap=429) MEAN CORPUSCULAR HEMOGLOBIN CONC (BEAKER) (test 32.9 GM/DL 32.3-36.5 pwjp=957) RED CELL DISTRIBUTION WIDTH (BEAKER) (test 13.5 % 11.6-14.4 jmux=905) PLATELET COUNT (BEAKER) (test rmqg=261) 190 K/CU MM 150-450 MEAN PLATELET VOLUME (BEAKER) (test qunq=476) 8.2 fL 9.4-12.4 NUCLEATED RED BLOOD CELLS (BEAKER) (test 0 /100 WBC 0-0 jhws=106) NEUTROPHILS RELATIVE PERCENT (BEAKER) (test 32 % yvrw=488) LYMPHOCYTES RELATIVE PERCENT (BEAKER) (test 54 % ifoz=010) MONOCYTES RELATIVE PERCENT (BEAKER) (test 12 % anwn=691) EOSINOPHILS RELATIVE PERCENT (BEAKER) (test 1 % kauw=770) BASOPHILS RELATIVE PERCENT (BEAKER) (test 0 % kbaw=858) NEUTROPHILS ABSOLUTE COUNT (BEAKER) (test 1.74 K/ L 1.78-5.38 snui=367) LYMPHOCYTES ABSOLUTE COUNT (BEAKER) (test 2.98 K/ L 1.32-3.57 nshh=312) MONOCYTES ABSOLUTE COUNT (BEAKER) (test 0.67 K/ L 0.30-0.82 hwsc=118) EOSINOPHILS ABSOLUTE COUNT (BEAKER) (test 0.07 K/ L 0.04-0.54 iucx=756) BASOPHILS ABSOLUTE COUNT (BEAKER) (test 0.02 K/ L 0.01-0.08 zvtb=076) IMMATURE GRANULOCYTES-RELATIVE PERCENT (BEAKER) 0 % 0-1 (test jniq=6832) (MANUAL DIFFERENTIAL)2017-06-30 14:29:00 Test Item Value Reference Range Comments TOTAL COUNTED (BEAKER) (test kkzn=0042) WBC MORPHOLOGY (BEAKER) (test eyec=704) Normal PLT MORPHOLOGY (BEAKER) (test vrsz=811) Normal RBC MORPHOLOGY (BEAKER) (test uplp=678) Normal POCT-GLUCOSE [id number] 12:26:00 Test Item Value Reference Range Comments POC-GLUCOSE METER (BEAKER) 149 mg/dL 70-110 TESTED AT [address] (test ultw=9105) [facility] [address] SODIUM, RANDOM [id number] 08:12:00 Test Item Value Reference Range Comments SODIUM URINE (BEAKER) (test kxcs=179) 73 meq/L Reference Range: No NormalsPOCT-GLUCOSE [id number] 08:05:00 Test Item Value Reference Range Comments POC-GLUCOSE METER (BEAKER) 102 mg/dL 70-110 TESTED AT [address] (test kzty=1476) [facility] [address] MISCELLANEOUS LAB [id number] 07:25:00 Test Item Value Reference Range Comments SCAN RESULT (test tcic=[id number]) MISCELLANEOUS LAB [id number] 07:23:00 Test Item Value Reference Range Comments SCAN RESULT (test fwfi=[id number]) BASIC METABOLIC [id number] 06:45:00 Test Item Value Reference Range Comments SODIUM (BEAKER) (test 128 meq/L 136-145 valh=591) POTASSIUM (BEAKER) (test 4.3 meq/L 3.5-5.1 lnrg=129) CHLORIDE (BEAKER) (test 97 meq/L 98-107 cgvd=873) CO2 (BEAKER) (test 26 meq/L 22-29 ntvk=762) BLOOD UREA NITROGEN 10 mg/dL 7-21 (BEAKER) (test nosg=872) CREATININE (BEAKER) (test 0.60 mg/dL 0.57-1.25 azjs=512) GLUCOSE RANDOM (BEAKER) 85 mg/dL 70-105 (test ocwp=407) CALCIUM (BEAKER) (test 8.1 mg/dL 8.4-10.2 rmln=848) EGFR (BEAKER) (test 141 mL/min/1.73 sq m ESTIMATED GFR IS NOT yzkc=9838) ACCURATE CREATININE CLEARANCE IN PREDICTING GLOMERULAR FILTRATION RATE. ESTIMATED GFR IS NOT APPLICABLE FOR DIALYSIS PATIENTS. OSMOLALITY, [id number] 06:42:00 Test Item Value Reference Range Comments OSMOLALITY, SERUM (BEAKER) (test nlzn=558) 274 mOsm/kg 275-295 OSMOLALITY, [id number] 06:42:00 Test Item Value Reference Range Comments OSMOLALITY URINE (BEAKER) (test sjgh=499) 365 mOsm/kg 40-1400 POCT-GLUCOSE [id number] 22:18:00 Test Item Value Reference Range Comments POC-GLUCOSE METER (BEAKER) 153 mg/dL 70-110 TESTED AT [facility] [address] [facility] (test scrl=4322) [facility] [address] HEPATITIS B [id number] 19:53:00 Test Item Value Reference Range Comments HEPATITIS B CORE TOTAL ANTIBODY (BEAKER) (test Reactive Nonreactive wplq=098) HEPATITIS B SURFACE ANTIBODY (BEAKER) (test 416.6 mIU/mL <8.0 gfig=186) HEPATITIS B SURFACE ANTIGEN (2) (BEAKER) (test Nonreactive Nonreactive muqv=9179) HEPATITIS A [id number] 19:52:00 Test Item Value Reference Range Comments HEPATITIS A IGM ANTIBODY (BEAKER) (test Nonreactive Nonreactive jjpk=575) HEPATITIS A IGG ANTIBODY (BEAKER) (test Reactive Nonreactive sdli=8630) POCT-GLUCOSE [id number] 16:48:00 Test Item Value Reference Range Comments POC-GLUCOSE METER (BEAKER) 208 mg/dL 70-110 TESTED AT [address] (test iess=9275) [place] [address] [id number] 16:42:00 Test Item Value Reference Range Comments SODIUM (BEAKER) (test esim=903) 126 meq/L 136-145 POCT-GLUCOSE [id number] 12:46:00 Test Item Value Reference Range Comments POC-GLUCOSE METER (BEAKER) 154 mg/dL 70-110 TESTED AT [address] (test ubed=2683) [place] [address] [id number] 09:19:00 Test Item Value Reference Range Comments RPR SCREEN (BEAKER) (test gzrg=917) Reactive Nonreactive RPR [id number] 09:19:00 Test Item Value Reference Range Comments RPR TITER (BEAKER) (test ofde=8440) >=:256 MHA - [id number] 09:19:00 Test Item Value Reference Range Comments MHA-TP (BEAKER) (test mevy=9702) Reactive CBC W/PLT COUNT & AUTO [id number] 09:14:00 Test Item Value Reference Range Comments WHITE BLOOD CELL COUNT (BEAKER) (test zjoo=780) 4.8 K/ L 3.5-10.5 RED BLOOD CELL COUNT (BEAKER) (test xzgc=168) 3.62 M/ L 4.63-6.08 HEMOGLOBIN (BEAKER) (test fzgx=511) 10.5 GM/DL 13.7-17.5 HEMATOCRIT (BEAKER) (test tygb=412) 29.9 % 40.1-51.0 MEAN CORPUSCULAR VOLUME (BEAKER) (test uugh=662) 82.6 fL 79.0-92.2 MEAN CORPUSCULAR HEMOGLOBIN (BEAKER) (test 29.0 pg 25.7-32.2 pfsv=503) MEAN CORPUSCULAR HEMOGLOBIN CONC (BEAKER) (test 35.1 GM/DL 32.3-36.5 lanj=839) RED CELL DISTRIBUTION WIDTH (BEAKER) (test 13.2 % 11.6-14.4 wuiu=205) PLATELET COUNT (BEAKER) (test xqsh=443) 193 K/CU MM 150-450 MEAN PLATELET VOLUME (BEAKER) (test vvlh=497) 8.5 fL 9.4-12.4 NUCLEATED RED BLOOD CELLS (BEAKER) (test 0 /100 WBC 0-0 ietl=347) NEUTROPHILS RELATIVE PERCENT (BEAKER) (test 28 % xqqf=294) LYMPHOCYTES RELATIVE PERCENT (BEAKER) (test 57 % ngvn=439) MONOCYTES RELATIVE PERCENT (BEAKER) (test 13 % civq=002) EOSINOPHILS RELATIVE PERCENT (BEAKER) (test 2 % oyrv=546) BASOPHILS RELATIVE PERCENT (BEAKER) (test 0 % mgby=761) NEUTROPHILS ABSOLUTE COUNT (BEAKER) (test 1.35 K/ L 1.78-5.38 ypag=826) LYMPHOCYTES ABSOLUTE COUNT (BEAKER) (test 2.71 K/ L 1.32-3.57 ytzc=231) MONOCYTES ABSOLUTE COUNT (BEAKER) (test 0.62 K/ L 0.30-0.82 osrg=926) EOSINOPHILS ABSOLUTE COUNT (BEAKER) (test 0.07 K/ L 0.04-0.54 gtdt=831) BASOPHILS ABSOLUTE COUNT (BEAKER) (test 0.01 K/ L 0.01-0.08 lzvd=729) IMMATURE GRANULOCYTES-RELATIVE PERCENT (BEAKER) 0 % 0-1 (test aogw=7169) (MANUAL DIFFERENTIAL)2017-06-29 09:14:00 Test Item Value Reference Range Comments TOTAL COUNTED (BEAKER) (test uezu=8783) WBC MORPHOLOGY (BEAKER) (test ymxf=614) Normal PLT MORPHOLOGY (BEAKER) (test lynr=329) Normal RBC MORPHOLOGY (BEAKER) (test rkrf=194) Normal POCT-GLUCOSE [id number] 07:51:00 Test Item Value Reference Range Comments POC-GLUCOSE METER (BEAKER) 124 mg/dL 70-110 TESTED AT [facility] [address] [facility] (test zpeo=8236) [facility] [address] [id number] 05:28:00 Test Item Value Reference Range Comments SODIUM (BEAKER) (test phsh=745) 128 meq/L 136-145 POCT-GLUCOSE [id number] 22:39:00 Test Item Value Reference Range Comments POC-GLUCOSE METER (BEAKER) 176 mg/dL 70-110 TESTED AT [place] [id number] [facility] (test nmkz=8665) [facility] [address] POCT-GLUCOSE [id number] 21:54:00 Test Item Value Reference Range Comments POC-GLUCOSE METER (BEAKER) 227 mg/dL 70-110 TESTED AT [address] (test prfv=1871) [facility] [address] HIV-1 PCR, [id number] 20:36:00 Test Item Value Reference Range Comments HIV-1 NUMERIC RESULT (BEAKER) (test ozjw=2685) 526641 Cp/mL <20 This test uses a Real-Time Polymerase Chain Reaction (RT-PCR) methodology to detect a highly conserved region of the HIV-1 gag gene and was performed using the [employer] AmpliPrep/KELVIN TaqMan HIV-1 test kit version 2.0 ([employer]Reportable range for this assay is 20 - 10,000,000 copies per mL (1.3 - 7.0 Log copies/mL).[id number] 16:25:00 Test Item Value Reference Range Comments SODIUM (BEAKER) (test sorw=734) 122 meq/L 136-145 BASIC METABOLIC [id number] 16:25:00 Test Item Value Reference Range Comments SODIUM (BEAKER) (test 122 meq/L 136-145 hfdu=237) POTASSIUM (BEAKER) (test 4.3 meq/L 3.5-5.1 wnda=253) CHLORIDE (BEAKER) (test 92 meq/L 98-107 wgha=913) CO2 (BEAKER) (test 26 meq/L 22-29 irtv=591) BLOOD UREA NITROGEN 11 mg/dL 7-21 (BEAKER) (test zhnb=086) CREATININE (BEAKER) (test 0.63 mg/dL 0.57-1.25 mzhm=619) GLUCOSE RANDOM (BEAKER) 210 mg/dL 70-105 (test ikcf=644) CALCIUM (BEAKER) (test 8.1 mg/dL 8.4-10.2 xzrm=605) EGFR (BEAKER) (test 133 mL/min/1.73 sq m ESTIMATED GFR IS NOT tidc=4222) ACCURATE CREATININE CLEARANCE IN PREDICTING GLOMERULAR FILTRATION RATE. ESTIMATED GFR IS NOT APPLICABLE FOR DIALYSIS PATIENTS. POCT-GLUCOSE [id number] 12:34:00 Test Item Value Reference Range Comments POC-GLUCOSE METER (BEAKER) 177 mg/dL 70-110 TESTED AT [facility] [address] [facility] (test hxue=3082) [facility] [address] CBC W/PLT COUNT & AUTO [id number] 11:54:00 Test Item Value Reference Range Comments WHITE BLOOD CELL COUNT (BEAKER) (test hcfn=852) 4.9 K/ L 3.5-10.5 RED BLOOD CELL COUNT (BEAKER) (test grcn=428) 4.06 M/ L 4.63-6.08 HEMOGLOBIN (BEAKER) (test bcpe=185) 11.2 GM/DL 13.7-17.5 HEMATOCRIT (BEAKER) (test inks=569) 33.5 % 40.1-51.0 MEAN CORPUSCULAR VOLUME (BEAKER) (test dvqt=179) 82.5 fL 79.0-92.2 MEAN CORPUSCULAR HEMOGLOBIN (BEAKER) (test 27.6 pg 25.7-32.2 fpfj=065) MEAN CORPUSCULAR HEMOGLOBIN CONC (BEAKER) (test 33.4 GM/DL 32.3-36.5 syju=787) RED CELL DISTRIBUTION WIDTH (BEAKER) (test 13.0 % 11.6-14.4 dvoz=541) PLATELET COUNT (BEAKER) (test vijq=519) 214 K/CU MM 150-450 MEAN PLATELET VOLUME (BEAKER) (test swxm=844) 8.5 fL 9.4-12.4 NUCLEATED RED BLOOD CELLS (BEAKER) (test 0 /100 WBC 0-0 oczx=244) NEUTROPHILS RELATIVE PERCENT (BEAKER) (test 27 % zvhs=250) LYMPHOCYTES RELATIVE PERCENT (BEAKER) (test 59 % swom=595) MONOCYTES RELATIVE PERCENT (BEAKER) (test 13 % rmtl=093) EOSINOPHILS RELATIVE PERCENT (BEAKER) (test 1 % bjed=730) BASOPHILS RELATIVE PERCENT (BEAKER) (test 0 % msoa=671) NEUTROPHILS ABSOLUTE COUNT (BEAKER) (test 1.30 K/ L 1.78-5.38 pzzz=510) LYMPHOCYTES ABSOLUTE COUNT (BEAKER) (test 2.86 K/ L 1.32-3.57 uguy=336) MONOCYTES ABSOLUTE COUNT (BEAKER) (test 0.61 K/ L 0.30-0.82 iida=938) EOSINOPHILS ABSOLUTE COUNT (BEAKER) (test 0.07 K/ L 0.04-0.54 oshd=411) BASOPHILS ABSOLUTE COUNT (BEAKER) (test 0.02 K/ L 0.01-0.08 ydso=818) IMMATURE GRANULOCYTES-RELATIVE PERCENT (BEAKER) 0 % 0-1 (test uugn=6533) (MANUAL DIFFERENTIAL)2017-06-28 11:54:00 Test Item Value Reference Range Comments TOTAL COUNTED (BEAKER) (test unnu=2164) WBC MORPHOLOGY (BEAKER) (test mzcs=188) Normal PLT MORPHOLOGY (BEAKER) (test crls=544) Normal RBC MORPHOLOGY (BEAKER) (test wnaj=917) Normal OSMOLALITY, [id number] 10:39:00 Test Item Value Reference Range Comments OSMOLALITY URINE (BEAKER) (test kuys=764) 344 mOsm/kg 40-1400 OSMOLALITY, [id number] 10:34:00 Test Item Value Reference Range Comments OSMOLALITY, SERUM (BEAKER) (test feuo=603) 266 mOsm/kg 275-295 CREATININE, RANDOM [id number] 10:22:00 Test Item Value Reference Range Comments CREATININE URINE (BEAKER) (test xqby=670) 18.7 mg/dL Reference Range: No NormalsSODIUM, RANDOM [id number] 10:22:00 Test Item Value Reference Range Comments SODIUM URINE (BEAKER) (test sghg=478) 127 meq/L Reference Range: No NormalsPOCT-GLUCOSE [id number] 07:54:00 Test Item Value Reference Range Comments POC-GLUCOSE METER (BEAKER) 115 mg/dL 70-110 TESTED AT [facility] [address] [place] [address] (test kbtk=6841) [facility] [address] HIV-1 ANTIGEN WITH HIV-1/2 [id number] 05:24:00 Test Item Value Reference Range Comments HIV-1 ANTIGEN WITH HIV 1\\T\\2 ANTIBODY (2) (BEAKER) Reactive Nonreactive (test gjae=3732) This screening test for HIV antigen/antibodies may give false positive results. All reactive specimens are submitted for confirmatory testing, the results of which will be reported separately. Only a reactive HIV antigen/antibody test in conjunction with a positive confirmatory test indicates HIV infection.BASIC METABOLIC [id number] 05:22:00 Test Item Value Reference Range Comments SODIUM (BEAKER) (test 126 meq/L 136-145 ypri=214) POTASSIUM (BEAKER) (test 4.2 meq/L 3.5-5.1 yseo=081) CHLORIDE (BEAKER) (test 94 meq/L 98-107 dfhf=619) CO2 (BEAKER) (test 28 meq/L 22-29 mslw=819) BLOOD UREA NITROGEN 8 mg/dL 7-21 (BEAKER) (test gkei=525) CREATININE (BEAKER) (test 0.55 mg/dL 0.57-1.25 avmp=930) GLUCOSE RANDOM (BEAKER) 106 mg/dL 70-105 (test jlnh=118) CALCIUM (BEAKER) (test 8.2 mg/dL 8.4-10.2 chig=137) EGFR (BEAKER) (test 156 mL/min/1.73 sq m ESTIMATED GFR IS NOT qhqg=4227) ACCURATE CREATININE CLEARANCE IN PREDICTING GLOMERULAR FILTRATION RATE. ESTIMATED GFR IS NOT APPLICABLE FOR DIALYSIS PATIENTS. CRYPTOCOCCAL ANTIGEN, [id number] 02:07:00 Test Item Value Reference Range Comments CRYPTOCOCCAL ANTIGEN, CSF (BEAKER) (test Negative Negative, Interference nrau=647) VDRL, [id number] 02:03:00 Test Item Value Reference Range Comments SYPHILIS VDRL QUANTITATION CSF (BEAKER) (test Reactive Nonreactive nzmm=835) POCT-GLUCOSE [id number] 22:04:00 Test Item Value Reference Range Comments POC-GLUCOSE METER (BEAKER) 201 mg/dL 70-110 TESTED AT [place] [id number] [facility] (test glxo=7583) [facility] [address] POCT-GLUCOSE [id number] 18:17:00 Test Item Value Reference Range Comments POC-GLUCOSE METER (BEAKER) 185 mg/dL 70-110 TESTED AT [place] [id number] [facility] (test xkym=9134) [facility] [address] [id number] 17:18:00 Test Item Value Reference Range Comments SODIUM (BEAKER) (test bskc=388) 123 meq/L 136-145 NERVE CONDUCTION STUDIES; 13 + [id number] 16:30:00Reason for exam:-> Con[facility] for [facility]BSB[facility] CenterNeurophysiology DepartmentELECTROMYOGRAPHY / NERVE CONDUCTION STUDY [address] [place], [place] [id number] Name: Cynthia Jensen : Date of : [...] mm Radial.RForearm 2.1 ms 2.6 ms 9 셞V Anatomical snuff box-Forearm 2.1 ms 100mm 38 m/ sSural.RLower leg NR NR NR Ankle-Lower leg 140 mm Sural.LLower leg NR NR NR Ankle-Lower leg 140 mm Median.LWrist NR NR NR Digit II (index finger)-Wrist 130 mm Ulnar.LWrist 2.7 ms 3.2 ms 5V Digit V (little finger)-Wrist 2.7 ms 110 mm 41 m/sRadial.LForearm 2.0 ms 2.5 ms 8 䁌V Anatomical snuff box-Forearm 2.0 ms 100 mm [...] Navarro M.D. RAD , ABDOMEN/KUB, 1 VIEW [id number] 15:50:00Reason for exam:->Concern for nephrolithiasisFINAL REPORT Abdomen. MEDICAL HISTORY: Concern for nephrolithiasis. COMPARISON STUDY: None available. FINDINGS: Two views of the abdomen demonstrate no dilated loops of large or small bowel. No suspicious calcific lesions are seen. The regional skeleton is unremarkable. IMPRESSION: No acute abnormality seen. No nephrolithiasis. Signed: Gio Rivera MDReport Verified Date/Time: 06/27/2017 15:50:01 Reading Location: [address] Radiology Reading Room POCT-GLUCOSE [id number] 12:40:00 Test Item Value Reference Range Comments POC-GLUCOSE METER (BEAKER) 162 mg/dL 70-110 TESTED AT [facility] [address] [facility] (test luzo=3496) [place] [address] URINE [id number] 10:22:00 Test Item Value Reference Range Comments CULTURE (BEAKER) (test qmct=7435) No growth ANTI-NUCLEAR ANTIBODY (TAMIKO)2017-06-27 09:43:00 Test Item Value Reference Range Comments ANTI-NUCLEAR ANTIBODY (TAMIKO) (BEAKER) (test Positive Negative bvrc=912) TAMIKO TITER AND [id number] 09:43:00 Test Item Value Reference Range Comments TAMIKO TITER (BEAKER) (test jjdt=7087) >=:2560 TAMIKO PATTERN (BEAKER) (test szen=1601) Nucleolar CBC W/PLT COUNT & AUTO [id number] 09:41:00 Test Item Value Reference Range Comments WHITE BLOOD CELL COUNT (BEAKER) (test kvya=128) 5.1 K/ L 3.5-10.5 RED BLOOD CELL COUNT (BEAKER) (test kiqz=409) 4.01 M/ L 4.63-6.08 HEMOGLOBIN (BEAKER) (test ikad=227) 11.1 GM/DL 13.7-17.5 HEMATOCRIT (BEAKER) (test dkki=140) 33.2 % 40.1-51.0 MEAN CORPUSCULAR VOLUME (BEAKER) (test sbdr=895) 82.8 fL 79.0-92.2 MEAN CORPUSCULAR HEMOGLOBIN (BEAKER) (test 27.7 pg 25.7-32.2 awul=654) MEAN CORPUSCULAR HEMOGLOBIN CONC (BEAKER) (test 33.4 GM/DL 32.3-36.5 kwcx=704) RED CELL DISTRIBUTION WIDTH (BEAKER) (test 13.0 % 11.6-14.4 lkjc=238) PLATELET COUNT (BEAKER) (test pqmq=021) 212 K/CU MM 150-450 MEAN PLATELET VOLUME (BEAKER) (test byof=218) 8.8 fL 9.4-12.4 NUCLEATED RED BLOOD CELLS (BEAKER) (test 0 /100 WBC 0-0 feqy=566) IMMATURE GRANULOCYTES-RELATIVE PERCENT (BEAKER) 1 % 0-1 (test iyam=7531) (MANUAL DIFFERENTIAL)2017-06-27 09:41:00 Test Item Value Reference Range Comments NEUTROPHILS - REL (DIFF) (BEAKER) (test ruao=0784) 36 % LYMPHOCYTES - REL (DIFF) (BEAKER) (test zosh=7435) 49 % MONOCYTES - REL (DIFF) (BEAKER) (test qtiz=8012) 15 % EOSINOPHILS - REL (DIFF) (BEAKER) (test oplw=4695) 0 % BASOPHILS - REL (DIFF) (BEAKER) (test oqjc=0754) 0 % NEUTROPHILS - ABS (DIFF) (BEAKER) (test xjfa=6175) 1.84 K/ L 1.80-8.00 LYMPHOCYTES - ABS (DIFF) (BEAKER) (test pybn=1939) 2.50 K/ L 1.48-4.50 MONOCYTES - ABS (DIFF) (BEAKER) (test zzrq=4315) 0.77 K/ L 0.00-1.30 EOSINOPHILS - ABS (DIFF) (BEAKER) (test tsoh=6188) 0.00 K/ L 0.00-0.50 BASOPHILS - ABS (DIFF) (BEAKER) (test zirt=5358) 0.00 K/ L 0.00-0.20 TOTAL COUNTED (BEAKER) (test mfhm=0478) 100 PLT MORPHOLOGY (BEAKER) (test tmen=740) Normal RBC MORPHOLOGY (BEAKER) (test pdav=655) Normal ATYPICAL LYMPHS(BEAKER) (test jxhf=2723) Present DOUBLE-STRANDED DNA (DSDNA) [id number] 09:41:00 Test Item Value Reference Range Comments ANTI-DNA DS (BEAKER) (test zakk=7309) Negative POCT-GLUCOSE [id number] 08:40:00 Test Item Value Reference Range Comments POC-GLUCOSE METER (BEAKER) 129 mg/dL 70-110 TESTED AT [facility] [address] [facility] (test bitq=9478) [facility] [address] POCT-GLUCOSE [id number] 06:33:00 Test Item Value Reference Range Comments POC-GLUCOSE METER (BEAKER) 104 mg/dL 70-110 TESTED AT [address] (test nnrd=1968) [place] [address] BASIC METABOLIC [id number] 05:15:00 Test Item Value Reference Range Comments SODIUM (BEAKER) (test 126 meq/L 136-145 kxra=161) POTASSIUM (BEAKER) (test 4.1 meq/L 3.5-5.1 Specimen slightly cgel=285) hemolyzed CHLORIDE (BEAKER) (test 96 meq/L 98-107 opfz=731) CO2 (BEAKER) (test 24 meq/L 22-29 bcas=986) BLOOD UREA NITROGEN 6 mg/dL 7-21 (BEAKER) (test rbrb=027) CREATININE (BEAKER) (test 0.55 mg/dL 0.57-1.25 Specimen slightly htws=486) hemolyzed GLUCOSE RANDOM (BEAKER) 106 mg/dL 70-105 (test fkym=174) CALCIUM (BEAKER) (test 8.3 mg/dL 8.4-10.2 tegz=677) EGFR (BEAKER) (test 156 mL/min/1.73 sq m ESTIMATED GFR IS NOT fmef=2635) ACCURATE CREATININE CLEARANCE IN PREDICTING GLOMERULAR FILTRATION RATE. ESTIMATED GFR IS NOT APPLICABLE FOR DIALYSIS PATIENTS. POCT-GLUCOSE [id number] 00:48:00 Test Item Value Reference Range Comments POC-GLUCOSE METER (BEAKER) 146 mg/dL 70-110 TESTED AT [address] (test nmmw=9457) [place] [address] [id number] 23:24:00 Test Item Value Reference Range Comments SODIUM (BEAKER) (test jdwz=690) 125 meq/L 136-145 POCT-GLUCOSE [id number] 18:13:00 Test Item Value Reference Range Comments POC-GLUCOSE METER (BEAKER) 147 mg/dL 70-110 TESTED AT [address] (test rtgi=7325) [place] [address] U/S, ABDOMINAL, [id number] 18:11:00Abdomen limited area? Add comment if clarification [...] Incomplete evaluation of the pancreas. Signed: Francine [facility]select [facility] Verified Date/Time: 06/26/2017 18:11:31 Reading Location: [place] [address] Ultrasound Reading Room [id number] 17:05:00 Test Item Value Reference Range Comments SODIUM (BEAKER) (test nexc=124) 129 meq/L 136-145 IMMUNOFIXATION ELECTROPHORESIS (JOE)2017-06-26 16:22:00 Test Item Value Reference Range Comments IMMUNOGLOBULIN G (IGG) (BEAKER) 3052 mg/dL 540-1822 (test tptq=493) IMMUNOGLOBULIN A (IGA) (BEAKER) 900 mg/dL 63-484 (test vrkc=511) IMMUNOGLOBULIN M (IGM) (BEAKER) 244 mg/dL 22-293 (test tlrb=592) SERUM JOE ID (BEAKER) (test No monoclonal proteins jdjw=4241) detected. Polyclonal elevation of gamma globulins. GORR-[id number]-173 (BEAKER) Destinee Hemphill MD (test ubfa=0215) (electronic signature) PROTEIN ELECTROPHORESIS, [id number] 16:18:00 Test Item Value Reference Range Comments ALBUMIN FRACTION (BEAKER) 2.1 g/dL 3.5-5.5 (test dreb=283) ALPHA 1 FRACTION (BEAKER) 0.3 g/dL 0.2-0.4 (test vrwg=583) ALPHA 2 FRACTION (BEAKER) 0.7 g/dL 0.5-0.9 (test xqbt=372) BETA FRACTION (BEAKER) (test 1.0 g/dL 0.6-1.1 oren=538) GAMMA GLOBULIN FRACTION 2.6 g/dL 0.7-1.7 (BEAKER) (test yyet=336) INTERPRETATION-119 (BEAKER) Polyclonal elevation of gamma (test qynf=4054) globulins, consistent with chronic inflammation. Serum JOE ordered to exclude presence of small underlying monoclonal band in gamma region. [id number]-[id number]-533 (BEAKER) Destinee Hemphill MD (test veps=6822) (electronic signature) PROTEIN TOTAL SERUM, SPEP 6.6 gm/dL 6.0-8.3 (BEAKER) (test emrc=2995) CSF CELL COUNT [id number] 16:03:00 Test Item Value Reference Range Comments APPEARANCE CSF (BEAKER) (test rwwr=417) Clear Clear COLOR CSF (BEAKER) (test pdud=008) Colorless Colorless RBC CSF (BEAKER) (test acvg=930) 10 /cu mm 0-5 WBC CSF (BEAKER) (test aija=0674) 16 /cu mm <=5 RBCS FRESH (BEAKER) (test endg=6412) 100% Fresh NUMBER OF CELLS DIFF'D (BEAKER) (test sxmg=8142) 100 NEUTROPHIL, CSF (BEAKER) (test afeq=516) 9 % 0-5 LYMPHS CSF (BEAKER) (test uuqv=804) 89 % 40-80 MONO/MACROPHAGE CSF (BEAKER) (test kkmd=571) 2 % 15-45 EOSINOPHILS CSF (BEAKER) (test rbjq=049) 0 % <=0 BASO CSF (BEAKER) (test lsvi=046) 0 % <=0 TUBE NUMBER CSF (BEAKER) (test hdtc=9297) 1 PROTEIN, [id number] 15:46:00 Test Item Value Reference Range Comments PROTEIN CSF (BEAKER) (test ulvt=431) 294 mg/dL 15-45 [id number] 15:42:00 Test Item Value Reference Range Comments CORTISOL, TOTAL (BEAKER) (test yuwl=0477) 5.9 ug/dL 3.7-19.4 GLUCOSE, [id number] 15:32:00 Test Item Value Reference Range Comments GLUCOSE CSF (BEAKER) (test zvxf=094) 63 mg/dL 40-70 FLOW [id number] 15:17:00Flow Cytometry Report Case: [id number] Authorizing Provider: Edinson Palacios, Collected: 06/26/2017 0340 OrderingLocation: [place] [address] ICU Received: 2017 1055 Pathologist: Myra Downey MD Specimen: Other RESULTS: ADULT NORMALS ABSOLUTE LYMPHS: 3597.79/cmm 911-4017/cmmT LYMPHOCYTE ENUMERATION: CD3 (Total T cell) 95.96% 3452.49/cmm 603--2990/cmmCD4 (T Offerman cells) 29.77% 1071.02/cmm 441-2156/cmmCD8 (T Suppressor cells ) 64.85% 2333.04/cmm 125-1312/cmmCD4:CD8 (Th:Ts Ratio) 0.46 0.7-3.23CD16+56 (Natural Killer cells) 1.91% 68.54/cmm 95-640/cmmB LYMPHOCYTE ENUMERATION:CD19 (Total B cells) 1.78% 63.97/cmm 107-698/cmmElectronically signed by Myra Downey MD on 2017 at 3:17 PMCellular immune alteration, characterized by decreased CD4: CD8 ratio.42408TFNEjxqjosznp bloodCD3, CD4, CD8, CD16+56, AS51Nwfnk tests were developed and their performance characteristics determined by [facility]. They have not been cleared or approved by the U.S. Food and Drug Administration. The FDA has determined that such clearance or approval is not necessary. It should not be regarded as investigational or for research. This laboratory is certified under the Clinical Laboratory Improvement Amendments of 1988 ("CLIA")as qualified to perform high-complexity clinical testing.VITAMIN B12 AND [id number] 14:52:00 Test Item Value Reference Range Comments VITAMIN B12 (BEAKER) (test zvob=328) 451 pg/mL 213-816 FOLATE (BEAKER) (test sata=872) 7.9 ng/mL >=7.0 CD4 T CELL [id number] 14:00:00 Test Item Value Reference Range Comments CD4 T CELL SUBSET RESULT POINTER See Separate Report (IVAN) (test yosk=7303) FLOW CYTOMETRY AP CASE # (IVAN) (test [id number] tegg=1263) CREATINE KINASE (CK)2017-06-26 13:35:00 Test Item Value Reference Range Comments CREATINE KINASE TOTAL (BEAKER) (test caos=331) 24 U/L 29-200 POCT-GLUCOSE [id number] 12:32:00 Test Item Value Reference Range Comments POC-GLUCOSE METER (AKER) 108 mg/dL 70-110 TESTED AT [facility] [address] [place] [address] (test upsi=6027) [facility] [address] HEMOGLOBIN [id number] 12:16:00 Test Item Value Reference Range Comments HEMOGLOBIN A1C (BEAKER) (test igpv=835) 7.0 % 4.3-6.1 TSH/FREE T4 IF [id number] 11:46:00 Test Item Value Reference Range Comments THYROID STIMULATING HORMONE (BEAKER) (test 2.06 uIU/mL 0.35-4.94 auir=442) BASIC METABOLIC [id number] 11:23:00 Test Item Value Reference Range Comments SODIUM (BEAKER) (test 128 meq/L 136-145 imbw=108) POTASSIUM (BEAKER) (test 4.1 meq/L 3.5-5.1 xmva=947) CHLORIDE (BEAKER) (test 100 meq/L 98-107 pkso=552) CO2 (BEAKER) (test 22 meq/L 22-29 cknd=580) BLOOD UREA NITROGEN 7 mg/dL 7-21 (BEAKER) (test nncg=585) CREATININE (BEAKER) (test 0.56 mg/dL 0.57-1.25 qvkd=648) GLUCOSE RANDOM (BEAKER) 111 mg/dL 70-105 (test iplg=064) CALCIUM (BEAKER) (test 7.9 mg/dL 8.4-10.2 bxvd=226) EGFR (BEAKER) (test 153 mL/min/1.73 sq m ESTIMATED GFR IS NOT jedu=2121) ACCURATE CREATININE CLEARANCE IN PREDICTING GLOMERULAR FILTRATION RATE. ESTIMATED GFR IS NOT APPLICABLE FOR DIALYSIS PATIENTS. HEPATIC FUNCTION [id number] 11:23:00 Test Item Value Reference Range Comments TOTAL PROTEIN (BEAKER) (test bgeo=114) 7.2 gm/dL 6.0-8.3 ALBUMIN (BEAKER) (test mrqs=9571) 1.9 g/dL 3.5-5.0 BILIRUBIN TOTAL (BEAKER) (test tyjk=702) 0.4 mg/dL 0.2-1.2 BILIRUBIN DIRECT (BEAKER) (test njmp=198) 0.3 mg/dL 0.1-0.5 ALKALINE PHOSPHATASE (BEAKER) (test owxw=448) 103 U/L 40-150 AST (SGOT) (BEAKER) (test gpoz=603) 35 U/L 5-34 ALT (SGPT) (BEAKER) (test dooz=525) 25 U/L 6-55 RHEUMATOID FACTOR AB, REFLEX TO [id number] 11:18:00 Test Item Value Reference Range Comments RHEUMATOID FACTOR (BEAKER) (test nnvc=550) Positive RHEUMATOID FACTOR [id number] 11:18:00 Test Item Value Reference Range Comments RHEUMATOID FACTOR TITER (BEAKER) (test tvmw=8198) :2 CBC W/PLT COUNT & AUTO [id number] 10:55:00 Test Item Value Reference Range Comments WHITE BLOOD CELL COUNT (BEAKER) (test jgrl=576) 5.5 K/ L 3.5-10.5 RED BLOOD CELL COUNT (BEAKER) (test edsa=695) 3.86 M/ L 4.63-6.08 HEMOGLOBIN (BEAKER) (test snst=619) 11.0 GM/DL 13.7-17.5 HEMATOCRIT (BEAKER) (test jlyu=879) 33.1 % 40.1-51.0 MEAN CORPUSCULAR VOLUME (BEAKER) (test yatr=649) 85.8 fL 79.0-92.2 MEAN CORPUSCULAR HEMOGLOBIN (BEAKER) (test 28.5 pg 25.7-32.2 dmoj=721) MEAN CORPUSCULAR HEMOGLOBIN CONC (BEAKER) (test 33.2 GM/DL 32.3-36.5 oxsp=035) RED CELL DISTRIBUTION WIDTH (BEAKER) (test 13.4 % 11.6-14.4 uqwa=098) PLATELET COUNT (BEAKER) (test xgbl=869) 192 K/CU MM 150-450 MEAN PLATELET VOLUME (BEAKER) (test upod=835) 10.0 fL 9.4-12.4 NUCLEATED RED BLOOD CELLS (BEAKER) (test 0 /100 WBC 0-0 ihpn=278) NEUTROPHILS RELATIVE PERCENT (BEAKER) (test 41 % tupx=755) LYMPHOCYTES RELATIVE PERCENT (BEAKER) (test 50 % fztf=198) MONOCYTES RELATIVE PERCENT (BEAKER) (test 7 % xgor=248) EOSINOPHILS RELATIVE PERCENT (BEAKER) (test 1 % kgez=928) BASOPHILS RELATIVE PERCENT (BEAKER) (test 1 % jdzd=080) NEUTROPHILS ABSOLUTE COUNT (BEAKER) (test 2.24 K/ L 1.78-5.38 xdds=524) LYMPHOCYTES ABSOLUTE COUNT (BEAKER) (test 2.75 K/ L 1.32-3.57 yyra=448) MONOCYTES ABSOLUTE COUNT (BEAKER) (test 0.40 K/ L 0.30-0.82 ebyx=993) EOSINOPHILS ABSOLUTE COUNT (BEAKER) (test 0.07 K/ L 0.04-0.54 gqgz=678) BASOPHILS ABSOLUTE COUNT (BEAKER) (test 0.03 K/ L 0.01-0.08 jrck=648) IMMATURE GRANULOCYTES-RELATIVE PERCENT (BEAKER) 0 % 0-1 (test tdwf=6313) (MANUAL DIFFERENTIAL)2017-06-26 10:55:00 Test Item Value Reference Range Comments TOTAL COUNTED (BEAKER) (test jxgu=5233) WBC MORPHOLOGY (BEAKER) (test ivpk=282) Normal PLT MORPHOLOGY (BEAKER) (test orue=511) Normal RBC MORPHOLOGY (BEAKER) (test lbmh=497) Normal RAD, CHEST, 1 VIEW, NON [id number] 07:37:00Reason for exam:->Cough, congestionShould this be performed at the bedside?->YesFINAL REPORT HISTORY : Cough, congestion. Comparison: None Comment: Single portable view of the chest was obtained. The cardiac silhouette size is within normal limits. No pneumothorax, pleural effusion or focal infiltrate is seen. No lytic or blastic abnormalities. Signed: Rizwana Dudleyeport Verified Date/ Time: 06/26/2017 07:37:08 Reading Location: [facility] Diagnostic Imaging Reading Room - [place] [address] Electronically signed by: RIZWANA DUDLEY M.D. on 2017 07:37 AMOSMOLALITY, [id number] 07:00:00 Test Item Value Reference Range Comments OSMOLALITY, SERUM (BEAKER) (test vucv=819) 275 mOsm/kg 275-295 OSMOLALITY, [id number] 07:00:00 Test Item Value Reference Range Comments OSMOLALITY URINE (BEAKER) (test chnw=140) 320 mOsm/kg 40-1400 CREATININE, RANDOM [id number] 06:33:00 Test Item Value Reference Range Comments CREATININE URINE (BEAKER) (test awbb=042) 22.7 mg/dL Reference Range: No NormalsSODIUM, RANDOM [id number] 06:33:00 Test Item Value Reference Range Comments SODIUM URINE (BEAKER) (test zhve=687) 114 meq/L Reference Range: No NormalsPROTHROMBIN [id number] 05:09:00 Test Item Value Reference Range Comments PROTIME (BEAKER) (test kixs=478) 15.6 seconds 11.7-14.7 INR (BEAKER) (test prbz=098) 1.2 <=5.9 RECOMMENDED COUMADIN/WARFARIN INR THERAPY RANGESSTANDARD DOSE: 2.0 - 3.0 Includes: PROPHYLAXIS forvenous thrombosis, systemic embolization; TREATMENT for venous thrombosis and/or pulmonary embolus.HIGH RISK: Target INR is 2.5-3.5 for patients with mechanical heart valves.CBC W/PLT COUNT & AUTO [id number] 03:25:00 Test Item Value Reference Range Comments WHITE BLOOD CELL COUNT (BEAKER) (test mpfz=095) 5.9 K/ L 3.5-10.5 RED BLOOD CELL COUNT (BEAKER) (test xwsf=886) 3.93 M/ L 4.63-6.08 HEMOGLOBIN (BEAKER) (test wlyk=451) 11.1 GM/DL 13.7-17.5 HEMATOCRIT (BEAKER) (test vgoy=401) 33.4 % 40.1-51.0 MEAN CORPUSCULAR VOLUME (BEAKER) (test gxkb=204) 85.0 fL 79.0-92.2 MEAN CORPUSCULAR HEMOGLOBIN (BEAKER) (test 28.2 pg 25.7-32.2 dvfq=273) MEAN CORPUSCULAR HEMOGLOBIN CONC (BEAKER) (test 33.2 GM/DL 32.3-36.5 mozp=598) RED CELL DISTRIBUTION WIDTH (BEAKER) (test 13.4 % 11.6-14.4 uflh=443) PLATELET COUNT (BEAKER) (test jwoc=013) 183 K/CU MM 150-450 MEAN PLATELET VOLUME (BEAKER) (test hfyi=761) 8.5 fL 9.4-12.4 NUCLEATED RED BLOOD CELLS (BEAKER) (test 0 /100 WBC 0-0 hjtr=230) IMMATURE GRANULOCYTES-RELATIVE PERCENT (BEAKER) 1 % 0-1 (test uysd=0141) (MANUAL DIFFERENTIAL)2017-06-26 03:25:00 Test Item Value Reference Range Comments NEUTROPHILS - REL (DIFF) (BEAKER) (test pjmq=7005) 69 % LYMPHOCYTES - REL (DIFF) (BEAKER) (test srkj=5845) 15 % MONOCYTES - REL (DIFF) (BEAKER) (test scex=3066) 2 % BASOPHILS - REL (DIFF) (BEAKER) (test dfmk=0071) 1 % PROMYELOCYTES-REL (DIFF) (BEAKER) (test uhgm=954) 13 % 0-0 NEUTROPHILS - ABS (DIFF) (BEAKER) (test faaq=7377) 4.07 K/ L 1.80-8.00 LYMPHOCYTES - ABS (DIFF) (BEAKER) (test kpoh=0455) 0.89 K/ L 1.48-4.50 MONOCYTES - ABS (DIFF) (BEAKER) (test cipb=0830) 0.12 K/ L 0.00-1.30 BASOPHILS - ABS (DIFF) (BEAKER) (test fndn=0960) 0.06 K/ L 0.00-0.20 PROMYELOCYTES - ABS (DIFF) (BEAKER) (test 0.77 K/ L 0.00-0.00 hueb=567) TOTAL COUNTED (BEAKER) (test stls=7216) 100 WBC MORPHOLOGY (BEAKER) (test hlwi=654) Normal PLT MORPHOLOGY (BEAKER) (test zcnk=204) Normal RBC MORPHOLOGY (BEAKER) (test othc=224) Normal URINALYSIS W/ [id number] 00:03:00 Test Item Value Reference Range Comments COLOR (BEAKER) (test tyds=147) Yellow CLARITY (BEAKER) (test gzjh=675) Clear SPECIFIC GRAVITY UA (BEAKER) (test kzbx=392) 1.007 1.001-1.035 PH UA (BEAKER) (test bugz=280) 6.0 5.0-8.0 PROTEIN UA (BEAKER) (test uvmw=337) 30 mg/dL Negative GLUCOSE UA (BEAKER) (test cqfo=861) Negative Negative KETONES UA (BEAKER) (test wjbp=256) Negative Negative BILIRUBIN UA (BEAKER) (test lhxb=078) Negative Negative BLOOD UA (BEAKER) (test xnxb=724) Negative Negative NITRITE UA (BEAKER) (test umsh=917) Negative Negative LEUKOCYTE ESTERASE UA (BEAKER) (test otab=832) Negative Negative UROBILINOGEN UA (BEAKER) (test udvo=013) 0.2 mg/dL 0.2-1.0 RBC UA (BEAKER) (test rnew=385) 1 /HPF WBC UA (BEAKER) (test ysls=287) 1 /HPF MUCUS (BEAKER) (test mmrf=0252) Rare SOURCE(BEAKER) (test qegk=8594) CREATINE KINASE (CK), TOTAL AND [id number] 23:53:00 Test Item Value Reference Range Comments CREATINE KINASE TOTAL (BEAKER) (test fbkj=804) 25 U/L 29-200 CREATINE KINASE-MB (BEAKER) (test zgbq=781) 0.4 ng/mL 0.0-6.6 CREATINE KINASE-MB INDEX (BEAKER) (test lxre=877) 1.6 % CK-MB Reference Range:<6.7 Normal6.7-10.0 Borderline>10.0 AbnormalTROPONIN [id number] 23:53:00 Test Item Value Reference Range Comments TROPONIN I (BEAKER) (test cxpg=970) 0.01 ng/mL 0.00-0.03 Troponin I (TnI) levels [...] acute neurological disease, and persistent tachyarrhythmia.HEPATIC FUNCTION [id number] 23:46: 00 Test Item Value Reference Range Comments TOTAL PROTEIN (BEAKER) (test qdmf=500) 6.8 gm/dL 6.0-8.3 ALBUMIN (BEAKER) (test ggar=2961) 2.0 g/dL 3.5-5.0 BILIRUBIN TOTAL (BEAKER) (test lddd=485) 0.6 mg/dL 0.2-1.2 BILIRUBIN DIRECT (BEAKER) (test kjei=039) 0.3 mg/dL 0.1-0.5 ALKALINE PHOSPHATASE (BEAKER) (test lhgq=001) 113 U/L 40-150 AST (SGOT) (BEAKER) (test wybc=540) 37 U/L 5-34 ALT (SGPT) (BEAKER) (test wwxb=876) 26 U/L 6-55 BASIC METABOLIC [id number] 23:46:00 Test Item Value Reference Range Comments SODIUM (BEAKER) (test 128 meq/L 136-145 bpxg=999) POTASSIUM (BEAKER) (test 4.1 meq/L 3.5-5.1 jwgd=489) CHLORIDE (BEAKER) (test 99 meq/L 98-107 jmlw=875) CO2 (BEAKER) (test 24 meq/L 22-29 anht=600) BLOOD UREA NITROGEN 6 mg/dL 7-21 (BEAKER) (test bxuj=047) CREATININE (BEAKER) (test 0.56 mg/dL 0.57-1.25 etou=559) GLUCOSE RANDOM (BEAKER) 155 mg/dL 70-105 (test fhif=626) CALCIUM (BEAKER) (test 8.0 mg/dL 8.4-10.2 pdbf=578) EGFR (BEAKER) (test 153 mL/min/1.73 sq m ESTIMATED GFR IS NOT uube=4684) ACCURATE CREATININE CLEARANCE IN PREDICTING GLOMERULAR FILTRATION RATE. ESTIMATED GFR IS NOT APPLICABLE FOR DIALYSIS PATIENTS. [id number] 23:41:00 Test Item Value Reference Range Comments PARTIAL THROMBOPLASTIN TIME (BEAKER) (test 45.1 seconds 22.5-36.0 sitw=461) PROTHROMBIN TIME/[id number] 23:40:00 Test Item Value Reference Range Comments PROTIME (BEAKER) (test zkkg=668) 14.7 seconds 11.7-14.7 INR (BEAKER) (test rjlp=530) 1.2 <=5.9 RECOMMENDED COUMADIN/WARFARIN INR THERAPY RANGESSTANDARD DOSE: 2.0 - 3.0 Includes: PROPHYLAXIS forvenous thrombosis, systemic embolization; TREATMENT for venous thrombosis and/or pulmonary embolus.HIGH RISK: Target INR is 2.5-3.5 for patients with mechanical heart valves.POCT-GLUCOSE [id number] 23:24:00 Test Item Value Reference Range Comments POC-GLUCOSE METER (BEAKER) 153 mg/dL 70-110 TESTED AT [address] (test ljtj=2560) [place] [address] POCT-GLUCOSE [id number] 18:20:00 Test Item Value Reference Range Comments POC-GLUCOSE METER (BEAKER) 141 mg/dL 70-110 TESTED AT [address] (test dktr=2378) [place] [address]
[2017-09-07 20:52] LABS: Bicarbonate 28 mEq/L (21-31); Glucose Level 117 mg/dL (65-120); Potassium 4.2 mEq/L (3.6-5.0); Sodium Level 136 mEq/L (135-145)
[2017-09-07 20:53] LABS: BUN Blood Urea Nitrogen 20 mg/dL (6-20); Magnesium 1.9 mg/dL (1.8-2.5)
[2017-09-07 20:59] LABS: Absolute Monocytes 0.6 K/uL (0.1-1.3); Absolute Neutrophil 2.8 K/uL (1.8-8.0); Basophils % 0.2 % (0-1.3); Eosinophils % 2.6 % (0-4.4); Hematocrit 33.3 % (39.6-49.0); MCH 29.6 pg (27.0-35.0); MPV 7.2 fL (7.6-11.3); Monocytes % 8.7 % (3.3-12.3); RBC Red Blood Cell Count 3.97 M/uL (4.33-5.43)
[2017-09-07 21:13] LABS: T3 Free 4.25 pg/ml (2.84-4.24)
[2017-09-07 21:31] LABS: Thyroid Stimulating Hormone 1.56 uIU/mL (0.34-5.60)
--- NOTE | 2017-09-07 21:50 | EDPHYS ---
Physician Documentation [facility] Name: Ric Dukes Age: 52 yrs Sex: Male : 1965 Arrival Date: 09/07/2017 Time: 17:38 Bed 23 Private MD: None, None ED Physician Magdiel Bradshaw HPI: 09/07 19:00 This 52 yrs old Male presents to ER via Ambulatory with complaints of Fast cp Heart Rate. 19:00 rapid heart rate while at physical therapy today. cp 19:00 Onset: The symptoms/episode began/occurred today. Severity of symptoms: in the cp emergency department the symptoms have resolved. Historical: - Allergies: 17:45 Codeine (Hives); aj - PMHx: 17:45 Diabetes - NIDDM; Hypertension; aj 17:47 Hepatitis; HIV; Guillain [place]'; aj - PSHx: 17:45 None; aj - Immunization history:: Adult Immunizations up to date. - Social history:: Smoking status: Patient/guardian denies using tobacco. - Ebola Screening: : Patient denies travel to an Ebola-affected area in the 21 days before illness onset No symptoms or risks identified at this time. ROS: 19:05 Constitutional: Negative for body aches, chills, fever, poor PO intake. cp 19:05 Eyes: Negative for injury, pain, redness, and discharge. cp 19:05 ENT: Negative for drainage from ear(s), ear pain, sore throat, difficulty swallowing, difficulty handling secretions. 19:05 Cardiovascular: Negative for chest pain, edema, palpitations. 19:05 Respiratory: Negative for cough, shortness of breath, wheezing. 19:05 Abdomen/GI: Negative for abdominal pain, nausea, vomiting, and diarrhea, constipation, black/tarry stool, rectal bleeding. 19:05 Back: Negative for pain at rest, pain with movement. 19:05 : Negative for urinary symptoms. 19:05 Skin: Negative for cellulitis, rash. 19:05 Neuro: Negative for altered mental status, dizziness, headache, weakness. 19:05 All other systems are negative. Exam: 19:12 Constitutional: The patient appears in no acute distress, alert, awake, cp non-diaphoretic, non-toxic, well developed, well nourished. 19:12 Head/Face: Normocephalic, atraumatic. cp 19:12 Eyes: Periorbital structures: appear normal, Conjunctiva: normal, no exudate, no injection, Lids and lashes: appear normal, bilaterally. 19:12 ENT: External ear(s): are unremarkable, Ear canal(s): are normal, clear, TM's: bulging, is not appreciated, bilaterally, erythema, is not appreciated, bilaterally, Nose: is normal, Mouth: Lips: moist, Oral mucosa: pink and intact, moist, Posterior pharynx: is normal, airway is patent, no erythema, no exudate, Voice: is normal. 19:12 Neck: External neck: is normal, ROM/movement: is normal, is supple, without pain, no range of motions limitations, no meningismus, no nuchal rigidity. 19:12 Chest/axilla: Inspection: normal, Palpation: is normal, no crepitus, no tenderness. 19:12 Cardiovascular: Rate: normal, Rhythm: regular, Pulses: Pulses are 2+ in right radial artery and left radial artery. Heart sounds: murmur, not appreciated, rub, not appreciated, gallop, not appreciated, Edema: is not appreciated, JVD: is not appreciated. 19:12 Respiratory: the patient does not display signs of respiratory distress, Respirations: normal, no use of accessory muscles, no retractions, no splinting, no tachypnea, Breath sounds: are clear throughout, no decreased breath sounds, no stridor, no wheezing. 19:12 Abdomen/GI: Inspection: abdomen appears normal, Bowel sounds: active, all quadrants, Palpation: abdomen is soft and non-tender, in all quadrants. 19:12 Skin: cellulitis, is not appreciated, no rash present. 19:12 Neuro: Orientation: to person, place \T\ time. Mentation: lucid, able to follow commands, Cerebellar function: no acute changes, Motor: moves all fours, negative for focal weakness, Sensation: no obvious gross deficits. 19:25 ECG was reviewed by the Attending Physician. cp Vital Signs: 17:45 BP 115 / 85; Pulse 86; Resp 17; Temp 97.2; Pulse Ox 100% on R/A; Weight 60.78 kg; aj Height 5 ft. 3 in. (160.02 cm); 20:05 BP 133 / 87 Supine; Pulse 81; Resp 16; Pulse Ox 100% on R/A; dh3 20:07 BP 125 / 85 Sitting; Pulse 84; Resp 16; Pulse Ox 100% on R/A; dh3 20:09 BP 119 / 82 Standing; Pulse 85; Resp 15; Pulse Ox 100% on R/A; dh3 20:59 BP 142 / 85; Pulse 78; Resp 18; Pulse Ox 100% on R/A; mb3 21:35 BP 148 / 88; Pulse 77; Resp 18; Pulse Ox 100% on R/A; mb3 17:45 Body Mass Index 23.74 (60.78 kg, 160.02 cm) aj MDM: 18:46 Patient medically screened. cp 20:00 Differential Diagnosis palpitations, electrolyte abnormality, cardiac arrythmia. cp 21:35 Data reviewed: vital signs, nurses notes, lab test result(s), EKG, and as a result, I cp will discharge patient. 21:35 Counseling: I had a detailed discussion with the patient and/or guardian regarding: the cp historical points, exam findings, and any diagnostic results supporting the discharge/admit diagnosis, lab results, to return to the emergency department if symptoms worsen or persist or if there are any questions or concerns that arise at home. Response to treatment: the patient's symptoms have resolved after treatment, the patient is not tachycardic, and as a result, I will discharge patient. 09/07 19:38 Order name: CBC with Diff; Complete Time: 21:32 cp 09/07 21:33 Interpretation: Normal except: RBC 3.97; HGB 11.8; HCT 33.3; RDW 16.5; MPV 7.2; LYM% cp 46.0. 09/07 19:38 Order name: BMP; Complete Time: 21:32 cp 09/07 19:38 Order name: Magnesium; Complete Time: 21:32 cp 09/07 21:17 Interpretation: MG 1.9; Reviewed. 09/07 19:38 Order name: TSH; Complete Time: 21:32 cp 09/07 21:33 Interpretation: Within normal limits: TSH 1.56. cp 09/07 19:38 Order name: T3 Free; Complete Time: 21:32 cp 09/07 21:17 Interpretation: Abnormal: T3F 4.25. cp 09/07 20:51 Order name: Urine Dipstick--Ancillary (enter results) mw2 09/07 18:54 Order name: EKG; Complete Time: 18:54 cp 09/07 18:54 Order name: EKG - Nurse/Tech; Complete Time: 19:45 cp 09/07 19:38 Order name: Urine Dipstick-Ancillary (obtain specimen); Complete Time: 20:34 cp 09/07 19:38 Order name: Orthostatics; Complete Time: 20:13 cp EC:25 Rate is 81 beats/min. Rhythm is regular. MO interval is normal. QRS interval is normal. cp QT interval is normal. No ST changes noted. Interpreted by me. Reviewed by me. Administered Medications: No medications were administered Disposition: 09/08 10:46 Co-signature as Attending Physician, Magdiel Bradshaw MD I agree with the assessment and kdr plan of care. Disposition: 09/07/17 21:49 Discharged to Home. Impression: Encounter for screening, unspecified. - Condition is Stable. - Medication Reconciliation Form, Thank You Letter, Antibiotic Education, Prescription Opioid Use form. - Follow up: Private Physician; When: 1 - 2 days; Reason: Recheck today's complaints. - Problem is new. - Symptoms are unchanged. Signatures: Dispatcher [employer] EDMS Christina Villalobos RN RN aj Magdiel Bradshaw MD MD [facility] Rafat Pagan PA PA cp Ky Samaniego, RN RN mb3 Corrections: (The following items were deleted from the chart) 09/07 21:57 21:49 09/07/2017 21:49 Discharged to Home. Impression: Encounter for screening, mb3 unspecified. Condition is Stable. Forms are Medication Reconciliation Form, Thank You Letter, Antibiotic Education, Prescription Opioid Use. Follow up: Private Physician; When: 1 - 2 days; Reason: Recheck today's complaints. Problem is new. Symptoms are unchanged. cp
--- NOTE | 2017-09-07 21:50 | ER ---
Nurse's Notes [facility] Name: Ric Dukes Age: 52 yrs Sex: Male : 1965 Arrival Date: 09/07/2017 Time: 17:38 Bed 23 Private MD: None, None Diagnosis: Encounter for screening, unspecified Presentation: 09/07 17:43 Presenting complaint: Patient states: Sent by home health for evaluation of rapid heart aj rate. Patient reports PT told him to come to ER, but completed his physical therapy session first. Transition of care: patient was not received from another setting of care. Onset of symptoms was September 07, 2017. Care prior to arrival: None. 17:43 Method Of Arrival: Ambulatory aj 17:43 Acuity: COREY 3 aj 21:56 Risk Assessment: Do you want to hurt yourself or someone else? Patient reports no mb3 desire to harm self or others. Initial Sepsis Screen: Does the patient meet any 2 criteria? No. Patient's initial sepsis screen is negative. Does the patient have a suspected source of infection? No. Patient's initial sepsis screen is negative. Triage Assessment: 17:45 General: Appears in no apparent distress. comfortable, Behavior is calm, cooperative, aj appropriate for age. Pain: Denies pain. Neuro: Level of Consciousness is awake, alert, obeys commands, Oriented to person, place, time, situation, Appropriate for age. Cardiovascular: Denies chest pain. Respiratory: Airway is patent Respiratory effort is even, unlabored, Respiratory pattern is regular, symmetrical. Derm: Skin is intact, is healthy with good turgor, Skin is pink, warm \T\ dry. normal. Historical: - Allergies: 17:45 Codeine (Hives); aj - PMHx: 17:45 Diabetes - NIDDM; Hypertension; aj 17:47 Hepatitis; HIV; Guillain [place]'; aj - PSHx: 17:45 None; aj - Immunization history:: Adult Immunizations up to date. - Social history:: Smoking status: Patient/guardian denies using tobacco. - Ebola Screening: : Patient denies travel to an Ebola-affected area in the 21 days before illness onset No symptoms or risks identified at this time. Screenin:57 Abuse screen: Denies threats or abuse. Nutritional screening: No deficits noted. mb3 Tuberculosis screening: No symptoms or risk factors identified. Fall Risk No fall in past 12 months (0 pts). Secondary diagnosis (15 points) No IV (0 pts). Ambulatory Aid- Crutches/Cane/Walker (15 pts). Gait- Impaired (20 pts.). Mental Status- Oriented to own ability (0 pts). Total Tirado Fall Scale indicates High Risk Score (45 or more points). Assessment: 18:51 General: Appears in no apparent distress. well groomed, Behavior is calm, cooperative, mb3 appropriate for age. Pain: Denies pain. 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 . Cardiovascular: No deficits noted. Heart tones S1 S2 present Capillary refill < 3 seconds. Respiratory: No deficits noted. Airway is patent Respiratory effort is even, unlabored, Respiratory pattern is regular, symmetrical, Breath sounds are clear bilaterally. GI: No deficits noted. No signs and/or symptoms were reported involving the gastrointestinal system. Abdomen is flat, Bowel sounds present X 4 quads. Abd is soft and non tender. : No signs and/or symptoms were reported regarding the genitourinary system. 21:04 Reassessment: Patient appears in no apparent distress at this time. No changes from mb3 previously documented assessment. Patient and/or family updated on plan of care and expected duration. Pain level reassessed. Patient is alert, oriented x 3, equal unlabored respirations, skin warm/dry/pink. Patient denies pain at this time. Vital Signs: 17:45 BP 115 / 85; Pulse 86; Resp 17; Temp 97.2; Pulse Ox 100% on R/A; Weight 60.78 kg; aj Height 5 ft. 3 in. (160.02 cm); 20:05 BP 133 / 87 Supine; Pulse 81; Resp 16; Pulse Ox 100% on R/A; dh3 20:07 BP 125 / 85 Sitting; Pulse 84; Resp 16; Pulse Ox 100% on R/A; dh3 20:09 BP 119 / 82 Standing; Pulse 85; Resp 15; Pulse Ox 100% on R/A; dh3 20:59 BP 142 / 85; Pulse 78; Resp 18; Pulse Ox 100% on R/A; mb3 21:35 BP 148 / 88; Pulse 77; Resp 18; Pulse Ox 100% on R/A; mb3 17:45 Body Mass Index 23.74 (60.78 kg, 160.02 cm) ED Course: 17:38 Patient arrived in ED. mr 17:38 Esteban Bergman MD is Private Physician. mr 17:38 None, None is Private Physician. mr 17:44 Triage completed. 17:45 Arm band placed on left wrist. Patient placed in waiting room, Patient notified of wait aj time. 18:42 Ky Samaniego, XIOMARA is Primary Nurse. mb3 18:45 Rafat Pagan PA is PHCP. cp 18:45 Magdiel Bradshaw MD is Attending Physician. cp 19:58 Initial lab(s) drawn, by me, sent to lab. Inserted saline lock: 22 gauge in right dh3 antecubital area, using aseptic technique. Blood collected. 20:32 Removal of peripheral IV. Catheter intact, dressing applied. 3 20:33 Lab(s) recollected, by me, sent to lab. Inserted saline lock: 20 gauge in left dh3 antecubital area, using aseptic technique. Blood collected. 20:34 Urine collected: clean catch specimen, clear. 3 21:55 No provider procedures requiring assistance completed. IV discontinued, intact, mb3 bleeding controlled, No redness/swelling at site. Pressure dressing applied. 21:56 Patient has correct armband on for positive identification. laboratory monitor on. Pulse mb3 ox on. NIBP on. Administered Medications: No medications were administered Outcome: 21:49 Discharge ordered by MD. cp 21:56 Discharged to home ambulatory, with family. mb3 21:56 Condition: stable 21:56 Discharge instructions given to patient, Instructed on discharge instructions, follow up and referral plans. Demonstrated understanding of instructions, follow-up care. 21:57 Patient left the ED. mb3 Signatures: Christina Villalobos, RN Gabi Luna mr Rafat Pagan PA PA Beckie Rivera formerly [facility] Ky Samaniego, RN RN mb3
[2017-09-07 22:35] LABS: Urine Blood TRACE (NEG); Urine Glucose NEGATIVE (NEG); Urine Protein 3+ (NEG); Urine Specific Gravity 1.025 (1.005-1.030); Urine pH 5.5 (5.0-7.0)
--- NOTE | 2017-09-08 06:56 | EKG ---
Test Date: 2017-09-07 Test Time: 19:19:57 Electrical Maintenance Supervisor: TANI MEASUREMENT RESULTS: Intervals: Rate: 81 RI: 168 QRSD: 74 QT: 378 QTc: 439 [place]: P: 61 RI: 168 QRS: -9 T: 46 INTERPRETIVE STATEMENTS: Normal sinus rhythm Normal ECG Compared to ECG 06/17/2017 20:07:08 Left ventricular hypertrophy no longer present T-wave abnormality no longer present Electronically Signed On 09-08-17 06:55:08 CDT by Azeem Strauss
== END 2017-09-07 21:57 | disposition home or self-care (01) ==
LOC: ER 17:35
DX: Z13.9 Encounter for screening, unspecified (principal); I10 Essential (primary) hypertension; Z21 Asymptomatic human immunodeficiency virus [HIV] infection status; Z88.5 Allergy status to narcotic agent
CPT/HCPCS: 36415; 80048; 81003; 83735; 84443; 84481; 85025; 93005; 99284